=== PATIENT | male | born 1975 | race Caucasian/White ===

== ENCOUNTER 2016-06-11 22:31 | Emergency (ER) | payer OTHER ==
[2016-06-11 22:43] VITALS: BP 127/90; PULSE 82; BMI 32.0
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
== END 2016-06-11 23:29 | disposition home or self-care (01) ==
LOC: FER 22:31
DX: S06.0X1A Concussion with loss of consciousness of 30 minutes or less, initial encounter (principal); F17.210 Nicotine dependence, cigarettes, uncomplicated; Z95.5 Presence of coronary angioplasty implant and graft; I10 Essential (primary) hypertension; E78.00 Pure hypercholesterolemia, unspecified; E11.9 Type 2 diabetes mellitus without complications; W00.0XXA Fall on same level due to ice and snow, initial encounter; Y93.89 Activity, other specified; Y92.9 Unspecified place or not applicable
CPT/HCPCS: 70450-TC; 99281-25

== ENCOUNTER 2017-03-29 20:35 | Emergency (ER) | payer OTHER ==
[2017-03-29 20:40] VITALS: BP 146/82; PULSE 96; TEMP 98.2; BMI 31.4
--- NOTE | 2017-03-29 21:21 | PDOC ---
History of Present Illness - General History Source: Patient, Spouse Exam Limitations: No Limitations - History of Present Illness Initial Comments: 03/29/17 21:26 42 year old male with past medical history of IDDM and lumbar laminectomy, who presents to the emergency room complaining of right sided rib pain, right lower back pain, and 2 episodes of hemoptysis s/p mechanical fall down a flight of stairs on Sunday, 4 days ago.The patient explains that he was walking down a flight of stairs in his sons apartment building with a shivam tree in his hands. At the bottom of the steps, there was about an inch of water that he slipped on. Both feet went into the air and he landed directly onto the right side of his ribs and right lower back. Since the incident, the pain has progressively worsened and become constant. He describes the pain as stabbing from the right buttock to the right ribs. The pain is exacerbated when sneezing , coughing, and taking a deep breath. The patient reports two episodes of hemoptysis that both occurred when picking up his 14 month old baby. The patient notes that his right ankle is bruised because it was caught under him when he fell, but he is ambulatory and does not believe that he broke the ankle.He denies neck pain or head trauma. Denies chest pain, SOB. Denies fever , chills, nausea, vomiting, hematemesis. Denies any other injuries. <Omaira Villalobos - Last Filed: 03/29/17 21:31> <Yolande Lazo - Last Filed: 03/30/17 05:24> - General Chief Complaint: Injury Stated Complaint: RIB PAIN Time Seen by Provider: 03/29/17 20:36 Past History <Omaira Villalobos - Last Filed: 03/29/17 21:31> - Past Medical History Anemia: No Asthma: No Cancer: No Cardiac Disorders: Yes (STENT) CVA: No COPD: No CHF: No Dementia: No Diabetes: Yes GI Disorders: No Disorders: No HTN: Yes Hypercholesterolemia: Yes Kidney Stones: No Liver Disease: No Seizures: No Thyroid Disease: No - Surgical History Abdominal Surgery: No Appendectomy: No Cardiac Surgery: Yes (STENT 2008) Cholecystectomy: No Lung Surgery: No Neurologic Surgery: No Orthopedic Surgery: Yes (laminectomy 2009) - Reproductive History Testicular Surgery: No - Immunization History Td Vaccination: (UNKNOWN) Immunization Up to Date: Yes - Suicide/Smoking/Psychosocial Hx Smoking Status: Yes Smoking History: Never smoked Have you smoked in the past 12 months: Yes Number of Cigarettes Smoked Daily: 20 'Breaking Loose' booklet given: 07/12/15 Hx Alcohol Use: No Drug/Substance Use Hx: Yes Substance Use Type: Opiates, Prescribed, Tranquilizers Hx Substance Use Treatment: No <Yolande Lazo - Last Filed: 03/30/17 05:24> - Past Medical History Allergies/Adverse Reactions: Allergies Allergy/AdvReac Type Severity Reaction Status Date / Time No Known Allergies Allergy Verified 07/12/15 19:41 Home Medications: Ambulatory Orders Aspirin 81 mg PO DAILY 06/10/13 Atorvastatin Ca [Lipitor] 20 mg PO HS 06/10/13 Clopidogrel Bisulfate [Plavix -] 75 mg PO DAILY 06/10/13 Metoprolol Succinate [Toprol XL -] 25 mg PO DAILY 02/10/14 Insulin Glargine,Hum.rec.anlog [Lantus Solostar PEN (NF)] 15 units SQ AM #1 pen 06/11/15 Insulin Sliding Scale [Novolog Vial Sliding Scale -] 1 units SQ ACHS #1 pen 07/23 Alprazolam [Xanax] 0.25 mg PO HS PRN #16 tablet MDD 2mg 06/12/16 Trauma Specific PMHX - Complaint Specific PMHX Arthritis: No <Yolande Lazo - Last Filed: 03/30/17 05:24> Review of Systems - Review of Systems Able to Perform ROS?: Yes Comments:: 03/29/17 21:28 GENERAL/CONSTITUTIONAL: No fever or chills. No weakness. HEAD, EYES, EARS, NOSE AND THROAT: No change in vision. No ear pain or discharge. No sore throat. CARDIOVASCULAR: No chest pain or shortness of breath. RESPIRATORY: No cough, wheezing, or hemoptysis. GASTROINTESTINAL: No nausea, vomiting, diarrhea or constipation. GENITOURINARY: No dysuria, frequency, or change in urination. MUSCULOSKELETAL: +right sided rib pain, right lower back pain, right ankle bruising. SKIN: No rash NEUROLOGIC: No headache, vertigo, loss of consciousness, or change in strength/ sensation. ENDOCRINE: No increased thirst. No abnormal weight change. HEMATOLOGIC/LYMPHATIC: No anemia, easy bleeding, or history of blood clots. ALLERGIC/IMMUNOLOGIC: No hives or skin allergy. <TrungfletcherOmaira - Last Filed: 03/29/17 21:31> *Physical Exam - Vital Signs Last Vital Signs Temp Pulse Resp BP Pulse Ox 98.2 F 96 H 16 146/82 97 03/29/17 20:38 03/29/17 20:38 03/29/17 20:38 03/29/17 20:38 03/29/17 20:38 - Physical Exam Comments: 03/29/17 21:31 GENERAL: Awake, alert, and fully oriented, in no acute distress HEAD: No signs of trauma EYES: PERRLA, EOMI, sclera anicteric, conjunctiva clear ENT: Auricles normal inspection, hearing grossly normal, nares patent, oropharynx clear without exudates. Moist mucosa NECK: Normal ROM, supple, no lymphadenopathy, JVD, or masses LUNGS: Breath sounds equal, clear to auscultation bilaterally. No wheezes, and no crackles HEART: Regular rate and rhythm, normal S1 and S2, no murmurs, rubs or gallops ABDOMEN: Soft, nontender, normoactive bowel sounds. No guarding, no rebound. No masses BACK: +tenderness to palpation of ribs 5 - 8 from the posterior axillary line extending forward to the anterior axillary line. No ecchymosis, step offs, or crepitus palpated. There is mild tenderness to palpation of the right flank without palpable masses. No midline vertebral column tenderness, edema, or ecchymosis. There is a well-healed midline lumbar incision. EXTREMITIES: Normal range of motion, no edema. No clubbing or cyanosis. No cords, erythema, or tenderness NEUROLOGICAL: Cranial nerves II through XII grossly intact. Normal speech, normal gait SKIN: Warm, Dry, normal turgor, no rashes or lesions noted. <TrungfletcherOmaira - Last Filed: 03/29/17 21:31> - Vital Signs Last Vital Signs Temp Pulse Resp BP Pulse Ox 98.2 F 96 H 16 146/82 97 03/29/17 20:38 03/29/17 20:38 03/29/17 20:38 03/29/17 20:38 03/29/17 20:38 <Yolande Lazo - Last Filed: 03/30/17 05:24> Progress Note - Progress Note Progress Note: Documentation has been prepared under my direction and personally reviewed by me in its entirety. I attest that this documented accurately reflects all work, treatment, procedures and medical decision making performed by me. As noted above, this 42-year-old man presents with right lateral lower chest pain and right flank pain after injury 3 days prior to presentation. Of note, patient describes rare (a few times total) episodes of hemoptysis. Patient is a smoker without underlying asthma or other chronic lung issues. No fever/ chills, purulent sputum, wheezing or difficulty breathing not related to pain. Exam as noted Right rib series/lumbosacral spine series show no evidence of fracture or pulmonary pathology on chest x-ray. Spine x-rays show significant DJD and other chronic changes but no acute fracture/dislocation or other evidence of acute injury. Patient had received Toradol 60 mg IM prior to x-ray. Patient states that this did not give him any relief. Patient received morphine sulfate 2 mg IM. He had significant relief after this medication was given. Results discussed with the patient and his . Although it will be some time before the rib contusions are healed, the time course is shortened as compared to rib fractures. He should avoid strenuous activity/exercises involving upper body for the next few weeks. He should attempt to deep breathe and avoid smoking as much as possible. Patient has had a long history of using opiates because of chronic lower back pain. He states that he does not want to resume use of opiates, especially any containing acetaminophen which was very irritating to his gastrointestinal tract. He has been using naproxen (OTC) with some relief. He should follow-up with his general doctor within the next few weeks. He should return to the ER if he has severe, unrelenting pain or experiences shortness of breath/fever/severe cough <Yolande Lazo - Last Filed: 03/30/17 05:24> *DC/Admit/Observation/Transfer - Attestations Scribe Attestion: 03/29/17 21:32 Documentation prepared by GORDO Tate, acting as senior medical billing specialist for Yolande Lazo MD. <Omaira Villalobos - Last Filed: 03/29/17 21:31> <Yolande Lazo - Last Filed: 03/30/17 05:24> Diagnosis at time of Disposition: Contusion of ribs Qualifiers: Encounter type: initial encounter Laterality: right Qualified Code(s): S20.211A - Contusion of right front wall of thorax, initial encounter - Discharge Dispostion Disposition: HOME Condition at time of disposition: Stable - Patient Instructions Printed Discharge Instructions: DI for Rib Contusion Additional Instructions: Continue naproxen as needed for pain Avoid strenuous activity involving upper body as much as possible for the next few weeks Avoid smoking Return or see your doctor if you have shortness of breath/fever/persistent cough
[2017-03-29] MEDS ORDERED: KETOROLAC TROMETHAMINE 60 MG/2 ML VIAL IM ONE (21:26)
[2017-03-29] MEDS ORDERED: KETOROLAC TROMETHAMINE 60 MG/2 ML VIAL ONE (21:29)
[2017-03-29 21:33] LABS: PH,URINE 5.5 (4.5-8); URINE APPEARANCE Clear; URINE BILIRUBIN Negative (NEGATIVE); URINE BLOOD Negative (NEGATIVE); URINE GLUCOSE (UA) 2+ (NEGATIVE); URINE KETONE Negative (NEGATIVE); URINE LEUK ESTERASE Negative (NEGATIVE); URINE NITRITE Negative (NEGATIVE); URINE PROTEIN Negative (NEGATIVE); URINE UROBILINOGEN 0.2 (0.2-1.0)
[2017-03-29 21:36] LABS: URINE COLOR YELLOW
[2017-03-29] MEDS ORDERED: morphine CARPU-JECT 2 MG/1 ML DISP.SYRIN IM ONE (22:16)
[2017-03-29] MEDS ORDERED: morphine CARPU-JECT 2 MG/1 ML DISP.SYRIN ONE (22:18)
== END 2017-03-29 22:27 | disposition home or self-care (01) ==
LOC: FER 20:35
PROC: 3E0233Z Introduction of Anti-inflammatory into Muscle, Percutaneous Approach (ICD-10-PCS; principal; 2017-03-29)
PROC: 3E023NZ Introduction of Analgesics, Hypnotics, Sedatives into Muscle, Percutaneous Approach (ICD-10-PCS; 2017-03-29)
DX: S20.211A Contusion of right front wall of thorax, initial encounter (principal); Z95.5 Presence of coronary angioplasty implant and graft; I10 Essential (primary) hypertension; Z87.891 Personal history of nicotine dependence
CPT/HCPCS: 71101-TC-RT; 72100-TC; 81003; 99281-25

== ENCOUNTER 2019-02-01 11:19 | Inpatient (IN) | payer OTHER ==
[2019-02-01] MEDS ORDERED: FAMOTIDINE 20 MG/50 ML IVPB 20 MG/50 ML MG IVPB ONE ×2 (11:35→12:01)
[2019-02-01] MEDS ORDERED: SODIUM CHLORIDE 0.9% 500 ML INFUS.BAG IV ONE ×2 (11:36→15:19)
[2019-02-01] MEDS ORDERED: KETOROLAC TROMETHAMINE 15 MG/ML VIAL IVPUSH ONE (11:46)
[2019-02-01] MEDS ORDERED: ACETAMINOPHEN 1000 MG/100 ML VIAL (NON FORMULARY) IVPB ONE (11:46)
[2019-02-01] MEDS ORDERED: ONDANSETRON 4 MG/2 ML VIAL IVPUSH ONE (11:47)
[2019-02-01] MEDS ORDERED: KETOROLAC TROMETHAMINE 15 MG/ML VIAL ONE (12:00)
[2019-02-01] MEDS ORDERED: ACETAMINOPHEN INJECTION 100 ML IVPB ONE (12:00)
[2019-02-01] MEDS ORDERED: ONDANSETRON 4 MG/2 ML VIAL ONE (12:01)
[2019-02-01] MEDS ORDERED: KETAMINE HCL 200 MG/20 ML VIAL IVPUSH ONE ×2 (12:10→13:59)
--- NOTE | 2019-02-01 12:18 | PDOC ---
Documentation entered by Rolando Bentley SCRIBE, acting as scribe for Armida Best MD. Armida Best MD: This documentation has been prepared by the Sheree gonzalez Xhesika, SCRIBE, under my direction and personally reviewed by me in its entirety. I confirm that the documentation accurately reflects all work, treatment, procedures, and medical decision making performed by me. History of Present Illness - General Chief Complaint: Pain, Acute Stated Complaint: VOMITTING/STOMACH PAIN Time Seen by Provider: 02/01/19 11:33 History Source: Patient Exam Limitations: No Limitations - History of Present Illness Initial Comments: 02/01/19 11:51 43 year old male with h/o MT s/p stent on DAPT and lumbar disc disease s/p 2 operations, DM, HLD, prior opioid abuse on suboxone who presents to the emergency department with RUQ/flank and abdominal pain since 8:30AM. Patient describes the pain as a "stabbing sensation," shooting to his back, associated with 3 episodes of clear white phlegm with streaks of blood, nausea, headache, and dizziness. Patient notes he was fine last night, however, his pain woke him up from his sleep this morning. Patient notes he has been going to the gym for the past 2 weeks, has been drinking whey protein and staying hydrated appropriately. Patient notes he took aspirin this morning, suboxone last night. Patient denies any hx of gallstones, kidney stones, or urinary symptoms in personl or family history. Denies fever, chills, chest pain, SOB, palpitation, weakness, N, D, bladder and bowel problems, leg swelling, No sick contacts or travel. No new changes in medications. Allergies: None Past Medical History: MT s/p stent on DAPT and lumbar disc disease s/p 2 operations, DM, HLD Social history: Everyday smoker. No ETOH or drug use. Surgical history: STENT, back surgery Meds: as documented in EMR PMD: Dr Mayorga [facility] 02/01/19 12:15 02/01/19 14:53 Past History - Past Medical History Allergies/Adverse Reactions: Allergies Allergy/AdvReac Type Severity Reaction Status Date / Time No Known Allergies Allergy Verified 02/01/19 16:35 Home Medications: Ambulatory Orders Atorvastatin Ca [Lipitor] 20 mg PO HS 06/10/13 Clopidogrel Bisulfate [Plavix -] 75 mg PO DAILY 06/10/13 Metoprolol Succinate [Toprol XL -] 25 mg PO DAILY 02/10/14 Insulin Sliding Scale [Novolog Vial Sliding Scale -] 1 units SQ ACHS #1 pen 07/23 Buprenorphine HCl/Naloxone HCl [Suboxone 8 mg-2 mg Sl Tablets] 1 each SL TID PRN 09/03/18 Insulin Detemir [Levemir Flextouch] 20 unit SQ DAILY 09/03/18 Bupropion HCl [Wellbutrin Xl] 300 mg PO DAILY 02/01/19 Anemia: No Asthma: No Cancer: No Cardiac Disorders: Yes (STENT) CVA: No COPD: No CHF: No Dementia: No Diabetes: Yes GI Disorders: No Disorders: No HTN: Yes Hypercholesterolemia: Yes Kidney Stones: No Liver Disease: No Seizures: No Thyroid Disease: No - Surgical History Abdominal Surgery: No Appendectomy: No Cardiac Surgery: Yes (STENT 2008) Cholecystectomy: No Lung Surgery: No Neurologic Surgery: No Orthopedic Surgery: Yes (laminectomy 2008) - Reproductive History Testicular Surgery: No - Immunization History Td Vaccination: (UNKNOWN) Immunization Up to Date: Yes - Psycho Social/Smoking Cessation Hx Smoking Status: Yes Smoking History: Unknown if ever smoked Have you smoked in the past 12 months: Yes Number of Cigarettes Smoked Daily: 20 'Breaking Loose' booklet given: 07/12/15 Hx Alcohol Use: No Drug/Substance Use Hx: Yes Substance Use Type: Opiates, Prescribed, Tranquilizers Hx Substance Use Treatment: No Abd/GI Specific PMHX - Complaint Specific PMHX Hepatitis: No Pancreatitis: No Review of Systems - Review of Systems Comments:: 02/01/19 11:52 Constitutional: no fevers or chills. No weakness HEENT: +headache. + dizziness. No congestion. No visual/hearing disturbances. CVS: no cp or syncope. Resp: no sob. No cough. Gastrointestinal: + abdominal pain. +flank pain. +vomiting. +nausea, no constipation, or diarrhea. Genitourinary: no urinary sx, hematuria. MUSCULOSKELETAL: No joint pain and swelling. No neck pain. SKIN: no redness or skin changes, no discharge, no rash. No wounds. Hematologic: no easy bruising/bleeding. NEUROLOGIC: +headache, dizziness, No LOC or altered mental status. No weakness, numbness or tingling. Psych: +anxiety or depression Allergic/Immunologic: no allergies All other systems reviewed and negative, or as documented in HPI. 02/01/19 12:17 *Physical Exam - Vital Signs Last Vital Signs Temp Pulse Resp BP Pulse Ox 98.1 F 91 H 22 H 120/90 99 02/01/19 11:29 02/01/19 11:29 02/01/19 11:29 02/01/19 11:29 02/01/19 11:29 - Physical Exam Comments: 02/01/19 11:54 General: Well appearing, awake and alert, mild distress 2/2 pain, colicky HEENT: NCAT, PERRL, EOMI, clear conjunctiva, anicteric, moist mucus membranes, clear oropharynx, no oral lesions.. Neck: neck supple, FROM Resp: CTAB, normal and even respirations, no respiratory distress CVS: RRR, no murmurs, 2+ peripheral pulses throughout, no peripheral edema Abdomen: +R flank tenderness. + RUQ tenderness. soft, ND, no rebound or guarding. +anderson's sign. Back: + R CVA tenderness. MSK: no edema, GIVENS x4, ROM intact. No clubbing or cyanosis. normal bulk and tone. Extremities: no calf tenderness Neuro: alert, oriented appropriately; no focal neurologic deficits Psych: Calm and cooperative Skin: warm and well perfused, cap refill <2 sec, normal color 02/01/19 12:17 02/01/19 15:31 Procedures - Bedside Ultrasound Bedside Ultrasound: Gallbladder Remarks: 02/01/19 13:13 \\ POCUS renal exam performed, indication includes abdominal/flank pain. views obtained: bilateral kidneys in short and long axis, bladder. findings: no evidence of hydronephrosis. no free fluid posterior to bladder, distended. Impression: no hydronephrosis POCUS biliary exam: Indication: abdominal pain Views: gallbladder long and s hort axis, CBD Findings: +stone seen in lower part of GB. No GB wall thickening (measured <3mm) , no pericholecystic fluid, cbd not visualized. +sono murphydennis Impression: cholelithiasis, suspicious for cholecystitis official sono to follow Heart Score/ECG Review #1 ECG reviewed & interpreted by me at: 12:15 General ECG Interpretation: Sinus Rhythm, Normal Rate, Normal Intervals, No acute ischemic changes ED Treatment Course - LABORATORY CBC & Chemistry Diagram: 02/01/19 11:50 02/01/19 11:50 - Medications Given in the ED: ED Medications Discontinued Medications Generic Name Dose Route Start Last Admin Trade Name Moi PRN Reason Stop Dose Admin Acetaminophen 1,000 mg 02/01/19 11:46 02/01/19 12:10 Ofirmev Injection - IVPB 02/01/19 11:47 1,000 mg ONCE ONE Administration Famotidine/Sodium Chloride 20 mg in 50 mls @ 100 mls/hr 02/01/19 11:35 12:10 Pepcid 20 Mg Premixed Ivpb - IVPB 02/01/19 12:04 100 mls/hr ONCE ONE Administration Ketorolac Tromethamine 15 mg 02/01/19 11:46 02/01/19 12:14 Toradol Injection - IVPUSH 02/01/19 11:47 15 mg ONCE ONE Administration Ondansetron HCl 4 mg 02/01/19 11:47 02/01/19 12:15 Zofran Injection IVPUSH 02/01/19 11:48 4 mg ONCE ONE Administration Sodium Chloride 1,000 ml 02/01/19 11:36 02/01/19 11:58 Normal Saline - IV 02/01/19 11:37 1,000 ml ONCE ONE Administration Medical Decision Making - Medical Decision Making 02/01/19 13:15 Vital Signs Temp Pulse Resp BP Pulse Ox 98.1 F 91 H 22 H 120/90 99 02/01/19 11:29 02/01/19 11:29 02/01/19 11:29 02/01/19 11:29 02/01/19 11:29 DDx abdominal pain: Renal colic, biliary colic, metabolic/electrolyte derangements. GERD, PUD, esophageal spasm, pancreatitis, hepatitis, constipation , colitis, gastroenteritis, cholecystitis, UTI, pyelonephritis, ileus, SBO, medication side effect, hernia, appendicitis, diverticulitis, mesenteric ischemia. msk strain Laboratory results were reviewed within normal limits, no WBC count. Urinalysis with some glucose, no blood or signs of infection. Bedside point-of- care ultrasound with stone seen in the gallbladder, sonographic Anderson's elicited, otherwise normal gallbladder wall CBD is not visualized, no pericholecystic fluid is noted. Pocus renal exam was within normal limits, no hydronephrosis or less likely to be ureteral colic/obstructed stone. Official gallbladder ultrasound to follow. Patient has been given analgesia including IV ketamine, Tylenol and Toradol with IV fluids for pain management. He is also on Suboxone we will not give any opioids at this time. he is on chronic suboxone and has diminished effect on the mu receptor, so opioids likely will no have effect and should require confirmation and monitoring 02/01/19 14:58 - on reassessement, initial pain improved. now back up to 01/16 given additional analgesia, ketamine and reglan for nausea. official RUQ sono neg for cholecystitis, but my exam +sono murphys, +stone. labs and lytes with mild lipase elevation ~590s LFTs normal. wbc ct normal. surg cs Dr Sparks for recs/management, [facility] admission for medical management sx cholelithiasis. mild gallstone pancreatitis with concurrent clinical sx. will need med optimization, cards eval with MT and cards clearance, call out to Dr Guidry agronomy instructor d/w Dr Ren, CT w/o contrast, r/o renal pathology/stone as alternative etiology (unlikely with no hydro on bedside sono), so order placed. pt and family made aware of impression and plan, amenable to admission with consultants and further management. admitting to [facility], s/o Dr Mikal Irvin. 02/01/19 15:07 02/01/19 15:18 02/01/19 15:31 02/01/19 17:58 02/01/19 17:59 Discharge - Discharge Information Problems reviewed: Yes Clinical Impression/Diagnosis: Cholelithiasis Qualifiers: Cholelithiasis location: other site Biliary obstruction: without biliary obstruction Qualified Code(s): K80.80 - Other cholelithiasis without obstruction Pancreatitis Qualifiers: Chronicity: acute Pancreatitis type: unspecified pancreatitis type Acute pancreatitis complication: unspecified Qualified Code(s): K85.90 - Acute pancreatitis without necrosis or infection, unspecified Condition: Fair - Admission Yes - Follow up/Referral - Patient Discharge Instructions - Post Discharge Activity
[2019-02-01] MEDS ORDERED: KETAMINE HCL 200 MG/20 ML VIAL ONE (12:19)
[2019-02-01 12:27] LABS: PH,URINE 5.5 (5.0-8.0); URINE APPEARANCE CLEAR; URINE BILIRUBIN NEGATIVE (NEGATIVE); URINE COLOR YELLOW; URINE GLUCOSE (UA) 3+ (NEGATIVE); URINE KETONE NEGATIVE (NEGATIVE); URINE LEUK ESTERASE NEGATIVE (NEGATIVE); URINE NITRITE NEGATIVE (NEGATIVE); URINE PROTEIN NEGATIVE (NEGATIVE); URINE UROBILINOGEN 0.2 mg/dL (0.2-1.0)
[2019-02-01 12:29] LABS: BASO % 0.3 % (0-2.0); EOS % 0.6 % (0-4.5); HEMATOCRIT 47.7 % (35.4-49); HEMOGLOBIN 16.3 GM/dL (11.7-16.9); LYMPH % 22.6 % (8-40); MCH 31.4 pg (25.7-33.7); MCHC 34.2 g/dl (32.0-35.9); MEAN CELL VOLUME 91.8 fl (80-96); MEAN PLT VOLUME 8.8 fl (7.5-11.1); NEUT % 68.5 % (42.8-82.8); PLATELET COUNT 132 K/MM3 (134-434); RBC 5.19 M/mm3 (4.00-5.60); RDW 13.8 % (11.9-15.9)
[2019-02-01 12:54] LABS: ALBUMIN 3.7 g/dl (3.4-5.0); ALK PHOS 91 U/L (45-117); ANION GAP 7 MMOL/L (8-16); BILIRUBIN,TOTAL 0.3 mg/dL (0.2-1); BLOOD UREA NITROGEN 23.5 mg/dL (7-18); CALCIUM 9.2 mg/dL (8.5-10.1); CHLORIDE 98 mmol/L (98-107); CO2 31 mmol/L (21-32); CREATININE 0.9 mg/dL (0.55-1.3); GLUCOSE,RANDOM 395 mg/dL (74-106); LIPASE 598 U/L (73-393); POTASSIUM 4.5 mmol/L (3.5-5.1); SGOT/AST 21 U/L (15-37); SGPT/ALT 49 U/L (13-61); SODIUM 136 mmol/L (136-145); TOT PROT 6.8 g/dl (6.4-8.2)
[2019-02-01] MEDS ORDERED: METOCLOPRAMIDE HCL INJECTION 10 MG/2 ML VIAL IVPUSH ONE (14:22)
[2019-02-01] MEDS ORDERED: METOCLOPRAMIDE HCL INJECTION 10 MG/2 ML VIAL ONE (14:38)
[2019-02-01] MEDS ORDERED: KETAMINE HCL 200 MG/20 ML VIAL IVPB ONE (15:13)
[2019-02-01] MEDS ORDERED: ACETAMINOPHEN 325 MG TABLET (FP) PO PRN (15:15)
--- NOTE | 2019-02-01 15:24 | HP ---
CHIEF COMPLAINT: RIGHT SIDES ABDOMINAL PAINS PCP: HISTORY OF PRESENT ILLNESS: 43 year old male with h/o SD s/p stent on DAPT and lumbar disc disease s/p 2 operations, DM, HLD, prior opioid abuse on suboxone who presents to the emergency department with RUQ/flank and abdominal pain since 8:30AM. Patient describes the pain as a "stabbing sensation," shooting to his back, associated with 3 episodes of clear white phlegm with streaks of blood, nausea, headache, and dizziness. Patient notes he was fine last night, however, his pain woke him up from his sleep this morning. Patient notes he has been going to the gym for the past 2 weeks, has been drinking whey protein and staying hydrated appropriately. Patient notes he took aspirin this morning, suboxone last night. Patient denies any hx of gallstones, kidney stones, or urinary symptoms in personal or family history. In ER he has multiple doses of toradol for pains and have some relief. ER course was notable for: (1)GALL STONES ON SONOGRAM (2)NO SIGN OF CHOLEYCYSTITIS (3)DM H/O Recent Travel:NONE PAST MEDICAL HISTORY:SPINE SURGERY S/P CH PAINS MEDS USE AND CURRENTLY ON SUBOXONE ,DM,CAD ON PLAVIX , HIGH LIPIDS PAST SURGICAL HISTORY:SPINE SURGERY Social History: Smoking:NONE Alcohol:NONE Drugs: NONE Allergies No Known Allergies Allergy (Verified 09/03/18 18:31) HOME MEDICATIONS: Home Medications Medication Instructions Recorded Atorvastatin Ca [Lipitor] 20 mg PO HS 06/10/13 Clopidogrel Bisulfate [Plavix -] 75 mg PO DAILY 06/10/13 Metoprolol Succinate [Toprol XL -] 25 mg PO DAILY 02/10/14 Insulin Sliding Scale [Novolog 1 units SQ ACHS #1 pen 06/11/15 Vial Sliding Scale -] Buprenorphine HCl/Naloxone HCl 1 each SL TID PRN 09/03/18 [Suboxone 8 mg-2 mg Sl Tablets] Insulin Detemir [Levemir Flextouch] 20 unit SQ DAILY 09/03/18 Bupropion HCl [Wellbutrin Xl] 300 mg PO DAILY 02/01/19 REVIEW OF SYSTEMS CONSTITUTIONAL: Absent: fever, chills, diaphoresis, generalized weakness, malaise, loss of appetite, weight change HEENT: Absent: rhinorrhea, nasal congestion, throat pain, throat swelling, difficulty swallowing, mouth swelling, ear pain, eye pain, visual changes CARDIOVASCULAR: Absent: chest pain, syncope, palpitations, irregular heart rate, lightheadedness , peripheral edema RESPIRATORY: Absent: cough, shortness of breath, dyspnea with exertion, orthopnea, wheezing, stridor, hemoptysis GASTROINTESTINAL: pRESENT abdominal pain, abdominal distension, nausea,vomiting, NEGATIVE diarrhea, constipation, melena, hematochezia GENITOURINARY: Absent: dysuria, frequency, urgency, hesitancy, hematuria, flank pain, genital pain MUSCULOSKELETAL: Absent: myalgia, arthralgia, joint swelling, back pain, neck pain SKIN: Absent: rash, itching, pallor HEMATOLOGIC/IMMUNOLOGIC: Absent: easy bleeding, easy bruising, lymphadenopathy, frequent infections ENDOCRINE: Absent: unexplained weight gain, unexplained weight loss, heat intolerance, cold intolerance NEUROLOGIC: Absent: headache, focal weakness or paresthesias, dizziness, unsteady gait, seizure, mental status changes, bladder or bowel incontinence PSYCHIATRIC: Absent: anxiety, depression, suicidal or homicidal ideation, hallucinations. PHYSICAL EXAMINATION Vital Signs - 24 hr 02/01/19 11:29 Temperature 98.1 F Pulse Rate 91 H Respiratory 22 H Rate Blood Pressure 120/90 O2 Sat by Pulse 99 Oximetry (%) GENERAL: Awake, alert, and fully oriented, in no acute distress. HEAD: Normal with no signs of trauma. EYES: Pupils equal, round and reactive to light, extraocular movements intact, sclera anicteric, conjunctiva clear. No lid lag. EARS, NOSE, THROAT: Ears normal, nares patent, oropharynx clear without exudates. Moist mucous membranes. NECK: Normal range of motion, supple without lymphadenopathy, JVD, or masses. LUNGS: Breath sounds equal, clear to auscultation bilaterally. No wheezes, and no crackles. No accessory muscle use. HEART: Regular rate and rhythm, normal S1 and S2 without murmur, rub or gallop. ABDOMEN: Soft, nontender, not distended, normoactive bowel sounds, no guarding, no rebound, no masses. No hepatomegaly or splenomegaly. according to er physician he has tenderness on rt upper quadrant before the pain medications. MUSCULOSKELETAL: Normal range of motion at all joints. No bony deformities or tenderness. No CVA tenderness. UPPER EXTREMITIES: 2+ pulses, warm, well-perfused. No cyanosis. No clubbing. No peripheral edema. LOWER EXTREMITIES: 2+ pulses, warm, well-perfused. No calf tenderness. No peripheral edema. NEUROLOGICAL: Cranial nerves II-XII intact. Normal speech. Normal gait. PSYCHIATRIC: Cooperative. Good eye contact. Appropriate mood and affect. SKIN: Warm, dry, normal turgor, no rashes or lesions noted, normal capillary refill. Laboratory Results - last 24 hr 02/01/19 02/01/19 02/01/19 11:50 11:50 11:50 WBC 8.0 RBC 5.19 Hgb 16.3 Hct 47.7 MCV 91.8 MCH 31.4 MCHC 34.2 RDW 13.8 Plt Count 132 L MPV 8.8 Absolute Neuts (auto) 5.5 Neutrophils % 68.5 Lymphocytes % 22.6 Monocytes % 8.0 Eosinophils % 0.6 D Basophils % 0.3 Nucleated RBC % 0 Sodium 136 Potassium 4.5 Chloride 98 Carbon Dioxide 31 Anion Gap 7 L BUN 23.5 H Creatinine 0.9 Est GFR (CKD-EPI)AfAm 122.52 Est GFR (CKD-EPI)NonAf 105.71 Random Glucose 395 H Calcium 9.2 Total Bilirubin 0.3 AST 21 ALT 49 Alkaline Phosphatase 91 Troponin I < 0.02 Total Protein 6.8 Albumin 3.7 Lipase 598 H Beta-Hydroxybutyrate 1.9 Urine Color Yellow Urine Appearance Clear Urine pH 5.5 Ur Specific [place] 1.044 H Urine Protein Negative Urine Glucose (UA) 3+ H Urine Ketones Negative Urine Blood Negative Urine Nitrite Negative Urine Bilirubin Negative Urine Urobilinogen 0.2 Ur Leukocyte Esterase Negative ASSESSMENT/PLAN: 43 year old male with h/o SD s/p stent on DAPT and lumbar disc disease s/p 2 operations, DM, HLD, prior opioid abuse on suboxone who presents to the emergency department with RUQ/flank and abdominal pain since 8:30AM. Patient describes the pain as a "stabbing sensation," shooting to his back, associated with 3 episodes of clear white phlegm with streaks of blood, nausea. - will do ct abd and pelvis r/o renal stones and pancreatitits -will give him diet - repeat lipse in am -tylenol and toradol for pains - add protonox for possible gastric symptoms plus protections for gi against nsaids - surgical consult has be requested dm - will start him on insulin coverage and his regular insulin Cad, will start him on plavix and metoprolol HIgh lipids restart atorvastatin pateint is seen by surgery and he having surgery for lap waqar am will request cardiac consult due to h/o cad and mi in past Visit type - Emergency Visit Emergency Visit: Yes ED Registration Date: 02/01/19 Care time: The patient presented to the Emergency Department on the above date and was hospitalized for further evaluation of their emergent condition. - New Patient This patient is new to me today: Yes Date on this admission: 02/01/19 - Critical Care Critical Care patient: No
--- NOTE | 2019-02-01 15:57 | CONSULT ---
Consult Consult Specialty:: General Surgery Reason for Consultation:: mild gallstone pancreatitis - History of Present Illness Chief Complaint: abdominal pain History of Present Illness: 43 yo male PMH [place] s/p stent on DAPT and lumbar disc disease s/p 2 operations, DM , HLD, prior opioid abuse on suboxone who presents to the emergency department with RUQ/flank and abdominal pain since 8:30AM. Patient describes the pain as a "stabbing sensation," shooting to his back, associated with 3 episodes of clear white phlegm with streaks of blood, nausea, headache, and dizziness. Patient notes he was fine last night, however, his pain woke him up from his sleep this morning. Patient notes he took aspirin this morning, suboxone last night. Patient denies any history of gallstones, kidney stones, or urinary symptoms in personal or family history. We were called to assess. - History Source History Provided By: Patient, Medical Record Limitations to Obtaining History: No Limitations - Past Medical History Cardio/Vascular: Yes: HTN, Hyperlipdemia, [place] Musculoskeletal: Yes: Other Endocrine: Yes: Diabetes Mellitus (New Onset) Additional Medical History: obesity - Past Surgical History Past Surgical History: Yes: Laminectomy (2008), Stent (cardiac, 2008) - Alcohol/Substance Use Hx Alcohol Use: No History of Substance Use: reports: None - Smoking History Smoking history: Unknown if ever smoked Have you smoked in the past 12 months: Yes Aproximately how many cigarettes per day: 20 - Social History Place of : [facility] History of Recent Travel: No Home Medications - Allergies Allergies/Adverse Reactions: Allergies Allergy/AdvReac Type Severity Reaction Status Date / Time No Known Allergies Allergy Verified 02/01/19 16:35 - Home Medications Home Medications: Ambulatory Orders Atorvastatin Ca [Lipitor] 20 mg PO HS 06/10/13 Clopidogrel Bisulfate [Plavix -] 75 mg PO DAILY 06/10/13 Metoprolol Succinate [Toprol XL -] 25 mg PO DAILY 02/10/14 Insulin Sliding Scale [Novolog Vial Sliding Scale -] 1 units SQ ACHS #1 pen 07/23 Buprenorphine HCl/Naloxone HCl [Suboxone 8 mg-2 mg Sl Tablets] 1 each SL TID PRN 09/03/18 Insulin Detemir [Levemir Flextouch] 20 unit SQ DAILY 09/03/18 Bupropion HCl [Wellbutrin Xl] 300 mg PO DAILY 02/01/19 Family Medical History Family History: Denies Review of Systems - Review of Systems Constitutional: denies: Chills, Fever Eyes: denies: Blind Spots, Recent Change in Vision HENT: denies: Difficult Swallowing, Throat Pain Neck: denies: Pain on Movement, Tenderness Cardiovascular: denies: Chest Pain, Palpitations Respiratory: denies: Cough, SOB Gastrointestinal: denies: Abdominal Pain, Constipation, Diarrhea Genitourinary: denies: Discharge, Dysuria Breasts: reports: No Symptoms Reported. denies: Pain Musculoskeletal: denies: Muscle Cramps, Muscle Weakness Integumentary: denies: Incision, Lump Neurological: denies: Seizure, Syncope Endocrine: denies: Unexplained Weight Gain, Unexplained Weight Loss Hematology/Lymphatic: denies: Easily Bruised, Excessive Bleeding Psychiatric: denies: Anxiety, Depression Physical Exam Vital Signs: Vital Signs Temperature 98.1 F 02/01/19 11:29 Pulse Rate 91 H 02/01/19 11:29 Respiratory Rate 22 H 02/01/19 11:29 Blood Pressure 120/90 02/01/19 11:29 O2 Sat by Pulse Oximetry (%) 99 02/01/19 11:29 Constitutional: Yes: Well Nourished, No Distress, Calm, Obese Eyes: Yes: Conjunctiva Clear, EOM Intact HENT: Yes: Atraumatic, Normocephalic Neck: Yes: Supple, Trachea Midline Cardiovascular: Yes: Regular Rate and Rhythm, S1, S2 Gastrointestinal: Yes: Normal Bowel Sounds, Soft, Abdomen, Obese, Tenderness ( RUQ, no muro, voluntary guarding), Tenderness, Epigastrium ...Rectal Exam: Yes: Deferred Renal/: No: CVA Tenderness - Left, CVA Tenderness - Right Breast(s): No: Mass, Skin Changes Musculoskeletal: No: Muscle Pain, Muscle Weakness Extremities: No: Cool, Cyanosis Edema: No Peripheral Pulses WNL: Yes Integumentary: No: Jaundice, Rash Neurological: Yes: Alert, Oriented Psychiatric: Yes: Alert, Oriented Labs: CBC, BMP 02/01/19 11:50 02/01/19 11:50 Imaging - Results Ultrasound: Report Reviewed, Image Reviewed Problem List - Problems (1) Acute gallstone pancreatitis Assessment/Plan: 43yo male MMP including obesity and HLD presents with bilary colic and mild gallstone pancreatitis NPO and IVF hydration IV analgesia - patient report being very uncomfortable trend labs +/- IV antibiotics GI evaluation Cardiology clearance and risk stratification Possible Laparoscopic cholecystectomy during this admission Thank you for the opportunity to participate in the care of this patient. Problems reviewed: Yes Code(s): K85.10 - BILIARY ACUTE PANCREATITIS WITHOUT NECROSIS OR INFECTION (2) Cholelithiasis Problems reviewed: Yes Code(s): K80.20 - CALCULUS OF GALLBLADDER W/O CHOLECYSTITIS W/O OBSTRUCTION Qualifiers: Cholelithiasis location: other site Biliary obstruction: without biliary obstruction Qualified Code(s): K80.80 - Other cholelithiasis without obstruction (3) CAD (coronary artery disease) Problems reviewed: Yes Code(s): I25.10 - ATHSCL HEART DISEASE OF [place] CORONARY ARTERY W/O ANG PCTRS Qualifiers: Coronary Disease-Associated Artery/Lesion type: [place] artery Associated angina: angina presence unspecified (4) DKA, type 2 Problems reviewed: Yes Code(s): E13.10 - OTH DIABETES MELLITUS WITH KETOACIDOSIS WITHOUT COMA Qualifiers: Diabetes mellitus complication detail: without coma (5) Hyperlipemia Problems reviewed: Yes Code(s): E78.5 - HYPERLIPIDEMIA, UNSPECIFIED Qualifiers: Hyperlipidemia type: unspecified Qualified Code(s): E78.5 - Hyperlipidemia , unspecified (6) Hypertension Problems reviewed: Yes Code(s): I10 - ESSENTIAL (PRIMARY) HYPERTENSION Qualifiers: Hypertension type: essential hypertension Qualified Code(s): I10 - Essential (primary) hypertension (7) Obesity Problems reviewed: Yes Code(s): E66.9 - OBESITY, UNSPECIFIED
[2019-02-01] MEDS: INSULIN SLIDING SCALE (NOVOLOG) 1 VIAL SQ SCH (17:27)
[2019-02-01] MEDS: SODIUM CHLORIDE 1,000 ML IV SCH (17:27)
[2019-02-01] MEDS ORDERED: KETOROLAC TROMETHAMINE 30 MG/1 ML VIAL IM ONE (18:18)
--- NOTE | 2019-02-01 19:21 | CON.CARD ---
Consult Consult Specialty:: Cardiology - History of Present Illness History of Present Illness: 43 year old male with h/o DC s/p stent 2008 [facility] on Plavix (ASA d/c few years ago due to gerd) and lumbar disc disease s/p 2 operations, DM, HLD, prior opioid abuse on suboxone who presents to the emergency department with RUQ/ flank and abdominal pain since 8:30AM. Patient describes the pain as a " stabbing sensation," shooting to his back, associated with 3 episodes of clear white phlegm with streaks of blood, nausea, headache, and dizziness. Patient notes he was fine last night, however, his pain woke him up from his sleep this morning. Patient notes he has been going to the gym for the past 2 weeks, has been drinking whey protein and staying hydrated appropriately. Patient notes he took aspirin this morning, suboxone last night. Patient denies any hx of gallstones, kidney stones, or urinary symptoms in personal or family history. In ER he has multiple doses of toradol for pains and have some relief. - History Source History Provided By: Patient, Medical Record - Past Medical History Cardio/Vascular: Yes: CAD, HTN, Hyperlipdemia, [place] Musculoskeletal: Yes: Other Endocrine: Yes: Diabetes Mellitus (New Onset) Additional Medical History: obesity - Past Surgical History Past Surgical History: Yes: Laminectomy (2008), Stent (cardiac, 2008) - Alcohol/Substance Use Hx Alcohol Use: No History of Substance Use: reports: None - Smoking History Smoking history: Unknown if ever smoked Have you smoked in the past 12 months: Yes Aproximately how many cigarettes per day: 20 - Social History History of Recent Travel: No Home Medications - Allergies Allergies/Adverse Reactions: Allergies Allergy/AdvReac Type Severity Reaction Status Date / Time No Known Allergies Allergy Verified 02/01/19 16:35 - Home Medications Home Medications: Ambulatory Orders Atorvastatin Ca [Lipitor] 20 mg PO HS 06/10/13 Clopidogrel Bisulfate [Plavix -] 75 mg PO DAILY 06/10/13 Metoprolol Succinate [Toprol XL -] 25 mg PO DAILY 02/10/14 Insulin Sliding Scale [Novolog Vial Sliding Scale -] 1 units SQ ACHS #1 pen 07/23 Buprenorphine HCl/Naloxone HCl [Suboxone 8 mg-2 mg Sl Tablets] 1 each SL TID PRN 09/03/18 Insulin Detemir [Levemir Flextouch] 20 unit SQ DAILY 09/03/18 Bupropion HCl [Wellbutrin Xl] 300 mg PO DAILY 02/01/19 Review of Systems - Review of Systems Constitutional: reports: No Symptoms Eyes: reports: No Symptoms HENT: reports: No Symptoms Neck: reports: No Symptoms Cardiovascular: reports: No Symptoms Gastrointestinal: reports: Abdominal Pain Genitourinary: reports: No Symptoms Breasts: reports: No Symptoms Reported Musculoskeletal: reports: No Symptoms Integumentary: reports: No Symptoms Neurological: reports: No Symptoms Endocrine: reports: No Symptoms Hematology/Lymphatic: reports: No Symptoms Psychiatric: reports: No Symptoms Vital Signs: Vital Signs Temperature 98.4 F 02/01/19 17:44 Pulse Rate 76 02/01/19 17:44 Respiratory Rate 18 02/01/19 17:44 Blood Pressure 128/86 02/01/19 17:44 O2 Sat by Pulse Oximetry (%) 100 02/01/19 16:57 Constitutional: Yes: Well Nourished, No Distress, Calm Eyes: Yes: WNL, Conjunctiva Clear, EOM Intact HENT: Yes: WNL, Atraumatic, Normocephalic Neck: Yes: WNL, Supple, Trachea Midline Respiratory: Yes: WNL, Regular, CTA Bilaterally Gastrointestinal: Yes: WNL, Normal Bowel Sounds, Tenderness Renal/: Yes: WNL Cardiovascular: Yes: WNL, Regular Rate and Rhythm Heart Sounds: Yes: S1, S2 Musculoskeletal: Yes: WNL Extremities: Yes: WNL Integumentary: Yes: WNL Neurological: Yes: WNL, Alert, Oriented ...Motor Strength: WNL Psychiatric: Yes: WNL, Alert, Oriented - Other Data Labs, Other Data: CBC, BMP 02/01/19 11:50 02/01/19 11:50 Troponin, BNP 02/01/19 11:50 Troponin I < 0.02 Troponin, BNP 02/01/19 11:50 Troponin I < 0.02 Imaging - Results Chest X-ray: Pending EKG: Image Reviewed (sr wnl) Problem List - Problems (1) Acute gallstone pancreatitis Code(s): K85.10 - BILIARY ACUTE PANCREATITIS WITHOUT NECROSIS OR INFECTION (2) Cholelithiasis Code(s): K80.20 - CALCULUS OF GALLBLADDER W/O CHOLECYSTITIS W/O OBSTRUCTION Qualifiers: Cholelithiasis location: other site Biliary obstruction: without biliary obstruction Qualified Code(s): K80.80 - Other cholelithiasis without obstruction (3) Pancreatitis Code(s): K85.90 - ACUTE PANCREATITIS WITHOUT NECROSIS OR INFECTION, UNSP Qualifiers: Chronicity: acute Pancreatitis type: unspecified pancreatitis type Acute pancreatitis complication: unspecified Qualified Code(s): K85.90 - Acute pancreatitis without necrosis or infection, unspecified (4) Abrasion of right upper arm Code(s): S40.811A - ABRASION OF RIGHT UPPER ARM, INITIAL ENCOUNTER Qualifiers: Encounter type: initial encounter Qualified Code(s): S40.811A - Abrasion of right upper arm, initial encounter (5) Acute coronary syndrome Code(s): I24.9 - ACUTE ISCHEMIC HEART DISEASE, UNSPECIFIED (6) Back pain Code(s): M54.9 - DORSALGIA, UNSPECIFIED Qualifiers: Back pain location: low back pain Back pain laterality: midline Sciatica presence: without sciatica (7) Chest pain Code(s): R07.9 - CHEST PAIN, UNSPECIFIED Qualifiers: Chest pain type: unspecified Qualified Code(s): R07.9 - Chest pain, unspecified (8) Concussion Code(s): S06.0X9A - CONCUSSION W LOSS OF CONSCIOUSNESS OF UNSP DURATION, INIT Qualifiers: Encounter type: initial encounter Loss of consciousness presence/duration: with LOC of 30 min or less Qualified Code(s): S06.0X1A - Concussion with loss of consciousness of 30 minutes or less, initial encounter (9) Contusion of ribs Code(s): S20.219A - CONTUSION OF UNSPECIFIED FRONT WALL OF THORAX, INIT ENCNTR Qualifiers: Encounter type: initial encounter Laterality: right Qualified Code(s): S20.211A - Contusion of right front wall of thorax, initial encounter (10) DKA (diabetic ketoacidoses) Code(s): E13.10 - OTH DIABETES MELLITUS WITH KETOACIDOSIS WITHOUT COMA (11) Pain Code(s): R52 - PAIN, UNSPECIFIED (12) Right otitis externa Code(s): H60.91 - UNSPECIFIED OTITIS EXTERNA, RIGHT EAR (13) Right otitis media with spontaneous rupture of eardrum Code(s): H66.91 - OTITIS MEDIA, UNSPECIFIED, RIGHT EAR; H72.91 - UNSPECIFIED PERFORATION OF TYMPANIC MEMBRANE, RIGHT EAR (14) Sprain of left foot Code(s): S93.602A - UNSPECIFIED SPRAIN OF LEFT FOOT, INITIAL ENCOUNTER Qualifiers: Encounter type: initial encounter Qualified Code(s): S93.602A - Unspecified sprain of left foot, initial encounter (15) Benzodiazepine dependence Code(s): F13.20 - SEDATIVE, HYPNOTIC OR ANXIOLYTIC DEPENDENCE, UNCOMPLICATED (16) CAD (coronary artery disease) Code(s): I25.10 - ATHSCL HEART DISEASE OF [place] CORONARY ARTERY W/O ANG PCTRS Qualifiers: Coronary Disease-Associated Artery/Lesion type: [place] artery Associated angina: angina presence unspecified (17) DKA, type 2 Code(s): E13.10 - OTH DIABETES MELLITUS WITH KETOACIDOSIS WITHOUT COMA Qualifiers: Diabetes mellitus complication detail: without coma (18) Hyperlipemia Code(s): E78.5 - HYPERLIPIDEMIA, UNSPECIFIED Qualifiers: Hyperlipidemia type: unspecified Qualified Code(s): E78.5 - Hyperlipidemia , unspecified (19) Hypertension Code(s): I10 - ESSENTIAL (PRIMARY) HYPERTENSION Qualifiers: Hypertension type: essential hypertension Qualified Code(s): I10 - Essential (primary) hypertension (20) Lumbar back pain Code(s): M54.5 - LOW BACK PAIN Qualifiers: Chronicity: unspecified Sciatica presence: with sciatica presence unspecified (21) Obesity Code(s): E66.9 - OBESITY, UNSPECIFIED (22) Opioid abuse Code(s): F11.10 - OPIOID ABUSE, UNCOMPLICATED Assessment/Plan 43 y.o [place] s/p stent on Plavix and lumbar disc disease s/p 2 operations, DM, HLD , prior opioid abuse on suboxone who presents to the emergency department withwith bilary colic and mild gallstone pancreatitis. Patient reports excellent exercise tolerance does 45 min strenuous cardio ( eliptical) few times a week lifts weights and is unlimited in his exercise. His exercise tolerance is way in excess of 4.6 METS. He does not have chest pain, ekg is normal, there is no signs of CHF or h/o DC. Patient is low risks for cardiovascular complications during Laparoscopic cholecystectomy. However patient is high risks for bleeding complications due to being on Plavix. Prior to surgery discussion of risks and benefits of surgery in the setting of high bleeding complications needs to be addressed with patient and his family. d/w patient and his at the bedside.
[2019-02-01] MEDS ORDERED: INSULIN (NOVOLOG) ASPART 100 UNITS/ML 10ML VIAL ONE (21:01)
[2019-02-02] MEDS: SODIUM CHLORIDE 1,000 ML IV SCH ×2 (03:08→17:47)
[2019-02-02] MEDS: KETOROLAC TROMETHAMINE 10 MG TABLET PO PRN ×3 (03:10→20:27)
[2019-02-02] MEDS ORDERED: ACETAMINOPHEN 325 MG TABLET (FP) PO PRN (05:44)
[2019-02-02 08:05] LABS: BASO % 0.3 % (0-2.0); EOS % 0.1 % (0-4.5); HEMOGLOBIN 14.6 GM/dL (11.7-16.9); LYMPH % 7.5 % (8-40); MCH 31.2 pg (25.7-33.7); MCHC 33.9 g/dl (32.0-35.9); MEAN CELL VOLUME 91.9 fl (80-96); MONO % 5.1 % (3.8-10.2); PLATELET COUNT 104 K/MM3 (134-434); RBC 4.68 M/mm3 (4.00-5.60); RDW 13.8 % (11.9-15.9); WHITE BLOOD COUNT 10.2 K/mm3 (4.0-10.0)
[2019-02-02 08:11] LABS: ALBUMIN 3.3 g/dl (3.4-5.0); BILIRUBIN,TOTAL 0.7 mg/dL (0.2-1); BLOOD UREA NITROGEN 18.1 mg/dL (7-18); CALCIUM 8.4 mg/dL (8.5-10.1); CREATININE 0.8 mg/dL (0.55-1.3); POTASSIUM 3.9 mmol/L (3.5-5.1); TOT PROT 5.9 g/dl (6.4-8.2)
--- NOTE | 2019-02-02 09:11 | EKG ---
Test Reason : Blood Pressure : / mmHG Vent. Rate : 085 BPM Atrial Rate : 085 BPM P-R Int : 170 ms QRS Dur : 094 ms QT Int : 358 ms P-R-T Axes : 058 054 043 degrees QTc Int : 426 ms NORMAL SINUS RHYTHM NORMAL ECG NO PREVIOUS ECGS AVAILABLE Confirmed by GARETT MANN, LARRY ([id number]) on 02/02/2019 9:10:41 AM Referred By: Confirmed By:LARRY BAJWA MD
[2019-02-02] MEDS ORDERED: PANTOPRAZOLE 40 MG TABLET (FP) PO SCH (10:00)
[2019-02-02] MEDS ORDERED: CLOPIDOGREL BISULFATE 75 MG TABLET (FP) PO SCH (10:00)
--- NOTE | 2019-02-02 10:40 | EKG ---
Test Reason : Blood Pressure : / mmHG Vent. Rate : 095 BPM Atrial Rate : 095 BPM P-R Int : 168 ms QRS Dur : 096 ms QT Int : 344 ms P-R-T Axes : 049 011 018 degrees QTc Int : 432 ms NORMAL SINUS RHYTHM NORMAL ECG WHEN COMPARED WITH ECG OF 01-FEB-2019 12:15, NO SIGNIFICANT CHANGE WAS FOUND Confirmed by LARRY BAJWA MD ([id number]) on 02/02/2019 10:40:24 AM Referred By: Valentín MARINELLI Confirmed By:LARRY BAJWA MD
[2019-02-02] MEDS: INSULIN SLIDING SCALE (NOVOLOG) 1 VIAL SQ SCH ×5 (12:08→22:09)
--- NOTE | 2019-02-02 12:10 | PN ---
Progress Note, Physician History of Present Illness: 43 year old male with h/o CO s/p stent 2009 [facility] on Plavix (ASA d/c few years ago due to gerd) and lumbar disc disease s/p 2 operations, DM, HLD, prior opioid abuse on suboxone who presents to the emergency department with RUQ/ flank and abdominal pain since 8:30AM. Patient describes the pain as a " stabbing sensation," shooting to his back, associated with 3 episodes of clear white phlegm with streaks of blood, nausea, headache, and dizziness. Patient notes he was fine last night, however, his pain woke him up from his sleep this morning. Patient notes he has been going to the gym for the past 2 weeks, has been drinking whey protein and staying hydrated appropriately. Patient notes he took aspirin this morning, suboxone last night. Patient denies any hx of gallstones, kidney stones, or urinary symptoms in personal or family history. In ER he has multiple doses of toradol for pains and have some relief. - Current Medication List Current Medications: Active Medications Acetaminophen (Tylenol -) 650 mg PO Q6H PRN PRN Reason: PAIN LEVEL 6-10 Last Admin: 02/02/19 05:55 Dose: 650 mg Atorvastatin Calcium (Lipitor -) 20 mg PO HS [facility] Last Admin: 02/02/19 00:00 Dose: 20 mg Bupropion HCl (Wellbutrin Xl -) 300 mg PO DAILY [facility] Diazepam (Valium -) 5 mg PO HS PRN PRN Reason: WITHDRAWAL(CONT SUBST) Stop: 02/04/19 18:21 Last Admin: 02/02/19 00:00 Dose: 5 mg Sodium Chloride (Normal Saline -) 1,000 mls @ 75 mls/hr IV ASDIR [facility] Last Admin: 02/02/19 03:08 Dose: 75 mls/hr Insulin Aspart (Novolog Vial Sliding Scale -) 1 vial SQ ACHS [facility]; Protocol Last Admin: 02/02/19 00:00 Dose: Not Given Ketorolac Tromethamine (Toradol) 10 mg PO Q6H PRN PRN Reason: PAIN LEVEL 6-10 Stop: 02/06/19 16:08 Last Admin: 02/02/19 03:10 Dose: 10 mg Metoprolol Succinate (Toprol Xl -) 25 mg PO DAILY [facility] Pantoprazole Sodium (Protonix -) 40 mg PO DAILY [facility] - Objective Vital Signs: Vital Signs Temperature 99.6 F 02/02/19 08:13 Pulse Rate 108 H 02/02/19 08:13 Respiratory Rate 18 02/02/19 09:00 Blood Pressure 126/78 02/02/19 08:13 O2 Sat by Pulse Oximetry (%) 100 02/02/19 09:00 Eyes: Yes: WNL, Conjunctiva Clear, EOM Intact HENT: Yes: WNL, Atraumatic, Normocephalic Neck: Yes: WNL, Supple, Trachea Midline Cardiovascular: Yes: WNL, Regular Rate and Rhythm Respiratory: Yes: WNL, Regular, CTA Bilaterally Gastrointestinal: Yes: Tenderness, Tenderness, Epigastrium Genitourinary: Yes: WNL Musculoskeletal: Yes: WNL Extremities: Yes: WNL Edema: No Integumentary: Yes: WNL Neurological: Yes: WNL, Alert, Oriented ...Motor Strength: WNL Psychiatric: Yes: WNL Labs: CBC, BMP 02/02/19 06:50 02/02/19 06:50 Problem List - Problems (1) Acute gallstone pancreatitis Code(s): K85.10 - BILIARY ACUTE PANCREATITIS WITHOUT NECROSIS OR INFECTION (2) Cholelithiasis Code(s): K80.20 - CALCULUS OF GALLBLADDER W/O CHOLECYSTITIS W/O OBSTRUCTION Qualifiers: Cholelithiasis location: other site Biliary obstruction: without biliary obstruction Qualified Code(s): K80.80 - Other cholelithiasis without obstruction (3) Pancreatitis Code(s): K85.90 - ACUTE PANCREATITIS WITHOUT NECROSIS OR INFECTION, UNSP Qualifiers: Chronicity: acute Pancreatitis type: unspecified pancreatitis type Acute pancreatitis complication: unspecified Qualified Code(s): K85.90 - Acute pancreatitis without necrosis or infection, unspecified (4) Abrasion of right upper arm Code(s): S40.811A - ABRASION OF RIGHT UPPER ARM, INITIAL ENCOUNTER Qualifiers: Encounter type: initial encounter Qualified Code(s): S40.811A - Abrasion of right upper arm, initial encounter (5) Acute coronary syndrome Code(s): I24.9 - ACUTE ISCHEMIC HEART DISEASE, UNSPECIFIED (6) Back pain Code(s): M54.9 - DORSALGIA, UNSPECIFIED Qualifiers: Back pain location: low back pain Back pain laterality: midline Sciatica presence: without sciatica (7) Chest pain Code(s): R07.9 - CHEST PAIN, UNSPECIFIED Qualifiers: Chest pain type: unspecified Qualified Code(s): R07.9 - Chest pain, unspecified (8) Concussion Code(s): S06.0X9A - CONCUSSION W LOSS OF CONSCIOUSNESS OF UNSP DURATION, INIT Qualifiers: Encounter type: initial encounter Loss of consciousness presence/duration: with LOC of 30 min or less Qualified Code(s): S06.0X1A - Concussion with loss of consciousness of 30 minutes or less, initial encounter (9) Contusion of ribs Code(s): S20.219A - CONTUSION OF UNSPECIFIED FRONT WALL OF THORAX, INIT ENCNTR Qualifiers: Encounter type: initial encounter Laterality: right Qualified Code(s): S20.211A - Contusion of right front wall of thorax, initial encounter (10) DKA (diabetic ketoacidoses) Code(s): E13.10 - OTH DIABETES MELLITUS WITH KETOACIDOSIS WITHOUT COMA (11) Pain Code(s): R52 - PAIN, UNSPECIFIED (12) Right otitis externa Code(s): H60.91 - UNSPECIFIED OTITIS EXTERNA, RIGHT EAR (13) Right otitis media with spontaneous rupture of eardrum Code(s): H66.91 - OTITIS MEDIA, UNSPECIFIED, RIGHT EAR; H72.91 - UNSPECIFIED PERFORATION OF TYMPANIC MEMBRANE, RIGHT EAR (14) Sprain of left foot Code(s): S93.602A - UNSPECIFIED SPRAIN OF LEFT FOOT, INITIAL ENCOUNTER Qualifiers: Encounter type: initial encounter Qualified Code(s): S93.602A - Unspecified sprain of left foot, initial encounter (15) Benzodiazepine dependence Code(s): F13.20 - SEDATIVE, HYPNOTIC OR ANXIOLYTIC DEPENDENCE, UNCOMPLICATED (16) CAD (coronary artery disease) Code(s): I25.10 - ATHSCL HEART DISEASE OF [place] CORONARY ARTERY W/O ANG PCTRS Qualifiers: Coronary Disease-Associated Artery/Lesion type: [place] artery Associated angina: angina presence unspecified (17) DKA, type 2 Code(s): E13.10 - OTH DIABETES MELLITUS WITH KETOACIDOSIS WITHOUT COMA Qualifiers: Diabetes mellitus complication detail: without coma (18) Hyperlipemia Code(s): E78.5 - HYPERLIPIDEMIA, UNSPECIFIED Qualifiers: Hyperlipidemia type: unspecified Qualified Code(s): E78.5 - Hyperlipidemia , unspecified (19) Hypertension Code(s): I10 - ESSENTIAL (PRIMARY) HYPERTENSION Qualifiers: Hypertension type: essential hypertension Qualified Code(s): I10 - Essential (primary) hypertension (20) Lumbar back pain Code(s): M54.5 - LOW BACK PAIN Qualifiers: Chronicity: unspecified Sciatica presence: with sciatica presence unspecified (21) Obesity Code(s): E66.9 - OBESITY, UNSPECIFIED (22) Opioid abuse Code(s): F11.10 - OPIOID ABUSE, UNCOMPLICATED Assessment/Plan 43 y.o CO s/p stent on Plavix and lumbar disc disease s/p 2 operations, DM, HLD , prior opioid abuse on suboxone who presents to the emergency department withwith bilary colic and mild gallstone pancreatitis. Patient reports excellent exercise tolerance does 45 min strenuous cardio ( eliptical) few times a week lifts weights and is unlimited in his exercise. His exercise tolerance is way in excess of 4.6 METS. He does not have chest pain, ekg is normal, there is no signs of CHF or h/o CO. Patient is low risks for cardiovascular complications during Laparoscopic cholecystectomy. However patient is high risks for bleeding complications due to being on Plavix. Prior to surgery discussion of risks and benefits of surgery in the setting of high bleeding complications needs to be addressed with patient and his family. d/w patient and his at the bedside.
[2019-02-02] MEDS: metoPROLOL SUCCINATE 25 MG TAB.SR.24H (FP) PO SCH (12:50)
[2019-02-02] MEDS: BUPRENORPHINE/NALOXONE 8 MG/2 MG FILM PACKET SL SCH (14:18)
--- NOTE | 2019-02-02 16:04 | PN ---
Progress Note, Physician Chief Complaint: abdominal pain History of Present Illness: 43 yo male PMH [place] s/p stent on DAPT and lumbar disc disease s/p 2 operations, DM , HLD, prior opioid abuse on suboxone who presents to the emergency department with RUQ/flank and abdominal pain since 8:30AM. Patient describes the pain as a "stabbing sensation," shooting to his back, associated with 3 episodes of clear white phlegm with streaks of blood, nausea, headache, and dizziness. Patient notes he was fine last night, however, his pain woke him up from his sleep this morning. Patient notes he took aspirin this morning, suboxone last night. Patient denies any history of gallstones, kidney stones, or urinary symptoms in personal or family history. We were called to assess. - Current Medication List Current Medications: Active Medications Acetaminophen (Tylenol -) 650 mg PO Q6H PRN PRN Reason: PAIN LEVEL 6-10 Last Admin: 02/02/19 05:55 Dose: 650 mg Atorvastatin Calcium (Lipitor -) 20 mg PO HS [facility] Last Admin: 02/02/19 00:00 Dose: 20 mg Buprenorphine/Naloxone (Suboxone 8 Mg/2mg Sl Film -) 1 each SL DAILY [facility] Last Admin: 02/02/19 14:18 Dose: 1 each Bupropion HCl (Wellbutrin Xl -) 300 mg PO DAILY [facility] Last Admin: 02/02/19 12:50 Dose: 300 mg Diazepam (Valium -) 5 mg PO HS PRN PRN Reason: WITHDRAWAL(CONT SUBST) Stop: 02/04/19 18:21 Last Admin: 02/02/19 00:00 Dose: 5 mg Sodium Chloride (Normal Saline -) 1,000 mls @ 75 mls/hr IV ASDIR [facility] Last Admin: 02/02/19 03:08 Dose: 75 mls/hr Insulin Aspart (Novolog Vial Sliding Scale -) 1 vial SQ ACHS [facility]; Protocol Last Admin: 02/02/19 12:52 Dose: Not Given Ketorolac Tromethamine (Toradol) 10 mg PO Q6H PRN PRN Reason: PAIN LEVEL 6-10 Stop: 02/06/19 16:08 Last Admin: 02/02/19 12:50 Dose: 10 mg Metoprolol Succinate (Toprol Xl -) 25 mg PO DAILY [facility] Last Admin: 02/02/19 12:50 Dose: 25 mg Pantoprazole Sodium (Protonix -) 40 mg PO DAILY [facility] Last Admin: 02/02/19 12:50 Dose: 40 mg - Objective Vital Signs: Vital Signs Temperature 98.5 F 02/02/19 12:59 Pulse Rate 99 H 02/02/19 12:59 Respiratory Rate 18 02/02/19 12:59 Blood Pressure 129/69 02/02/19 12:59 O2 Sat by Pulse Oximetry (%) 100 02/02/19 09:00 Constitutional: Yes: Well Nourished, No Distress, Calm, Obese Eyes: Yes: Conjunctiva Clear, EOM Intact HENT: Yes: Atraumatic, Normocephalic Neck: Yes: Supple, Trachea Midline Cardiovascular: Yes: Regular Rate and Rhythm, S1, S2 Respiratory: Yes: Regular, CTA Bilaterally Gastrointestinal: Yes: Normal Bowel Sounds, Soft, Abdomen, Obese, Tenderness ( RUQ - muro), Tenderness, Epigastrium ...Rectal Exam: Yes: Deferred Genitourinary: No: CVA Tenderness - Left, CVA Tenderness - Right Musculoskeletal: No: Muscle Pain, Muscle Weakness Extremities: No: Cool, Cyanosis Edema: No Peripheral Pulses WNL: Yes Peripheral Pulses: Left Radial: 2+, Right Radial: 2+, Left Doralis Pedis: 2+, Right Dorsalis Pedis: 2+, Left Femoral: 2+, Right Femoral: 2+ Integumentary: No: Jaundice, Rash Neurological: Yes: Alert, Oriented Psychiatric: Yes: Alert, Oriented Labs: CBC, BMP 02/02/19 06:50 02/02/19 06:50 Problem List - Problems (1) Acute gallstone pancreatitis Assessment/Plan: 43yo male MMP including obesity and HLD presents with bilary colic and mild gallstone pancreatitis NPO and IVF hydration IV analgesia - patient report being very uncomfortable trend labs +/- IV antibiotics GI evaluation Last Plavix 01/30 at night per patient Cardiology clearance and risk stratification Laparoscopic cholecystectomy 02/04 at 8AM Problems reviewed: Yes Code(s): K85.10 - BILIARY ACUTE PANCREATITIS WITHOUT NECROSIS OR INFECTION (2) Cholelithiasis Problems reviewed: Yes Code(s): K80.20 - CALCULUS OF GALLBLADDER W/O CHOLECYSTITIS W/O OBSTRUCTION Qualifiers: Cholelithiasis location: other site Biliary obstruction: without biliary obstruction Qualified Code(s): K80.80 - Other cholelithiasis without obstruction (3) CAD (coronary artery disease) Problems reviewed: Yes Code(s): I25.10 - ATHSCL HEART DISEASE OF [place] CORONARY ARTERY W/O ANG PCTRS Qualifiers: Coronary Disease-Associated Artery/Lesion type: [place] artery Associated angina: angina presence unspecified (4) DKA, type 2 Problems reviewed: Yes Code(s): E13.10 - OTH DIABETES MELLITUS WITH KETOACIDOSIS WITHOUT COMA Qualifiers: Diabetes mellitus complication detail: without coma (5) Hyperlipemia Problems reviewed: Yes Code(s): E78.5 - HYPERLIPIDEMIA, UNSPECIFIED Qualifiers: Hyperlipidemia type: unspecified Qualified Code(s): E78.5 - Hyperlipidemia , unspecified (6) Hypertension Problems reviewed: Yes Code(s): I10 - ESSENTIAL (PRIMARY) HYPERTENSION Qualifiers: Hypertension type: essential hypertension Qualified Code(s): I10 - Essential (primary) hypertension (7) Obesity Code(s): E66.9 - OBESITY, UNSPECIFIED
--- NOTE | 2019-02-02 16:57 | PN ---
Physical Exam: SUBJECTIVE: Patient seen and examined pt still have pains no distress OBJECTIVE: Vital Signs Period Temp Pulse Resp BP Sys/Busby Pulse Ox Last 24 Hr 97.6 F-99.6 F 76-108 18-18 126-145/69-91 100-100 GENERAL: The patient is awake, alert, and fully oriented, in no acute distress. HEAD: Normal with no signs of trauma. EYES: PERRL, extraocular movements intact, sclera anicteric, conjunctiva clear. No ptosis. ENT: Ears normal, nares patent, oropharynx clear without exudates, moist mucous membranes. NECK: Trachea midline, full range of motion, supple. LUNGS: Breath sounds equal, clear to auscultation bilaterally, no wheezes, no crackles, no accessory muscle use. HEART: Regular rate and rhythm, S1, S2 without murmur, rub or gallop. ABDOMEN: Soft, tende right upper quadrant nondistended, normoactive bowel sounds, no guarding, no rebound, no hepatosplenomegaly, no masses. EXTREMITIES: 2+ pulses, warm, well-perfused, no edema. NEUROLOGICAL: Cranial nerves II through XII grossly intact. Normal speech, gait not observed. [facility] Laboratory Results - last 24 hr 02/01/19 02/02/19 02/02/19 22:06 06:50 06:50 WBC 10.2 H RBC 4.68 Hgb 14.6 Hct 43.0 MCV 91.9 MCH 31.2 MCHC 33.9 RDW 13.8 Plt Count 104 L D MPV 9.0 Absolute Neuts (auto) 8.9 H Neutrophils % 87.0 H D Lymphocytes % 7.5 L D Monocytes % 5.1 Eosinophils % 0.1 D Basophils % 0.3 Nucleated RBC % 0 Sodium 137 Potassium 3.9 Chloride 103 Carbon Dioxide 27 Anion Gap 7 L BUN 18.1 H Creatinine 0.8 Est GFR (CKD-EPI)AfAm 128.60 Est GFR (CKD-EPI)NonAf 110.96 POC Glucometer 250 Random Glucose 296 H Calcium 8.4 L Total Bilirubin 0.7 AST 25 ALT 75 H Alkaline Phosphatase 74 Total Protein 5.9 L Albumin 3.3 L Total Amylase 31 Lipase 149 02/02/19 02/02/19 06:58 12:44 WBC RBC Hgb Hct MCV MCH MCHC RDW Plt Count MPV Absolute Neuts (auto) Neutrophils % Lymphocytes % Monocytes % Eosinophils % Basophils % Nucleated RBC % Sodium Potassium Chloride Carbon Dioxide Anion Gap BUN Creatinine Est GFR (CKD-EPI)AfAm Est GFR (CKD-EPI)NonAf POC Glucometer 322 293 Random Glucose Calcium Total Bilirubin AST ALT Alkaline Phosphatase Total Protein Albumin Total Amylase Lipase Active Medications Generic Name Dose Route Start Last Admin Trade Name Freq PRN Reason Stop Dose Admin Acetaminophen 650 mg 02/02/19 05:44 02/02/19 05:55 Tylenol - PO 650 mg Q6H PRN Administration PAIN LEVEL 6-10 Atorvastatin Calcium 20 mg 02/01/19 22:00 02/02/19 00:00 Lipitor - PO 20 mg HS [facility] Administration Buprenorphine/Naloxone 1 each 02/02/19 13:00 02/02/19 14:18 Suboxone 8 Mg/2mg Sl Film - SL 1 each DAILY [facility] Administration Bupropion HCl 300 mg 02/02/19 10:00 02/02/19 12:50 Wellbutrin Xl - PO 300 mg DAILY [facility] Administration Diazepam 5 mg 02/01/19 18:20 02/02/19 00:00 Valium - PO 02/04/19 18:21 5 mg HS PRN Administration WITHDRAWAL(CONT SUBST) Sodium Chloride 1,000 mls @ 75 mls/hr 02/01/19 15:30 02/02/19 03:08 Normal Saline - IV 75 mls/hr ASDIR [facility] Administration Insulin Aspart 1 vial 02/01/19 16:30 02/02/19 12:52 Novolog Vial Sliding Scale - SQ Not Given ACHS [facility] Protocol Ketorolac Tromethamine 10 mg 02/01/19 16:09 02/02/19 12:50 Toradol PO 02/06/19 16:08 10 mg Q6H PRN Administration PAIN LEVEL 6-10 Metoprolol Succinate 25 mg 02/02/19 10:00 02/02/19 12:50 Toprol Xl - PO 25 mg DAILY [facility] Administration Pantoprazole Sodium 40 mg 02/02/19 10:00 02/02/19 12:50 Protonix - PO 40 mg DAILY [facility] Administration ASSESSMENT/PLAN: Abd pains due to gall stone and due pancreatitis His amylase and lipase is coming down and today it is normal, He is npo at this time and on iv fluids. His surgery was held due to plavix which he took yesterday and it is high risk of bleeding. Risks were explained to him and his . d/w surgery for another date for surgery and will be given by surgeon after today evaluation. DM stable since he is npo cad and htn stable and he is off plavix He is medically low risk for surgery under [place]. Visit type - Emergency Visit Emergency Visit: Yes ED Registration Date: 02/01/19 Care time: The patient presented to the Emergency Department on the above date and was hospitalized for further evaluation of their emergent condition. - New Patient This patient is new to me today: No - Critical Care Critical Care patient: No - Discharge Referral Referred to [facility] Med [facility].: No
[2019-02-02] MEDS ORDERED: LORazepam 0.5 MG TABLET PO PRN (17:15)
[2019-02-02] MEDS: diazePAM 5 MG TABLET PO PRN ×2 (22:09)
[2019-02-02] MEDS: ATORVASTATIN CA 20 MG TABLET (FP) PO SCH ×2 (22:09)
[2019-02-03] MEDS: SODIUM CHLORIDE 1,000 ML IV SCH (05:39)
[2019-02-03] MEDS: KETOROLAC TROMETHAMINE 10 MG TABLET PO PRN (05:39)
[2019-02-03 07:41] LABS: BASO % 0.2 % (0-2.0); EOS % 0.1 % (0-4.5); HEMATOCRIT 46.6 % (35.4-49); HEMOGLOBIN 15.4 GM/dL (11.7-16.9); LYMPH % 1.3 % (8-40); MCH 31.1 pg (25.7-33.7); MEAN CELL VOLUME 94.3 fl (80-96); MEAN PLT VOLUME 9.3 fl (7.5-11.1); MONO % 4.3 % (3.8-10.2); NEUT % 94.1 % (42.8-82.8); PLATELET COUNT 95 K/MM3 (134-434); RBC 4.95 M/mm3 (4.00-5.60); RDW 14.4 % (11.9-15.9); WHITE BLOOD COUNT 6.1 K/mm3 (4.0-10.0)
[2019-02-03] MEDS: INSULIN SLIDING SCALE (NOVOLOG) 1 VIAL SQ SCH ×2 (08:00→14:28)
[2019-02-03 08:08] LABS: INR 1.96 (0.83-1.09); PROTHROMBIN TIME (PATIENT) 23.3 SEC (9.7-13.0)
[2019-02-03 08:09] LABS: ACTIVATED PTT 39.2 SECONDS (25.2-36.5)
[2019-02-03 08:18] LABS: ALBUMIN 2.7 g/dl (3.4-5.0); BILIRUBIN,TOTAL 3.6 mg/dL (0.2-1); BLOOD UREA NITROGEN 21.5 mg/dL (7-18); CALCIUM 7.7 mg/dL (8.5-10.1); CREATININE 1.1 mg/dL (0.55-1.3); POTASSIUM 3.9 mmol/L (3.5-5.1); TOT PROT 5.5 g/dl (6.4-8.2)
[2019-02-03] MEDS ORDERED: LORazepam 2 MG/ML SDV VIAL IVPUSH ONE ×2 (09:08→23:08)
[2019-02-03] MEDS ORDERED: LACTATED RINGERS SOLUTION 1,000 ML/1,000 ML INFUS.BAG IV SCH ×2 (09:15→14:15)
--- NOTE | 2019-02-03 09:19 | PN ---
Progress Note (short form) - Note Progress Note: I have seen and examined the indicated patient independently/along with the resident team. I have personally verified all doan exam findings and historical components. I have personally interpreted all diagnostics indicated per todays orders and reviewed interpretation of indicated subspecialty services. This patient meets a high level of medical complexity and warrants indicated LOC to avoid decompensation and worsening of the indicated illness. S: Agree with historical findings as outlined in resident documentation regarding history of present illness. No further events communicated to myself from overnight. He appears acutely ill with worsening tachycardia. Upon seeing his vitals and clinical presentation with worsening transaminitis, STAT GI consult and fluids given with abx and further imaging. 10 system ROS completed and is negative aside from indicated issues in the subjective/HPI Medication list reviewed; as documented per orders and above. O: All vital signs reviewed per ER records and are as per EMR NAD, AAO, Resting in bed NC AT EOMI PERRLA Neck supple, trachea midline, no mckenzie LN RRR s1/2 Lungs CTAB, w/ sym expansion NT ND +BS No skin breakdown or rashes noted CN2-12 wnl, no new focal deficits noted Muscle tone normal, no deficits in motor function or strength noted Normal mood, appropriate behavior, average insight Pending repeatr RUQ US Discussed with GI Discussed with resident team at length. A/P: -Abdominal pain -Transaminitis -Suspected Cirrhosis -Opioid Abuse on Suboxone -Obesity -Uncontrolled DM with hyperglycemia -CAD s/p remote stenting (2008) -Hx HTN -Hx HLD IVF, NPO, abx. FU further imaging and repeat labs. May require advanced endoscopy pending diagnostic workup. Will follow closely. Discussed with subspecialty services.
[2019-02-03] MEDS ORDERED: PANTOPRAZOLE SODIUM 40 MG VIAL IVPUSH SCH (10:00)
[2019-02-03] MEDS ORDERED: LORazepam 2 MG TABLET PO SCH ×2 (11:00→23:00)
[2019-02-03] MEDS: BUPRENORPHINE/NALOXONE 8 MG/2 MG FILM PACKET SL SCH (11:10)
[2019-02-03] MEDS: metoPROLOL SUCCINATE 25 MG TAB.SR.24H (FP) PO SCH (11:10)
[2019-02-03 11:17] LABS: BILIRUBIN,DIRECT 3.6 mg/dL (0.0-0.2)
[2019-02-03 12:04] LABS: ANISOCYTOSIS 1+; MACROCYTOSIS 1+; PLATELET ESTIMATE DECREASED
[2019-02-03] MEDS ORDERED: PIPERACILLIN/TAZOB 3.375 GM 3.375 GM in DEXTROSE 5%-WATER - 50 ML IVPB SCH (14:00)
--- NOTE | 2019-02-03 14:03 | ECHO ---
Name: BRANDON DAHL Exam:Adult Echocardiogram Study Date: 02/03/2019 12:21 PM Age: 43 yrs Reason For Study: ef Height: 77 in Weight: 275 lb BSA: 2.6 m2 MMode/2D Measurements & Calculations IVSd: 1.0 cm Ao root diam: 3.4 cm LVIDd: 4.4 cm LA dimension: 3.0 cm LVIDs: 3.1 cm LVPWd: 1.2 cm LVPWs: 0.95 cm EDV(Teich): 89.1 ml ESV(Teich): 37.4 ml LVOT diam: 2.4 cm RV S Theodore: 23.8 cm/sec Doppler Measurements & Calculations MV E max theodore: 54.3 cm/sec Ao V2 max: 139.1 cm/sec MV A max theodore: 82.9 cm/sec Ao max P.7 mmHg MV E/A: 0.65 MV dec time: 0.07 sec GINI(V,D): 4.2 cm2 LV V1 max P.6 mmHg PA V2 max: 133.0 cm/sec LV V1 max: 128.8 cm/sec PA max P.1 mmHg Med Peak E' Theodore: 8.9 cm/sec Med E/e': 6.1 Lat Peak E' Theodore: 15.2 cm/sec Lat E/e': 3.6 Procedure A complete two-dimensional transthoracic echocardiogram was performed (2D, M-mode, Doppler and color flow Doppler). Technically limited study. Left Ventricle The left ventricle is normal in size. Left ventricular systolic function is normal. Ejection Fraction = 60- 65%. No regional wall motion abnormalities noted. Right Ventricle The right ventricle is not well visualized. Atria The left atrial size is normal. Right atrial size is normal. Mitral Valve The mitral valve is normal in structure and function. There is no mitral regurgitation noted. Tricuspid Valve The tricuspid valve is normal in structure and function. No tricuspid regurgitation. Aortic Valve The aortic valve is normal in structure and function. No aortic regurgitation is present. Pulmonic Valve The pulmonic valve is not well visualized. Great Vessels The aortic root is normal size. Pericardium/Pleura There is no pericardial effusion. Interpretation Summary Technically limited study The left ventricle is normal in size. Left ventricular systolic function is normal. No regional wall motion abnormalities noted. Ejection Fraction = 60-65%. The left atrial size is normal. Right atrial size is normal. No significant valvular regurgitations There is no pericardial effusion. Previous study is not available for comparison Jesus Butler MD 02/03/2019 02:03 PM
[2019-02-03] MEDS ORDERED: DEXTROSE 5%-WATER - 50 ML IVPB ONE (14:05)
[2019-02-03] MEDS ORDERED: PIPERACILLIN/TAZOBACTAM 3.375 GM VIAL IVPB ONE (14:05)
[2019-02-03] MEDS ORDERED: PHYTONADIONE 10 MG/1 ML AMP SQ ONE (14:08)
--- NOTE | 2019-02-03 14:14 | CON.GI ---
Consult Consult Specialty:: GI Referred by:: Hospitalist Service Reason for Consultation:: Abnormal liver chemistries - History of Present Illness Chief Complaint: Abnormal LFT's History of Present Illness: 43 year old man admitted through [facility] ER sunday for evaluation of abdominal pain. Pain started sunday morning. It was the first episode of this kind, was sharp, located in the upper abdomen, RUQ, severe in intensity and persistent. There was associated nausea. Initial labs revealed normal liver chemistries with platelet count 132. A non contrast CT scan was performed that revealed gallstones and fecal retention without acute pathology within the abdomen or pelvis. Abdominal US was performed that revealed gallstones and a non-dilated biliary tract. Pain persisted. WBC did rise to 10.2 02/02. Today noted to have rise in transaminases / bilirubin. Worsening pain. Temp 102.7 orally, this afternoon temp 104-105 rectally. No BM since admission. No rectal bleeding. - History Source Limitations to Obtaining History: No Limitations - Past Medical History Cardio/Vascular: Yes: CAD, HTN, Hyperlipdemia, [place] Musculoskeletal: Yes: Other Endocrine: Yes: Diabetes Mellitus ([place]set) Additional Medical History: obesity - Past Surgical History Past Surgical History: Yes: Laminectomy (2008: Lumbar), Stent (cardiac, 2008) - Alcohol/Substance Use Hx Alcohol Use: No History of Substance Use: reports: Prescription (No IVDA/DA) - Smoking History Smoking history: Unknown if ever smoked Have you smoked in the past 12 months: Yes Aproximately how many cigarettes per day: 20 - Social History Usual Living Arrangement: With Spouse ADL: Independent Place of : [facility] History of Recent Travel: No Home Medications - Allergies Allergies/Adverse Reactions: Allergies Allergy/AdvReac Type Severity Reaction Status Date / Time No Known Allergies Allergy Verified 02/01/19 16:35 - Home Medications Home Medications: Ambulatory Orders Atorvastatin Ca [Lipitor] 20 mg PO HS 06/10/13 Clopidogrel Bisulfate [Plavix -] 75 mg PO DAILY 06/10/13 Metoprolol Succinate [Toprol XL -] 25 mg PO DAILY 02/10/14 Insulin Sliding Scale [Novolog Vial Sliding Scale -] 1 units SQ ACHS #1 pen 07/23 Buprenorphine HCl/Naloxone HCl [Suboxone 8 mg-2 mg Sl Tablets] 1 each SL TID PRN 09/03/18 Insulin Detemir [Levemir Flextouch] 20 unit SQ DAILY 09/03/18 Bupropion HCl [Wellbutrin Xl] 300 mg PO DAILY 02/01/19 Family Medical History Other Family History: Mother: Alive: DM II, Obesity. Father: : 72: CAD. 1 son: Healthy. 2 daughters: healthy Physical Exam-GI Vital Signs: Vital Signs Temperature 104 F rectal 02/03/19 1430 Pulse Rate 115 H 02/03/19 1430 Respiratory Rate 20 02/03/19 1430 Blood Pressure 114/81 02/03/19 1430 O2 Sat by Pulse Oximetry (%) 100 02/02/19 1430 Constitutional: Yes: Calm Eyes: No: Sclera Icterus Cardiovascular: Yes: Tachycardia. No: Murmur Respiratory: Yes: Diminished (at bases bilaterally with poor insp effort) Gastrointestinal Inspection: No: Distention ...Auscultate: Yes: Normoactive Bowel Sounds ...Palpate: Yes: Guarding, Tenderness (TTP in upper abdomen: RUQ>epigastrium>LUQ ) ...Percussion: No: Tympanitic Edema: No (No LE edema) Neurological: Yes: Alert, Oriented Labs: CBC, BMP 02/03/19 06:33 02/03/19 06:33 INR, PTT INR 1.96 (0.83-1.09) H 02/03/19 06:33 Hepatic Panel Total Bilirubin 3.6 mg/dL (0.2-1) H D 02/03/19 06:33 Direct Bilirubin 3.6 mg/dL (0.0-0.2) H 02/03/19 10:30 AST 105 U/L (15-37) H 02/03/19 06:33 ALT 154 U/L (13-61) H 02/03/19 06:33 Alkaline Phosphatase 92 U/L (45-117) 02/03/19 06:33 Albumin 2.7 g/dl (3.4-5.0) L 02/03/19 06:33 Imaging - Results Cat Scan: Report Reviewed, Image Reviewed Ultrasound: Report Reviewed Problem List - Problems (1) Acute calculous cholecystitis Assessment/Plan: Worsening clinical condition with high fevers: Differential would need to include worsening acute cholecystitis in the setting of diabetes or development of ascending cholangitis. I discussed my concerns with Mr. Carmichael and his . Discussed further imaging with MRCP to reevaluate both gallbladder and the biliary tract. If necessary , I also discussed the need for intervention for biliary drainage such as ERCP. Discussed potential risks of the procedure like but not limited to bleeding, perforation requiring surgery to repair, infection, sedation medication effects, pancreatitis, all of which could be potentially life threatening. They have agreed to the procedure if it was felt to be medically necessary. During my assessment, I ordered Zosyn 3.375g Q 8 hours, ordered blood cultures and repeat CBC/CMP/PT/INR, dosed vitamin K 10mg SC x 1. I let the primary team ( Resident Marilu and attending Dr. Cuevas) be aware of the change in Mr. Carmichael' s clinical status and potential need for interventions/transfer. Mr. Carmichael was also transferred to the ICU and I increased IV fluids to LR @ 200cc/hr. ID consult and was evaluating Mr. Carmichael. I discussed the case with biliary endoscopist Dr. Dmitriy Amaral. He would not be available for biliary coverage if ERCP was needed for today / tonight. Due to concern for Mr. Ojeda's worsening clinical status, I called biliary endoscopist Dr. Jasmeet Mc and discussed the case. He accepted him for transfer if necessary for more urgent biliary intervention today. Concern would be for alternate means of biliary drainage of continued worsening clinical status prior to a transfer and signs of biliary obstruiction. I therefore discussed the case with Dr. Victor Hugo Diamond: he reviewed initial imaging and believes that acute cholecystitis was evident on CT scan. Will await MRCP. It it is felt biliary drainage was necessary percuteneously as a temporiozing measure with PTC or cholecystostomy, it could be performed with pre -procedural FFP and platelets. Also discussed the case with , who would be available to perform more urgent cholecystectomy. Patient was being transferred to the ICU as well and Will await MRCP findings. Needs fluid resuscitation. Code(s): K80.00 - CALCULUS OF GALLBLADDER W ACUTE CHOLECYST W/O OBSTRUCTION
--- NOTE | 2019-02-03 14:54 | PN ---
Progress Note (short form) - Note Progress Note: ID consult dictated imp/reccd 43 yo man with known CAD- s/p OR
--- NOTE | 2019-02-03 15:20 | PN ---
Progress Note (short form) - Note Progress Note: ID consult dictated imp/reccd 43 yo man with known CAD- s/p [place] admitted on 02/01 with abdominal pain imaging has been unremarkable he complains of worsening abdominal pain since admission found to have high grade fever today when evaluated by GI 102.7 and 104.5 rectal noted to have elevated lfts as well today history of DM no history of recent admission or antibiotics in the last year sepsis- suspected biliary origin- ?choledocholithaisis, ?cholycystitis, ? pancreatitis stat blood cultures drawn zosyn started, will gave stat dose vancomycin and switch zosyn to meropenem plan for emergent MRCP to r/o choledocholithiasis with concern for cholangitis IVF increased patient for transfer to ICU care d/w GI and Hospitalist d/w at bedside overall 40 minutes spent in the care of this criticallly ill ICU patient Problem List - Problems (1) Sepsis Code(s): A41.9 - SEPSIS, UNSPECIFIED ORGANISM (2) Biliary sepsis Code(s): K83.09 - OTHER CHOLANGITIS (3) CAD (coronary artery disease) Code(s): I25.10 - ATHSCL HEART DISEASE OF [place] CORONARY ARTERY W/O ANG PCTRS Qualifiers: Coronary Disease-Associated Artery/Lesion type: [place] artery Associated angina: angina presence unspecified (4) Diabetes Code(s): E11.9 - TYPE 2 DIABETES MELLITUS WITHOUT COMPLICATIONS
--- NOTE | 2019-02-03 15:27 | PN ---
Progress Note, Physician Chief Complaint: abdominal pain History of Present Illness: 43 yo male PMH CO s/p stent on DAPT and lumbar disc disease s/p 2 operations, DM , HLD, prior opioid abuse on suboxone who presents to the emergency department with RUQ/flank and abdominal pain since 8:30AM. Patient describes the pain as a "stabbing sensation," shooting to his back, associated with 3 episodes of clear white phlegm with streaks of blood, nausea, headache, and dizziness. Patient notes he was fine last night, however, his pain woke him up from his sleep this morning. Patient notes he took aspirin this morning, suboxone last night. Patient denies any history of gallstones, kidney stones, or urinary symptoms in personal or family history. We were called to assess. - Current Medication List Current Medications: Active Medications Buprenorphine/Naloxone (Suboxone 8 Mg/2mg Sl Film -) 1 each SL DAILY [facility] Last Admin: 02/03/19 11:10 Dose: 1 each Bupropion HCl (Wellbutrin Xl -) 300 mg PO DAILY [facility] Last Admin: 02/03/19 11:10 Dose: 300 mg Lactated Ringer's (Lactated Ringers Solution) 1,000 ml in 1,000 mls @ 200 mls/ hr IV ASDIR SHRUTHI Last Admin: 02/03/19 14:29 Dose: 200 mls/hr Piperacillin Sod/Tazobactam (Sod 4.5 gm/ Dextrose) 100 mls @ 200 mls/hr IVPB Q8H-IV SHRUTHI; Protocol Vancomycin HCl 1,500 mg/ (Dextrose) 500 mls @ 250 mls/hr IVPB ONCE ONE; Protocol Stop: 02/03/19 17:59 Insulin Aspart (Novolog Vial Sliding Scale -) 1 vial SQ ACHS SHRUTHI; Protocol Last Admin: 02/03/19 14:28 Dose: 12 units Lorazepam (Ativan) 2 mg PO 0500,1100,1700,2300 [facility] Stop: 02/04/19 23:01 Last Admin: 02/03/19 11:10 Dose: Not Given Lorazepam (Ativan -) 0.5 mg PO Q6H [facility] Stop: 02/06/19 23:01 Lorazepam (Ativan -) 0.5 mg PO ONCE ONE Stop: 02/07/19 05:01 Lorazepam (Ativan -) 1 mg PO 0500,1100,1700,2300 [facility] Stop: 02/05/19 23:01 Pantoprazole Sodium (Protonix Iv) 40 mg IVPUSH DAILY [facility] Last Admin: 02/03/19 11:10 Dose: 40 mg - Objective Vital Signs: Vital Signs Temperature 105.4 F H 02/03/19 15:13 Pulse Rate 115 H 02/03/19 15:13 Respiratory Rate 18 02/03/19 15:13 Blood Pressure 110/44 L 02/03/19 15:13 O2 Sat by Pulse Oximetry (%) 100 02/02/19 21:00 Vital Signs Period Temp Pulse Resp BP Sys/Busby Pulse Ox Last 24 Hr 98 F-105.4 F 102-115 18-20 110-126/44-81 100 Constitutional: Yes: Well Nourished, Calm, Diaphoresis, Obese Eyes: Yes: Conjunctiva Clear, EOM Intact HENT: Yes: Atraumatic, Normocephalic Neck: Yes: Supple, Trachea Midline Cardiovascular: Yes: Regular Rate and Rhythm, S1, S2 Respiratory: Yes: Regular, CTA Bilaterally Gastrointestinal: Yes: Normal Bowel Sounds, Soft, Abdomen, Obese, Tenderness, Tenderness, Epigastrium ...Rectal Exam: Yes: Deferred Genitourinary: No: CVA Tenderness - Left, CVA Tenderness - Right Breast(s): No: Mass, Skin Changes Musculoskeletal: No: Muscle Pain, Muscle Weakness Extremities: No: Cool, Cyanosis Edema: No Peripheral Pulses WNL: Yes Peripheral Pulses: Left Radial: 2+, Right Radial: 2+, Left Doralis Pedis: 2+, Right Dorsalis Pedis: 2+, Left Femoral: 2+, Right Femoral: 2+ Neurological: Yes: Alert, Oriented Psychiatric: Yes: Alert, Oriented Labs: CBC, BMP 02/03/19 06:33 02/03/19 06:33 INR, PTT INR 1.96 (0.83-1.09) H 02/03/19 06:33 Problem List - Problems (1) Acute gallstone pancreatitis Assessment/Plan: 43yo male MMP including obesity and HLD presents with bilary colic and mild gallstone pancreatitis, now ascending cholangitis NPO and IVF hydration IV analgesia - patient report being very uncomfortable trend labs +/- IV antibiotics GI evaluation Agree with transfer for emergency ERCP Last Plavix 01/30 at night per patient Cardiology clearance and risk stratification Planned Laparoscopic Cholecystectomy 02/04 at 8AM Problems reviewed: Yes Code(s): K85.10 - BILIARY ACUTE PANCREATITIS WITHOUT NECROSIS OR INFECTION (2) Cholelithiasis Problems reviewed: Yes Code(s): K80.20 - CALCULUS OF GALLBLADDER W/O CHOLECYSTITIS W/O OBSTRUCTION Qualifiers: Qualified Code(s): K80.80 - Other cholelithiasis without obstruction (3) CAD (coronary artery disease) Problems reviewed: Yes Code(s): I25.10 - ATHSCL HEART DISEASE OF [place] CORONARY ARTERY W/O ANG PCTRS (4) DKA, type 2 Problems reviewed: Yes Code(s): E13.10 - OTH DIABETES MELLITUS WITH KETOACIDOSIS WITHOUT COMA (5) Hyperlipemia Problems reviewed: Yes Code(s): E78.5 - HYPERLIPIDEMIA, UNSPECIFIED Qualifiers: Qualified Code(s): E78.5 - Hyperlipidemia, unspecified (6) Hypertension Problems reviewed: Yes Code(s): I10 - ESSENTIAL (PRIMARY) HYPERTENSION Qualifiers: Qualified Code(s): I10 - Essential (primary) hypertension (7) Obesity Problems reviewed: Yes Code(s): E66.9 - OBESITY, UNSPECIFIED
[2019-02-03] MEDS ORDERED: VANCOMYCIN HCL 1,500 MG in DEXTROSE 5%-WATER - 500 ML IVPB ONE ×2 (16:00→17:47)
--- NOTE | 2019-02-03 16:05 | PN ---
Progress Note, Physician - Current Medication List Current Medications: Active Medications Buprenorphine/Naloxone (Suboxone 8 Mg/2mg Sl Film -) 1 each SL DAILY [facility] Last Admin: 02/03/19 11:10 Dose: 1 each Bupropion HCl (Wellbutrin Xl -) 300 mg PO DAILY [facility] Last Admin: 02/03/19 11:10 Dose: 300 mg Chlorhexidine Gluconate (Hibiclens For Decolonization -) 1 applic TP HS SHRUTHI Lactated Ringer's (Lactated Ringers Solution) 1,000 ml in 1,000 mls @ 200 mls/ hr IV ASDIR SHRUTHI Last Admin: 02/03/19 14:29 Dose: 200 mls/hr Piperacillin Sod/Tazobactam (Sod 4.5 gm/ Dextrose) 100 mls @ 200 mls/hr IVPB Q8H-IV [facility]; Protocol Vancomycin HCl 1,500 mg/ (Dextrose) 500 mls @ 250 mls/hr IVPB ONCE ONE; Protocol Stop: 02/03/19 17:59 Insulin Aspart (Novolog Vial Sliding Scale -) 1 vial SQ ACHS [facility]; Protocol Last Admin: 02/03/19 14:28 Dose: 12 units Lorazepam (Ativan) 2 mg PO 0500,1100,1700,2300 [facility] Stop: 02/04/19 23:01 Last Admin: 02/03/19 11:10 Dose: Not Given Lorazepam (Ativan -) 0.5 mg PO Q6H [facility] Stop: 02/06/19 23:01 Lorazepam (Ativan -) 0.5 mg PO ONCE ONE Stop: 02/07/19 05:01 Lorazepam (Ativan -) 1 mg PO 0500,1100,1700,2300 [facility] Stop: 02/05/19 23:01 Mupirocin (Bactroban Ointment (For Decolonization) -) 1 applic NS BID [facility] Stop: 02/08/19 21:59 Pantoprazole Sodium (Protonix Iv) 40 mg IVPUSH DAILY [facility] Last Admin: 02/03/19 11:10 Dose: 40 mg - Objective Vital Signs: Vital Signs Temperature 105.4 F H 02/03/19 15:13 Pulse Rate 115 H 02/03/19 15:13 Respiratory Rate 18 02/03/19 15:13 Blood Pressure 110/44 L 02/03/19 15:13 O2 Sat by Pulse Oximetry (%) 100 02/02/19 21:00 Eyes: Yes: WNL, Conjunctiva Clear, EOM Intact HENT: Yes: WNL, Atraumatic, Normocephalic Neck: Yes: WNL, Supple, Trachea Midline Cardiovascular: Yes: WNL, Regular Rate and Rhythm Respiratory: Yes: WNL, Regular, CTA Bilaterally Gastrointestinal: Yes: Tenderness, Epigastrium Genitourinary: Yes: WNL Musculoskeletal: Yes: WNL Extremities: Yes: WNL Edema: No Integumentary: Yes: WNL Neurological: Yes: WNL, Alert, Oriented ...Motor Strength: WNL Psychiatric: Yes: WNL Labs: CBC, BMP 02/03/19 06:33 02/03/19 06:33 INR, PTT INR 1.96 (0.83-1.09) H 02/03/19 06:33 Problem List - Problems (1) Acute gallstone pancreatitis Code(s): K85.10 - BILIARY ACUTE PANCREATITIS WITHOUT NECROSIS OR INFECTION (2) Cholelithiasis Code(s): K80.20 - CALCULUS OF GALLBLADDER W/O CHOLECYSTITIS W/O OBSTRUCTION Qualifiers: Cholelithiasis location: other site Biliary obstruction: without biliary obstruction Qualified Code(s): K80.80 - Other cholelithiasis without obstruction (3) Pancreatitis Code(s): K85.90 - ACUTE PANCREATITIS WITHOUT NECROSIS OR INFECTION, UNSP Qualifiers: Chronicity: acute Pancreatitis type: unspecified pancreatitis type Acute pancreatitis complication: unspecified Qualified Code(s): K85.90 - Acute pancreatitis without necrosis or infection, unspecified (4) Abrasion of right upper arm Code(s): S40.811A - ABRASION OF RIGHT UPPER ARM, INITIAL ENCOUNTER Qualifiers: Encounter type: initial encounter Qualified Code(s): S40.811A - Abrasion of right upper arm, initial encounter (5) Acute coronary syndrome Code(s): I24.9 - ACUTE ISCHEMIC HEART DISEASE, UNSPECIFIED (6) Back pain Code(s): M54.9 - DORSALGIA, UNSPECIFIED Qualifiers: Back pain location: low back pain Back pain laterality: midline Sciatica presence: without sciatica (7) Chest pain Code(s): R07.9 - CHEST PAIN, UNSPECIFIED Qualifiers: Chest pain type: unspecified Qualified Code(s): R07.9 - Chest pain, unspecified (8) Concussion Code(s): S06.0X9A - CONCUSSION W LOSS OF CONSCIOUSNESS OF UNSP DURATION, INIT Qualifiers: Encounter type: initial encounter Loss of consciousness presence/duration: with LOC of 30 min or less Qualified Code(s): S06.0X1A - Concussion with loss of consciousness of 30 minutes or less, initial encounter (9) Contusion of ribs Code(s): S20.219A - CONTUSION OF UNSPECIFIED FRONT WALL OF THORAX, INIT ENCNTR Qualifiers: Encounter type: initial encounter Laterality: right Qualified Code(s): S20.211A - Contusion of right front wall of thorax, initial encounter (10) DKA (diabetic ketoacidoses) Code(s): E13.10 - OTH DIABETES MELLITUS WITH KETOACIDOSIS WITHOUT COMA (11) Pain Code(s): R52 - PAIN, UNSPECIFIED (12) Right otitis externa Code(s): H60.91 - UNSPECIFIED OTITIS EXTERNA, RIGHT EAR (13) Right otitis media with spontaneous rupture of eardrum Code(s): H66.91 - OTITIS MEDIA, UNSPECIFIED, RIGHT EAR; H72.91 - UNSPECIFIED PERFORATION OF TYMPANIC MEMBRANE, RIGHT EAR (14) Sprain of left foot Code(s): S93.602A - UNSPECIFIED SPRAIN OF LEFT FOOT, INITIAL ENCOUNTER Qualifiers: Encounter type: initial encounter Qualified Code(s): S93.602A - Unspecified sprain of left foot, initial encounter (15) Benzodiazepine dependence Code(s): F13.20 - SEDATIVE, HYPNOTIC OR ANXIOLYTIC DEPENDENCE, UNCOMPLICATED (16) CAD (coronary artery disease) Code(s): I25.10 - ATHSCL HEART DISEASE OF [place] CORONARY ARTERY W/O ANG PCTRS Qualifiers: Coronary Disease-Associated Artery/Lesion type: [place] artery Associated angina: angina presence unspecified (17) DKA, type 2 Code(s): E13.10 - OTH DIABETES MELLITUS WITH KETOACIDOSIS WITHOUT COMA Qualifiers: Diabetes mellitus complication detail: without coma (18) Hyperlipemia Code(s): E78.5 - HYPERLIPIDEMIA, UNSPECIFIED Qualifiers: Hyperlipidemia type: unspecified Qualified Code(s): E78.5 - Hyperlipidemia , unspecified (19) Hypertension Code(s): I10 - ESSENTIAL (PRIMARY) HYPERTENSION Qualifiers: Hypertension type: essential hypertension Qualified Code(s): I10 - Essential (primary) hypertension (20) Lumbar back pain Code(s): M54.5 - LOW BACK PAIN Qualifiers: Chronicity: unspecified Sciatica presence: with sciatica presence unspecified (21) Obesity Code(s): E66.9 - OBESITY, UNSPECIFIED (22) Opioid abuse Code(s): F11.10 - OPIOID ABUSE, UNCOMPLICATED Assessment/Plan 43 y.o [place] s/p stent on Plavix and lumbar disc disease s/p 2 operations, DM, HLD , prior opioid abuse on suboxone who presents to the emergency department withwith bilary colic and mild gallstone pancreatitis worsening clinical status requiring ICU transfer and monitoring. Patient reports excellent exercise tolerance does 45 min strenuous cardio ( eliptical) few times a week lifts weights and is unlimited in his exercise. His exercise tolerance is way in excess of 4.6 METS. He does not have chest pain, ekg is normal, there is no signs of CHF or h/o VT. Patient is low risks for cardiovascular complications during Laparoscopic cholecystectomy. Patient is higher risks for bleeding complications due to being on Plavix last dose Jan. 24 PM. Prior to surgery discussion of risks and benefits of surgery in the setting of high bleeding complications needs to be addressed with patient and his family. Since surgery represents emergency it should not be delayed veena benefits of surgery outweight eisks of bleeding.
[2019-02-03] MEDS ORDERED: DEXTROSE 5%-WATER 100 ML IVPB ONE (17:01)
[2019-02-03] MEDS ORDERED: PIPERACILLIN/TAZOBACTAM 4.5 GM VIAL IVPB ONE (17:01)
--- NOTE | 2019-02-03 17:21 | FALL ---
Fall Exam - Event Witnessed fall: No Location of Fall: Bathroom Fall from: Toilet - Pre-Fall Mental Status: Alert Current Medications: Current Medications Generic Name Dose Route Start Last Admin Trade Name Moi PRN Reason Stop Dose Admin Buprenorphine/Naloxone 1 each 02/02/19 13:00 02/03/19 11:10 Suboxone 8 Mg/2mg Sl Film - SL 1 each DAILY SHRUTHI Administration Bupropion HCl 300 mg 02/02/19 10:00 02/03/19 11:10 Wellbutrin Xl - PO 300 mg DAILY SHRUTHI Administration Chlorhexidine Gluconate 1 applic 02/03/19 22:00 Hibiclens For Decolonization - TP HS SHRUTHI Lactated Ringer's 1,000 ml in 1,000 mls @ 200 mls/hr 02/03/19 14:15 02/03/19 14:29 Lactated Ringers Solution IV 200 mls/hr ASDIR SHRUTHI Administration Piperacillin Sod/Tazobactam 100 mls @ 200 mls/hr 02/03/19 18:00 Sod 4.5 gm/ Dextrose IVPB Q8H-IV SHRUTHI Protocol Vancomycin HCl 1,500 mg/ 500 mls @ 250 mls/hr 02/03/19 16:00 Dextrose IVPB 02/03/19 17:59 ONCE ONE Protocol Insulin Aspart 1 vial 02/01/19 16:30 02/03/19 14:28 Novolog Vial Sliding Scale - SQ 12 units ACHS SHRUTHI Administration Protocol Lorazepam 2 mg 02/03/19 11:00 02/03/19 11:10 Ativan PO 02/04/19 23:01 Not Given 0500,1100,1700,2300 SHRUTHI Lorazepam 0.5 mg 02/06/19 05:00 Ativan - PO 02/06/19 23:01 Q6H SHRUTHI Lorazepam 0.5 mg 02/07/19 05:00 Ativan - PO 02/07/19 05:01 ONCE ONE Lorazepam 1 mg 02/05/19 05:00 Ativan - PO 02/05/19 23:01 0500,1100,1700,2300 SHRUTHI Mupirocin 1 applic 02/03/19 22:00 Bactroban Ointment (For Decolonization) - NS 02/08/19 21:59 BID SHRUTHI Pantoprazole Sodium 40 mg 02/03/19 10:00 02/03/19 11:10 Protonix Iv IVPUSH 40 mg DAILY SHRUTHI Administration - Post-Fall Patient Outcome: No Injury Exam Findings: NAD, A&O x3. Heart: RRR, S1 and S2, no murmurs. Lungs: CTAB, no wheezes. Ext: 2+ pulses, no edema. Neurologically intact Treatment: None Vital Signs: Vital Signs Temperature 105.4 F H 02/03/19 15:13 Pulse Rate 115 H 02/03/19 15:13 Respiratory Rate 18 02/03/19 15:13 Blood Pressure 110/44 L 02/03/19 15:13 O2 Sat by Pulse Oximetry (%) 100 02/02/19 21:00 LOC Post-Fall: Unchanged, Awake, Alert, Oriented Identify factors for HIGH RISK for Head Injury: None of the above
[2019-02-03] MEDS ORDERED: INSULIN (NOVOLOG) ASPART 100 UNITS/ML 10ML VIAL SQ ONE ×2 (17:22→18:58)
[2019-02-03 17:23] LABS: BASO % 0.2 % (0-2.0); EOS % 0.1 % (0-4.5); HEMATOCRIT 43.8 % (35.4-49); HEMOGLOBIN 14.4 GM/dL (11.7-16.9); LYMPH % 1.4 % (8-40); MCHC 32.9 g/dl (32.0-35.9); MEAN CELL VOLUME 94.1 fl (80-96); MEAN PLT VOLUME 9.2 fl (7.5-11.1); NEUT % 94.3 % (42.8-82.8); PLATELET COUNT 86 K/MM3 (134-434); RBC 4.66 M/mm3 (4.00-5.60); RDW 14.9 % (11.9-15.9); WHITE BLOOD COUNT 5.4 K/mm3 (4.0-10.0)
--- NOTE | 2019-02-03 17:23 | CONSULT ---
Consultation: REQUESTING PROVIDER: Dr. Cuevas CONSULT REQUEST: We have been asked to medically evaluate this patient for ICU admission HISTORY OF PRESENT ILLNESS: Patient is a 43 year old male with history of coronary artery disease with prior AZ s/p stent on DAPT therapy, hypertension, hyperlipidemia, diabetes mellitus, opiod use disorder on Suboxone, presented initially with complaint of abdominal pain. CT abdomen pelvis revealed hepatosplenomegaly with cholelithiasis, however right upper quadrant ultrasound revealed 5mm common bile duct. MRCP revealed cholelithiasis, normal CBD caliber, however sudden distal cut off concerning for choledocholithiasis. Further, pancreatic edema and stranding noted, suggestive of acute pancreatitis. Though initially patient was for transfer to [facility] (as unable to perform ERCP at this time), patient was unstable upon arrival to ICU, decision was made to undergo emergent ERCP tonight with Dr. De Leon. Prior to arrival to ICU, rapid response was called as patient had near syncopal episode while attempting to use restroom. States he was attempting to sit down to use bathroom, and lost his balance. Denies prodromal chest pain, shortness of breath. Unknown if patient hit his head, however CT head immediately performed revealing negative hemorrhage or acute intracranial pathology. Upon my encounter, patient is sleepy, however arrousable to verbal stimulation, and oriented. Per at bedside, he has more lethargic than baseline all day. Endorses diffuse abdominal pain, worst at right upper quadrant, and nausea. Past medical history: coronary artery disease, AZ s/p stent, hypertension, hyperlipidemia, diabetes mellitus, opiod use disorder Past surgical histroy: Laminectomy x2 (2008), cardiac stent (2008) Family history: Mother: diabetes mellitus, hypertension, hyperlipidemia Father: COPD, ?heart disease, at 72 years old. Social history: Lives at home with and two children. Smokes approx 10 cigarettes/ day, intermittently for past 20 years. 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 Denies alcohol consumption. 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 REVIEW OF SYSTEMS: CONSTITUTIONAL: Absent: fever, chills, diaphoresis, generalized weakness, malaise, loss of appetite, weight change HEENT: Absent: rhinorrhea, nasal congestion, throat pain, throat swelling, difficulty swallowing, mouth swelling, ear pain, eye pain, visual changes CARDIOVASCULAR: Absent: chest pain, syncope, palpitations, irregular heart rate, lightheadedness , peripheral edema RESPIRATORY: Absent: cough, shortness of breath, dyspnea with exertion, orthopnea, wheezing, stridor, hemoptysis GASTROINTESTINAL: Admits: abdominal pain. Absent: abdominal distension, nausea, vomiting, diarrhea , constipation, melena, hematochezia GENITOURINARY: Absent: dysuria, frequency, urgency, hesitancy, hematuria, flank pain, genital pain MUSCULOSKELETAL: Absent: myalgia, arthralgia, joint swelling, back pain, neck pain SKIN: Absent: rash, itching, pallor HEMATOLOGIC/IMMUNOLOGIC: Absent: easy bleeding, easy bruising, lymphadenopathy, frequent infections ENDOCRINE: Absent: unexplained weight gain, unexplained weight loss, heat intolerance, cold intolerance NEUROLOGIC: Absent: headache, focal weakness or paresthesias, dizziness, unsteady gait, seizure, mental status changes, bladder or bowel incontinence PSYCHIATRIC: Absent: anxiety, depression, suicidal or homicidal ideation, hallucinations. PHYSICAL EXAMINATION Vital Signs - 24 hr 02/02/19 02/02/19 02/02/19 18:17 21:00 22:47 Temperature 99.2 F 99.1 F Pulse Rate 102 H 115 H Respiratory 20 20 20 Rate Blood Pressure 121/77 126/67 O2 Sat by Pulse 100 Oximetry (%) 02/03/19 02/03/19 02/03/19 07:34 14:00 15:13 Temperature 98 F 104 F H 105.4 F H Pulse Rate 115 H 115 H Respiratory 20 18 Rate Blood Pressure 114/81 110/44 L O2 Sat by Pulse Oximetry (%) GENERAL: The patient is sleepy, easily arrousable to name, oriented, in no acute distress. HEAD: Normocephalic, atraumatic. EYES: PERRL, extraocular movements intact, mild scleral icterus. ENT: Oropharynx clear. Dry mucous membranes. NECK: Trachea midline, full range of motion. Supple without lymphadenopathy. LUNGS: Breath sounds equal, clear to auscultation bilaterally, no wheezes, no crackles. No accessory muscle use. HEART: Regular rate and rhythm, S1, S2 without murmur, rub or gallop. ABDOMEN: Soft, nondistended. Tender to light palpation x4 quadrants, worst at right upper quadrant. Negative guarding. Negative rebound tenderness. Hypoactive bowel sounds x4 quadrants. Hepatomegaly palpated and percussed approx 2cm below right costal margin. EXTREMITIES: 2+ radial, dorsalis pedis pulses bilaterally. Warm, well-perfused. No lower extremity edema bilaterally. NEUROLOGICAL: Cranial nerves II through XII grossly intact. No gross focal deficits. Strength 5/5 bilateral upper and lower extremities. SKIN: Warm, dry. Right sided central venous catheter in place; dressing clean, dry, intact. Laboratory Results - last 24 hr 02/02/19 02/02/19 02/03/19 17:50 20:25 05:38 WBC RBC Hgb Hct MCV MCH MCHC RDW Plt Count MPV Absolute Neuts (auto) Neutrophils % Neutrophils % (Manual) Band Neutrophils % Lymphocytes % Lymphocytes % (Manual) Monocytes % Monocytes % (Manual) Eosinophils % Eosinophils % (Manual) Basophils % Basophils % (Manual) Myelocytes % (Man) Promyelocytes % (Man) Blast Cells % (Manual) Nucleated RBC % Metamyelocytes Hypochromia Platelet Estimate Polychromasia Poikilocytosis Anisocytosis Microcytosis Macrocytosis PT with INR INR PTT (Actin FS) Sodium Potassium Chloride Carbon Dioxide Anion Gap BUN Creatinine Est GFR (CKD-EPI)AfAm Est GFR (CKD-EPI)NonAf POC Glucometer 287 299 335 Random Glucose Calcium Total Bilirubin Direct Bilirubin GGT AST ALT Alkaline Phosphatase Total Protein Albumin Triglycerides Cholesterol Total LDL Cholesterol HDL Cholesterol Lipase RPR Titer Blood Type Antibody Screen 02/03/19 02/03/19 02/03/19 06:33 06:33 06:33 WBC 6.1 RBC 4.95 Hgb 15.4 Hct 46.6 MCV 94.3 MCH 31.1 MCHC 33.0 RDW 14.4 Plt Count 95 L MPV 9.3 Absolute Neuts (auto) 5.7 Neutrophils % 94.1 H Neutrophils % (Manual) 83.9 H Band Neutrophils % 12.1 Lymphocytes % 1.3 L D Lymphocytes % (Manual) 2.0 L Monocytes % 4.3 Monocytes % (Manual) 1 L Eosinophils % 0.1 Eosinophils % (Manual) 0.0 Basophils % 0.2 Basophils % (Manual) 0.0 Myelocytes % (Man) 1 Promyelocytes % (Man) 0 Blast Cells % (Manual) 0 Nucleated RBC % 0 Metamyelocytes 0 Hypochromia 0 Platelet Estimate Decreased Polychromasia 0 Poikilocytosis 0 Anisocytosis 1+ Microcytosis 0 Macrocytosis 1+ PT with INR 23.30 H INR 1.96 H PTT (Actin FS) 39.2 H Sodium 137 Potassium 3.9 Chloride 102 Carbon Dioxide 25 Anion Gap 10 BUN 21.5 H Creatinine 1.1 Est GFR (CKD-EPI)AfAm 96.13 Est GFR (CKD-EPI)NonAf 82.94 POC Glucometer Random Glucose 347 H Calcium 7.7 L Total Bilirubin 3.6 H D Direct Bilirubin GGT AST 105 H ALT 154 H Alkaline Phosphatase 92 Total Protein 5.5 L Albumin 2.7 L Triglycerides 92 Cholesterol 75 Total LDL Cholesterol 20 HDL Cholesterol 23 L Lipase RPR Titer Blood Type Antibody Screen 02/03/19 02/03/19 02/03/19 06:33 10:30 10:30 WBC RBC Hgb Hct MCV MCH MCHC RDW Plt Count MPV Absolute Neuts (auto) Neutrophils % Neutrophils % (Manual) Band Neutrophils % Lymphocytes % Lymphocytes % (Manual) Monocytes % Monocytes % (Manual) Eosinophils % Eosinophils % (Manual) Basophils % Basophils % (Manual) Myelocytes % (Man) Promyelocytes % (Man) Blast Cells % (Manual) Nucleated RBC % Metamyelocytes Hypochromia Platelet Estimate Polychromasia Poikilocytosis Anisocytosis Microcytosis Macrocytosis PT with INR INR PTT (Actin FS) Sodium Potassium Chloride Carbon Dioxide Anion Gap BUN Creatinine Est GFR (CKD-EPI)AfAm Est GFR (CKD-EPI)NonAf POC Glucometer Random Glucose Calcium Total Bilirubin Direct Bilirubin 3.6 H GGT AST ALT Alkaline Phosphatase Total Protein Albumin Triglycerides Cholesterol Total LDL Cholesterol HDL Cholesterol Lipase 63 L RPR Titer Blood Type AB POSITIVE AB POSITIVE Antibody Screen Negative 02/03/19 02/03/19 02/03/19 10:30 10:30 13:59 WBC RBC Hgb Hct MCV MCH MCHC RDW Plt Count MPV Absolute Neuts (auto) Neutrophils % Neutrophils % (Manual) Band Neutrophils % Lymphocytes % Lymphocytes % (Manual) Monocytes % Monocytes % (Manual) Eosinophils % Eosinophils % (Manual) Basophils % Basophils % (Manual) Myelocytes % (Man) Promyelocytes % (Man) Blast Cells % (Manual) Nucleated RBC % Metamyelocytes Hypochromia Platelet Estimate Polychromasia Poikilocytosis Anisocytosis Microcytosis Macrocytosis PT with INR INR PTT (Actin FS) Sodium Potassium Chloride Carbon Dioxide Anion Gap BUN Creatinine Est GFR (CKD-EPI)AfAm Est GFR (CKD-EPI)NonAf POC Glucometer 468 Random Glucose Calcium Total Bilirubin Direct Bilirubin GGT 113 H AST ALT Alkaline Phosphatase Total Protein Albumin Triglycerides Cholesterol Total LDL Cholesterol HDL Cholesterol Lipase RPR Titer Nonreactive Blood Type Antibody Screen 02/03/19 17:16 WBC RBC Hgb Hct MCV MCH MCHC RDW Plt Count MPV Absolute Neuts (auto) Neutrophils % Neutrophils % (Manual) Band Neutrophils % Lymphocytes % Lymphocytes % (Manual) Monocytes % Monocytes % (Manual) Eosinophils % Eosinophils % (Manual) Basophils % Basophils % (Manual) Myelocytes % (Man) Promyelocytes % (Man) Blast Cells % (Manual) Nucleated RBC % Metamyelocytes Hypochromia Platelet Estimate Polychromasia Poikilocytosis Anisocytosis Microcytosis Macrocytosis PT with INR INR PTT (Actin FS) Sodium Potassium Chloride Carbon Dioxide Anion Gap BUN Creatinine Est GFR (CKD-EPI)AfAm Est GFR (CKD-EPI)NonAf POC Glucometer 431 Random Glucose Calcium Total Bilirubin Direct Bilirubin GGT AST ALT Alkaline Phosphatase Total Protein Albumin Triglycerides Cholesterol Total LDL Cholesterol HDL Cholesterol Lipase RPR Titer Blood Type Antibody Screen Active Medications Generic Name Dose Route Start Last Admin Trade Name Freq PRN Reason Stop Dose Admin Buprenorphine/Naloxone 1 each 02/02/19 13:00 02/03/19 11:10 Suboxone 8 Mg/2mg Sl Film - SL 1 each DAILY SHRUTHI Administration Bupropion HCl 300 mg 02/02/19 10:00 02/03/19 11:10 Wellbutrin Xl - PO 300 mg DAILY SHRUTHI Administration Chlorhexidine Gluconate 1 applic 02/03/19 22:00 Hibiclens For Decolonization - TP HS SHRUTHI Lactated Ringer's 1,000 ml in 1,000 mls @ 200 mls/hr 02/03/19 14:15 02/03/19 14:29 Lactated Ringers Solution IV 200 mls/hr ASDIR SHRUTHI Administration Piperacillin Sod/Tazobactam 100 mls @ 200 mls/hr 02/03/19 18:00 Sod 4.5 gm/ Dextrose IVPB Q8H-IV SHRUTHI Protocol Vancomycin HCl 1,500 mg/ 500 mls @ 250 mls/hr 02/03/19 16:00 Dextrose IVPB 02/03/19 17:59 ONCE ONE Protocol Insulin Aspart 1 vial 02/01/19 16:30 02/03/19 14:28 Novolog Vial Sliding Scale - SQ 12 units ACHS SHRUTHI Administration Protocol Insulin Aspart 8 units 02/03/19 17:22 Novolog Vial SQ 02/03/19 17:23 ONCE ONE Protocol Lorazepam 2 mg 02/03/19 11:00 02/03/19 11:10 Ativan PO 02/04/19 23:01 Not Given 0500,1100,1700,2300 SHRUTHI Lorazepam 0.5 mg 02/06/19 05:00 Ativan - PO 02/06/19 23:01 Q6H SHRUTHI Lorazepam 0.5 mg 02/07/19 05:00 Ativan - PO 02/07/19 05:01 ONCE ONE Lorazepam 1 mg 02/05/19 05:00 Ativan - PO 02/05/19 23:01 0500,1100,1700,2300 SHRUTHI Mupirocin 1 applic 02/03/19 22:00 Bactroban Ointment (For Decolonization) - NS 02/08/19 21:59 BID SHRUTHI Pantoprazole Sodium 40 mg 02/03/19 10:00 02/03/19 11:10 Protonix Iv IVPUSH 40 mg DAILY SHRUTHI Administration ASSESSMENT/PLAN: Septic shock, likely secondary to ascending cholangitis Acute toxic metabolic encephalopathy Acute pancreatitis Acute kidney injury Coagulopathy; elevated INR Thrombocytopenia Diabetes mellitus Opiod use disorder Pre-syncopal episode Coronary artery disease; history of AZ s/p stent History of hypertension History of hyperlipidemia Neurologic Acute toxic metabolic encephalopathy Syncopal episode Opiod use disorder -Currently patient is awake, alert, oriented. Per at bedside patient -CT head reveals negative acute intracranial hemorrhoage or pathology. -Metabolic encephalopathy likely secondary to septic shock. -Follow Ammonia level -Continue Suboxone 8mg/ 2mg sublingual daily -Fall precautions Pulmonary Acute hypoxic respiratory failure -Patient with increased oxygen demand, likely secondary to septic shock. -Currently saturating well on 4L nasal canula, however not on home oxygen. -ABG reveals no CO2 retention, negative acidemia. -Chest radiograph Cardiovascular Shock (septic) Coronary artery disease; AZ s/p stent History of hypertension History of hyperlipidemia -Holding antiplatelet therapy in anticipation of surgical intervention; last Plavix January 30. Reinstate once clinically appropriate. -CVP monitoring- goal 8-12; IV Lactated Ringer's bolus as needed to maintain CVP -Cardiac ECHO reveals left ventricular systolic function normal, ejection fraction 60-65%. -Troponin 0.02. Will trend -Cardiology recommendations (Dr. Guidry) appreciated. Gastrointestinal Choledocholithiasis Acute pancreatitis -Aggressive IV fluid hydration; Lactated Ringers bolus; followed [id number]/ [id number]. Will hydrate following CVP. -NPO except medications -GI recommendations (Dr. Lion) appreciated. Patient will undergo ERCP with Dr. De Leon today. -General surgery recommendations (Dr. Sparks) appreciated. Nephrologic Acute kidney injuiry -BUN 42.3 /Cr 2.2 (baseline approx 1) -Likely secondary to hypovolemia in setting of sepsis. -Follow BUN, Cr with IV fluid hydration. -Place quinn cather, follow urine output Hematologic Thrombocytopenia Coagulopathy; elevated INR -Concern for DIC. Fibrinogen greater than 500, no indication for Cryoprecipitate at this time. Currently Hb/ Hct stable, without evidence of acute bleeding. Follow Fibrinogen with morning labs. -INR 2.40; Patient will receive 2 units FFP to reverse, prior to surgical procedure. Follow PT/INR, PTT Infectious disease Ascending cholangitis- likely source of sepsis Lactic acidosis- likely secondary to sepsis Hx. MRSA ?per family -Tmax 104.5F (rectal temperature) this afternoon, downtrending. -Follow Blood cultures -Place quinn catheter; follow UA, urine cultures -ID recommendations (Dr. Lozoya) appreciated; Continue Vancomycin, Meropenem. -Lactic acid 3.2. Follow Lactic acid; receiving aggressive IV fluid hydration. Endocrine Diabetes mellitus -Will control sugars with Novolog. Initiate home long acting insulin regimen postoperatively. -Fingerstick BGM Q4 hours FEN -IV Lactated Rigner's bolus, subsequently at 200mL/ hour -Follow BMP, replete as necessary -NPO except for medications Prophylaxis -SCDs bilateral lower extremities. Holding chemical AC in setting of thrombocytopenia, and in anticipation of surgical intervention. Disposition: We will continue to follow the patient. Thank you for this consultative opportunity. Visit type - Emergency Visit Emergency Visit: Yes ED Registration Date: 02/01/19 Care time: The patient presented to the Emergency Department on the above date and was hospitalized for further evaluation of their emergent condition. - New Patient This patient is new to me today: Yes Date on this admission: 02/03/19 - Critical Care Critical Care patient: Yes Total Critical Care Time (in minutes): 37 Critical Care Statement: The care of this patient involved high complexity decision making to prevent further life threatening deterioration of the patient 's condition and/or to evaluate & treat vital organ system(s) failure or risk of failure. ATTENDING PHYSICIAN STATEMENT I saw and evaluated the patient. I reviewed the resident's note and discussed the case with the resident. I agree with the resident's findings and plan as documented. SUBJECTIVE: OBJECTIVE: ASSESSMENT AND PLAN:
[2019-02-03 17:38] LABS: INR 2.4 (0.83-1.09); PROTHROMBIN TIME (PATIENT) 28.6 SEC (9.7-13.0)
[2019-02-03 17:41] LABS: ACTIVATED PTT 38.5 SECONDS (25.2-36.5)
[2019-02-03] MEDS: LACTATED RINGERS SOLUTION 1,000 ML/1,000 ML INFUS.BAG IV SCH (17:52)
[2019-02-03] MEDS ORDERED: LACTATED RINGERS SOLUTION 1,000 ML/1,000 ML INFUS.BAG IV STA ×2 (17:53→19:38)
[2019-02-03] MEDS ORDERED: PIPERACILLIN/TAZOB 4.5 GM 4.5 GM in DEXTROSE 5%-WATER 100 ML IVPB SCH (18:00)
[2019-02-03] MEDS ORDERED: MIDAZOLAM HCL 2 MG/2 ML SINGLE DOSE VIAL IVPUSH ONE (18:03)
[2019-02-03] MEDS ORDERED: MORPHINE SULFATE 2 MG/ML VIAL ONE (18:03)
[2019-02-03] MEDS ORDERED: MIDAZOLAM HCL 2 MG/2 ML SINGLE DOSE VIAL ONE ×2 (18:03→21:46)
[2019-02-03] MEDS ORDERED: MORPHINE SULFATE 2 MG/ML VIAL IVPUSH ONE (18:03)
--- NOTE | 2019-02-03 18:30 | PN ---
Progress Note (short form) - Note Progress Note: Spoke with Dr. Diamond this evening. Concern was for cut off in the distal CBD possibly reflecting retained stone as well as significant peripancreatic edema raising question of pancreatitis. Mr. Ojeda was transferred to the ICU upon my reevaluation. BP was 70's systolic at one point. Was receiving LR fluid bolus with improvement. Sluggish mentation, improving somewhat. Despite non dilated CBD, given significant fevers and MRCP findings, there still needs to be concern for ascending cholangitis with superimposed acute pancreatitis. Dr. Amaral called me back this evening, explained that Dr. De Leon would be available for ERCP. I called and discussed the case with Dr. De Leon. Spoke with Dr. Alexandre who came in to evaluate Mr. Carmichael and for line placement. I spoke with Dr. Barron and discussed case if further biliary intervention is necessary if ERCP unsuccessful. Plan for ERCP at 9pm given availability of anesthesia. Spoke with the ICU team. 2 U FFP will be given around 8pm given worsening coagulopathy. If ERCP unrevealing as a source for significant fevers, Would obtain contrast CT scan of the abdomen with pancreatic protocol to exclude necrotizing pancreatitis / alternate pathology. Continue aggressive IV hydration IV Abx per ID Discussed the plan with his who was present at bedside and did explain that he is critically ill. She signed consent at his request for ERCP. Problem List - Problems (1) Acute calculous cholecystitis Code(s): K80.00 - CALCULUS OF GALLBLADDER W ACUTE CHOLECYST W/O OBSTRUCTION
[2019-02-03 18:34] LABS: ALBUMIN 2.5 g/dl (3.4-5.0); ALK PHOS 81 U/L (45-117); ANION GAP 9 MMOL/L (8-16); BILIRUBIN,TOTAL 4.2 mg/dL (0.2-1); BLOOD UREA NITROGEN 42.3 mg/dL (7-18); CALCIUM 7.6 mg/dL (8.5-10.1); CHLORIDE 102 mmol/L (98-107); CO2 25 mmol/L (21-32); CREATININE 2.2 mg/dL (0.55-1.3); POTASSIUM 3.7 mmol/L (3.5-5.1); SGOT/AST 115 U/L (15-37); SGPT/ALT 183 U/L (13-61); SODIUM 136 mmol/L (136-145)
--- NOTE | 2019-02-03 18:37 | PROC ---
Central Line Insertion Indication: CVP Monitoring, Vasopressor Risks and Benefits Explained: Yes Consent on Chart: Yes Central Line: Triple Lumen Catheter Anesthesia: 1% Lidocaine Sterile Technique: Yes Ultrasound Guided Assistance: Yes Position: Right Internal Jugular Post Insertion: Yes: Chest X-Ray Ordered Sterile Dressing Applied: Yes
--- NOTE | 2019-02-03 18:41 | CONS ---
INFECTIOUS DISEASE CONSULTATION DATE OF CONSULTATION: DATE OF DICTATION: 02/03/2019 REQUESTING PHYSICIAN: The hospitalist service. This is a 43-year-old man. Currently, he is very fatigued and in abdominal pain , is unable to give too much history. He does report that he was admitted on the with abdominal pain that was mainly right sided, that it started that morning, and he reports that over the course of the weekend, the pain has increased. He is unclear if he had fever. I was called to see the patient because the GI doctor came to see the patient. He was noted to have an oral temperature of 102.7, and a rectal temperature was taken and was 105. He is currently receiving IV fluids. He had blood cultures drawn and has received a dose of piperacillin/tazobactam. He denies any history of gallstones, kidney stones. He does report since admission that he thinks his urination has diminished in quantity. He had a non-contrast CAT scan done after admission, that showed gallstones and fecal retention. Ultrasound showed gallstones and a non-dilated biliary tract. Today, he was noted to have abnormal LFTs with a rise in transaminases and bilirubin, increasing abdominal pain with fever. He has not had a bowel movement since admission and reports diminished urine output. PAST MEDICAL HISTORY: Notable for coronary artery disease, hypertension, hyperlipidemia. He had an NH at age 31 at [facility] where he had a stent placed. He has a history of diabetes and obesity. SURGICAL HISTORY: Notable for lumbar laminectomy x2 which was done prior to the cardiac stents. SOCIAL HISTORY: He denies any alcohol use. He has a history of prior opioid use and is on Suboxone. He has a history of hyperlipidemia as well. He lives with his . He works in the [employer] industry with the [employer] for the [employer] and [employer]. ALLERGIES: He has no known drug allergies. MEDICATIONS AT HOME: Include Lipitor, Plavix, Toprol-XL, insulin, Wellbutrin, and Suboxone. REVIEW OF SYSTEMS: Currently notable for diffuse abdominal pain. He reports it is everywhere, but most significant in the mid-epigastric area. He denies cough. He denies shortness of breath. PHYSICAL EXAMINATION: Vital Signs: His T-max was 105.4 rectally. His current temperature is 102.7 orally. Pulse of 115. Blood pressure is 110/44, with respiratory rate of 18. He is saturating 100%. HEENT: He is normocephalic. His eyes are mildly icteric. He has very dry oral mucous membranes. Neck: Supple. Lungs: Diminished breath sounds at the bases. Heart: Regular rate and rhythm. Abdomen: Diminished bowel sounds. He has diffuse tenderness on palpation throughout his abdomen. Extremities: Without edema. LABORATORY DATA: Labs are notable for a white count of 6.1, hemoglobin 15.4. Platelets are 95,000. On admission, they were 132. INR is 1.96. Chemistries are pending. Earlier today, his BUN was 21, creatinine of 1.1, total bilirubin of 3.6, AST of 105, ALT of 154, with a lipase of 63. His urinalysis on admission was negative. Hepatitis serology and HIV are pending. Blood cultures were sent this afternoon and are pending as well. In summary, this is a 43-year-old man with CAD with abdominal pain which is worsening, with fever and abnormal LFTs. Stat blood cultures have been drawn. Zosyn was started. Concern is for sepsis- cholangitis and possible choledocholithiasis. Plan is for emergent MRCP. IV fluids have been increased. He received Zosyn. We will give a stat dose of vancomycin and switch the Zosyn to meropenem. The patient is for transfer to the ICU. Care was discussed with GI and the hospitalist. I spoke as well with his . The patient has not been sick over the course of the last year. He has not been in the hospital. He has no history of any recent antibiotics or antibiotics in the last year. BETHANY LUIS M.D. [id number] MTDD
--- NOTE | 2019-02-03 18:45 | PN ---
Teaching Attending Note Name of Resident: David Prado ATTENDING PHYSICIAN STATEMENT I saw and evaluated the patient. I reviewed the resident's note and discussed the case with the resident. I agree with the resident's findings and plan as documented. SUBJECTIVE: Pt seen and examined in the ICU. Febrile to 105.4, borderline hypotension, tachycardic, lethargic but easily arousable. IVF boluses infusing. Central line urgently placed for CVP monitoring and possible pressors. OBJECTIVE: Vital Signs Period Temp Pulse Resp BP Sys/Busby Pulse Ox Last 24 Hr 98 F-105.4 F 115-116 18-20 87-126/44-81 100 Intake & Output 01/31/19 02/01/19 02/02/19 02/03/19 23:59 23:59 23:59 23:59 Intake Total 0 825 825 Output Total 700 Balance 0 825 125 Weight 123.559 kg Gen: lethargic but easily arousable Heart: tachycardic, regular Lung: decreased breath sounds at the bases Abd: soft, TTP RUQ, lower quadrants, no rebound Ext: no edema CBC, BMP 02/03/19 17:00 02/03/19 17:00 Hepatic Panel Total Bilirubin 4.2 mg/dL (0.2-1) H 02/03/19 17:00 Direct Bilirubin 3.6 mg/dL (0.0-0.2) H 02/03/19 10:30 AST 115 U/L (15-37) H 02/03/19 17:00 ALT 183 U/L (13-61) H 02/03/19 17:00 Alkaline Phosphatase 81 U/L (45-117) 02/03/19 17:00 Albumin 2.5 g/dl (3.4-5.0) L 02/03/19 17:00 Active Medications Buprenorphine/Naloxone (Suboxone 8 Mg/2mg Sl Film -) 1 each SL DAILY SHRUTHI Bupropion HCl (Wellbutrin Xl -) 300 mg PO DAILY [facility] Chlorhexidine Gluconate (Hibiclens For Decolonization -) 1 applic TP HS [facility] Lactated Ringer's (Lactated Ringers Solution) 1,000 ml in 1,000 mls @ 200 mls/ hr IV ASDIR SHRUTHI Last Admin: 02/03/19 17:52 Dose: 200 mls/hr Meropenem 1 gm/ Dextrose 100 mls @ 200 mls/hr IVPB Q8H-IV SHRUTHI Lactated Ringer's (Lactated Ringers Solution) 1,000 ml in 1,000 mls @ 1,000 mls /hr IV ONCE STA Stop: 02/03/19 18:52 Last Admin: 02/03/19 17:00 Dose: 1,000 mls/hr Insulin Aspart (Novolog Vial Sliding Scale -) 1 vial SQ ACHS SHRUTHI; Protocol Lorazepam (Ativan -) 0.5 mg PO ONCE ONE Stop: 02/07/19 05:01 Lorazepam (Ativan) 2 mg PO 0500,1100,1700,2300 SHRUT[facility] Stop: 02/04/19 23:01 Lorazepam (Ativan -) 0.5 mg PO Q6H SH[facility] Stop: 02/06/19 23:01 Lorazepam (Ativan -) 1 mg PO 0500,1100,1700,2300 SHRUT[facility] Stop: 02/05/19 23:01 Mupirocin (Bactroban Ointment (For Decolonization) -) 1 applic NS BID [facility] Stop: 02/08/19 21:59 Pantoprazole Sodium (Protonix Iv) 40 mg IVPUSH DAILY [facility] ASSESSMENT AND PLAN: r/o Acute Cholangitis Choledocholithiasis Severe Sepsis with impending Shock Acute Kidney Injury Lactic Acidosis Coagulopathy/Thrombocytopenia r/o DIC CAD DM Hyperlipidemia Opiate Dependence Suspect Obstructive Sleep Apnea - check CVP - IVF resuscitation to keep CVP 8-12 - start levophed if MAP <65 despite IVF resuscitation - IV antibiotics per ID - f/u cultures - trend lactate - trend cardiac enzymes - monitor urine output, creatinine - O2 to keep SpO2 >90% - transfuse FFP - monitor platelets, coags, fibrinogen level - NPO - GI to perform ERCP - pain control - ICU monitoring critical care time spent in reviewing chart, evaluating patient and formulating plan 45 min
[2019-02-03 19:05] LABS: GLUCOSE,RANDOM 454 mg/dL (74-106)
[2019-02-03 19:27] LABS: ANISOCYTOSIS 2+; MACROCYTOSIS 0; PLATELET ESTIMATE DECREASED
[2019-02-03 21:07] LABS: ARTERIAL BLOOD GAS PCO2 40.4 mmHg (35-45); ARTERIAL BLOOD GAS pH 7.41 (7.35-7.45)
[2019-02-03 21:08] LABS: ALLENS TEST POSITIVE; ARTERIAL BLD GAS O2 SATURATION 93.3 % (95-98); ARTERIAL BLOOD GAS PO2 62.9 mmHg (80-100)
[2019-02-03] MEDS ORDERED: LACTATED RINGERS SOLUTION 1000 ML INFUS.BAG IV ONE (21:27)
[2019-02-03] MEDS ORDERED: CHLORHEXIDINE GLUCONATE 4% CLEANSER FOR DECOLONIZATION TP SCH (22:00)
--- NOTE | 2019-02-03 22:52 | PN ---
Progress Note (short form) - Note Progress Note: ERCP performed under general anesthesia. Bile was present in the stomach and duodenum. The common bile duct was cannulated and opacified with dye. The duct was not dilated. No stones were present. The cystic duct did not fill. A 7 Fr 7 cm double pigtail stent was placed, given the patient's jaundice. Only clear bile was present, no pus. Overall impression is that the patient's jaundice reflects sepsis and not obstruction, just as the rise in creatinine is not a consequence of urinary obstruction. The stent can be removed after the cholecystectomy any time in the next 3 months.
[2019-02-03] MEDS: PROPOFOL 1,000,000 MCG/100 ML VIAL IVPB SCH (23:00)
--- NOTE | 2019-02-03 23:41 | PN ---
Progress Note (short form) - Note Progress Note: Resident note was somehow incomplete. Please count my documentation (this being the same signed addendum) for billing for 02/03. S: Agree with historical findings as outlined in resident documentation regarding history of present illness. No further events communicated to myself from overnight. This 10 system ROS completed and is negative aside from indicated issues in the subjective/HPI Medication list reviewed; as documented per orders and above. O: All vital signs reviewed per ER records and are as per EMR NAD, AAO, Resting in bed NC AT EOMI PERRLA Neck supple, trachea midline, no mckenzie LN RRR s1/2 Lungs CTAB, w/ sym expansion NT ND +BS No skin breakdown or rashes noted CN2-12 wnl, no new focal deficits noted Muscle tone normal, no deficits in motor function or strength noted Normal mood, appropriate behavior, average insight EKG: CXR: Other Imaging: Prior Diagnostics: A/P:
[2019-02-03 23:48] LABS: HEMATOCRIT 41.2 % (35.4-49); HEMOGLOBIN 13.5 GM/dL (11.7-16.9); MCH 30.9 pg (25.7-33.7); MCHC 32.8 g/dl (32.0-35.9); MEAN CELL VOLUME 94.1 fl (80-96); MEAN PLT VOLUME 9.2 fl (7.5-11.1); PLATELET COUNT 80 K/MM3 (134-434); RBC 4.39 M/mm3 (4.00-5.60); RDW 14.6 % (11.9-15.9); WHITE BLOOD COUNT 4.7 K/mm3 (4.0-10.0)
[2019-02-03 23:58] LABS: ARTERIAL BLD GAS O2 SATURATION 93.6 % (95-98); ARTERIAL BLOOD GAS BASE EXCESS -0.3 meq/l (-2-2); ARTERIAL BLOOD GAS PCO2 47.9 mmHg (35-45); ARTERIAL BLOOD GAS PO2 77.4 mmHg (80-100); ARTERIAL BLOOD GAS pH 7.34 (7.35-7.45)
[2019-02-03 23:59] LABS: ALLENS TEST POSITIVE
[2019-02-04 00:04] LABS: INR 1.86 (0.83-1.09); PROTHROMBIN TIME (PATIENT) 22.1 SEC (9.7-13.0)
[2019-02-04] MEDS ORDERED: LACTATED RINGERS SOLUTION 1000 ML INFUS.BAG IV ONE (00:04)
[2019-02-04] MEDS: MUPIROCIN 2% TOPICAL OINTMENT FOR DECOLONIZATION NS SCH ×3 (00:11→22:08)
--- NOTE | 2019-02-04 00:11 | PN ---
Progress Note (short form) - Note Progress Note: UPDATE: Received call while in outpatient continuity clinic (~1400h) regarding rectal temp 105*F. Stat blood cultures, UA, urine cultures. ID consulted. Zosyn added for coverage of GI tract infection. Appreciate GI recommendations. Potential transfer to [facility] due to emergent ERCP with benefits outweighing risks of bleeding even with high bleed risk. Potential transfer to ICU in interim HPI: Briefly, 43yo M with h/o IA s/p stenting 8-10 years prior, LDD, type 2 DM, HLD, and suboxone use who presented with abdominal pain and admitted for likely gallstone pancreatitis. Pt has had fluctuating lipase and LFTs over weekend with pain remaining. Pt today has increased RUQ pain with some radiation to RLQ. No fevers or rigors, no nausea or vomiting, no diarrhea/constipation. Pt's last dose of Plavix 01/30 per patient and per EMR notes. PE: Gen: NAD, awake, alert, oriented x3 HEENT: Nc/AT, EOMI, KACY, no scleral icterus, slight mucosal jaundice Neck: No JVD LUNG: CTA b/l no wheezes on RA Card: RRR no murmurs appreciated ABD: Soft, nondistendend, tenderness to palpation (RUQ greatest), normoactive BS , voluntary guarding, no rebound, no Jaspal's/Jackson's sign EXT: No edema, 2+ DP pulses b/l Skin: No jaundice Laboratory Tests 02/03/19 02/03/19 02/03/19 06:33 06:33 06:33 WBC 6.1 RBC 4.95 Hgb 15.4 Hct 46.6 MCV 94.3 MCH 31.1 MCHC 33.0 RDW 14.4 Plt Count 95 L PT with INR 23.30 H INR 1.96 H PTT (Actin FS) 39.2 H Sodium 137 Potassium 3.9 Chloride 102 Carbon Dioxide 25 Anion Gap 10 BUN 21.5 H Creatinine 1.1 Random Glucose 347 H Calcium 7.7 L Total Bilirubin 3.6 H D Direct Bilirubin GGT AST 105 H ALT 154 H Alkaline Phosphatase 92 Total Protein 5.5 L Albumin 2.7 L Triglycerides 92 Cholesterol 75 Total LDL Cholesterol 20 HDL Cholesterol 23 L Lipase 02/03/19 02/03/19 10:30 10:30 WBC RBC Hgb Hct MCV MCH MCHC RDW Plt Count PT with INR INR PTT (Actin FS) Sodium Potassium Chloride Carbon Dioxide Anion Gap BUN Creatinine Random Glucose Calcium Total Bilirubin Direct Bilirubin 3.6 H GGT 113 H AST ALT Alkaline Phosphatase Total Protein Albumin Triglycerides Cholesterol Total LDL Cholesterol HDL Cholesterol Lipase 63 L Assessment and Plan: Abdominal pain 2/2 to cholecystitis ? Cirrhosis Uncontrolled Type 2 DM Hyperbilirubinemia CAD s/p stenting Substance abuse on suboxone H/o HTN H/o HLD --Pt decrease in lipase likely not indicated of pancreatitis especially in setting of prior CT study not due --Repeat RUQ U/S stat due to increased RUQ pain for interval change in CBD or GB anatomy --Pt MELD 20 given laboratory studies --GI consult --Treat for potential withdrawals: Ativan protocol initiated --NS@75 cc/hr changed to LR@100cc/hr due to likely inflammation of GI tract --Continue Toprol XL 24mg qdaily --Continue Wellbutrin home dose --Pain control --Appreciate all consultation recommendations --Fractionate bilirubin, GGT, repeat Lipase, Lipid panel all ordered FEN: Fluids: Switch to LR Electrolyte abnormalities: None currently Nutrition: NPO PPX: DVT - SCDs Dispo: Monitor on M/S Case discussed with Dr. Mason Michel, DO - IM PGY-3
[2019-02-04] MEDS: INSULIN SLIDING SCALE (NOVOLOG) 1 VIAL SQ SCH ×6 (00:12→22:21)
[2019-02-04 00:13] LABS: ALBUMIN 2.4 g/dl (3.4-5.0); ALK PHOS 80 U/L (45-117); ANION GAP 8 MMOL/L (8-16); BILIRUBIN,TOTAL 3.3 mg/dL (0.2-1); BLOOD UREA NITROGEN 39.8 mg/dL (7-18); CALCIUM 7.5 mg/dL (8.5-10.1); CHLORIDE 103 mmol/L (98-107); CO2 27 mmol/L (21-32); GLUCOSE,RANDOM 328 mg/dL (74-106); POTASSIUM 3.6 mmol/L (3.5-5.1); SGOT/AST 97 U/L (15-37); SGPT/ALT 166 U/L (13-61); SODIUM 137 mmol/L (136-145)
[2019-02-04] MEDS: LACTATED RINGERS SOLUTION 1,000 ML/1,000 ML INFUS.BAG IV SCH ×3 (01:00→11:22)
--- NOTE | 2019-02-04 01:00 | PN ---
Progress Note, Physician Chief Complaint: abdominal pain History of Present Illness: 43 yo male PMH [place] s/p stent on DAPT and lumbar disc disease s/p 2 operations, DM , HLD, prior opioid abuse on suboxone who presents to the emergency department with RUQ/flank and abdominal pain since 8:30AM.s/p ERCP with no clear source or ascending cholangitis - Current Medication List Current Medications: Active Medications Buprenorphine/Naloxone (Suboxone 8 Mg/2mg Sl Film -) 1 each SL DAILY [facility] Bupropion HCl (Wellbutrin Xl -) 300 mg PO DAILY [facility] Chlorhexidine Gluconate (Hibiclens For Decolonization -) 1 applic TP HS [facility] Last Admin: 02/04/19 00:12 Dose: 1 applic Lactated Ringer's (Lactated Ringers Solution) 1,000 ml in 1,000 mls @ 200 mls/ hr IV ASDIR SHRUTHI Last Admin: 02/03/19 17:52 Dose: 200 mls/hr Meropenem 1 gm/ Dextrose 100 mls @ 200 mls/hr IVPB Q8H-IV SHRUTHI Propofol (Diprivan -) 1,000,000 mcg in 100 mls @ 3.707 mls/hr IVPB TITR SHRUTHI; Protocol Last Admin: 02/03/19 23:00 Dose: 5 mcg/kg/min, 3.707 mls/hr Metronidazole (Flagyl 500mg Premixed Ivpb -) 500 mg in 100 mls @ 100 mls/hr IVPB Q8H-IV SHRUTHI Insulin Aspart (Novolog Vial Sliding Scale -) 1 vial SQ ACHS [facility]; Protocol Last Admin: 02/04/19 00:12 Dose: 8 units Mupirocin (Bactroban Ointment (For Decolonization) -) 1 applic NS BID [facility] Stop: 02/08/19 21:59 Last Admin: 02/04/19 00:11 Dose: 1 applic Pantoprazole Sodium (Protonix Iv) 40 mg IVPUSH DAILY [facility] - Objective Vital Signs: Vital Signs Temperature 103.3 F H 02/03/19 22:39 Pulse Rate 132 H 02/03/19 23:01 Respiratory Rate 16 02/03/19 23:01 Blood Pressure 161/100 02/03/19 22:39 O2 Sat by Pulse Oximetry (%) 94 L 02/03/19 23:01 Constitutional: Yes: Well Nourished, No Distress, Calm, Obese Eyes: Yes: Conjunctiva Clear, EOM Intact HENT: Yes: Atraumatic, Normocephalic Neck: Yes: Supple, Trachea Midline Cardiovascular: Yes: Regular Rate and Rhythm, S1, S2 Respiratory: Yes: Regular, CTA Bilaterally Gastrointestinal: Yes: Normal Bowel Sounds, Soft, Abdomen, Obese, Tenderness, Tenderness, Epigastrium ...Rectal Exam: Yes: Deferred Genitourinary: No: CVA Tenderness - Left, CVA Tenderness - Right Breast(s): No: Mass, Skin Changes Musculoskeletal: No: Muscle Pain, Muscle Weakness Extremities: No: Cool, Cyanosis Edema: No Peripheral Pulses WNL: Yes Peripheral Pulses: Left Radial: 2+, Right Radial: 2+, Left Doralis Pedis: 2+, Right Dorsalis Pedis: 2+, Left Femoral: 2+, Right Femoral: 2+ Neurological: Yes: Alert, Oriented Psychiatric: Yes: Alert, Oriented Labs: CBC, BMP 02/03/19 23:30 02/03/19 23:30 INR, PTT INR 1.86 (0.83-1.09) H 02/03/19 23:30 Fibrinogen > 500.0 mg/dL (238-498) H 02/03/19 17:00 Problem List - Problems (1) Acute gallstone pancreatitis Assessment/Plan: 43yo male MMP including obesity and HLD presents with bilary colic and mild gallstone pancreatitis, now ascending cholangitis? ERCP dis not have any clear obstruction, leaing gangreonous gallbladder as possibility NPO and IVF hydration IV analgesia - patient report being very uncomfortable trend labs IV antibiotics per ID Last Plavix 01/30 at night per patient Cardiology clearance and risk stratification Discussed with patient risks, benefits and alternatives of laparoscopic possible open cholecystectomy, including but not limited to bleeding, infection , injury to adjacent structures, leak or injury, intraabdominal abscess, incisional hernia, need for further procedures, ; alternatives include antibiotics, delayed or no surgery - risks of this include failure of nonoperative therapy, perforation, sepsis, recurrence, . Patient desires to proceed with operation - will take to OR for above. Informed consent signed for same. Postoperative instructions: You had a laparoscopic ectomy on DATE by Dr. Blake Mckeon of [facility]. Activity: Resume your usual activities gradually, but no heavy exertion or lifting more than 10-15 pounds for 1 month. Remove dressings 48 hours after surgery; sticky tapes underneath will fall off by themselves. You may shower daily starting then, just pat the incision areas dry. No bath or swimming until skin incisions have healed. Eat lightly at first, but advance to your usual diet as tolerated. Pain: For pain, you may use and alternate Tylenol (acetaminophen) 1-2 pills and/ or ibuprofen 200 mg (1-3 pills) every 6 hours each as needed; this means that you can take one OR the other at 3-hour intervals. If you are prescribed a Tylenol/narcotic combination for severe pain, use it instead of plain Tylenol as needed and switch back when your pain starts decreasing. Do not take more than 4000mg of acetaminophen in a day. Take medications as prescribed or indicated on the labeling. Follow-up: Call Dr. Mckeon's office at [phone] to make your postop appointment (Sunday in approximately 2 weeks after surgery). Clinic is held in the [facility] on the first floor of [facility]. Call the office if you have: * increasing pain not responsive to pain medication * fever of 101F or higher * vomiting * unusual or increasing bleeding or drainage from wounds * increasing redness or swelling at wound sites * inability to urinate Also, see your primary medical doctor within 1-2 weeks. Problems reviewed: Yes Code(s): K85.10 - BILIARY ACUTE PANCREATITIS WITHOUT NECROSIS OR INFECTION (2) Cholelithiasis Problems reviewed: Yes Code(s): K80.20 - CALCULUS OF GALLBLADDER W/O CHOLECYSTITIS W/O OBSTRUCTION Qualifiers: Cholelithiasis location: other site Biliary obstruction: without biliary obstruction Qualified Code(s): K80.80 - Other cholelithiasis without obstruction (3) CAD (coronary artery disease) Problems reviewed: Yes Code(s): I25.10 - ATHSCL HEART DISEASE OF CIRCLE CORONARY ARTERY W/O ANG PCTRS Qualifiers: Coronary Disease-Associated Artery/Lesion type: [place]q artery Associated angina: angina presence unspecified (4) DKA, type 2 Problems reviewed: Yes Code(s): E13.10 - OTH DIABETES MELLITUS WITH KETOACIDOSIS WITHOUT COMA Qualifiers: Diabetes mellitus complication detail: without coma (5) Hyperlipemia Problems reviewed: Yes Code(s): E78.5 - HYPERLIPIDEMIA, UNSPECIFIED Qualifiers: Hyperlipidemia type: unspecified Qualified Code(s): E78.5 - Hyperlipidemia , unspecified (6) Hypertension Code(s): I10 - ESSENTIAL (PRIMARY) HYPERTENSION Qualifiers: Hypertension type: essential hypertension Qualified Code(s): I10 - Essential (primary) hypertension (7) Obesity Code(s): E66.9 - OBESITY, UNSPECIFIED
[2019-02-04] MEDS ORDERED: PT OWN MED DRAWER 7, Y5N ONE ×2 (01:08→22:05)
[2019-02-04] MEDS ORDERED: MEROPENEM 1 GM VIAL (RESTRICTED TO ID) IVPB ONE ×4 (01:08→18:16)
[2019-02-04] MEDS ORDERED: DEXTROSE 5%-WATER 100 ML IVPB ONE ×3 (01:09→18:16)
[2019-02-04] MEDS: MEROPENEM 1 GM in DEXTROSE 5%-WATER 100 ML IVPB SCH ×3 (01:11→18:31)
[2019-02-04] MEDS ORDERED: INSULIN REGULAR HUMAN 100 UNITS/ML *VIAL IVPUSH ONE (02:00)
[2019-02-04] MEDS ORDERED: LORazepam 2 MG/ML SDV VIAL IVPUSH ONE (03:00)
[2019-02-04] MEDS ORDERED: LORazepam 2 MG/ML SDV VIAL ONE (03:04)
--- NOTE | 2019-02-04 03:12 | PN ---
Progress Note (short form) - Note Progress Note: Patient returned from ERCP with Dr. De Leon; A stent was placed, however no stone was noted. Cystic duct obstructed; recommendation for cholecystectomy. Case discussed with Dr. Lozoya; concern for gangrenous gallbladder. Will add Metronidazole for anaerobic coverage. Case was discussed with Dr. Sparks, and will continue to correct coagulopathy in anticipation of cholecystecomy tomorrow AM. 2 more untis FFP to be administered tonight. Pre-operative labs, coags in AM. Updates were discussed with Dr. Lion, recommendations appreciated.
[2019-02-04] MEDS ORDERED: LORazepam 2 MG/ML SDV VIAL IVPUSH PRN (03:26)
[2019-02-04] MEDS: PROPOFOL 1,000,000 MCG/100 ML VIAL IVPB SCH ×7 (03:29→22:10)
[2019-02-04 03:31] LABS: ARTERIAL BLD GAS O2 SATURATION 99.3 % (95-98); ARTERIAL BLOOD GAS BASE EXCESS -0.6 meq/l (-2-2); ARTERIAL BLOOD GAS PCO2 43.2 mmHg (35-45); ARTERIAL BLOOD GAS PO2 166 mmHg (80-100); ARTERIAL BLOOD GAS pH 7.37 (7.35-7.45)
[2019-02-04 03:32] LABS: ALLENS TEST POSITIVE
[2019-02-04 06:37] LABS: BASO % 0.7 % (0-2.0); EOS % 0.2 % (0-4.5); HEMATOCRIT 37.1 % (35.4-49); HEMOGLOBIN 12.4 GM/dL (11.7-16.9); LYMPH % 3.6 % (8-40); MCH 31.2 pg (25.7-33.7); MCHC 33.3 g/dl (32.0-35.9); MEAN CELL VOLUME 93.7 fl (80-96); MEAN PLT VOLUME 9.3 fl (7.5-11.1); MONO % 4.1 % (3.8-10.2); NEUT % 91.4 % (42.8-82.8); PLATELET COUNT 70 K/MM3 (134-434); RBC 3.96 M/mm3 (4.00-5.60); RDW 14.6 % (11.9-15.9)
[2019-02-04 06:51] LABS: INR 1.63 (0.83-1.09); PROTHROMBIN TIME (PATIENT) 19.3 SEC (9.7-13.0)
--- NOTE | 2019-02-04 06:59 | PN ---
Progress Note (short form) - Note Progress Note: I have seen and examined the indicated patient independently/along with the resident team. I have personally verified all doan exam findings and historical components. I have personally interpreted all diagnostics indicated per todays orders and reviewed interpretation of indicated subspecialty services. This patient meets a high level of medical complexity and warrants indicated LOC to avoid decompensation and worsening of the indicated illness. *As resident note not completed by midnight please take this as the day's note including PE for billing. S: Agree with historical findings as outlined in resident documentation regarding history of present illness. No further events communicated to myself from overnight. He is leaving the ICU this morning for cholecystectomy with Dr. Sparks. Is s/p ERCP with Dr. De Leon. Abx, IVF, and monitoring. Still intubated. 10 system ROS completed and is negative aside from indicated issues in the subjective/HPI Medication list reviewed; as documented per orders and above. O: All vital signs reviewed per ER records and are as per EMR Intubated and sedated in the ICU with RASS 2-3; no issues on tele NC AT EOMI PERRLA; ET tube in place Neck supple, trachea midline, no mckenzie LN Tachy and reg s1/2 Vent assoc breath sounds, w/ sym expansion NT ND +BS but sedation limits assessment of tenderness. Postoperative findings noted with no bleeding of infection or dehissence noted. Bandaging elsewise c/d /i No skin breakdown or rashes noted CN2-12 wnl, no new focal deficits noted but sedation limits appreciation Muscle tone normal, no deficits in motor function or strength noted Pending repeatr RUQ US Discussed with GI and ICU team Discussed with resident team at length. A/P: -Septic Shock (fluid responsive and not yet requiring pressors) secondary to gangrenous cholecystitis with marked transaminitis status post urgent cholecystectomy and emergency ERCP with stenting by Dr. Sparks and Dr. De Leon. -Suspected Cirrhosis; revisit chronic therapies when this is done. -Thrombocytopenia (elevated fibrinogen; PT, PTT, INR noted. I ordered a d- dimer which is pending. Resident team informed me that [facility] lab is a sendout but if continued postiive labs may be worth obtainign this with heme onc consult.) -CINDA (got contrast, also hypotensive so would suspect a mix of pre and intrarenal but defer to Dr. Haji) -Opioid Abuse on Suboxone (resume when extubated) -Obesity -Uncontrolled DM with hyperglycemia (confirmed with nursing that for unknown reason insulin held prior to sunday but documented as due to NPO. Per guidelines we would like for glucose to be in guideline directed range for critically ill pateint). -CAD s/p remote stenting (2008) -Hx HTN -Hx HLD -Leukopenia IVF, NPO, abx. FU further imaging and repeat labs. May require advanced endoscopy pending diagnostic workup. Will follow closely. Discussed with subspecialty services.
[2019-02-04 07:06] LABS: ALBUMIN 2.3 g/dl (3.4-5.0); BILIRUBIN,TOTAL 2.9 mg/dL (0.2-1); CALCIUM 7.6 mg/dL (8.5-10.1); CREATININE 1.9 mg/dL (0.55-1.3); MAGNESIUM 1.7 mg/dL (1.8-2.4); PHOSPHOROUS 2.3 mg/dL (2.5-4.9); POTASSIUM 3.6 mmol/L (3.5-5.1); TOT PROT 4.8 g/dl (6.4-8.2)
[2019-02-04] MEDS ORDERED: PROPOFOL 20 ML ONE ×4 (07:23)
[2019-02-04] MEDS ORDERED: MIDAZOLAM HCL 2 MG/2 ML SINGLE DOSE VIAL ONE ×2 (07:24)
[2019-02-04] MEDS ORDERED: KETOROLAC TROMETHAMINE 30 MG/1 ML VIAL ONE (07:24)
[2019-02-04] MEDS ORDERED: BUPIVACAINE HCL/PF 0.5% (5 MG/ML) 30 ML VIAL IJ ONE ×3 (07:24→08:38)
[2019-02-04] MEDS ORDERED: DEXAMETHASONE SOD PHOSPHATE 4 MG/1 ML VIAL ONE (07:24)
[2019-02-04] MEDS ORDERED: fentaNYL CITRATE 250 MCG/5 ML VIAL ONE ×3 (07:24→22:05)
[2019-02-04] MEDS ORDERED: ROCURONIUM BROMIDE 50 MG/5 ML SYRINGE ONE (07:28)
[2019-02-04] MEDS ORDERED: EPHEDRINE SULFATE/0.9% NACL/PF 50 MG/10 ML SYRINGE NR ONE (07:29)
[2019-02-04] MEDS ORDERED: SUCCINYLCHOLINE CHLORIDE 200 MG/10 ML SYRINGE ONE (07:29)
[2019-02-04] MEDS ORDERED: ACETAMINOPHEN INJECTION 100 ML IVPB ONE (07:35)
--- NOTE | 2019-02-04 07:47 | PN ---
Progress Note (short form) - Note Progress Note: Anesthesia Post op Note Pt s/p GA for ERCP Pt remains intubated and sedated -- concerns for gangerous gall bladder Pt to return to OR today for cholecystectomy VSS no apparent anesthesia complications Mirza Higgins.
[2019-02-04] MEDS ORDERED: MAGNESIUM SULF 50% (8.12 MEQ/2 ML-1 GM VIAL) IVPB ONE (07:48)
[2019-02-04] MEDS ORDERED: NAPH,MB-DB/K PH,MBDB POWDER PACKET PO ONE (07:52)
[2019-02-04] MEDS ORDERED: HYDROmorphone HCl 2 MG/ML VIAL ONE ×2 (08:48→09:15)
[2019-02-04] MEDS ORDERED: BUPRENORPHINE/NALOXONE 8 MG/2 MG FILM PACKET SL SCH (10:00)
[2019-02-04] MEDS ORDERED: DOXYCYCLINE INJECTION 100 MG in DEXTROSE 5%-WATER - 100 ML IVPB SCH (10:00)
[2019-02-04] MEDS ORDERED: PANTOPRAZOLE SODIUM 40 MG VIAL IVPUSH SCH (10:00)
--- NOTE | 2019-02-04 10:23 | OP ---
Operative Note - Note: Operative Date: 02/04/19 Pre-Operative Diagnosis: gangrenous gallbladder Operation: laparoscopic cholecystectomy/ necrosectomy gallbladder Findings: gangrenous gall bladder. removed piecemeal fashion Post-Operative Diagnosis: Same as Pre-op Surgeon: Igor Sparks Patternmaker [employer] Pl[employer]: Tasha Crespo Anesthesiologist/[employer] SAL[employer]OCIATE: Carrie Ogden Anesthesia: General, Local (0.5% marcaine 10ml) Specimens Removed: gallbladder reminants Estimated Blood Loss (mls): 250 Instrument used (Debridements only): laparoscopic stone forecep Drains & Tubes with Location: [address] sum 19Fr RUQ Blood Volume Replaced (mls): 350 Fluid Volume Replaced (mls): 1,000 Operative Report Dictated: Yes
--- NOTE | 2019-02-04 10:57 | PN ---
Physical Exam: SUBJECTIVE: Patient seen and examined. Pt is intubated and sedated s/p cholecystectomy, no complications. No acute distress. OBJECTIVE: Vital Signs Period Temp Pulse Resp BP Sys/Busby Pulse Ox Last 24 Hr 99.2 F-105.4 F 93-132 14-24 86-161/44-103 92-100 GENERAL: The patient is sedated, breathing tube in place LUNGS: Breath sounds equal, clear to auscultation bilaterally, no wheezes, no crackles, no accessory muscle use. HEART: Regular rate and rhythm, S1, S2 without murmur, rub or gallop. ABDOMEN: Soft, nontender, nondistended, no guarding, no rebound, no hepatosplenomegaly, no masses. AB dressing in place w bilious/serosanguinous drainage EXTREMITIES: warm, no pedal edema, jaundiced Laboratory Results - last 24 hr 02/03/19 02/03/19 02/03/19 06:33 06:33 10:30 WBC RBC Hgb Hct MCV MCH MCHC RDW Plt Count MPV Absolute Neuts (auto) Neutrophils % Neutrophils % (Manual) 83.9 H Band Neutrophils % 12.1 Lymphocytes % Lymphocytes % (Manual) 2.0 L Monocytes % Monocytes % (Manual) 1 L Eosinophils % Eosinophils % (Manual) 0.0 Basophils % Basophils % (Manual) 0.0 Myelocytes % (Man) 1 Promyelocytes % (Man) 0 Blast Cells % (Manual) 0 Nucleated RBC % Metamyelocytes 0 Hypochromia 0 Platelet Estimate Decreased Polychromasia 0 Poikilocytosis 0 Anisocytosis 1+ Microcytosis 0 Macrocytosis 1+ PT with INR INR PTT (Actin FS) Fibrinogen Anticoagulation Therapy Puncture Site Patient Temperature ABG pH ABG pCO2 at Pt Temp ABG pO2 at Pt Temp ABG HCO3 ABG O2 Sat (Measured) ABG O2 Content ABG Base Excess Darius Test O2 Delivery Device Oxygen Flow Rate Vent Mode Vent Rate Mechanical Rate PEEP Pressure Support Vent Sodium Potassium Chloride Carbon Dioxide Anion Gap BUN Creatinine Est GFR (CKD-EPI)AfAm Est GFR (CKD-EPI)NonAf POC Glucometer Random Glucose Lactic Acid Calcium Phosphorus Magnesium Total Bilirubin Direct Bilirubin GGT AST ALT Alkaline Phosphatase Ammonia Creatine Kinase Troponin I C-Reactive Protein Total Protein Albumin Lipase Random Vancomycin RPR Titer Hep C Ab Diagnostic HIV 1&2 Ag/Ab, 4th Gen Blood Type AB POSITIVE AB POSITIVE Antibody Screen Negative Crossmatch See Detail 02/03/19 02/03/19 02/03/19 10:30 10:30 10:30 WBC RBC Hgb Hct MCV MCH MCHC RDW Plt Count MPV Absolute Neuts (auto) Neutrophils % Neutrophils % (Manual) Band Neutrophils % Lymphocytes % Lymphocytes % (Manual) Monocytes % Monocytes % (Manual) Eosinophils % Eosinophils % (Manual) Basophils % Basophils % (Manual) Myelocytes % (Man) Promyelocytes % (Man) Blast Cells % (Manual) Nucleated RBC % Metamyelocytes Hypochromia Platelet Estimate Polychromasia Poikilocytosis Anisocytosis Microcytosis Macrocytosis PT with INR INR PTT (Actin FS) Fibrinogen Anticoagulation Therapy Puncture Site Patient Temperature ABG pH ABG pCO2 at Pt Temp ABG pO2 at Pt Temp ABG HCO3 ABG O2 Sat (Measured) ABG O2 Content ABG Base Excess Darius Test O2 Delivery Device Oxygen Flow Rate Vent Mode Vent Rate Mechanical Rate PEEP Pressure Support Vent Sodium Potassium Chloride Carbon Dioxide Anion Gap BUN Creatinine Est GFR (CKD-EPI)AfAm Est GFR (CKD-EPI)NonAf POC Glucometer Random Glucose Lactic Acid Calcium Phosphorus Magnesium Total Bilirubin Direct Bilirubin 3.6 H GGT AST ALT Alkaline Phosphatase Ammonia Creatine Kinase Troponin I C-Reactive Protein Total Protein Albumin Lipase 63 L Random Vancomycin RPR Titer Hep C Ab Diagnostic <0.1 HIV 1&2 Ag/Ab, 4th Gen Non reactive Blood Type Antibody Screen Crossmatch 02/03/19 02/03/19 02/03/19 10:30 10:30 13:59 WBC RBC Hgb Hct MCV MCH MCHC RDW Plt Count MPV Absolute Neuts (auto) Neutrophils % Neutrophils % (Manual) Band Neutrophils % Lymphocytes % Lymphocytes % (Manual) Monocytes % Monocytes % (Manual) Eosinophils % Eosinophils % (Manual) Basophils % Basophils % (Manual) Myelocytes % (Man) Promyelocytes % (Man) Blast Cells % (Manual) Nucleated RBC % Metamyelocytes Hypochromia Platelet Estimate Polychromasia Poikilocytosis Anisocytosis Microcytosis Macrocytosis PT with INR INR PTT (Actin FS) Fibrinogen Anticoagulation Therapy Puncture Site Patient Temperature ABG pH ABG pCO2 at Pt Temp ABG pO2 at Pt Temp ABG HCO3 ABG O2 Sat (Measured) ABG O2 Content ABG Base Excess Darius Test O2 Delivery Device Oxygen Flow Rate Vent Mode Vent Rate Mechanical Rate PEEP Pressure Support Vent Sodium Potassium Chloride Carbon Dioxide Anion Gap BUN Creatinine Est GFR (CKD-EPI)AfAm Est GFR (CKD-EPI)NonAf POC Glucometer 468 Random Glucose Lactic Acid Calcium Phosphorus Magnesium Total Bilirubin Direct Bilirubin GGT 113 H AST ALT Alkaline Phosphatase Ammonia Creatine Kinase Troponin I C-Reactive Protein Total Protein Albumin Lipase Random Vancomycin RPR Titer Nonreactive Hep C Ab Diagnostic HIV 1&2 Ag/Ab, 4th Gen Blood Type Antibody Screen Crossmatch 02/03/19 02/03/19 02/03/19 17:00 17:00 17:00 WBC 5.4 RBC 4.66 Hgb 14.4 Hct 43.8 MCV 94.1 MCH 31.0 MCHC 32.9 RDW 14.9 Plt Count 86 L MPV 9.2 Absolute Neuts (auto) 5.1 Neutrophils % 94.3 H Neutrophils % (Manual) 85.3 H Band Neutrophils % 6.9 Lymphocytes % 1.4 L Lymphocytes % (Manual) 0.0 L Monocytes % 4.0 Monocytes % (Manual) 3 L D Eosinophils % 0.1 Eosinophils % (Manual) 0.0 Basophils % 0.2 Basophils % (Manual) 0.0 Myelocytes % (Man) 0 D Promyelocytes % (Man) 2 D Blast Cells % (Manual) 0 Nucleated RBC % 1 H Metamyelocytes 3 H D Hypochromia 0 Platelet Estimate Decreased Polychromasia 0 Poikilocytosis 0 Anisocytosis 2+ Microcytosis 2+ Macrocytosis 0 PT with INR INR PTT (Actin FS) Fibrinogen Anticoagulation Therapy Puncture Site Patient Temperature ABG pH ABG pCO2 at Pt Temp ABG pO2 at Pt Temp ABG HCO3 ABG O2 Sat (Measured) ABG O2 Content ABG Base Excess Darius Test O2 Delivery Device Oxygen Flow Rate Vent Mode Vent Rate Mechanical Rate PEEP Pressure Support Vent Sodium 136 Potassium 3.7 Chloride 102 Carbon Dioxide 25 Anion Gap 9 BUN 42.3 H Creatinine 2.2 H Est GFR (CKD-EPI)AfAm 41.58 Est GFR (CKD-EPI)NonAf 35.88 POC Glucometer Random Glucose 454 H* Lactic Acid 3.2 H* Calcium 7.6 L Phosphorus Magnesium Total Bilirubin 4.2 H Direct Bilirubin GGT AST 115 H ALT 183 H Alkaline Phosphatase 81 Ammonia Creatine Kinase Troponin I < 0.02 C-Reactive Protein Total Protein 5.0 L Albumin 2.5 L Lipase Random Vancomycin RPR Titer Hep C Ab Diagnostic HIV 1&2 Ag/Ab, 4th Gen Blood Type Antibody Screen Crossmatch 02/03/19 02/03/19 02/03/19 17:00 17:00 17:16 WBC RBC Hgb Hct MCV MCH MCHC RDW Plt Count MPV Absolute Neuts (auto) Neutrophils % Neutrophils % (Manual) Band Neutrophils % Lymphocytes % Lymphocytes % (Manual) Monocytes % Monocytes % (Manual) Eosinophils % Eosinophils % (Manual) Basophils % Basophils % (Manual) Myelocytes % (Man) Promyelocytes % (Man) Blast Cells % (Manual) Nucleated RBC % Metamyelocytes Hypochromia Platelet Estimate Polychromasia Poikilocytosis Anisocytosis Microcytosis Macrocytosis PT with INR 28.60 H INR 2.40 H PTT (Actin FS) 38.5 H Fibrinogen > 500.0 H Anticoagulation Therapy Puncture Site Patient Temperature ABG pH ABG pCO2 at Pt Temp ABG pO2 at Pt Temp ABG HCO3 ABG O2 Sat (Measured) ABG O2 Content ABG Base Excess Darius Test O2 Delivery Device Oxygen Flow Rate Vent Mode Vent Rate Mechanical Rate PEEP Pressure Support Vent Sodium Potassium Chloride Carbon Dioxide Anion Gap BUN Creatinine Est GFR (CKD-EPI)AfAm Est GFR (CKD-EPI)NonAf POC Glucometer 431 Random Glucose Lactic Acid Calcium Phosphorus Magnesium Total Bilirubin Direct Bilirubin GGT AST ALT Alkaline Phosphatase Ammonia Creatine Kinase Troponin I C-Reactive Protein Total Protein Albumin Lipase Random Vancomycin RPR Titer Hep C Ab Diagnostic HIV 1&2 Ag/Ab, 4th Gen Blood Type Antibody Screen Crossmatch 02/03/19 02/03/19 02/03/19 18:55 20:55 21:10 WBC RBC Hgb Hct MCV MCH MCHC RDW Plt Count MPV Absolute Neuts (auto) Neutrophils % Neutrophils % (Manual) Band Neutrophils % Lymphocytes % Lymphocytes % (Manual) Monocytes % Monocytes % (Manual) Eosinophils % Eosinophils % (Manual) Basophils % Basophils % (Manual) Myelocytes % (Man) Promyelocytes % (Man) Blast Cells % (Manual) Nucleated RBC % Metamyelocytes Hypochromia Platelet Estimate Polychromasia Poikilocytosis Anisocytosis Microcytosis Macrocytosis PT with INR INR PTT (Actin FS) Fibrinogen Anticoagulation Therapy No Result Required. Puncture Site Left radial Patient Temperature ABG pH 7.41 ABG pCO2 at Pt Temp 40.4 ABG pO2 at Pt Temp 62.9 L ABG HCO3 25.1 ABG O2 Sat (Measured) 93.3 L ABG O2 Content 16.1 ABG Base Excess 1.0 Darius Test Positive O2 Delivery Device Nasal Oxygen Flow Rate 4l Vent Mode No Result Required. Vent Rate No Result Required. Mechanical Rate No Result Required. PEEP Pressure Support Vent No Result Required. Sodium Potassium Chloride Carbon Dioxide Anion Gap BUN Creatinine Est GFR (CKD-EPI)AfAm Est GFR (CKD-EPI)NonAf POC Glucometer 400 Random Glucose Lactic Acid 3.3 H* Calcium Phosphorus Magnesium Total Bilirubin Direct Bilirubin GGT AST ALT Alkaline Phosphatase Ammonia Creatine Kinase Troponin I C-Reactive Protein Total Protein Albumin Lipase Random Vancomycin RPR Titer Hep C Ab Diagnostic HIV 1&2 Ag/Ab, 4th Gen Blood Type Antibody Screen Crossmatch 02/03/19 02/03/19 02/03/19 21:41 23:30 23:30 WBC 4.7 RBC 4.39 Hgb 13.5 Hct 41.2 MCV 94.1 MCH 30.9 MCHC 32.8 RDW 14.6 Plt Count 80 L MPV 9.2 Absolute Neuts (auto) Neutrophils % Neutrophils % (Manual) Band Neutrophils % Lymphocytes % Lymphocytes % (Manual) Monocytes % Monocytes % (Manual) Eosinophils % Eosinophils % (Manual) Basophils % Basophils % (Manual) Myelocytes % (Man) Promyelocytes % (Man) Blast Cells % (Manual) Nucleated RBC % Metamyelocytes Hypochromia Platelet Estimate Polychromasia Poikilocytosis Anisocytosis Microcytosis Macrocytosis PT with INR INR PTT (Actin FS) Fibrinogen Anticoagulation Therapy Puncture Site Patient Temperature ABG pH ABG pCO2 at Pt Temp ABG pO2 at Pt Temp ABG HCO3 ABG O2 Sat (Measured) ABG O2 Content ABG Base Excess Darius Test O2 Delivery Device Oxygen Flow Rate Vent Mode Vent Rate Mechanical Rate PEEP Pressure Support Vent Sodium Potassium Chloride Carbon Dioxide Anion Gap BUN Creatinine Est GFR (CKD-EPI)AfAm Est GFR (CKD-EPI)NonAf POC Glucometer 339 Random Glucose Lactic Acid Calcium Phosphorus Magnesium Total Bilirubin Direct Bilirubin GGT AST ALT Alkaline Phosphatase Ammonia < 10.00 L Creatine Kinase Troponin I C-Reactive Protein Total Protein Albumin Lipase Random Vancomycin RPR Titer Hep C Ab Diagnostic HIV 1&2 Ag/Ab, 4th Gen Blood Type Antibody Screen Crossmatch 02/03/19 02/03/19 02/03/19 23:30 23:30 23:30 WBC RBC Hgb Hct MCV MCH MCHC RDW Plt Count MPV Absolute Neuts (auto) Neutrophils % Neutrophils % (Manual) Band Neutrophils % Lymphocytes % Lymphocytes % (Manual) Monocytes % Monocytes % (Manual) Eosinophils % Eosinophils % (Manual) Basophils % Basophils % (Manual) Myelocytes % (Man) Promyelocytes % (Man) Blast Cells % (Manual) Nucleated RBC % Metamyelocytes Hypochromia Platelet Estimate Polychromasia Poikilocytosis Anisocytosis Microcytosis Macrocytosis PT with INR 22.10 H INR 1.86 H PTT (Actin FS) Fibrinogen Anticoagulation Therapy Puncture Site Patient Temperature ABG pH ABG pCO2 at Pt Temp ABG pO2 at Pt Temp ABG HCO3 ABG O2 Sat (Measured) ABG O2 Content ABG Base Excess Darius Test O2 Delivery Device Oxygen Flow Rate Vent Mode Vent Rate Mechanical Rate PEEP Pressure Support Vent Sodium 137 Potassium 3.6 Chloride 103 Carbon Dioxide 27 Anion Gap 8 BUN 39.8 H Creatinine 2.0 H Est GFR (CKD-EPI)AfAm 46.66 Est GFR (CKD-EPI)NonAf 40.26 POC Glucometer Random Glucose 328 H Lactic Acid 1.8 Calcium 7.5 L Phosphorus Magnesium Total Bilirubin 3.3 H Direct Bilirubin GGT AST 97 H ALT 166 H Alkaline Phosphatase 80 Ammonia Creatine Kinase 137 Troponin I < 0.02 C-Reactive Protein Total Protein 5.0 L Albumin 2.4 L Lipase Random Vancomycin RPR Titer Hep C Ab Diagnostic HIV 1&2 Ag/Ab, 4th Gen Blood Type Antibody Screen Crossmatch 02/03/19 02/04/19 02/04/19 23:45 01:16 02:32 WBC RBC Hgb Hct MCV MCH MCHC RDW Plt Count MPV Absolute Neuts (auto) Neutrophils % Neutrophils % (Manual) Band Neutrophils % Lymphocytes % Lymphocytes % (Manual) Monocytes % Monocytes % (Manual) Eosinophils % Eosinophils % (Manual) Basophils % Basophils % (Manual) Myelocytes % (Man) Promyelocytes % (Man) Blast Cells % (Manual) Nucleated RBC % Metamyelocytes Hypochromia Platelet Estimate Polychromasia Poikilocytosis Anisocytosis Microcytosis Macrocytosis PT with INR INR PTT (Actin FS) Fibrinogen Anticoagulation Therapy Puncture Site Right radial Patient Temperature 103.2 ABG pH 7.34 L ABG pCO2 at Pt Temp 47.9 H ABG pO2 at Pt Temp 77.4 L ABG HCO3 24.4 ABG O2 Sat (Measured) 93.6 L ABG O2 Content 16.8 ABG Base Excess -0.3 Darius Test Positive O2 Delivery Device Vent Oxygen Flow Rate 100% Vent Mode A/c Vent Rate 16 Mechanical Rate PEEP 5.0 Pressure Support Vent 750 Sodium Potassium Chloride Carbon Dioxide Anion Gap BUN Creatinine Est GFR (CKD-EPI)AfAm Est GFR (CKD-EPI)NonAf POC Glucometer 332 304 Random Glucose Lactic Acid Calcium Phosphorus Magnesium Total Bilirubin Direct Bilirubin GGT AST ALT Alkaline Phosphatase Ammonia Creatine Kinase Troponin I C-Reactive Protein Total Protein Albumin Lipase Random Vancomycin RPR Titer Hep C Ab Diagnostic HIV 1&2 Ag/Ab, 4th Gen Blood Type Antibody Screen Crossmatch 02/04/19 02/04/19 02/04/19 03:05 05:00 05:00 WBC 3.0 L RBC 3.96 L Hgb 12.4 Hct 37.1 MCV 93.7 MCH 31.2 MCHC 33.3 RDW 14.6 Plt Count 70 L MPV 9.3 Absolute Neuts (auto) 2.8 Neutrophils % 91.4 H Neutrophils % (Manual) Band Neutrophils % Lymphocytes % 3.6 L D Lymphocytes % (Manual) Monocytes % 4.1 Monocytes % (Manual) Eosinophils % 0.2 D Eosinophils % (Manual) Basophils % 0.7 D Basophils % (Manual) Myelocytes % (Man) Promyelocytes % (Man) Blast Cells % (Manual) Nucleated RBC % 0 Metamyelocytes Hypochromia Platelet Estimate Polychromasia Poikilocytosis Anisocytosis Microcytosis Macrocytosis PT with INR INR PTT (Actin FS) Fibrinogen Anticoagulation Therapy No Result Required. Puncture Site Right radial Patient Temperature 100.7 ABG pH 7.37 ABG pCO2 at Pt Temp 43.2 ABG pO2 at Pt Temp 166 H ABG HCO3 23.8 ABG O2 Sat (Measured) 99.3 H ABG O2 Content 17.4 ABG Base Excess -0.6 Darius Test Positive O2 Delivery Device Vent Oxygen Flow Rate 100% Vent Mode A/c Vent Rate 18 Mechanical Rate Yes PEEP 5.0 Pressure Support Vent 750 Sodium Potassium Chloride Carbon Dioxide Anion Gap BUN Creatinine Est GFR (CKD-EPI)AfAm Est GFR (CKD-EPI)NonAf POC Glucometer Random Glucose Lactic Acid Calcium Phosphorus Magnesium Total Bilirubin Direct Bilirubin GGT AST ALT Alkaline Phosphatase Ammonia Creatine Kinase Troponin I C-Reactive Protein Total Protein Albumin Lipase Random Vancomycin 6.5 L RPR Titer Hep C Ab Diagnostic HIV 1&2 Ag/Ab, 4th Gen Blood Type Antibody Screen Crossmatch 02/04/19 02/04/19 02/04/19 05:00 05:00 05:00 WBC RBC Hgb Hct MCV MCH MCHC RDW Plt Count MPV Absolute Neuts (auto) Neutrophils % Neutrophils % (Manual) Band Neutrophils % Lymphocytes % Lymphocytes % (Manual) Monocytes % Monocytes % (Manual) Eosinophils % Eosinophils % (Manual) Basophils % Basophils % (Manual) Myelocytes % (Man) Promyelocytes % (Man) Blast Cells % (Manual) Nucleated RBC % Metamyelocytes Hypochromia Platelet Estimate Polychromasia Poikilocytosis Anisocytosis Microcytosis Macrocytosis PT with INR 19.30 H INR 1.63 H PTT (Actin FS) Fibrinogen > 500.0 H Anticoagulation Therapy Puncture Site Patient Temperature ABG pH ABG pCO2 at Pt Temp ABG pO2 at Pt Temp ABG HCO3 ABG O2 Sat (Measured) ABG O2 Content ABG Base Excess Darius Test O2 Delivery Device Oxygen Flow Rate Vent Mode Vent Rate Mechanical Rate PEEP Pressure Support Vent Sodium 136 Potassium 3.6 Chloride 103 Carbon Dioxide 25 Anion Gap 7 L BUN 39.0 H Creatinine 1.9 H Est GFR (CKD-EPI)AfAm 49.65 Est GFR (CKD-EPI)NonAf 42.84 POC Glucometer Random Glucose 277 H Lactic Acid Calcium 7.6 L Phosphorus 2.3 L Magnesium 1.7 L Total Bilirubin 2.9 H Direct Bilirubin GGT AST 68 H ALT 144 H Alkaline Phosphatase 74 Ammonia Creatine Kinase Troponin I C-Reactive Protein Total Protein 4.8 L Albumin 2.3 L Lipase 79 Random Vancomycin RPR Titer Hep C Ab Diagnostic HIV 1&2 Ag/Ab, 4th Gen Blood Type Antibody Screen Crossmatch 02/04/19 02/04/19 02/04/19 05:00 05:00 05:41 WBC RBC Hgb Hct MCV MCH MCHC RDW Plt Count MPV Absolute Neuts (auto) Neutrophils % Neutrophils % (Manual) Band Neutrophils % Lymphocytes % Lymphocytes % (Manual) Monocytes % Monocytes % (Manual) Eosinophils % Eosinophils % (Manual) Basophils % Basophils % (Manual) Myelocytes % (Man) Promyelocytes % (Man) Blast Cells % (Manual) Nucleated RBC % Metamyelocytes Hypochromia Platelet Estimate Polychromasia Poikilocytosis Anisocytosis Microcytosis Macrocytosis PT with INR INR PTT (Actin FS) 36.7 H Fibrinogen Anticoagulation Therapy Puncture Site Patient Temperature ABG pH ABG pCO2 at Pt Temp ABG pO2 at Pt Temp ABG HCO3 ABG O2 Sat (Measured) ABG O2 Content ABG Base Excess Darius Test O2 Delivery Device Oxygen Flow Rate Vent Mode Vent Rate Mechanical Rate PEEP Pressure Support Vent Sodium Potassium Chloride Carbon Dioxide Anion Gap BUN Creatinine Est GFR (CKD-EPI)AfAm Est GFR (CKD-EPI)NonAf POC Glucometer 265 Random Glucose Lactic Acid Calcium Phosphorus Magnesium Total Bilirubin Direct Bilirubin GGT AST ALT Alkaline Phosphatase Ammonia Creatine Kinase Troponin I C-Reactive Protein 25.1 H Total Protein Albumin Lipase Random Vancomycin RPR Titer Hep C Ab Diagnostic HIV 1&2 Ag/Ab, 4th Gen Blood Type Antibody Screen Crossmatch Active Medications Generic Name Dose Route Start Last Admin Trade Name Freq PRN Reason Stop Dose Admin Buprenorphine/Naloxone 1 each 02/04/19 10:00 Suboxone 8 Mg/2mg Sl Film - SL DAILY SHRUTHI Bupropion HCl 300 mg 02/04/19 10:00 Wellbutrin Xl - PO DAILY SHRUTHI Chlorhexidine Gluconate 1 applic 02/03/19 22:00 02/04/19 00:12 Hibiclens For Decolonization - TP 1 applic HS SHRUTHI Administration Lactated Ringer's 1,000 ml in 1,000 mls @ 200 mls/hr 02/03/19 17:47 02/04/19 05:00 Lactated Ringers Solution IV 200 mls/hr ASDIR SHRUTHI Administration Meropenem 1 gm/ Dextrose 100 mls @ 200 mls/hr 02/04/19 02:00 02/04/19 01:11 IVPB 200 mls/hr Q8H-IV SHRUTHI Administration Propofol 1,000,000 mcg in 100 mls @ 3.707 mls/hr 02/03/19 23:00 02/04/19 07: 35 Diprivan - IVPB 70 mcg/kg/min TITR SHRUTHI 51.895 mls/hr Administration Protocol 5 MCG/KG/MIN Metronidazole 500 mg in 100 mls @ 100 mls/hr 02/04/19 02:00 02/04/19 01:07 Flagyl 500mg Premixed Ivpb - IVPB 100 mls/hr Q8H-IV SHRUTHI Administration Lorazepam 40 mg/ Dextrose 120 mls @ 3 mls/hr 02/04/19 06:30 02/04/19 07:35 IVPB 1 mg/hr TITR SHRUTHI 3 mls/hr Administration Protocol 1 MG/HR Doxycycline Hyclate 100 mg/ 100 mls @ 100 mls/hr 02/04/19 10:00 Dextrose IVPB BID SHRUTHI Insulin Aspart 1 vial 02/03/19 22:00 02/04/19 07:27 Novolog Vial Sliding Scale - SQ 6 units ACHS SHRUTHI Administration Protocol Mupirocin 1 applic 02/03/19 22:00 02/04/19 00:11 Bactroban Ointment (For Decolonization) - NS 02/08/19 21:59 1 applic BID SHRUTHI Administration Pantoprazole Sodium 40 mg 02/04/19 10:00 Protonix Iv IVPUSH DAILY SHRUTHI ASSESSMENT/PLAN: Nick Carmichael is a 43yM with PMHx of CAD with prior PR s/p stent on AC, HTN, HLD, DM, opioid use disorder on Suboxone, presenting initially with AB pain d/ t acute pancreatitis and gangrenous gallbladder. ERCP 02/03 revealed normal CBD without obstruction, stent placed d/t jaundice. Laprascopic cholecystectomy revealed gangrenous gallbladder. Rapid response was called 02/03 d/t pt having near syncopal episode in restroom. Neurologic - Acute toxic metabolic encephalopathy d/t septic shock, Syncopal episode, hx Opioid use disorder - pt sedated on vent w propofol drip - turn off propofol 7am tomorrow - pain control w fentanyl - CT head 02/04 did not show acute intracranial hemorrhage or pathology s/p fall - Fall precautions Pulmonary Acute hypoxic respiratory failure - on vent, wean as tolerated Cardiovascular - septic shock, hx CAD, PR s/p stent, HTN, HLD - CVP monitoring- goal 8-12; LR boluses PRN to maintain CVP - echo 02/03 showed left ventricular systolic function normal, ejection fraction 60-65%. - trop <0.02 x2 - holding ASA, plavix d/t surgery - Cardiology recommendations (Dr. Guidry) appreciated. Gastrointestinal - gangrenous gallbladder s/p cholecystectomy, acute pancreatitis - ERCP 02/03 showed normal CBD w/o obstruction, stent placed - laparoscopic cholecystectomy 02/04 showed gangrenous gallbladder, AB drain placed - acute pancreatitis resolving w hydration, downtrending lipase to 44 - AB drainage becoming more bilious today, 450mL drained since 3pm. Dr Sparks contacted, reassured that it's normal - NPO - protonix ppx - GI recommendations (Dr. Lion) appreciated. - General surgery recommendations (Dr. Sparks) appreciated. Nephrologic - CINDA - downtrending BUN/Cr 32/1.7 likely d/t hypovolemia in setting of sepsis - UA did not show evidence of UTI - LR @100mL/hr - quinn in place - I/O Heme - thrombocytopenia, coagulopathy - low platelets trending up 70 to 80 - Concern for DIC, trending PT/INR, PTT, fibrinogen ID - leukopenia WBC 3 to 2.7 w neutrophil shift - pending blood/urine/blood parasite cx/Lyme screen - continue meropenem, flagyl, doxycycline - ID recommendations (Dr. Lozoya) appreciated Endo - hx DM - Insulin sliding scale - BGM q4h - consider home levemir 20u for better BG control per neph FEN - LR @100mL/hr - hypoPhos, hypoMg - repleted - NPO Prophylaxis - SCDs - protonix Disposition: Visit type - Emergency Visit Emergency Visit: Yes ED Registration Date: 02/01/19 Care time: The patient presented to the Emergency Department on the above date and was hospitalized for further evaluation of their emergent condition. - New Patient This patient is new to me today: Yes Date on this admission: 02/04/19 - Critical Care Critical Care patient: Yes Total Critical Care Time (in minutes): 37 Critical Care Statement: The care of this patient involved high complexity decision making to prevent further life threatening deterioration of the patient 's condition and/or to evaluate & treat vital organ system(s) failure or risk of failure. ATTENDING PHYSICIAN STATEMENT I saw and evaluated the patient. I reviewed the resident's note and discussed the case with the resident. I agree with the resident's findings and plan as documented. SUBJECTIVE: OBJECTIVE: ASSESSMENT AND PLAN:
--- NOTE | 2019-02-04 11:07 | PN ---
Teaching Attending Note Name of Resident: Jhon Armstrong ATTENDING PHYSICIAN STATEMENT I saw and evaluated the patient. I reviewed the resident's note and discussed the case with the resident. I agree with the resident's findings and plan as documented. SUBJECTIVE: Pt seen and examined in the ICU. s/p laparoscopy showing gangrenous gall bladder s/p cholecystectomy. No reported complications. Remains intubated, sedated. No pressors. CVP adequate. OBJECTIVE: Vital Signs Period Temp Pulse Resp BP Sys/Busby Pulse Ox Last 24 Hr 99.2 F-105.4 F 93-132 14-24 86-161/44-103 92-100 Intake & Output 02/01/19 02/02/19 02/03/19 02/04/19 23:59 23:59 23:59 23:59 Intake Total 0 825 3774 4182 Output Total 700 1700 Balance 0 825 3074 2482 Weight 123.559 kg 127.8 kg Gen: intubated, sedated Heart: tachycardic, regular Lung: decreased breath sounds at the bases Abd: soft, incisions clean, drain with serosanguinous fluid Ext: no edema CBC, BMP 02/04/19 05:00 02/04/19 05:00 Active Medications Buprenorphine/Naloxone (Suboxone 8 Mg/2mg Sl Film -) 1 each SL DAILY SHRUTHI Bupropion HCl (Wellbutrin Xl -) 300 mg PO DAILY SHRUTHI Chlorhexidine Gluconate (Hibiclens For Decolonization -) 1 applic TP HS SHRUTHI Last Admin: 02/04/19 00:12 Dose: 1 applic Lactated Ringer's (Lactated Ringers Solution) 1,000 ml in 1,000 mls @ 200 mls/ hr IV ASDIR SHRUTHI Last Admin: 02/04/19 05:00 Dose: 200 mls/hr Meropenem 1 gm/ Dextrose 100 mls @ 200 mls/hr IVPB Q8H-IV SHRUTHI Last Admin: 02/04/19 11:04 Dose: Not Given Propofol (Diprivan -) 1,000,000 mcg in 100 mls @ 3.707 mls/hr IVPB TITR SHRUTHI; Protocol Last Admin: 02/04/19 07:35 Dose: 70 mcg/kg/min, 51.895 mls/hr Metronidazole (Flagyl 500mg Premixed Ivpb -) 500 mg in 100 mls @ 100 mls/hr IVPB Q8H-IV SHRUTHI Last Admin: 02/04/19 11:04 Dose: Not Given Lorazepam 40 mg/ Dextrose 120 mls @ 3 mls/hr IVPB TITR SHRUTHI; Protocol Last Admin: 02/04/19 07:35 Dose: 1 mg/hr, 3 mls/hr Doxycycline Hyclate 100 mg/ (Dextrose) 100 mls @ 100 mls/hr IVPB BID SHRUTHI Insulin Aspart (Novolog Vial Sliding Scale -) 1 vial SQ ACHS SHRUTHI; Protocol Last Admin: 02/04/19 07:27 Dose: 6 units Mupirocin (Bactroban Ointment (For Decolonization) -) 1 applic NS BID SHRUTHI Stop: 02/08/19 21:59 Last Admin: 02/04/19 00:11 Dose: 1 applic Pantoprazole Sodium (Protonix Iv) 40 mg IVPUSH DAILY SHRUTHI ASSESSMENT AND PLAN: Acute Gangrenous Cholecystitis Choledocholithiasis Severe Sepsis with impending Shock Acute Kidney Injury Lactic Acidosis Coagulopathy/Thrombocytopenia r/o DIC CAD DM Hyperlipidemia Opiate Dependence Suspect Obstructive Sleep Apnea - continue antibiotics per ID - f/u cultures - IVF resuscitation to keep CVP 8-12 - start levophed if MAP <65 despite IVF resuscitation - lactate down trending - monitor urine output, creatinine - O2 to keep SpO2 >90% - monitor platelets, coags, fibrinogen level - pain control - lighten sedation in AM to assess mental status - spontaneous breathing trials as tolerated when mental status improved - DVT/GI prophylaxis - continue ICU monitoring critical care time spent in reviewing chart, evaluating patient and formulating plan 45 min
--- NOTE | 2019-02-04 11:26 | SURG ---
Surgery Oil Paint Shader Note Oil Paint Shader: Tasha Crespo PA-C Date of Service: 02/04/19 Diagnosis: gangrenous gallbladder Procedure: laparoscopic cholecystectomy/ necrosectomy gallbladder I was present for the entirety of the operative procedure. For further detail, please refer to operative report. Visit type - Case Type Case Type: ED Admission - Emergency Emergency Visit: Yes ED Registration Date: 02/01/19 Care time: The patient presented to the Emergency Department on the above date and was hospitalized for further evaluation of their emergent condition. - New patient This patient is new to me today: Yes Date on this admission: 02/04/19
[2019-02-04] MEDS: FENTANYL INJECTION 500 MCG in DEXTROSE 5%-WATER - 90 ML IVPB SCH ×3 (11:35→22:10)
[2019-02-04 11:48] LABS: ANISOCYTOSIS 0; MACROCYTOSIS 0; PLATELET ESTIMATE DECREASED
[2019-02-04] MEDS ORDERED: SODIUM PHOSPHATE - 0 MM in SODIUM CHLORIDE 250 ML IVPB ONE (12:02)
--- NOTE | 2019-02-04 12:04 | PN ---
Progress Note, Physician Chief Complaint: POST OP LAPAROSCOPIC CHOLECYSTECTOMY OPERATIVE FINDINGS NOTED- GANGRENOUS GB INTUBATED TEMPS DOWN LEUKOPENIC, THROMBOCYTOPENIC - Current Medication List Current Medications: Active Medications Bupropion HCl (Wellbutrin Xl -) 300 mg PO DAILY SHRUTHI Chlorhexidine Gluconate (Hibiclens For Decolonization -) 1 applic TP HS SHRUTHI Last Admin: 02/04/19 00:12 Dose: 1 applic Meropenem 1 gm/ Dextrose 100 mls @ 200 mls/hr IVPB Q8H-IV SHRUTHI Last Admin: 02/04/19 11:04 Dose: Not Given Propofol (Diprivan -) 1,000,000 mcg in 100 mls @ 3.707 mls/hr IVPB TITR [facility]; Protocol Last Titration: 02/04/19 11:23 Dose: 50 mcg/kg/min, 37.068 mls/hr Metronidazole (Flagyl 500mg Premixed Ivpb -) 500 mg in 100 mls @ 100 mls/hr IVPB Q8H-IV SHRUTHI Last Admin: 02/04/19 11:04 Dose: Not Given Doxycycline Hyclate 100 mg/ (Dextrose) 100 mls @ 100 mls/hr IVPB BID SHRUTHI Lactated Ringer's (Lactated Ringers Solution) 1,000 ml in 1,000 mls @ 100 mls/ hr IV ASDIR SHRUTHI Last Admin: 02/04/19 11:22 Dose: 100 mls/hr Fentanyl 500 mcg/ Dextrose 100 mls @ 5 mls/hr IVPB TITR [facility]; Protocol Last Titration: 02/04/19 11:44 Dose: 50 mcg/hr, 10 mls/hr Insulin Aspart (Novolog Vial Sliding Scale -) 1 vial SQ ACHS SHRUTHI; Protocol Last Admin: 02/04/19 07:27 Dose: 6 units Mupirocin (Bactroban Ointment (For Decolonization) -) 1 applic NS BID SHRUTHI Stop: 02/08/19 21:59 Last Admin: 02/04/19 00:11 Dose: 1 applic Pantoprazole Sodium (Protonix Iv) 40 mg IVPUSH DAILY [facility] - Objective Vital Signs: Vital Signs Temperature 97.5 F L 02/04/19 10:15 Pulse Rate 101 H 02/04/19 10:15 Respiratory Rate 31 H 02/04/19 11:16 Blood Pressure 118/73 02/04/19 10:15 O2 Sat by Pulse Oximetry (%) 92 L 02/04/19 11:16 Constitutional: Yes: No Distress Eyes: Yes: Conjunctiva Clear Cardiovascular: Yes: Regular Rate and Rhythm, S1, S2 Respiratory: Yes: Mechanically Ventilated Gastrointestinal: Yes: Normal Bowel Sounds, Soft, Other (+ LAPAROSCOPIC SURGICAL WOUNDS) Edema: No Labs: CBC, BMP 02/04/19 05:00 02/04/19 05:00 INR, PTT INR 1.63 (0.83-1.09) H 02/04/19 05:00 Fibrinogen > 500.0 mg/dL (238-498) H 02/04/19 05:00 Assessment/Plan POST OP LAPAROSCOPIC CHOLECYSTECTOMY GANGRENOUS GB R/O BILIARY SEPSIS LEUKOPENIA/ THROMBOCYTOPENIA SECONDARY TO SEPSIS ? CONCURRENT TICK-RELATED ILLNESS AWAIT C/S CONTINUE MEROPENEM/ FLAGYL/ DOXYCYCLINE
[2019-02-04] MEDS ORDERED: SODIUM PHOSPHATE - 15 MM in SODIUM CHLORIDE 250 ML IVPB ONE (12:30)
[2019-02-04] MEDS: MIDAZOLAM IN 0.9 % SOD.CHLORID 100 MG/100 ML PLAST..BAG IVPB SCH (12:51)
--- NOTE | 2019-02-04 13:59 | CONSULT ---
Consultation: REQUESTING PROVIDER: Dr. Cuevas CONSULT REQUEST: We have been asked to medically evaluate this patient for CINDA. HISTORY OF PRESENT ILLNESS: Pt. is a 43 y.o. M w/ PMHx. of CAD(s/p GA and stenting in 2008), DM2, HLD, and opioid abuse presents with R. sided abdominal pain. History obtained from chart as Pt. is currently intubated and sedated. Pt. underwent MRCP, ERCP(with stent placement) and CCY. During hospital course Pt. developed CINDA as Cr. increased from 0.8 to 2.2 associated with associated spike in bilirubin. Pt. was then sent to the ICU for further management given concern for ascending cholangitis hoever this was ruled out after a negative ERCP. Pt. maintained on Merrem throughout hospital stay and likely has elevated Cr. due to sepsis. Pt.' Creatinine has since improved to 1.9 however s/p CCY Pt. developed worsening abdominal pain and is currently being evaluated for bleeding. Pt. unable to answer ROS questions at this time. REVIEW OF SYSTEMS: Unable to obtain PHYSICAL EXAMINATION Vital Signs - 24 hr 02/03/19 02/03/19 02/03/19 14:00 15:13 17:00 Temperature 104 F H 105.4 F H 102.4 F H Pulse Rate 115 H 113 H Respiratory 18 19 Rate Blood Pressure 110/44 L 92/61 O2 Sat by Pulse 92 L Oximetry (%) 02/03/19 02/03/19 02/03/19 18:00 18:24 18:42 Temperature 104.5 F H 102.8 F H Pulse Rate 112 H 116 H Respiratory 22 H 19 19 Rate Blood Pressure 93/56 L 90/51 L O2 Sat by Pulse 99 Oximetry (%) 02/03/19 02/03/19 02/03/19 18:45 19:00 19:30 Temperature 102.8 F H Pulse Rate 115 H 115 H Respiratory 22 H 24 H Rate Blood Pressure 95/58 L 106/58 L O2 Sat by Pulse 100 Oximetry (%) 02/03/19 02/03/19 02/03/19 20:00 20:39 21:00 Temperature 103.9 F H 102.9 F H 102 F H Pulse Rate 117 H 116 H 115 H Respiratory 24 H 22 H 22 H Rate Blood Pressure 98/58 L 94/63 94/63 O2 Sat by Pulse Oximetry (%) 02/03/19 02/03/19 02/03/19 21:57 22:03 22:39 Temperature 101.9 F H 103.3 F H Pulse Rate 116 H 112 H Respiratory 24 H 16 Rate Blood Pressure 101/59 L 161/100 O2 Sat by Pulse 100 Oximetry (%) 02/03/19 02/03/19 02/03/19 23:00 23:01 23:15 Temperature 103.3 F H 103.3 F H Pulse Rate 124 H 132 H 117 H Respiratory 18 16 18 Rate Blood Pressure 132/76 124/103 H O2 Sat by Pulse 100 94 L 100 Oximetry (%) 02/03/19 02/04/19 02/04/19 23:30 00:00 00:15 Temperature 103.1 F H 103 F H 102.4 F H Pulse Rate 108 H 108 H 108 H Respiratory 18 19 19 Rate Blood Pressure 86/53 L 94/54 L 105/59 L O2 Sat by Pulse 100 100 100 Oximetry (%) 02/04/19 02/04/19 02/04/19 00:30 00:39 01:00 Temperature 102 F H 101.8 F H Pulse Rate 104 H 104 H Respiratory 22 H 14 18 Rate Blood Pressure 105/59 L 104/62 O2 Sat by Pulse 100 Oximetry (%) 02/04/19 02/04/19 02/04/19 01:36 02:00 02:39 Temperature 101.5 F H 101.4 F H Pulse Rate 104 H 103 H Respiratory 18 18 18 Rate Blood Pressure 110/66 110/66 O2 Sat by Pulse 99 100 Oximetry (%) 02/04/19 02/04/19 02/04/19 03:00 04:00 04:45 Temperature 100.7 F H 100.2 F H Pulse Rate 101 H 97 H Respiratory 18 18 18 Rate Blood Pressure 106/62 107/73 O2 Sat by Pulse 100 100 Oximetry (%) 02/04/19 02/04/19 02/04/19 05:00 06:00 06:39 Temperature 99.5 F 99.3 F 99.2 F Pulse Rate 101 H 102 H 93 H Respiratory 18 18 18 Rate Blood Pressure 113/73 114/67 106/68 O2 Sat by Pulse 100 100 100 Oximetry (%) 02/04/19 02/04/19 02/04/19 07:00 08:16 09:00 Temperature 99.2 F Pulse Rate 93 H 95 H Respiratory 18 18 18 Rate Blood Pressure 106/68 O2 Sat by Pulse 100 100 Oximetry (%) 02/04/19 02/04/19 02/04/19 10:15 10:30 10:45 Temperature 97.5 F L 97.4 F L 97.5 F L Pulse Rate 101 H 102 H 107 H Respiratory 18 18 19 Rate Blood Pressure 118/73 122/81 135/86 O2 Sat by Pulse 95 98 94 L Oximetry (%) 02/04/19 02/04/19 02/04/19 11:00 11:15 11:16 Temperature Pulse Rate 114 H 117 H Respiratory 22 H 25 H 31 H Rate Blood Pressure 141/103 H 156/88 O2 Sat by Pulse 92 L 92 L Oximetry (%) 02/04/19 02/04/19 02/04/19 11:30 12:00 13:36 Temperature Pulse Rate 115 H 115 H Respiratory 23 H 20 24 H Rate Blood Pressure 150/87 150/92 O2 Sat by Pulse 93 L Oximetry (%) Brief as Pt. was en route to IR for CTA and possible embolization GENERAL: Intubated and sedated, responds to painful stimuli HEAD: Normal with no signs of trauma. LUNGS: Breath sounds equal, clear to auscultation bilaterally. No wheezes, and no crackles. No accessory muscle use. HEART: Tachycardic, normal S1 and S2 without murmur ABDOMEN: Soft, tenderness to palpation in LLQ, not distended, normoactive bowel sounds, guarding (pt. made movements to protect me from touching that area), no rebound, no masses. UPPER EXTREMITIES: 2+ pulses, warm, well-perfused. No cyanosis. No clubbing. No peripheral edema. LOWER EXTREMITIES: 2+ dorsal pedal pulses, cool, well-perfused. No calf tenderness. No peripheral edema. SKIN: Warm, dry, normal turgor, no rashes or lesions noted. Laboratory Results - last 24 hr 02/03/19 02/03/19 02/03/19 06:33 10:30 10:30 WBC RBC Hgb Hct MCV MCH MCHC RDW Plt Count MPV Absolute Neuts (auto) Neutrophils % Neutrophils % (Manual) Band Neutrophils % Lymphocytes % Lymphocytes % (Manual) Monocytes % Monocytes % (Manual) Eosinophils % Eosinophils % (Manual) Basophils % Basophils % (Manual) Myelocytes % (Man) Promyelocytes % (Man) Blast Cells % (Manual) Nucleated RBC % Metamyelocytes Hypochromia Platelet Estimate Polychromasia Poikilocytosis Anisocytosis Microcytosis Macrocytosis ESR PT with INR INR PTT (Actin FS) Fibrinogen D-Dimer Anticoagulation Therapy Puncture Site Patient Temperature ABG pH ABG pCO2 at Pt Temp ABG pO2 at Pt Temp ABG HCO3 ABG O2 Sat (Measured) ABG O2 Content ABG Base Excess Darius Test O2 Delivery Device Oxygen Flow Rate Vent Mode Vent Rate Mechanical Rate PEEP Pressure Support Vent Sodium Potassium Chloride Carbon Dioxide Anion Gap BUN Creatinine Est GFR (CKD-EPI)AfAm Est GFR (CKD-EPI)NonAf POC Glucometer Random Glucose Lactic Acid Calcium Phosphorus Magnesium Total Bilirubin AST ALT Alkaline Phosphatase Ammonia Creatine Kinase Troponin I C-Reactive Protein Total Protein Albumin Lipase Random Vancomycin Hep C Ab Diagnostic <0.1 HIV 1&2 Ag/Ab, 4th Gen Non reactive Blood Type AB POSITIVE Antibody Screen Negative Crossmatch See Detail 02/03/19 02/03/19 02/03/19 13:59 17:00 17:00 WBC 5.4 RBC 4.66 Hgb 14.4 Hct 43.8 MCV 94.1 MCH 31.0 MCHC 32.9 RDW 14.9 Plt Count 86 L MPV 9.2 Absolute Neuts (auto) 5.1 Neutrophils % 94.3 H Neutrophils % (Manual) 85.3 H Band Neutrophils % 6.9 Lymphocytes % 1.4 L Lymphocytes % (Manual) 0.0 L Monocytes % 4.0 Monocytes % (Manual) 3 L D Eosinophils % 0.1 Eosinophils % (Manual) 0.0 Basophils % 0.2 Basophils % (Manual) 0.0 Myelocytes % (Man) 0 D Promyelocytes % (Man) 2 D Blast Cells % (Manual) 0 Nucleated RBC % 1 H Metamyelocytes 3 H D Hypochromia 0 Platelet Estimate Decreased Polychromasia 0 Poikilocytosis 0 Anisocytosis 2+ Microcytosis 2+ Macrocytosis 0 ESR PT with INR INR PTT (Actin FS) Fibrinogen D-Dimer Anticoagulation Therapy Puncture Site Patient Temperature ABG pH ABG pCO2 at Pt Temp ABG pO2 at Pt Temp ABG HCO3 ABG O2 Sat (Measured) ABG O2 Content ABG Base Excess Darius Test O2 Delivery Device Oxygen Flow Rate Vent Mode Vent Rate Mechanical Rate PEEP Pressure Support Vent Sodium 136 Potassium 3.7 Chloride 102 Carbon Dioxide 25 Anion Gap 9 BUN 42.3 H Creatinine 2.2 H Est GFR (CKD-EPI)AfAm 41.58 Est GFR (CKD-EPI)NonAf 35.88 POC Glucometer 468 Random Glucose 454 H* Lactic Acid Calcium 7.6 L Phosphorus Magnesium Total Bilirubin 4.2 H AST 115 H ALT 183 H Alkaline Phosphatase 81 Ammonia Creatine Kinase Troponin I < 0.02 C-Reactive Protein Total Protein 5.0 L Albumin 2.5 L Lipase Random Vancomycin Hep C Ab Diagnostic HIV 1&2 Ag/Ab, 4th Gen Blood Type Antibody Screen Crossmatch 02/03/19 02/03/19 02/03/19 17:00 17:00 17:00 WBC RBC Hgb Hct MCV MCH MCHC RDW Plt Count MPV Absolute Neuts (auto) Neutrophils % Neutrophils % (Manual) Band Neutrophils % Lymphocytes % Lymphocytes % (Manual) Monocytes % Monocytes % (Manual) Eosinophils % Eosinophils % (Manual) Basophils % Basophils % (Manual) Myelocytes % (Man) Promyelocytes % (Man) Blast Cells % (Manual) Nucleated RBC % Metamyelocytes Hypochromia Platelet Estimate Polychromasia Poikilocytosis Anisocytosis Microcytosis Macrocytosis ESR PT with INR 28.60 H INR 2.40 H PTT (Actin FS) 38.5 H Fibrinogen > 500.0 H D-Dimer Anticoagulation Therapy Puncture Site Patient Temperature ABG pH ABG pCO2 at Pt Temp ABG pO2 at Pt Temp ABG HCO3 ABG O2 Sat (Measured) ABG O2 Content ABG Base Excess Darius Test O2 Delivery Device Oxygen Flow Rate Vent Mode Vent Rate Mechanical Rate PEEP Pressure Support Vent Sodium Potassium Chloride Carbon Dioxide Anion Gap BUN Creatinine Est GFR (CKD-EPI)AfAm Est GFR (CKD-EPI)NonAf POC Glucometer Random Glucose Lactic Acid 3.2 H* Calcium Phosphorus Magnesium Total Bilirubin AST ALT Alkaline Phosphatase Ammonia Creatine Kinase Troponin I C-Reactive Protein Total Protein Albumin Lipase Random Vancomycin Hep C Ab Diagnostic HIV 1&2 Ag/Ab, 4th Gen Blood Type Antibody Screen Crossmatch 02/03/19 02/03/19 02/03/19 17:16 18:55 20:55 WBC RBC Hgb Hct MCV MCH MCHC RDW Plt Count MPV Absolute Neuts (auto) Neutrophils % Neutrophils % (Manual) Band Neutrophils % Lymphocytes % Lymphocytes % (Manual) Monocytes % Monocytes % (Manual) Eosinophils % Eosinophils % (Manual) Basophils % Basophils % (Manual) Myelocytes % (Man) Promyelocytes % (Man) Blast Cells % (Manual) Nucleated RBC % Metamyelocytes Hypochromia Platelet Estimate Polychromasia Poikilocytosis Anisocytosis Microcytosis Macrocytosis ESR PT with INR INR PTT (Actin FS) Fibrinogen D-Dimer Anticoagulation Therapy No Result Required. Puncture Site Left radial Patient Temperature ABG pH 7.41 ABG pCO2 at Pt Temp 40.4 ABG pO2 at Pt Temp 62.9 L ABG HCO3 25.1 ABG O2 Sat (Measured) 93.3 L ABG O2 Content 16.1 ABG Base Excess 1.0 Darius Test Positive O2 Delivery Device Nasal Oxygen Flow Rate 4l Vent Mode No Result Required. Vent Rate No Result Required. Mechanical Rate No Result Required. PEEP Pressure Support Vent No Result Required. Sodium Potassium Chloride Carbon Dioxide Anion Gap BUN Creatinine Est GFR (CKD-EPI)AfAm Est GFR (CKD-EPI)NonAf POC Glucometer 431 400 Random Glucose Lactic Acid Calcium Phosphorus Magnesium Total Bilirubin AST ALT Alkaline Phosphatase Ammonia Creatine Kinase Troponin I C-Reactive Protein Total Protein Albumin Lipase Random Vancomycin Hep C Ab Diagnostic HIV 1&2 Ag/Ab, 4th Gen Blood Type Antibody Screen Crossmatch 02/03/19 02/03/19 02/03/19 21:10 21:41 23:30 WBC RBC Hgb Hct MCV MCH MCHC RDW Plt Count MPV Absolute Neuts (auto) Neutrophils % Neutrophils % (Manual) Band Neutrophils % Lymphocytes % Lymphocytes % (Manual) Monocytes % Monocytes % (Manual) Eosinophils % Eosinophils % (Manual) Basophils % Basophils % (Manual) Myelocytes % (Man) Promyelocytes % (Man) Blast Cells % (Manual) Nucleated RBC % Metamyelocytes Hypochromia Platelet Estimate Polychromasia Poikilocytosis Anisocytosis Microcytosis Macrocytosis ESR PT with INR INR PTT (Actin FS) Fibrinogen D-Dimer Anticoagulation Therapy Puncture Site Patient Temperature ABG pH ABG pCO2 at Pt Temp ABG pO2 at Pt Temp ABG HCO3 ABG O2 Sat (Measured) ABG O2 Content ABG Base Excess Darius Test O2 Delivery Device Oxygen Flow Rate Vent Mode Vent Rate Mechanical Rate PEEP Pressure Support Vent Sodium Potassium Chloride Carbon Dioxide Anion Gap BUN Creatinine Est GFR (CKD-EPI)AfAm Est GFR (CKD-EPI)NonAf POC Glucometer 339 Random Glucose Lactic Acid 3.3 H* Calcium Phosphorus Magnesium Total Bilirubin AST ALT Alkaline Phosphatase Ammonia < 10.00 L Creatine Kinase Troponin I C-Reactive Protein Total Protein Albumin Lipase Random Vancomycin Hep C Ab Diagnostic HIV 1&2 Ag/Ab, 4th Gen Blood Type Antibody Screen Crossmatch 02/03/19 02/03/19 02/03/19 23:30 23:30 23:30 WBC 4.7 RBC 4.39 Hgb 13.5 Hct 41.2 MCV 94.1 MCH 30.9 MCHC 32.8 RDW 14.6 Plt Count 80 L MPV 9.2 Absolute Neuts (auto) Neutrophils % Neutrophils % (Manual) Band Neutrophils % Lymphocytes % Lymphocytes % (Manual) Monocytes % Monocytes % (Manual) Eosinophils % Eosinophils % (Manual) Basophils % Basophils % (Manual) Myelocytes % (Man) Promyelocytes % (Man) Blast Cells % (Manual) Nucleated RBC % Metamyelocytes Hypochromia Platelet Estimate Polychromasia Poikilocytosis Anisocytosis Microcytosis Macrocytosis ESR PT with INR 22.10 H INR 1.86 H PTT (Actin FS) Fibrinogen D-Dimer Anticoagulation Therapy Puncture Site Patient Temperature ABG pH ABG pCO2 at Pt Temp ABG pO2 at Pt Temp ABG HCO3 ABG O2 Sat (Measured) ABG O2 Content ABG Base Excess Darius Test O2 Delivery Device Oxygen Flow Rate Vent Mode Vent Rate Mechanical Rate PEEP Pressure Support Vent Sodium 137 Potassium 3.6 Chloride 103 Carbon Dioxide 27 Anion Gap 8 BUN 39.8 H Creatinine 2.0 H Est GFR (CKD-EPI)AfAm 46.66 Est GFR (CKD-EPI)NonAf 40.26 POC Glucometer Random Glucose 328 H Lactic Acid Calcium 7.5 L Phosphorus Magnesium Total Bilirubin 3.3 H AST 97 H ALT 166 H Alkaline Phosphatase 80 Ammonia Creatine Kinase 137 Troponin I < 0.02 C-Reactive Protein Total Protein 5.0 L Albumin 2.4 L Lipase Random Vancomycin Hep C Ab Diagnostic HIV 1&2 Ag/Ab, 4th Gen Blood Type Antibody Screen Crossmatch 02/03/19 02/03/19 02/04/19 23:30 23:45 01:16 WBC RBC Hgb Hct MCV MCH MCHC RDW Plt Count MPV Absolute Neuts (auto) Neutrophils % Neutrophils % (Manual) Band Neutrophils % Lymphocytes % Lymphocytes % (Manual) Monocytes % Monocytes % (Manual) Eosinophils % Eosinophils % (Manual) Basophils % Basophils % (Manual) Myelocytes % (Man) Promyelocytes % (Man) Blast Cells % (Manual) Nucleated RBC % Metamyelocytes Hypochromia Platelet Estimate Polychromasia Poikilocytosis Anisocytosis Microcytosis Macrocytosis ESR PT with INR INR PTT (Actin FS) Fibrinogen D-Dimer Anticoagulation Therapy Puncture Site Right radial Patient Temperature 103.2 ABG pH 7.34 L ABG pCO2 at Pt Temp 47.9 H ABG pO2 at Pt Temp 77.4 L ABG HCO3 24.4 ABG O2 Sat (Measured) 93.6 L ABG O2 Content 16.8 ABG Base Excess -0.3 Darius Test Positive O2 Delivery Device Vent Oxygen Flow Rate 100% Vent Mode A/c Vent Rate 16 Mechanical Rate PEEP 5.0 Pressure Support Vent 750 Sodium Potassium Chloride Carbon Dioxide Anion Gap BUN Creatinine Est GFR (CKD-EPI)AfAm Est GFR (CKD-EPI)NonAf POC Glucometer 332 Random Glucose Lactic Acid 1.8 Calcium Phosphorus Magnesium Total Bilirubin AST ALT Alkaline Phosphatase Ammonia Creatine Kinase Troponin I C-Reactive Protein Total Protein Albumin Lipase Random Vancomycin Hep C Ab Diagnostic HIV 1&2 Ag/Ab, 4th Gen Blood Type Antibody Screen Crossmatch 02/04/19 02/04/19 02/04/19 02:32 03:05 05:00 WBC RBC Hgb Hct MCV MCH MCHC RDW Plt Count MPV Absolute Neuts (auto) Neutrophils % Neutrophils % (Manual) Band Neutrophils % Lymphocytes % Lymphocytes % (Manual) Monocytes % Monocytes % (Manual) Eosinophils % Eosinophils % (Manual) Basophils % Basophils % (Manual) Myelocytes % (Man) Promyelocytes % (Man) Blast Cells % (Manual) Nucleated RBC % Metamyelocytes Hypochromia Platelet Estimate Polychromasia Poikilocytosis Anisocytosis Microcytosis Macrocytosis ESR PT with INR INR PTT (Actin FS) Fibrinogen D-Dimer Anticoagulation Therapy No Result Required. Puncture Site Right radial Patient Temperature 100.7 ABG pH 7.37 ABG pCO2 at Pt Temp 43.2 ABG pO2 at Pt Temp 166 H ABG HCO3 23.8 ABG O2 Sat (Measured) 99.3 H ABG O2 Content 17.4 ABG Base Excess -0.6 Darius Test Positive O2 Delivery Device Vent Oxygen Flow Rate 100% Vent Mode A/c Vent Rate 18 Mechanical Rate Yes PEEP 5.0 Pressure Support Vent 750 Sodium Potassium Chloride Carbon Dioxide Anion Gap BUN Creatinine Est GFR (CKD-EPI)AfAm Est GFR (CKD-EPI)NonAf POC Glucometer 304 Random Glucose Lactic Acid Calcium Phosphorus Magnesium Total Bilirubin AST ALT Alkaline Phosphatase Ammonia Creatine Kinase Troponin I C-Reactive Protein Total Protein Albumin Lipase Random Vancomycin 6.5 L Hep C Ab Diagnostic HIV 1&2 Ag/Ab, 4th Gen Blood Type Antibody Screen Crossmatch 02/04/19 02/04/19 02/04/19 05:00 05:00 05:00 WBC 3.0 L RBC 3.96 L Hgb 12.4 Hct 37.1 MCV 93.7 MCH 31.2 MCHC 33.3 RDW 14.6 Plt Count 70 L MPV 9.3 Absolute Neuts (auto) 2.8 Neutrophils % 91.4 H Neutrophils % (Manual) 85.9 H Band Neutrophils % 7.1 Lymphocytes % 3.6 L D Lymphocytes % (Manual) 2.0 L D Monocytes % 4.1 Monocytes % (Manual) 3 L Eosinophils % 0.2 D Eosinophils % (Manual) 0.0 Basophils % 0.7 D Basophils % (Manual) 0.0 Myelocytes % (Man) 1 D Promyelocytes % (Man) 0 D Blast Cells % (Manual) 0 Nucleated RBC % 0 Metamyelocytes 1 D Hypochromia 0 Platelet Estimate Decreased Polychromasia 0 Poikilocytosis 0 Anisocytosis 0 Microcytosis 0 Macrocytosis 0 ESR PT with INR 19.30 H INR 1.63 H PTT (Actin FS) Fibrinogen D-Dimer Anticoagulation Therapy Puncture Site Patient Temperature ABG pH ABG pCO2 at Pt Temp ABG pO2 at Pt Temp ABG HCO3 ABG O2 Sat (Measured) ABG O2 Content ABG Base Excess Darius Test O2 Delivery Device Oxygen Flow Rate Vent Mode Vent Rate Mechanical Rate PEEP Pressure Support Vent Sodium 136 Potassium 3.6 Chloride 103 Carbon Dioxide 25 Anion Gap 7 L BUN 39.0 H Creatinine 1.9 H Est GFR (CKD-EPI)AfAm 49.65 Est GFR (CKD-EPI)NonAf 42.84 POC Glucometer Random Glucose 277 H Lactic Acid Calcium 7.6 L Phosphorus 2.3 L Magnesium 1.7 L Total Bilirubin 2.9 H AST 68 H ALT 144 H Alkaline Phosphatase 74 Ammonia Creatine Kinase Troponin I C-Reactive Protein Total Protein 4.8 L Albumin 2.3 L Lipase 79 Random Vancomycin Hep C Ab Diagnostic HIV 1&2 Ag/Ab, 4th Gen Blood Type Antibody Screen Crossmatch 02/04/19 02/04/19 02/04/19 05:00 05:00 05:00 WBC RBC Hgb Hct MCV MCH MCHC RDW Plt Count MPV Absolute Neuts (auto) Neutrophils % Neutrophils % (Manual) Band Neutrophils % Lymphocytes % Lymphocytes % (Manual) Monocytes % Monocytes % (Manual) Eosinophils % Eosinophils % (Manual) Basophils % Basophils % (Manual) Myelocytes % (Man) Promyelocytes % (Man) Blast Cells % (Manual) Nucleated RBC % Metamyelocytes Hypochromia Platelet Estimate Polychromasia Poikilocytosis Anisocytosis Microcytosis Macrocytosis ESR 81 H PT with INR INR PTT (Actin FS) Fibrinogen > 500.0 H D-Dimer Anticoagulation Therapy Puncture Site Patient Temperature ABG pH ABG pCO2 at Pt Temp ABG pO2 at Pt Temp ABG HCO3 ABG O2 Sat (Measured) ABG O2 Content ABG Base Excess Darius Test O2 Delivery Device Oxygen Flow Rate Vent Mode Vent Rate Mechanical Rate PEEP Pressure Support Vent Sodium Potassium Chloride Carbon Dioxide Anion Gap BUN Creatinine Est GFR (CKD-EPI)AfAm Est GFR (CKD-EPI)NonAf POC Glucometer Random Glucose Lactic Acid Calcium Phosphorus Magnesium Total Bilirubin AST ALT Alkaline Phosphatase Ammonia Creatine Kinase Troponin I C-Reactive Protein 25.1 H Total Protein Albumin Lipase Random Vancomycin Hep C Ab Diagnostic HIV 1&2 Ag/Ab, 4th Gen Blood Type Antibody Screen Crossmatch 02/04/19 02/04/19 02/04/19 05:00 05:41 08:32 WBC RBC Hgb Hct MCV MCH MCHC RDW Plt Count MPV Absolute Neuts (auto) Neutrophils % Neutrophils % (Manual) Band Neutrophils % Lymphocytes % Lymphocytes % (Manual) Monocytes % Monocytes % (Manual) Eosinophils % Eosinophils % (Manual) Basophils % Basophils % (Manual) Myelocytes % (Man) Promyelocytes % (Man) Blast Cells % (Manual) Nucleated RBC % Metamyelocytes Hypochromia Platelet Estimate Polychromasia Poikilocytosis Anisocytosis Microcytosis Macrocytosis ESR PT with INR INR PTT (Actin FS) 36.7 H Fibrinogen D-Dimer 6380 H Anticoagulation Therapy Puncture Site Patient Temperature ABG pH ABG pCO2 at Pt Temp ABG pO2 at Pt Temp ABG HCO3 ABG O2 Sat (Measured) ABG O2 Content ABG Base Excess Darius Test O2 Delivery Device Oxygen Flow Rate Vent Mode Vent Rate Mechanical Rate PEEP Pressure Support Vent Sodium Potassium Chloride Carbon Dioxide Anion Gap BUN Creatinine Est GFR (CKD-EPI)AfAm Est GFR (CKD-EPI)NonAf POC Glucometer 265 Random Glucose Lactic Acid Calcium Phosphorus Magnesium Total Bilirubin AST ALT Alkaline Phosphatase Ammonia Creatine Kinase Troponin I C-Reactive Protein Total Protein Albumin Lipase Random Vancomycin Hep C Ab Diagnostic HIV 1&2 Ag/Ab, 4th Gen Blood Type Antibody Screen Crossmatch 02/04/19 12:13 WBC RBC Hgb Hct MCV MCH MCHC RDW Plt Count MPV Absolute Neuts (auto) Neutrophils % Neutrophils % (Manual) Band Neutrophils % Lymphocytes % Lymphocytes % (Manual) Monocytes % Monocytes % (Manual) Eosinophils % Eosinophils % (Manual) Basophils % Basophils % (Manual) Myelocytes % (Man) Promyelocytes % (Man) Blast Cells % (Manual) Nucleated RBC % Metamyelocytes Hypochromia Platelet Estimate Polychromasia Poikilocytosis Anisocytosis Microcytosis Macrocytosis ESR PT with INR INR PTT (Actin FS) Fibrinogen D-Dimer Anticoagulation Therapy Puncture Site Patient Temperature ABG pH ABG pCO2 at Pt Temp ABG pO2 at Pt Temp ABG HCO3 ABG O2 Sat (Measured) ABG O2 Content ABG Base Excess Darius Test O2 Delivery Device Oxygen Flow Rate Vent Mode Vent Rate Mechanical Rate PEEP Pressure Support Vent Sodium Potassium Chloride Carbon Dioxide Anion Gap BUN Creatinine Est GFR (CKD-EPI)AfAm Est GFR (CKD-EPI)NonAf POC Glucometer 273 Random Glucose Lactic Acid Calcium Phosphorus Magnesium Total Bilirubin AST ALT Alkaline Phosphatase Ammonia Creatine Kinase Troponin I C-Reactive Protein Total Protein Albumin Lipase Random Vancomycin Hep C Ab Diagnostic HIV 1&2 Ag/Ab, 4th Gen Blood Type Antibody Screen Crossmatch Active Medications Home Medications Medication Instructions Recorded Atorvastatin Ca [Lipitor] 20 mg PO HS 06/10/13 Clopidogrel Bisulfate [Plavix -] 75 mg PO DAILY 06/10/13 Metoprolol Succinate [Toprol XL -] 25 mg PO DAILY 02/10/14 Insulin Sliding Scale [Novolog 1 units SQ ACHS #1 pen 06/11/15 Vial Sliding Scale -] Buprenorphine HCl/Naloxone HCl 1 each SL TID PRN 09/03/18 [Suboxone 8 mg-2 mg Sl Tablets] Insulin Detemir [Levemir Flextouch] 20 unit SQ DAILY 09/03/18 Bupropion HCl [Wellbutrin Xl] 300 mg PO DAILY 02/01/19 Current Medications Chlorhexidine Gluconate (Hibiclens For Decolonization -) 1 applic TP HS SHRUTHI Last Admin: 02/04/19 00:12 Dose: 1 applic Meropenem 1 gm/ Dextrose 100 mls @ 200 mls/hr IVPB Q8H-IV SHRUTHI Last Admin: 02/04/19 11:04 Dose: Not Given Propofol (Diprivan -) 1,000,000 mcg in 100 mls @ 3.707 mls/hr IVPB TITR [facility]; Protocol Last Titration: 02/04/19 12:25 Dose: 70 mcg/kg/min, 51.895 mls/hr Metronidazole (Flagyl 500mg Premixed Ivpb -) 500 mg in 100 mls @ 100 mls/hr IVPB Q8H-IV SHRUTHI Last Admin: 02/04/19 11:04 Dose: Not Given Doxycycline Hyclate 100 mg/ (Dextrose) 100 mls @ 100 mls/hr IVPB BID SHRUTHI Last Admin: 02/04/19 12:27 Dose: 100 mls/hr Lactated Ringer's (Lactated Ringers Solution) 1,000 ml in 1,000 mls @ 100 mls/ hr IV ASDIR HSRUTHI Last Admin: 02/04/19 11:22 Dose: 100 mls/hr Fentanyl 500 mcg/ Dextrose 100 mls @ 5 mls/hr IVPB TITR [facility]; Protocol Last Titration: 02/04/19 12:24 Dose: 100 mcg/hr, 20 mls/hr Sodium Phosphate 15 mm/ Sodium (Chloride) 255 mls @ 63.75 mls/hr IVPB ONCE ONE Stop: 02/04/19 16:29 Midazolam HCl (Midazolam 100mg/100ml-0.9%Nacl) 100 mg in 100 mls @ 1 mls/hr IVPB TITR [facility]; Protocol Stop: 02/05/19 12:29 Last Admin: 02/04/19 12:51 Dose: 1 mg/hr, 1 mls/hr Insulin Aspart (Novolog Vial Sliding Scale -) 1 vial SQ ACHS [facility]; Protocol Last Admin: 02/04/19 12:16 Dose: 6 units Mupirocin (Bactroban Ointment (For Decolonization) -) 1 applic NS BID [facility] Stop: 02/08/19 21:59 Last Admin: 02/04/19 00:11 Dose: 1 applic Pantoprazole Sodium (Protonix Iv) 40 mg IVPUSH DAILY [facility] Last Admin: 02/04/19 12:05 Dose: 40 mg ASSESSMENT/PLAN: Pt. is a 43 y.o. M w/ PMHx. of CAD(s/p GA and stenting in 2008), DM2, HLD, and opioid abuse presents with R. sided abdominal pain and found to have gangrenous gallbladder. #CINDA 2/2 Sepsis c/w IVF resuscitation monitor Cr. levels daily avoid Nephrotoxins including NSAIDs- Pt. had CTA will monitor Cr. for the next 48 hrs f/u CTA c/w Abx. per ID ( On Merrem, Flagyl and Doxycycline) Renal CT appreciated, Pt. has 4 cm cyst in mid-right pole f/u UA, urine Cr., urine sodium, and urine creatinine and urine urea to evaluate etiology of CINDA #Hyperbilirubinemia likely initially secondary to gangrenous GB f/u CTA, if bleeding is confirmed will also contribute to elevated Bilirubin #DM2 suggest resuming Levemir 20 units to better control BG BGM ACHS ISS ACHS #FEN LR@ 100 monitor electrolytes and replete as needed NPO #DVT Ppx. SCDs, given bleeding risk Dispo: We will continue to follow the patient. Thank you for this consultative opportunity. Visit type - Emergency Visit Emergency Visit: Yes ED Registration Date: 02/01/19 Care time: The patient presented to the Emergency Department on the above date and was hospitalized for further evaluation of their emergent condition. - New Patient This patient is new to me today: Yes Date on this admission: 02/04/19 - Critical Care Critical Care patient: Yes Total Critical Care Time (in minutes): 45 Critical Care Statement: The care of this patient involved high complexity decision making to prevent further life threatening deterioration of the patient 's condition and/or to evaluate & treat vital organ system(s) failure or risk of failure. ATTENDING PHYSICIAN STATEMENT I saw and evaluated the patient. I reviewed the resident's note and discussed the case with the resident. I agree with the resident's findings and plan as documented. SUBJECTIVE: OBJECTIVE: ASSESSMENT AND PLAN:
[2019-02-04 15:58] LABS: BASO % 0.1 % (0-2.0); EOS % 0.2 % (0-4.5); HEMATOCRIT 36.9 % (35.4-49); HEMOGLOBIN 12.1 GM/dL (11.7-16.9); LYMPH % 4.2 % (8-40); MCH 30.8 pg (25.7-33.7); MCHC 32.8 g/dl (32.0-35.9); MEAN CELL VOLUME 93.7 fl (80-96); MONO % 3.2 % (3.8-10.2); NEUT % 92.3 % (42.8-82.8); PLATELET COUNT 80 K/MM3 (134-434); RBC 3.93 M/mm3 (4.00-5.60); WHITE BLOOD COUNT 2.7 K/mm3 (4.0-10.0)
[2019-02-04 16:22] LABS: BLOOD UREA NITROGEN 32.1 mg/dL (7-18); CALCIUM 7.7 mg/dL (8.5-10.1); CREATININE 1.7 mg/dL (0.55-1.3); POTASSIUM 3.5 mmol/L (3.5-5.1)
--- NOTE | 2019-02-04 17:15 | PN ---
Teaching Attending Note Name of Resident: Tarun Serrano (Nephrology) ATTENDING PHYSICIAN STATEMENT I saw and evaluated the patient. I reviewed the resident's note and discussed the case with the resident. I agree with the resident's findings and plan as documented. Renal Pt is a 43 year old male with pmhx of cad, opioid abuse, hld and dm who presented with abd pain. He was taken for a lap waqar. He had a gangrenous gallbladder. He developed cinda and I was called to evaluate him. He also did get a cta to r/o bleed. pmhx dm cad, opioid abuse pshx lap waqar nkda family hx non contrib social hx opioid abuse Current Medications Generic Name Dose Route Start Last Admin Trade Name Freq PRN Reason Stop Dose Admin Chlorhexidine Gluconate 1 applic 02/03/19 22:00 02/04/19 00:12 Hibiclens For Decolonization - TP 1 applic HS SHRUTHI Administration Meropenem 1 gm/ Dextrose 100 mls @ 200 mls/hr 02/04/19 02:00 02/04/19 11:04 IVPB Not Given Q8H-IV SHRUTHI Propofol 1,000,000 mcg in 100 mls @ 3.707 mls/hr 02/03/19 23:00 02/04/19 15: 23 Diprivan - IVPB 40 mcg/kg/min TITR SHRUTHI 29.654 mls/hr Titration Protocol 5 MCG/KG/MIN Metronidazole 500 mg in 100 mls @ 100 mls/hr 02/04/19 02:00 02/04/19 11:04 Flagyl 500mg Premixed Ivpb - IVPB Not Given Q8H-IV SHRUTHI Doxycycline Hyclate 100 mg/ 100 mls @ 100 mls/hr 02/04/19 10:00 02/04/19 12: 27 Dextrose IVPB 100 mls/hr BID SHRUTHI Administration Lactated Ringer's 1,000 ml in 1,000 mls @ 100 mls/hr 02/04/19 11:09 02/04/19 11:22 Lactated Ringers Solution IV 100 mls/hr ASDIR SHRUTHI Administration Fentanyl 500 mcg/ Dextrose 100 mls @ 5 mls/hr 02/04/19 11:30 02/04/19 17:05 IVPB 100 mcg/hr TITR SHRUTHI 20 mls/hr Administration Protocol 25 MCG/HR Midazolam HCl 100 mg in 100 mls @ 1 mls/hr 02/04/19 12:30 02/04/19 12:51 Midazolam 100mg/100ml-0.9%Nacl IVPB 02/05/19 12:29 1 mg/hr TITR SHRUTHI 1 mls/hr Administration Protocol 1 MG/HR Insulin Aspart 1 vial 02/03/19 22:00 02/04/19 12:16 Novolog Vial Sliding Scale - SQ 6 units ACHS SHRUTHI Administration Protocol Mupirocin 1 applic 02/03/19 22:00 02/04/19 00:11 Bactroban Ointment (For Decolonization) - NS 02/08/19 21:59 1 applic BID SHRUTHI Administration Pantoprazole Sodium 40 mg 02/04/19 10:00 02/04/19 12:05 Protonix Iv IVPUSH 40 mg DAILY SHRUTHI Administration Laboratory Tests 02/01/19 02/01/19 02/02/19 11:50 11:50 06:50 Creatinine 0.9 0.8 Urine Protein Negative Urine Blood Negative 02/03/19 02/03/19 02/03/19 06:33 17:00 23:30 Creatinine 1.1 2.2 H 2.0 H Urine Protein Urine Blood 02/04/19 02/04/19 05:00 15:30 Creatinine 1.9 H 1.7 H Urine Protein Urine Blood Last Vital Signs Temp Pulse Resp BP Pulse Ox 97.5 F L 115 H 25 H 150/92 93 L 02/04/19 10:45 02/04/19 12:00 02/04/19 16:49 02/04/19 12:00 02/04/19 11:30 cardio s1s2 pulm vent sounds GI melissa drain ext neg edema skin tatoos Impression 1. CINDA 2. s/p lap waqar 3. s/p controast 4. cad 5. dm 6. hx opioid abuse 7. hld 8. gangrenous gallbladder 9. sepsis 10. acute resp failure 11. renal cyst Plan - cont with fluids - maintains bp - monitor parole officer as he did get contrast - avoid nsaids - renal dose meds - vent support - ICU monitoring - repeat ua - check urine lytes and parole officer
[2019-02-04 18:10] LABS: HEP B CORE AB, TOT Negative (Negative)
[2019-02-04 18:25] LABS: PLATELET ESTIMATE DECREASED
[2019-02-04 18:31] LABS: EPI CELLS 1.4 /HPF (0-5/HPF); HYALINE CASTS 6 /lpf (0-8); PH,URINE 5.5 (5.0-8.0); URINE APPEARANCE CLEAR; URINE BACTERIA 0.2 /hpf (NEGATIVE); URINE BILIRUBIN NEGATIVE (NEGATIVE); URINE COLOR DK YELLOW; URINE GLUCOSE (UA) 3+ (NEGATIVE); URINE KETONE TRACE (NEGATIVE); URINE LEUK ESTERASE NEGATIVE (NEGATIVE); URINE NITRITE NEGATIVE (NEGATIVE); URINE PROTEIN 1+ (NEGATIVE); URINE RBC 11 /hpf (0-4); URINE WBC 9 /hpf (0-5)
--- NOTE | 2019-02-04 19:59 | PN ---
Progress Note, Physician Chief Complaint: Pt intubated post cholecystectomy; sedateed.Pt's and aunt are at bedside.Low-grade temp. History of Present Illness: 43 y.o white man with PMHx VT s/p stent on Plavix and lumbar disc disease s/p 2 operations, DM, HLD, prior opioid abuse on suboxone who presents to the emergency department with biliary colic and mild gallstone pancreatitis worsening clinical status requiring ICU transfer and monitoring. Patient reports excellent exercise tolerance does 45 min strenuous cardio ( eliptical) few times a week lifts weights and is unlimited in his exercise. His exercise tolerance is way in excess of 4.6 METS. He does not have chest pain, ekg is normal, there is no signs of CHF or h/o VT. Pt was found to have gangrenous cholecystitis-->laparoscopic cholecystectomy. - Current Medication List Current Medications: Active Medications Chlorhexidine Gluconate (Peridex -) 15 ml MM BID SHRUTHI Chlorhexidine Gluconate (Hibiclens For Decolonization -) 1 applic TP HS SHRUTHI Lactated Ringer's (Lactated Ringers Solution) 1,000 ml in 1,000 mls @ 100 mls/ hr IV ASDIR SHRUTHI Last Admin: 02/04/19 11:22 Dose: 100 mls/hr Fentanyl 500 mcg/ Dextrose 100 mls @ 5 mls/hr IVPB TITR SHRUTHI; Protocol Last Admin: 02/04/19 17:05 Dose: 100 mcg/hr, 20 mls/hr Midazolam HCl (Midazolam 100mg/100ml-0.9%Nacl) 100 mg in 100 mls @ 1 mls/hr IVPB TITR SHRUTHI; Protocol Stop: 02/05/19 12:29 Last Titration: 02/04/19 13:45 Dose: 4 mg/hr, 4 mls/hr Doxycycline Hyclate 100 mg/ (Dextrose) 100 mls @ 50 mls/hr IVPB BID SHRUTHI Metronidazole (Flagyl 500mg Premixed Ivpb -) 500 mg in 100 mls @ 100 mls/hr IVPB Q8H-IV SHRUTHI Meropenem 1 gm/ Dextrose 100 mls @ 200 mls/hr IVPB Q8H-IV SHRUTHI Propofol (Diprivan -) 1,000,000 mcg in 100 mls @ 3.707 mls/hr IVPB TITR SHRUTHI; Protocol Last Admin: 02/04/19 19:53 Dose: 40 mcg/kg/min, 29.654 mls/hr Insulin Aspart (Novolog Vial Sliding Scale -) 1 vial SQ Q4HPO [facility]; Protocol Last Admin: 02/04/19 19:53 Dose: 6 units Mupirocin (Bactroban Ointment (For Decolonization) -) 1 applic NS BID [facility] Stop: 02/08/19 21:59 Pantoprazole Sodium (Protonix Iv) 40 mg IVPUSH DAILY [facility] - Objective Vital Signs: Vital Signs Temperature 99.9 F H 02/04/19 18:53 Pulse Rate 74 02/04/19 18:53 Respiratory Rate 20 02/04/19 18:53 Blood Pressure 108/59 L 02/04/19 18:53 O2 Sat by Pulse Oximetry (%) 93 L 02/04/19 11:30 Constitutional: Yes: Obese Cardiovascular: Yes: S1, S2 Respiratory: Yes: Mechanically Ventilated Gastrointestinal: Yes: Abdomen, Obese Genitourinary: No: Anuria Musculoskeletal: Yes: Muscle Weakness Edema: No Integumentary: Yes: WNL Psychiatric: Yes: Other (addictions) Labs: CBC, BMP 02/04/19 15:30 02/04/19 15:30 INR, PTT INR 1.63 (0.83-1.09) H 02/04/19 05:00 Fibrinogen > 500.0 mg/dL (238-498) H 02/04/19 05:00 Problem List - Problems (1) Acute gangrenous cholecystitis Assessment/Plan: s/p cholecystecomy Intubated Low-grade temp today (was 105F yesterday). On antibiotics, fluids. ECHO: normal LVEF; normal chambere sizes. TNI < 0.02 x 2 F?u BUN/Cr, electrolytes, daily weight, Is and Os. Code(s): K81.0 - ACUTE CHOLECYSTITIS (2) CAD (coronary artery disease) Assessment/Plan: hx VT Code(s): I25.10 - ATHSCL HEART DISEASE OF [place] CORONARY ARTERY W/O ANG PCTRS Qualifiers: Coronary Disease-Associated Artery/Lesion type: [place] artery Associated angina: angina presence unspecified (3) DKA, type 2 Code(s): E13.10 - OTH DIABETES MELLITUS WITH KETOACIDOSIS WITHOUT COMA Qualifiers: Diabetes mellitus complication detail: without coma (4) Hyperlipemia Code(s): E78.5 - HYPERLIPIDEMIA, UNSPECIFIED Qualifiers: Hyperlipidemia type: unspecified Qualified Code(s): E78.5 - Hyperlipidemia , unspecified (5) Hypertension Code(s): I10 - ESSENTIAL (PRIMARY) HYPERTENSION Qualifiers: Hypertension type: essential hypertension Qualified Code(s): I10 - Essential (primary) hypertension (6) Obesity Code(s): E66.9 - OBESITY, UNSPECIFIED (7) Opioid abuse Code(s): F11.10 - OPIOID ABUSE, UNCOMPLICATED (8) Leukopenia Assessment/Plan: febrile; s/p gangrenous cholecystecomy.+ low plateletes. F/u with ID. Code(s): D72.819 - DECREASED WHITE BLOOD CELL COUNT, UNSPECIFIED (9) Elevated LFTs Code(s): R94.5 - ABNORMAL RESULTS OF LIVER FUNCTION STUDIES Assessment/Plan CCU time spent: 35 minutes.
[2019-02-04] MEDS: DOXYCYCLINE INJECTION 100 MG in DEXTROSE 5%-WATER 100 ML IVPB SCH (22:09)
[2019-02-04] MEDS: CHLORHEXIDINE GLUCONATE 4% CLEANSER FOR DECOLONIZATION TP SCH (22:09)
[2019-02-04] MEDS: CHLORHEXIDINE GLUCONATE 0.12% 15ML CUP MM SCH (22:09)
[2019-02-05] MEDS ORDERED: MEROPENEM 1 GM VIAL (RESTRICTED TO ID) IVPB ONE ×3 (02:21→17:17)
[2019-02-05] MEDS ORDERED: DEXTROSE 5%-WATER 100 ML IVPB ONE ×3 (02:21→17:17)
[2019-02-05] MEDS: MEROPENEM 1 GM in DEXTROSE 5%-WATER 100 ML IVPB SCH ×3 (02:25→17:18)
[2019-02-05] MEDS: INSULIN SLIDING SCALE (NOVOLOG) 1 VIAL SQ SCH ×6 (02:35→21:51)
[2019-02-05] MEDS ORDERED: fentaNYL CITRATE 250 MCG/5 ML VIAL ONE (03:28)
[2019-02-05] MEDS: FENTANYL INJECTION 500 MCG in DEXTROSE 5%-WATER - 90 ML IVPB SCH ×2 (03:38→19:05)
[2019-02-05] MEDS: MIDAZOLAM IN 0.9 % SOD.CHLORID 100 MG/100 ML PLAST..BAG IVPB SCH (03:38)
[2019-02-05] MEDS ORDERED: LORazepam 1 MG TABLET PO SCH ×2 (05:00)
[2019-02-05 06:23] LABS: ARTERIAL BLD GAS O2 SATURATION 95.7 % (95-98); ARTERIAL BLOOD GAS BASE EXCESS 4.9 meq/l (-2-2); ARTERIAL BLOOD GAS PO2 76.7 mmHg (80-100)
[2019-02-05 06:28] LABS: BASO % 0.2 % (0-2.0); HEMATOCRIT 32.3 % (35.4-49); HEMOGLOBIN 11.1 GM/dL (11.7-16.9); LYMPH % 9.6 % (8-40); MCH 31.6 pg (25.7-33.7); MCHC 34.3 g/dl (32.0-35.9); MEAN CELL VOLUME 92.2 fl (80-96); MONO % 4.6 % (3.8-10.2); NEUT % 84.6 % (42.8-82.8); PLATELET COUNT 74 K/MM3 (134-434); RBC 3.51 M/mm3 (4.00-5.60); WHITE BLOOD COUNT 2.7 K/mm3 (4.0-10.0)
[2019-02-05 06:30] LABS: ALLENS TEST POSITIVE
[2019-02-05 07:22] LABS: INR 1.25 (0.83-1.09); PROTHROMBIN TIME (PATIENT) 14.8 SEC (9.7-13.0)
[2019-02-05 07:23] LABS: BLOOD UREA NITROGEN 24.3 mg/dL (7-18); CALCIUM 7.2 mg/dL (8.5-10.1); CREATININE 1.2 mg/dL (0.55-1.3); MAGNESIUM 2.4 mg/dL (1.8-2.4); PHOSPHOROUS 1.2 mg/dL (2.5-4.9); POTASSIUM 3.4 mmol/L (3.5-5.1); TOT PROT 4.5 g/dl (6.4-8.2)
--- NOTE | 2019-02-05 07:36 | PN ---
Progress Note (short form) - Note Progress Note: HPI: Pt extubated still under effects of sedation, but nods to commands GENERAL: patient recently extubated, somonolent but responding to questions HEAD: Normal with no signs of trauma. ENT: dry mucous membranes NECK: Trachea midline, supple. LUNGS: Breath sounds equal, clear to auscultation bilaterally, no wheezes, no crackles, no accessory muscle use. Breathing well after extubation HEART: tachycardic. normal S1, S2 without murmur, rub or gallop. ABDOMEN: gallbladder drain in place, draining bilious fluid. surgical incisions clean, dry, without draining or surrounding erythema EXTREMITIES: 2+ pulses, warm, well-perfused, no edema. SKIN: Warm, dry, normal turgor, no rashes or lesions noted Active Medications Acetaminophen (Ofirmev Injection -) 1,000 mg IVPB Q6H PRN PRN Reason: PAIN LEVEL 7 - 10 Last Admin: 02/06/19 02:41 Dose: 1,000 mg Buprenorphine/Naloxone (Suboxone 8 Mg/2mg Sl Film -) 1 each SL DAILY SHRUTHI Last Admin: 02/05/19 17:12 Dose: 1 each Chlorhexidine Gluconate (Hibiclens For Decolonization -) 1 applic TP HS SHRUTHI Last Admin: 02/05/19 21:43 Dose: 1 applic Heparin Sodium (Porcine) (Heparin -) 5,000 unit SQ TID SHRUTHI Last Admin: 02/06/19 06:35 Dose: 5,000 unit Lactated Ringer's (Lactated Ringers Solution) 1,000 ml in 1,000 mls @ 100 mls/ hr IV ASDIR SHRUTHI Last Admin: 02/05/19 17:52 Dose: 100 mls/hr Doxycycline Hyclate 100 mg/ (Dextrose) 100 mls @ 50 mls/hr IVPB BID SHRUTHI Last Admin: 02/05/19 21:42 Dose: 50 mls/hr Metronidazole (Flagyl 500mg Premixed Ivpb -) 500 mg in 100 mls @ 100 mls/hr IVPB Q8H-IV SHRUTHI Last Admin: 02/06/19 02:09 Dose: 100 mls/hr Meropenem 1 gm/ Dextrose 100 mls @ 200 mls/hr IVPB Q8H-IV SHRUTHI Last Admin: 02/06/19 01:11 Dose: 200 mls/hr Potassium Phosphate 30 mm/ (Sodium Chloride) 260 mls @ 62.5 mls/hr IVPB ONCE ONE Stop: 02/06/19 11:27 Insulin Aspart (Novolog Vial Sliding Scale -) 1 vial SQ Q4HPO [facility]; Protocol Last Admin: 02/06/19 06:36 Dose: 3 units Insulin Detemir (Levemir Vial) 10 units SQ DAILY@0700 [facility] Last Admin: 02/06/19 06:36 Dose: 10 units Mupirocin (Bactroban Ointment (For Decolonization) -) 1 applic NS BID [facility] Stop: 02/08/19 21:59 Last Admin: 02/05/19 21:43 Dose: 1 applic Pantoprazole Sodium (Protonix Iv) 40 mg IVPUSH DAILY [facility] Last Admin: 02/05/19 11:05 Dose: 40 mg Assessment and plan: Acute metabolic encephalopathy Septic shock 2/2 to Gangrenous gallbladder Acute kidney injury Hx CAD s/p stenting Thrombocytopenia Leukopenia Type 2 DM HTN HLD History of Opioid abuse --POD 1 from Ex. Lap with removal of gangrenous GB --BEBO drainage noted 450cc withi ncreasing bilious drainage --Continue NPO --Surgery on board --GI on board --Imaging reviewed --Thrombocytopenia and leukopenia consumptive from above process --Continue Meropenem and flagyl --Lyme titres pending; continue doxycycline until received --ID following case --Monitor CBC daily --Low risk for DIC considering coags --Keep monitoring INR, ptt, Fibrinogen --Monitor mental status while pt clearing effects of sedation during intubation - BGM q4h - started levemir 10u for better BG control FEN: LR @100cc/hr Hypokalemia repleted today NPO for now PPX: DVT - SCDs; adv to chemical ppx per surgery Dispo: ICU monitoring Case discussed with ICU team and Dr. Mason Michel, DO - IM PGy-3 <Naveed Michel - Last Filed: 02/06/19 07:32> - Note Progress Note: I have seen and examined the indicated patient independently/along with the resident team. I have personally verified all doan exam findings and historical components. I have personally interpreted all diagnostics indicated per todays orders and reviewed interpretation of indicated subspecialty services. This patient meets a high level of medical complexity and warrants indicated LOC to avoid decompensation and worsening of the indicated illness. He remains critically ill *As resident note not completed by midnight please take this as the day's note including PE for billing. S: Agree with historical findings as outlined in resident documentation regarding history of present illness. No further events communicated to myself from overnight. He is leaving the ICU this morning for cholecystectomy with Dr. Sparks. Is s/p ERCP with Dr. De Leon. Abx, IVF, and monitoring. Still intubated. 10 system ROS completed and is negative aside from indicated issues in the subjective/HPI Medication list reviewed; as documented per orders and above. O: All vital signs reviewed per ER records and are as per EMR Intubated and sedated in the ICU with RASS 2-3; no issues on tele NC AT EOMI PERRLA; ET tube in place Neck supple, trachea midline, no mckenzie LN Tachy and reg s1/2 Vent assoc breath sounds, w/ sym expansion NT ND +BS but sedation limits assessment of tenderness. Postoperative findings noted with no bleeding of infection or dehissence noted. Bandaging elsewise c/d /i No skin breakdown or rashes noted CN2-12 wnl, no new focal deficits noted but sedation limits appreciation Muscle tone normal, no deficits in motor function or strength noted Pending repeatr RUQ US Discussed with GI and ICU team Discussed with resident team at length. A/P: -Septic Shock (fluid responsive and not yet requiring pressors) secondary to gangrenous cholecystitis with marked transaminitis status post urgent cholecystectomy and emergency ERCP with stenting by Dr. Sparks and Dr. De Leon. *Part of the GB in; monitor for s/s leak. Continues to mentate well in ICU and monitoring pressures closely. -Transaminitis (Trend CMP, 2/ #1) -Suspected Cirrhosis; revisit chronic therapies when this is done. -Thrombocytopenia (elevated fibrinogen; PT, PTT, INR noted. I ordered a d- dimer which is pending. Resident team informed me that [facility] lab is a sendout but if continued postiive labs may be worth obtainign this with heme onc consult.) -CINDA (got contrast, also hypotensive so would suspect a mix of pre and intrarenal but defer to Dr. Haji) -Opioid Abuse on Suboxone (resume when extubated) -Obesity -Uncontrolled DM with hyperglycemia (confirmed with nursing that for unknown reason insulin held prior to sunday but documented as due to NPO. Per guidelines we would like for glucose to be in guideline directed range for critically ill pateint). -CAD s/p remote stenting (2008) -Hx HTN -Hx HLD -Leukopenia IVF, NPO, abx. FU further imaging and repeat labs. May require advanced endoscopy pending diagnostic workup. Will follow closely. Discussed with subspecialty services. <Maikel Cuevas - Last Filed: 02/07/19 10:41>
[2019-02-05] MEDS ORDERED: POTASSIUM PHOSPHATE 15 MM in SODIUM CHLORIDE 250 ML IVPB ONE (09:00)
[2019-02-05] MEDS: LACTATED RINGERS SOLUTION 1,000 ML/1,000 ML INFUS.BAG IV SCH ×2 (09:14→17:52)
--- NOTE | 2019-02-05 09:18 | PN ---
Progress Note (short form) - Note Progress Note: s/p lap choly yesterday gangrenous gallbladder removed piecemeal remains intubated sedation ivf no pressors Vital Signs Period Temp Pulse Resp BP Sys/Busby Pulse Ox Last 24 Hr 97.4 F-100.6 F 74-117 18-31 93-156/56-103 92-100 cor-rrr lungs decreased bs at bases abd soft, +biliary drain RUQ ext trace edema CBC, BMP 02/05/19 05:30 02/05/19 05:30 Microbiology 02/04/19 15:30 Blood - Peripheral Venous Blood Parasites Smear - Final 02/03/19 14:35 Blood - Peripheral Venous Blood Culture - Preliminary NO GROWTH OBTAINED AFTER 24 HOURS, INCUBATION TO CONTINUE FOR 4 DAYS. 02/03/19 14:20 Blood - Peripheral Venous Blood Culture - Preliminary NO GROWTH OBTAINED AFTER 24 HOURS, INCUBATION TO CONTINUE FOR 4 DAYS. Current Medications Chlorhexidine Gluconate (Peridex -) 15 ml MM BID SHRUTHI Last Admin: 02/04/19 22:09 Dose: 15 ml Chlorhexidine Gluconate (Hibiclens For Decolonization -) 1 applic TP HS SHRUTHI Last Admin: 02/04/19 22:09 Dose: 1 applic Lactated Ringer's (Lactated Ringers Solution) 1,000 ml in 1,000 mls @ 100 mls/ hr IV ASDIR SHRUTHI Last Admin: 02/05/19 09:14 Dose: 100 mls/hr Fentanyl 500 mcg/ Dextrose 100 mls @ 5 mls/hr IVPB TITR SHRUTHI; Protocol Last Titration: 02/05/19 09:13 Dose: 0 mcg/hr, 0 mls/hr Midazolam HCl (Midazolam 100mg/100ml-0.9%Nacl) 100 mg in 100 mls @ 1 mls/hr IVPB TITR SHRUTHI; Protocol Stop: 02/05/19 12:29 Last Titration: 02/05/19 09:10 Dose: 0 mg/hr, 0 mls/hr Doxycycline Hyclate 100 mg/ (Dextrose) 100 mls @ 50 mls/hr IVPB BID SHRUTHI Last Admin: 02/04/19 22:09 Dose: 50 mls/hr Metronidazole (Flagyl 500mg Premixed Ivpb -) 500 mg in 100 mls @ 100 mls/hr IVPB Q8H-IV SHRUTHI Last Admin: 02/05/19 02:26 Dose: 100 mls/hr Meropenem 1 gm/ Dextrose 100 mls @ 200 mls/hr IVPB Q8H-IV SHRUTHI Last Admin: 02/05/19 02:25 Dose: 200 mls/hr Potassium Phosphate 15 mm/ (Sodium Chloride) 255 mls @ 62.5 mls/hr IVPB ONCE ONE Stop: 02/05/19 13:04 Insulin Aspart (Novolog Vial Sliding Scale -) 1 vial SQ Q4HPO [facility]; Protocol Mupirocin (Bactroban Ointment (For Decolonization) -) 1 applic NS BID SHRUTHI Stop: 02/08/19 21:59 Last Admin: 02/04/19 22:08 Dose: 1 applic Pantoprazole Sodium (Protonix Iv) 40 mg IVPUSH DAILY [facility] ct scan abd/pelvis noted a/p Biliary sepsis- gangrenous gallbladder- s/p lap choly pod #1 persistent leukopenia and thrombocytopenia- gives history that patient was in [place] in early january for work ?secondary to sepsis, ?tick illness shauna has resolved remains intubated d/w at bedside to continue meropenem/flagyl/doxycycline tick serologies pending overall prognosis is guarded d/w medical education coordinator
[2019-02-05] MEDS: PANTOPRAZOLE SODIUM 40 MG VIAL IVPUSH SCH (11:05)
--- NOTE | 2019-02-05 11:08 | PN ---
Teaching Attending Note Name of Resident: Bryan Underwood ATTENDING PHYSICIAN STATEMENT I saw and evaluated the patient. I reviewed the resident's note and discussed the case with the resident. I agree with the resident's findings and plan as documented. SUBJECTIVE: Pt seen and examined in the ICU. Intubated, arousable off sedation. Hemodynamically stable, placed on CPAP/PS with good RSBI and subsequently extubated during rounds. OBJECTIVE: Vital Signs Period Temp Pulse Resp BP Sys/Busby Pulse Ox Last 24 Hr 97.9 F-100.6 F 74-117 18-31 93-156/56-92 92-100 Intake & Output 02/02/19 02/03/19 02/04/19 02/05/19 23:59 23:59 23:59 23:59 Intake Total 825 3774 6789 1785 Output Total 700 4150 780 Balance 825 3074 2639 1005 Weight 127.8 kg Gen: extubated Heart: RRR Lung: decreased breath sounds at the bases Abd: softly distended, drain with bilious output Ext: trace edema CBC, BMP 02/05/19 05:30 02/05/19 05:30 Active Medications Chlorhexidine Gluconate (Peridex -) 15 ml MM BID SHRUTHI Last Admin: 02/04/19 22:09 Dose: 15 ml Chlorhexidine Gluconate (Hibiclens For Decolonization -) 1 applic TP HS SHRUTHI Last Admin: 02/04/19 22:09 Dose: 1 applic Lactated Ringer's (Lactated Ringers Solution) 1,000 ml in 1,000 mls @ 100 mls/ hr IV ASDIR SHRUTHI Last Admin: 02/05/19 09:14 Dose: 100 mls/hr Fentanyl 500 mcg/ Dextrose 100 mls @ 5 mls/hr IVPB TITR [facility]; Protocol Last Titration: 02/05/19 09:13 Dose: 0 mcg/hr, 0 mls/hr Midazolam HCl (Midazolam 100mg/100ml-0.9%Nacl) 100 mg in 100 mls @ 1 mls/hr IVPB TITR SHRUTHI; Protocol Stop: 02/05/19 12:29 Last Titration: 02/05/19 09:10 Dose: 0 mg/hr, 0 mls/hr Doxycycline Hyclate 100 mg/ (Dextrose) 100 mls @ 50 mls/hr IVPB BID SHRUTHI Last Admin: 02/04/19 22:09 Dose: 50 mls/hr Metronidazole (Flagyl 500mg Premixed Ivpb -) 500 mg in 100 mls @ 100 mls/hr IVPB Q8H-IV SHRUTHI Last Admin: 02/05/19 02:26 Dose: 100 mls/hr Meropenem 1 gm/ Dextrose 100 mls @ 200 mls/hr IVPB Q8H-IV [facility] Last Admin: 02/05/19 02:25 Dose: 200 mls/hr Potassium Phosphate 15 mm/ (Sodium Chloride) 255 mls @ 62.5 mls/hr IVPB ONCE ONE Stop: 02/05/19 13:04 Last Admin: 02/05/19 09:18 Dose: 62.5 mls/hr Insulin Aspart (Novolog Vial Sliding Scale -) 1 vial SQ Q4HPO [facility]; Protocol Mupirocin (Bactroban Ointment (For Decolonization) -) 1 applic NS BID SHRUTHI Stop: 02/08/19 21:59 Last Admin: 02/04/19 22:08 Dose: 1 applic Pantoprazole Sodium (Protonix Iv) 40 mg IVPUSH DAILY [facility] ASSESSMENT AND PLAN: Acute Gangrenous Cholecystitis Choledocholithiasis Severe Sepsis with impending Shock Acute Kidney Injury Lactic Acidosis Coagulopathy/Thrombocytopenia Pancytopenia r/o DIC CAD DM Hyperlipidemia Opiate Dependence Suspect Obstructive Sleep Apnea - pt extubated - continue antibiotics per ID - f/u cultures - decrease IVF rate - monitor urine output, creatinine - O2 to keep SpO2 >90% - monitor platelets, coags, fibrinogen level - pain control - incentive spirometry - DVT/GI prophylaxis - continue ICU monitoring critical care time spent in reviewing chart, evaluating patient and formulating plan 45 min
[2019-02-05] MEDS: MUPIROCIN 2% TOPICAL OINTMENT FOR DECOLONIZATION NS SCH ×2 (11:19→21:43)
[2019-02-05] MEDS: CHLORHEXIDINE GLUCONATE 0.12% 15ML CUP MM SCH (11:20)
--- NOTE | 2019-02-05 11:47 | PN ---
Physical Exam: SUBJECTIVE: Patient seen and examined at bedside. Patient was extubated today and still somnolent but able to answer questions by nodding his head. OBJECTIVE: Vital Signs Period Temp Pulse Resp BP Sys/Busby Pulse Ox Last 24 Hr 97.9 F-100.6 F 74-115 18-25 93-150/56-92 97-100 GENERAL: patient recently extubated, somonolent but responding to questions HEAD: Normal with no signs of trauma. ENT: dry mucous membranes NECK: Trachea midline, supple. LUNGS: Breath sounds equal, clear to auscultation bilaterally, no wheezes, no crackles, no accessory muscle use. Breathing well after extubation HEART: tachycardic. normal S1, S2 without murmur, rub or gallop. ABDOMEN: gallbladder drain in place, draining bilious fluid. surgical incisions clean, dry, without draining or surrounding erythema EXTREMITIES: 2+ pulses, warm, well-perfused, no edema. SKIN: Warm, dry, normal turgor, no rashes or lesions noted Laboratory Results - last 24 hr 02/03/19 02/04/19 02/04/19 10:30 05:00 08:32 WBC RBC Hgb Hct MCV MCH MCHC RDW Plt Count MPV Absolute Neuts (auto) Neutrophils % Neutrophils % (Manual) 85.9 H Band Neutrophils % 7.1 Lymphocytes % Lymphocytes % (Manual) 2.0 L D Monocytes % Monocytes % (Manual) 3 L Eosinophils % Eosinophils % (Manual) 0.0 Basophils % Basophils % (Manual) 0.0 Myelocytes % (Man) 1 D Promyelocytes % (Man) 0 D Blast Cells % (Manual) 0 Nucleated RBC % 0 Metamyelocytes 1 D Hypochromia 0 Platelet Estimate Decreased Platelet Comment Polychromasia 0 Poikilocytosis 0 Anisocytosis 0 Microcytosis 0 Macrocytosis 0 PT with INR INR PTT (Actin FS) Fibrinogen D-Dimer 6380 H Puncture Site Patient Temperature ABG pH ABG pCO2 at Pt Temp ABG pO2 at Pt Temp ABG HCO3 ABG O2 Sat (Measured) ABG O2 Content ABG Base Excess Darius Test O2 Delivery Device Oxygen Flow Rate Vent Mode Vent Rate PEEP Pressure Support Vent Sodium Potassium Chloride Carbon Dioxide Anion Gap BUN Creatinine Est GFR (CKD-EPI)AfAm Est GFR (CKD-EPI)NonAf POC Glucometer Random Glucose Calcium Phosphorus Magnesium Total Bilirubin AST ALT Alkaline Phosphatase Total Protein Albumin Lipase Urine Color Urine Appearance Urine pH Ur Specific [place] Urine Protein Urine Glucose (UA) Urine Ketones Urine Blood Urine Nitrite Urine Bilirubin Urine Urobilinogen Ur Leukocyte Esterase Urine WBC (Auto) Urine RBC (Auto) Urine Casts (Auto) U Epithel Cells (Auto) Urine Bacteria (Auto) Ur Random Creatinine Ur Random Sodium Ur Random Urea Nitrogn Hep A IgM Ab Confirm Negative Hepatitis A Ab Total Negative Hep Bs Antigen Negative Hep Bs Antibody Non reactive Hep B Core Total Ab Negative Hep B Core IgM Ab Negative Hepatitis Be Antibody Negative Hepatitis Be Antigen Negative 02/04/19 02/04/19 02/04/19 12:13 15:30 15:30 WBC 2.7 L RBC 3.93 L Hgb 12.1 Hct 36.9 MCV 93.7 MCH 30.8 MCHC 32.8 RDW 15.0 Plt Count 80 L MPV 9.0 Absolute Neuts (auto) 2.5 Neutrophils % 92.3 H Neutrophils % (Manual) 90.5 H Band Neutrophils % 3.2 Lymphocytes % 4.2 L Lymphocytes % (Manual) 4.2 L D Monocytes % 3.2 L Monocytes % (Manual) 2 L Eosinophils % 0.2 Eosinophils % (Manual) 0.0 Basophils % 0.1 Basophils % (Manual) 0.0 Myelocytes % (Man) 0 D Promyelocytes % (Man) 0 Blast Cells % (Manual) 0 Nucleated RBC % 0 Metamyelocytes 0 D Hypochromia Platelet Estimate Decreased Platelet Comment No clumping noted Polychromasia Poikilocytosis Anisocytosis Microcytosis Macrocytosis PT with INR INR PTT (Actin FS) Fibrinogen D-Dimer Puncture Site Patient Temperature ABG pH ABG pCO2 at Pt Temp ABG pO2 at Pt Temp ABG HCO3 ABG O2 Sat (Measured) ABG O2 Content ABG Base Excess Darius Test O2 Delivery Device Oxygen Flow Rate Vent Mode Vent Rate PEEP Pressure Support Vent Sodium 139 Potassium 3.5 Chloride 105 Carbon Dioxide 28 Anion Gap 7 L BUN 32.1 H Creatinine 1.7 H Est GFR (CKD-EPI)AfAm 56.79 Est GFR (CKD-EPI)NonAf 49.00 POC Glucometer 273 Random Glucose 308 H Calcium 7.7 L Phosphorus Magnesium Total Bilirubin AST ALT Alkaline Phosphatase Total Protein Albumin Lipase 44 L Urine Color Urine Appearance Urine pH Ur Specific [place] Urine Protein Urine Glucose (UA) Urine Ketones Urine Blood Urine Nitrite Urine Bilirubin Urine Urobilinogen Ur Leukocyte Esterase Urine WBC (Auto) Urine RBC (Auto) Urine Casts (Auto) U Epithel Cells (Auto) Urine Bacteria (Auto) Ur Random Creatinine Ur Random Sodium Ur Random Urea Nitrogn Hep A IgM Ab Confirm Hepatitis A Ab Total Hep Bs Antigen Hep Bs Antibody Hep B Core Total Ab Hep B Core IgM Ab Hepatitis Be Antibody Hepatitis Be Antigen 02/04/19 02/04/19 02/04/19 17:20 17:20 17:20 WBC RBC Hgb Hct MCV MCH MCHC RDW Plt Count MPV Absolute Neuts (auto) Neutrophils % Neutrophils % (Manual) Band Neutrophils % Lymphocytes % Lymphocytes % (Manual) Monocytes % Monocytes % (Manual) Eosinophils % Eosinophils % (Manual) Basophils % Basophils % (Manual) Myelocytes % (Man) Promyelocytes % (Man) Blast Cells % (Manual) Nucleated RBC % Metamyelocytes Hypochromia Platelet Estimate Platelet Comment Polychromasia Poikilocytosis Anisocytosis Microcytosis Macrocytosis PT with INR INR PTT (Actin FS) Fibrinogen D-Dimer Puncture Site Patient Temperature ABG pH ABG pCO2 at Pt Temp ABG pO2 at Pt Temp ABG HCO3 ABG O2 Sat (Measured) ABG O2 Content ABG Base Excess Darius Test O2 Delivery Device Oxygen Flow Rate Vent Mode Vent Rate PEEP Pressure Support Vent Sodium Potassium Chloride Carbon Dioxide Anion Gap BUN Creatinine Est GFR (CKD-EPI)AfAm Est GFR (CKD-EPI)NonAf POC Glucometer Random Glucose Calcium Phosphorus Magnesium Total Bilirubin AST ALT Alkaline Phosphatase Total Protein Albumin Lipase Urine Color Dk yellow Urine Appearance Clear Urine pH 5.5 Ur Specific [place] 1.030 Urine Protein 1+ H Urine Glucose (UA) 3+ H Urine Ketones Trace H Urine Blood 2+ H Urine Nitrite Negative Urine Bilirubin Negative Urine Urobilinogen 1.0 Ur Leukocyte Esterase Negative Urine WBC (Auto) 9 Urine RBC (Auto) 11 Urine Casts (Auto) 6 U Epithel Cells (Auto) 1.4 Urine Bacteria (Auto) 0.2 Ur Random Creatinine 61.0 Ur Random Sodium 22 L Ur Random Urea Nitrogn Hep A IgM Ab Confirm Hepatitis A Ab Total Hep Bs Antigen Hep Bs Antibody Hep B Core Total Ab Hep B Core IgM Ab Hepatitis Be Antibody Hepatitis Be Antigen 02/04/19 02/04/19 02/04/19 17:20 17:26 18:54 WBC RBC Hgb Hct MCV MCH MCHC RDW Plt Count MPV Absolute Neuts (auto) Neutrophils % Neutrophils % (Manual) Band Neutrophils % Lymphocytes % Lymphocytes % (Manual) Monocytes % Monocytes % (Manual) Eosinophils % Eosinophils % (Manual) Basophils % Basophils % (Manual) Myelocytes % (Man) Promyelocytes % (Man) Blast Cells % (Manual) Nucleated RBC % Metamyelocytes Hypochromia Platelet Estimate Platelet Comment Polychromasia Poikilocytosis Anisocytosis Microcytosis Macrocytosis PT with INR INR PTT (Actin FS) Fibrinogen D-Dimer Puncture Site Patient Temperature ABG pH ABG pCO2 at Pt Temp ABG pO2 at Pt Temp ABG HCO3 ABG O2 Sat (Measured) ABG O2 Content ABG Base Excess Darius Test O2 Delivery Device Oxygen Flow Rate Vent Mode Vent Rate PEEP Pressure Support Vent Sodium Potassium Chloride Carbon Dioxide Anion Gap BUN Creatinine Est GFR (CKD-EPI)AfAm Est GFR (CKD-EPI)NonAf POC Glucometer 276 288 Random Glucose Calcium Phosphorus Magnesium Total Bilirubin AST ALT Alkaline Phosphatase Total Protein Albumin Lipase Urine Color Urine Appearance Urine pH Ur Specific [place] Urine Protein Urine Glucose (UA) Urine Ketones Urine Blood Urine Nitrite Urine Bilirubin Urine Urobilinogen Ur Leukocyte Esterase Urine WBC (Auto) Urine RBC (Auto) Urine Casts (Auto) U Epithel Cells (Auto) Urine Bacteria (Auto) Ur Random Creatinine Ur Random Sodium Ur Random Urea Nitrogn 651 Hep A IgM Ab Confirm Hepatitis A Ab Total Hep Bs Antigen Hep Bs Antibody Hep B Core Total Ab Hep B Core IgM Ab Hepatitis Be Antibody Hepatitis Be Antigen 02/04/19 02/05/19 02/05/19 22:03 02:31 05:30 WBC 2.7 L RBC 3.51 L Hgb 11.1 L Hct 32.3 L MCV 92.2 MCH 31.6 MCHC 34.3 RDW 15.0 Plt Count 74 L MPV 9.0 Absolute Neuts (auto) 2.3 Neutrophils % 84.6 H Neutrophils % (Manual) Band Neutrophils % Lymphocytes % 9.6 D Lymphocytes % (Manual) Monocytes % 4.6 Monocytes % (Manual) Eosinophils % 1.0 D Eosinophils % (Manual) Basophils % 0.2 Basophils % (Manual) Myelocytes % (Man) Promyelocytes % (Man) Blast Cells % (Manual) Nucleated RBC % 0 Metamyelocytes Hypochromia Platelet Estimate Platelet Comment Polychromasia Poikilocytosis Anisocytosis Microcytosis Macrocytosis PT with INR INR PTT (Actin FS) Fibrinogen D-Dimer Puncture Site Patient Temperature ABG pH ABG pCO2 at Pt Temp ABG pO2 at Pt Temp ABG HCO3 ABG O2 Sat (Measured) ABG O2 Content ABG Base Excess Darius Test O2 Delivery Device Oxygen Flow Rate Vent Mode Vent Rate PEEP Pressure Support Vent Sodium Potassium Chloride Carbon Dioxide Anion Gap BUN Creatinine Est GFR (CKD-EPI)AfAm Est GFR (CKD-EPI)NonAf POC Glucometer 249 215 Random Glucose Calcium Phosphorus Magnesium Total Bilirubin AST ALT Alkaline Phosphatase Total Protein Albumin Lipase Urine Color Urine Appearance Urine pH Ur Specific [place] Urine Protein Urine Glucose (UA) Urine Ketones Urine Blood Urine Nitrite Urine Bilirubin Urine Urobilinogen Ur Leukocyte Esterase Urine WBC (Auto) Urine RBC (Auto) Urine Casts (Auto) U Epithel Cells (Auto) Urine Bacteria (Auto) Ur Random Creatinine Ur Random Sodium Ur Random Urea Nitrogn Hep A IgM Ab Confirm Hepatitis A Ab Total Hep Bs Antigen Hep Bs Antibody Hep B Core Total Ab Hep B Core IgM Ab Hepatitis Be Antibody Hepatitis Be Antigen 02/05/19 02/05/19 02/05/19 05:30 05:30 05:30 WBC RBC Hgb Hct MCV MCH MCHC RDW Plt Count MPV Absolute Neuts (auto) Neutrophils % Neutrophils % (Manual) Band Neutrophils % Lymphocytes % Lymphocytes % (Manual) Monocytes % Monocytes % (Manual) Eosinophils % Eosinophils % (Manual) Basophils % Basophils % (Manual) Myelocytes % (Man) Promyelocytes % (Man) Blast Cells % (Manual) Nucleated RBC % Metamyelocytes Hypochromia Platelet Estimate Platelet Comment Polychromasia Poikilocytosis Anisocytosis Microcytosis Macrocytosis PT with INR INR PTT (Actin FS) 34.0 Fibrinogen > 500.0 H D-Dimer Puncture Site Patient Temperature ABG pH ABG pCO2 at Pt Temp ABG pO2 at Pt Temp ABG HCO3 ABG O2 Sat (Measured) ABG O2 Content ABG Base Excess Darius Test O2 Delivery Device Oxygen Flow Rate Vent Mode Vent Rate PEEP Pressure Support Vent Sodium 140 Potassium 3.4 L Chloride 105 Carbon Dioxide 31 Anion Gap 4 L BUN 24.3 H Creatinine 1.2 Est GFR (CKD-EPI)AfAm 86.53 Est GFR (CKD-EPI)NonAf 74.66 POC Glucometer Random Glucose 228 H Calcium 7.2 L Phosphorus 1.2 L Magnesium 2.4 Total Bilirubin 2.0 H AST 53 H ALT 137 H Alkaline Phosphatase 72 Total Protein 4.5 L Albumin 2.0 L Lipase Urine Color Urine Appearance Urine pH Ur Specific [place] Urine Protein Urine Glucose (UA) Urine Ketones Urine Blood Urine Nitrite Urine Bilirubin Urine Urobilinogen Ur Leukocyte Esterase Urine WBC (Auto) Urine RBC (Auto) Urine Casts (Auto) U Epithel Cells (Auto) Urine Bacteria (Auto) Ur Random Creatinine Ur Random Sodium Ur Random Urea Nitrogn Hep A IgM Ab Confirm Hepatitis A Ab Total Hep Bs Antigen Hep Bs Antibody Hep B Core Total Ab Hep B Core IgM Ab Hepatitis Be Antibody Hepatitis Be Antigen 02/05/19 02/05/19 02/05/19 05:30 05:42 06:10 WBC RBC Hgb Hct MCV MCH MCHC RDW Plt Count MPV Absolute Neuts (auto) Neutrophils % Neutrophils % (Manual) Band Neutrophils % Lymphocytes % Lymphocytes % (Manual) Monocytes % Monocytes % (Manual) Eosinophils % Eosinophils % (Manual) Basophils % Basophils % (Manual) Myelocytes % (Man) Promyelocytes % (Man) Blast Cells % (Manual) Nucleated RBC % Metamyelocytes Hypochromia Platelet Estimate Platelet Comment Polychromasia Poikilocytosis Anisocytosis Microcytosis Macrocytosis PT with INR 14.80 H INR 1.25 H PTT (Actin FS) Fibrinogen D-Dimer Puncture Site Right radial Patient Temperature 100.0 ABG pH 7.40 ABG pCO2 at Pt Temp 49.0 H ABG pO2 at Pt Temp 76.7 L ABG HCO3 29.7 H ABG O2 Sat (Measured) 95.7 ABG O2 Content 15.7 ABG Base Excess 4.9 H Darius Test Positive O2 Delivery Device Vent Oxygen Flow Rate 40% Vent Mode Prvc Vent Rate 14 PEEP 5.0 Pressure Support Vent 500 Sodium Potassium Chloride Carbon Dioxide Anion Gap BUN Creatinine Est GFR (CKD-EPI)AfAm Est GFR (CKD-EPI)NonAf POC Glucometer 200 Random Glucose Calcium Phosphorus Magnesium Total Bilirubin AST ALT Alkaline Phosphatase Total Protein Albumin Lipase Urine Color Urine Appearance Urine pH Ur Specific [place] Urine Protein Urine Glucose (UA) Urine Ketones Urine Blood Urine Nitrite Urine Bilirubin Urine Urobilinogen Ur Leukocyte Esterase Urine WBC (Auto) Urine RBC (Auto) Urine Casts (Auto) U Epithel Cells (Auto) Urine Bacteria (Auto) Ur Random Creatinine Ur Random Sodium Ur Random Urea Nitrogn Hep A IgM Ab Confirm Hepatitis A Ab Total Hep Bs Antigen Hep Bs Antibody Hep B Core Total Ab Hep B Core IgM Ab Hepatitis Be Antibody Hepatitis Be Antigen 02/05/19 11:26 WBC RBC Hgb Hct MCV MCH MCHC RDW Plt Count MPV Absolute Neuts (auto) Neutrophils % Neutrophils % (Manual) Band Neutrophils % Lymphocytes % Lymphocytes % (Manual) Monocytes % Monocytes % (Manual) Eosinophils % Eosinophils % (Manual) Basophils % Basophils % (Manual) Myelocytes % (Man) Promyelocytes % (Man) Blast Cells % (Manual) Nucleated RBC % Metamyelocytes Hypochromia Platelet Estimate Platelet Comment Polychromasia Poikilocytosis Anisocytosis Microcytosis Macrocytosis PT with INR INR PTT (Actin FS) Fibrinogen D-Dimer Puncture Site Patient Temperature ABG pH ABG pCO2 at Pt Temp ABG pO2 at Pt Temp ABG HCO3 ABG O2 Sat (Measured) ABG O2 Content ABG Base Excess Darius Test O2 Delivery Device Oxygen Flow Rate Vent Mode Vent Rate PEEP Pressure Support Vent Sodium Potassium Chloride Carbon Dioxide Anion Gap BUN Creatinine Est GFR (CKD-EPI)AfAm Est GFR (CKD-EPI)NonAf POC Glucometer 196 Random Glucose Calcium Phosphorus Magnesium Total Bilirubin AST ALT Alkaline Phosphatase Total Protein Albumin Lipase Urine Color Urine Appearance Urine pH Ur Specific [place] Urine Protein Urine Glucose (UA) Urine Ketones Urine Blood Urine Nitrite Urine Bilirubin Urine Urobilinogen Ur Leukocyte Esterase Urine WBC (Auto) Urine RBC (Auto) Urine Casts (Auto) U Epithel Cells (Auto) Urine Bacteria (Auto) Ur Random Creatinine Ur Random Sodium Ur Random Urea Nitrogn Hep A IgM Ab Confirm Hepatitis A Ab Total Hep Bs Antigen Hep Bs Antibody Hep B Core Total Ab Hep B Core IgM Ab Hepatitis Be Antibody Hepatitis Be Antigen Active Medications Generic Name Dose Route Start Last Admin Trade Name Freq PRN Reason Stop Dose Admin Chlorhexidine Gluconate 15 ml 02/04/19 22:00 02/05/19 11:20 Peridex - MM Not Given BID SHRUTHI Chlorhexidine Gluconate 1 applic 02/04/19 22:00 02/04/19 22:09 Hibiclens For Decolonization - TP 1 applic HS SHRUTHI Administration Lactated Ringer's 1,000 ml in 1,000 mls @ 100 mls/hr 02/04/19 11:09 02/05/19 09:14 Lactated Ringers Solution IV 100 mls/hr ASDIR SHRUTHI Administration Fentanyl 500 mcg/ Dextrose 100 mls @ 5 mls/hr 02/04/19 11:30 02/05/19 09:13 IVPB 0 mcg/hr TITR SHRUTHI 0 mls/hr Titration Protocol 25 MCG/HR Midazolam HCl 100 mg in 100 mls @ 1 mls/hr 02/04/19 12:30 02/05/19 09:10 Midazolam 100mg/100ml-0.9%Nacl IVPB 02/05/19 12:29 0 mg/hr TITR SHRUTHI 0 mls/hr Titration Protocol 1 MG/HR Doxycycline Hyclate 100 mg/ 100 mls @ 50 mls/hr 02/04/19 22:00 02/04/19 22:09 Dextrose IVPB 50 mls/hr BID SHRUTHI Administration Metronidazole 500 mg in 100 mls @ 100 mls/hr 02/05/19 02:00 02/05/19 11:06 Flagyl 500mg Premixed Ivpb - IVPB 100 mls/hr Q8H-IV SHRUTHI Administration Meropenem 1 gm/ Dextrose 100 mls @ 200 mls/hr 02/05/19 02:00 02/05/19 10:58 IVPB 200 mls/hr Q8H-IV SHRUTHI Administration Potassium Phosphate 15 mm/ 255 mls @ 62.5 mls/hr 02/05/19 09:00 02/05/19 09: 18 Sodium Chloride IVPB 02/05/19 13:04 62.5 mls/hr ONCE ONE Administration Insulin Aspart 1 vial 02/05/19 10:00 02/05/19 11:28 Novolog Vial Sliding Scale - SQ 3 units Q4HPO SHRUTHI Administration Protocol Mupirocin 1 applic 02/04/19 22:00 02/05/19 11:19 Bactroban Ointment (For Decolonization) - NS 02/08/19 21:59 1 applic BID SHRUTHI Administration Pantoprazole Sodium 40 mg 02/05/19 10:00 02/05/19 11:05 Protonix Iv IVPUSH 40 mg DAILY SHRUTHI Administration ASSESSMENT/PLAN: Nick Carmichael is a 43yM with PMHx of CAD with prior SD s/p stent on AC, HTN, HLD, DM, opioid use disorder on Suboxone, presenting initially with AB pain d/ t acute pancreatitis and gangrenous gallbladder. ERCP 02/03 revealed normal CBD without obstruction, stent placed d/t jaundice. Laprascopic cholecystectomy revealed gangrenous gallbladder. POD#1 from laproscopic partial cholecystectomy. #Neurologic - Acute toxic metabolic encephalopathy d/t septic shock, Syncopal episode, hx Opioid use disorder - pt extubated today, mental status improving - CT head 02/04 did not show acute intracranial hemorrhage or pathology s/p fall - Fall precautions #Pulmonary - patient extubated on 02/05, breathing well. Continue to monitor #Cardiovascular - septic shock, hx CAD, SD s/p stent, HTN, HLD - CVP monitoring- goal 8-12; LR boluses PRN to maintain CVP - echo 02/03 showed left ventricular systolic function normal, ejection fraction 60-65%. - trop <0.02 x2 - holding ASA, plavix d/t surgery - Cardiology recommendations (Dr. Guidry) appreciated. #Gastrointestinal - gangrenous gallbladder s/p cholecystectomy, acute pancreatitis - ERCP 02/03 showed normal CBD w/o obstruction, stent placed - laparoscopic cholecystectomy 02/04 showed gangrenous gallbladder, AB drain placed - acute pancreatitis resolving w hydration, downtrending lipase to 44 - AB drainage becoming more bilious today, 450mL drained since 3pm. Dr Sparks contacted, reassured that it's normal - NPO - protonix ppx - GI recommendations (Dr. Lion) appreciated. - General surgery recommendations (Dr. Sparks) appreciated. - Follow-up: Call Dr. Mckeon's office at [phone] to make your postop appointment (Sunday in approximately 2 weeks after surgery). Clinic is held in the [facility] on the first floor of [facility]. #Nephrologic - CINDA - downtrending BUN/Cr 24.3/1.2 likely d/t hypovolemia in setting of sepsis - UA did not show evidence of UTI - LR @100mL/hr - quinn in place - I/O #Heme - thrombocytopenia, coagulopathy - low platelets at 74 - Concern for DIC, trending PT/INR, PTT, fibrinogen #ID - leukopenia WBC 3 to 2.7 w neutrophil shift - Blood and urine cultures negative - continue meropenem, flagyl, doxycycline - ID recommendations (Dr. Lozoya) appreciated #Endo - hx DM - Insulin sliding scale - BGM q4h - started levemir 10u for better BG control per neph #FEN - LR @100mL/hr - hypokalemic, hypoPhos - repleted - NPO #Prophylaxis - Heparin SQ - SCDs - protonix Visit type - Emergency Visit Emergency Visit: Yes ED Registration Date: 02/01/19 Care time: The patient presented to the Emergency Department on the above date and was hospitalized for further evaluation of their emergent condition. - New Patient This patient is new to me today: No - Critical Care Critical Care patient: Yes Total Critical Care Time (in minutes): 36 Critical Care Statement: The care of this patient involved high complexity decision making to prevent further life threatening deterioration of the patient 's condition and/or to evaluate & treat vital organ system(s) failure or risk of failure. ATTENDING PHYSICIAN STATEMENT I saw and evaluated the patient. I reviewed the resident's note and discussed the case with the resident. I agree with the resident's findings and plan as documented. SUBJECTIVE: OBJECTIVE: ASSESSMENT AND PLAN:
--- NOTE | 2019-02-05 11:57 | PN ---
Progress Note, Physician History of Present Illness: 43 year old male with h/o [facility] s/p stent 2009 [facility] on Plavix (ASA d/c few years ago due to gerd) and lumbar disc disease s/p 2 operations, DM, HLD, prior opioid abuse on suboxone who presents to the emergency department with RUQ/ flank and abdominal pain since 8:30AM. Patient describes the pain as a " stabbing sensation," shooting to his back, associated with 3 episodes of clear white phlegm with streaks of blood, nausea, headache, and dizziness. Patient notes he was fine last night, however, his pain woke him up from his sleep this morning. Patient notes he has been going to the gym for the past 2 weeks, has been drinking whey protein and staying hydrated appropriately. Patient notes he took aspirin this morning, suboxone last night. Patient denies any hx of gallstones, kidney stones, or urinary symptoms in personal or family history. In ER he has multiple doses of toradol for pains and have some relief. - Current Medication List Current Medications: Active Medications Chlorhexidine Gluconate (Peridex -) 15 ml MM BID [facility] Last Admin: 02/05/19 11:20 Dose: Not Given Chlorhexidine Gluconate (Hibiclens For Decolonization -) 1 applic TP HS [facility] Last Admin: 02/04/19 22:09 Dose: 1 applic Lactated Ringer's (Lactated Ringers Solution) 1,000 ml in 1,000 mls @ 100 mls/ hr IV ASDIR [facility] Last Admin: 02/05/19 09:14 Dose: 100 mls/hr Fentanyl 500 mcg/ Dextrose 100 mls @ 5 mls/hr IVPB TITR [facility]; Protocol Last Titration: 02/05/19 09:13 Dose: 0 mcg/hr, 0 mls/hr Midazolam HCl (Midazolam 100mg/100ml-0.9%Nacl) 100 mg in 100 mls @ 1 mls/hr IVPB TITR [facility]; Protocol Stop: 02/05/19 12:29 Last Titration: 02/05/19 09:10 Dose: 0 mg/hr, 0 mls/hr Doxycycline Hyclate 100 mg/ (Dextrose) 100 mls @ 50 mls/hr IVPB BID [facility] Last Admin: 02/04/19 22:09 Dose: 50 mls/hr Metronidazole (Flagyl 500mg Premixed Ivpb -) 500 mg in 100 mls @ 100 mls/hr IVPB Q8H-IV [facility] Last Admin: 02/05/19 11:06 Dose: 100 mls/hr Meropenem 1 gm/ Dextrose 100 mls @ 200 mls/hr IVPB Q8H-IV [facility] Last Admin: 02/05/19 10:58 Dose: 200 mls/hr Potassium Phosphate 15 mm/ (Sodium Chloride) 255 mls @ 62.5 mls/hr IVPB ONCE ONE Stop: 02/05/19 13:04 Last Admin: 02/05/19 09:18 Dose: 62.5 mls/hr Insulin Aspart (Novolog Vial Sliding Scale -) 1 vial SQ Q4HPO [facility]; Protocol Last Admin: 02/05/19 11:28 Dose: 3 units Mupirocin (Bactroban Ointment (For Decolonization) -) 1 applic NS BID [facility] Stop: 02/08/19 21:59 Last Admin: 02/05/19 11:19 Dose: 1 applic Pantoprazole Sodium (Protonix Iv) 40 mg IVPUSH DAILY [facility] Last Admin: 02/05/19 11:05 Dose: 40 mg - Objective Vital Signs: Vital Signs Temperature 99.9 F H 02/05/19 04:03 Pulse Rate 103 H 02/05/19 04:03 Respiratory Rate 23 H 02/05/19 08:00 Blood Pressure 107/68 02/05/19 04:03 O2 Sat by Pulse Oximetry (%) 97 02/05/19 11:22 Eyes: Yes: WNL, Conjunctiva Clear, EOM Intact HENT: Yes: WNL, Atraumatic, Normocephalic Neck: Yes: WNL, Supple, Trachea Midline Cardiovascular: Yes: WNL, Regular Rate and Rhythm Respiratory: Yes: WNL, Regular, CTA Bilaterally, Diminished Gastrointestinal: Yes: WNL, Normal Bowel Sounds Genitourinary: Yes: WNL Musculoskeletal: Yes: WNL Extremities: Yes: WNL Edema: No Integumentary: Yes: WNL Neurological: Yes: WNL, Alert, Oriented ...Motor Strength: WNL Psychiatric: Yes: WNL Labs: CBC, BMP 02/05/19 05:30 02/05/19 05:30 INR, PTT INR 1.25 (0.83-1.09) H 02/05/19 05:30 Fibrinogen > 500.0 mg/dL (238-498) H 02/05/19 05:30 Problem List - Problems (1) Acute gallstone pancreatitis Code(s): K85.10 - BILIARY ACUTE PANCREATITIS WITHOUT NECROSIS OR INFECTION (2) Cholelithiasis Code(s): K80.20 - CALCULUS OF GALLBLADDER W/O CHOLECYSTITIS W/O OBSTRUCTION Qualifiers: Cholelithiasis location: other site Biliary obstruction: without biliary obstruction Qualified Code(s): K80.80 - Other cholelithiasis without obstruction (3) Pancreatitis Code(s): K85.90 - ACUTE PANCREATITIS WITHOUT NECROSIS OR INFECTION, UNSP Qualifiers: Chronicity: acute Pancreatitis type: unspecified pancreatitis type Acute pancreatitis complication: unspecified Qualified Code(s): K85.90 - Acute pancreatitis without necrosis or infection, unspecified (4) Abrasion of right upper arm Code(s): S40.811A - ABRASION OF RIGHT UPPER ARM, INITIAL ENCOUNTER Qualifiers: Encounter type: initial encounter Qualified Code(s): S40.811A - Abrasion of right upper arm, initial encounter (5) Acute coronary syndrome Code(s): I24.9 - ACUTE ISCHEMIC HEART DISEASE, UNSPECIFIED (6) Back pain Code(s): M54.9 - DORSALGIA, UNSPECIFIED Qualifiers: Back pain location: low back pain Back pain laterality: midline Sciatica presence: without sciatica (7) Chest pain Code(s): R07.9 - CHEST PAIN, UNSPECIFIED Qualifiers: Chest pain type: unspecified Qualified Code(s): R07.9 - Chest pain, unspecified (8) Concussion Code(s): S06.0X9A - CONCUSSION W LOSS OF CONSCIOUSNESS OF UNSP DURATION, INIT Qualifiers: Encounter type: initial encounter Loss of consciousness presence/duration: with LOC of 30 min or less Qualified Code(s): S06.0X1A - Concussion with loss of consciousness of 30 minutes or less, initial encounter (9) Contusion of ribs Code(s): S20.219A - CONTUSION OF UNSPECIFIED FRONT WALL OF THORAX, INIT ENCNTR Qualifiers: Encounter type: initial encounter Laterality: right Qualified Code(s): S20.211A - Contusion of right front wall of thorax, initial encounter (10) DKA (diabetic ketoacidoses) Code(s): E13.10 - OTH DIABETES MELLITUS WITH KETOACIDOSIS WITHOUT COMA (11) Pain Code(s): R52 - PAIN, UNSPECIFIED (12) Right otitis externa Code(s): H60.91 - UNSPECIFIED OTITIS EXTERNA, RIGHT EAR (13) Right otitis media with spontaneous rupture of eardrum Code(s): H66.91 - OTITIS MEDIA, UNSPECIFIED, RIGHT EAR; H72.91 - UNSPECIFIED PERFORATION OF TYMPANIC MEMBRANE, RIGHT EAR (14) Sprain of left foot Code(s): S93.602A - UNSPECIFIED SPRAIN OF LEFT FOOT, INITIAL ENCOUNTER Qualifiers: Encounter type: initial encounter Qualified Code(s): S93.602A - Unspecified sprain of left foot, initial encounter (15) Benzodiazepine dependence Code(s): F13.20 - SEDATIVE, HYPNOTIC OR ANXIOLYTIC DEPENDENCE, UNCOMPLICATED (16) CAD (coronary artery disease) Code(s): I25.10 - ATHSCL HEART DISEASE OF [place] CORONARY ARTERY W/O ANG PCTRS Qualifiers: Coronary Disease-Associated Artery/Lesion type: [place] artery Associated angina: angina presence unspecified (17) DKA, type 2 Code(s): E13.10 - OTH DIABETES MELLITUS WITH KETOACIDOSIS WITHOUT COMA Qualifiers: Diabetes mellitus complication detail: without coma (18) Hyperlipemia Code(s): E78.5 - HYPERLIPIDEMIA, UNSPECIFIED Qualifiers: Hyperlipidemia type: unspecified Qualified Code(s): E78.5 - Hyperlipidemia , unspecified (19) Hypertension Code(s): I10 - ESSENTIAL (PRIMARY) HYPERTENSION Qualifiers: Hypertension type: essential hypertension Qualified Code(s): I10 - Essential (primary) hypertension (20) Lumbar back pain Code(s): M54.5 - LOW BACK PAIN Qualifiers: Chronicity: unspecified Sciatica presence: with sciatica presence unspecified (21) Obesity Code(s): E66.9 - OBESITY, UNSPECIFIED (22) Opioid abuse Code(s): F11.10 - OPIOID ABUSE, UNCOMPLICATED Assessment/Plan - Problems (1) Acute gangrenous cholecystitis Assessment/Plan: s/p cholecystecomy extubated this amIntubated On antibiotics, fluids. ECHO: normal LVEF; normal chambere sizes. TNI < 0.02 x 2 F?u BUN/Cr, electrolytes, daily weight, Is and Os. Code(s): K81.0 - ACUTE CHOLECYSTITIS (2) CAD (coronary artery disease) Assessment/Plan: hx NH start asa 81 qd when cleared by surgery. May nod need Plavix. Code(s): I25.10 - ATHSCL HEART DISEASE OF [place] CORONARY ARTERY W/O ANG PCTRS Qualifiers: Coronary Disease-Associated Artery/Lesion type: [place] artery Associated angina: angina presence unspecified (3) DKA, type 2 Code(s): E13.10 - OTH DIABETES MELLITUS WITH KETOACIDOSIS WITHOUT COMA Qualifiers: Diabetes mellitus complication detail: without coma (4) Hyperlipemia Code(s): E78.5 - HYPERLIPIDEMIA, UNSPECIFIED Qualifiers: Hyperlipidemia type: unspecified Qualified Code(s): E78.5 - Hyperlipidemia , unspecified (5) Hypertension Code(s): I10 - ESSENTIAL (PRIMARY) HYPERTENSION Qualifiers: Hypertension type: essential hypertension Qualified Code(s): I10 - Essential (primary) hypertension (6) Obesity Code(s): E66.9 - OBESITY, UNSPECIFIED (7) Opioid abuse Code(s): F11.10 - OPIOID ABUSE, UNCOMPLICATED (8) Leukopenia Assessment/Plan: febrile; s/p gangrenous cholecystecomy.+ low plateletes. F/u with ID. Code(s): D72.819 - DECREASED WHITE BLOOD CELL COUNT, UNSPECIFIED (9) Elevated LFTs Code(s): R94.5 - ABNORMAL RESULTS OF LIVER FUNCTION STUDIES Assessment/Plan CCU time spent: 35 minutes.
--- NOTE | 2019-02-05 12:17 | PN ---
Progress Note, Physician History of Present Illness: Pt seen and examined at bedside. He is now extubated. He is still drowsy but arrousible. His is at bedside. - Current Medication List Current Medications: Active Medications Chlorhexidine Gluconate (Peridex -) 15 ml MM BID [facility] Last Admin: 02/05/19 11:20 Dose: Not Given Chlorhexidine Gluconate (Hibiclens For Decolonization -) 1 applic TP HS [facility] Last Admin: 02/04/19 22:09 Dose: 1 applic Lactated Ringer's (Lactated Ringers Solution) 1,000 ml in 1,000 mls @ 100 mls/ hr IV ASDIR [facility] Last Admin: 02/05/19 09:14 Dose: 100 mls/hr Fentanyl 500 mcg/ Dextrose 100 mls @ 5 mls/hr IVPB TITR COUNTS INCLUDE 234 BEDS AT THE [facility]; Protocol Last Titration: 02/05/19 09:13 Dose: 0 mcg/hr, 0 mls/hr Midazolam HCl (Midazolam 100mg/100ml-0.9%Nacl) 100 mg in 100 mls @ 1 mls/hr IVPB TITR COUNTS INCLUDE 234 BEDS AT THE [facility]; Protocol Stop: 02/05/19 12:29 Last Titration: 02/05/19 09:10 Dose: 0 mg/hr, 0 mls/hr Doxycycline Hyclate 100 mg/ (Dextrose) 100 mls @ 50 mls/hr IVPB BID [facility] Last Admin: 02/04/19 22:09 Dose: 50 mls/hr Metronidazole (Flagyl 500mg Premixed Ivpb -) 500 mg in 100 mls @ 100 mls/hr IVPB Q8H-IV [facility] Last Admin: 02/05/19 11:06 Dose: 100 mls/hr Meropenem 1 gm/ Dextrose 100 mls @ 200 mls/hr IVPB Q8H-IV [facility] Last Admin: 02/05/19 10:58 Dose: 200 mls/hr Potassium Phosphate 15 mm/ (Sodium Chloride) 255 mls @ 62.5 mls/hr IVPB ONCE ONE Stop: 02/05/19 13:04 Last Admin: 02/05/19 09:18 Dose: 62.5 mls/hr Insulin Aspart (Novolog Vial Sliding Scale -) 1 vial SQ Q4HPO COUNTS INCLUDE 234 BEDS AT THE [facility]; Protocol Last Admin: 02/05/19 11:28 Dose: 3 units Mupirocin (Bactroban Ointment (For Decolonization) -) 1 applic NS BID [facility] Stop: 02/08/19 21:59 Last Admin: 02/05/19 11:19 Dose: 1 applic Pantoprazole Sodium (Protonix Iv) 40 mg IVPUSH DAILY [facility] Last Admin: 02/05/19 11:05 Dose: 40 mg - Objective Vital Signs: Vital Signs Temperature 99.9 F H 02/05/19 04:03 Pulse Rate 107 H 02/05/19 12:00 Respiratory Rate 23 H 02/05/19 08:00 Blood Pressure 130/86 02/05/19 12:00 O2 Sat by Pulse Oximetry (%) 97 02/05/19 11:22 Constitutional: Yes: Calm HENT: Yes: WNL Neck: Yes: Supple Cardiovascular: Yes: S1, S2 Respiratory: Yes: On Venti-Mask Gastrointestinal: Yes: Soft Genitourinary: Yes: Zimmer Present Musculoskeletal: Yes: WNL Edema: No Integumentary: Yes: Tattoos Neurological: Yes: Oriented Psychiatric: Yes: Oriented Labs: CBC, BMP 02/05/19 05:30 02/05/19 05:30 INR, PTT INR 1.25 (0.83-1.09) H 02/05/19 05:30 Fibrinogen > 500.0 mg/dL (238-498) H 02/05/19 05:30 Assessment/Plan Current Medications Generic Name Dose Route Start Last Admin Trade Name Jamieq PRN Reason Stop Dose Admin Chlorhexidine Gluconate 15 ml 02/04/19 22:00 02/05/19 11:20 Peridex - MM Not Given BID [facility] Chlorhexidine Gluconate 1 applic 02/04/19 22:00 02/04/19 22:09 Hibiclens For Decolonization - TP 1 applic HS [facility] Administration Lactated Ringer's 1,000 ml in 1,000 mls @ 100 mls/hr 02/04/19 11:09 02/05/19 09:14 Lactated Ringers Solution IV 100 mls/hr ASDIR [facility] Administration Fentanyl 500 mcg/ Dextrose 100 mls @ 5 mls/hr 02/04/19 11:30 02/05/19 09:13 IVPB 0 mcg/hr TITR [facility] 0 mls/hr Titration Protocol 25 MCG/HR Midazolam HCl 100 mg in 100 mls @ 1 mls/hr 02/04/19 12:30 02/05/19 09:10 Midazolam 100mg/100ml-0.9%Nacl IVPB 02/05/19 12:29 0 mg/hr TITR [facility] 0 mls/hr Titration Protocol 1 MG/HR Doxycycline Hyclate 100 mg/ 100 mls @ 50 mls/hr 02/04/19 22:00 02/04/19 22:09 Dextrose IVPB 50 mls/hr BID [facility] Administration Metronidazole 500 mg in 100 mls @ 100 mls/hr 02/05/19 02:00 02/05/19 11:06 Flagyl 500mg Premixed Ivpb - IVPB 100 mls/hr Q8H-IV [facility] Administration Meropenem 1 gm/ Dextrose 100 mls @ 200 mls/hr 02/05/19 02:00 02/05/19 10:58 IVPB 200 mls/hr Q8H-IV [facility] Administration Potassium Phosphate 15 mm/ 255 mls @ 62.5 mls/hr 02/05/19 09:00 02/05/19 09: 18 Sodium Chloride IVPB 02/05/19 13:04 62.5 mls/hr ONCE ONE Administration Insulin Aspart 1 vial 02/05/19 10:00 02/05/19 11:28 Novolog Vial Sliding Scale - SQ 3 units Q4HPO [facility] Administration Protocol Mupirocin 1 applic 02/04/19 22:00 02/05/19 11:19 Bactroban Ointment (For Decolonization) - NS 02/08/19 21:59 1 applic BID [facility] Administration Pantoprazole Sodium 40 mg 02/05/19 10:00 02/05/19 11:05 Protonix Iv IVPUSH 40 mg DAILY [facility] Administration Laboratory Tests 02/05/19 05:30 Potassium 3.4 L Creatinine 1.2 Phosphorus 1.2 L Laboratory Tests 02/04/19 17:20 Ur Random Sodium 22 L Impression 1. CINDA 2. s/p lap waqar 3. s/p controast 4. cad 5. dm 6. hx opioid abuse 7. hld 8. gangrenous gallbladder 9. sepsis 10. acute resp failure 11. renal cyst Plan - renal function is improving - replace potassium and phos - avoid nsaids and nephrotoxins - discussed with - low sodium consistent with pre-renal disease
[2019-02-05] MEDS: DOXYCYCLINE INJECTION 100 MG in DEXTROSE 5%-WATER 100 ML IVPB SCH ×2 (12:29→21:42)
--- NOTE | 2019-02-05 12:37 | PN ---
Progress Note, Physician Chief Complaint: abdominal pain History of Present Illness: 43 yo male PMH [place] s/p stent on DAPT and lumbar disc disease s/p 2 operations, DM , HLD, prior opioid abuse on suboxone who presents to the emergency department with RUQ/flank and abdominal pain since 8:30AM.s/p ERCP with no clear source or ascending cholangitis. He has been stable in ICU since surgery. - Current Medication List Current Medications: Active Medications Chlorhexidine Gluconate (Peridex -) 15 ml MM BID [facility] Last Admin: 02/05/19 11:20 Dose: Not Given Chlorhexidine Gluconate (Hibiclens For Decolonization -) 1 applic TP HS [facility] Last Admin: 02/04/19 22:09 Dose: 1 applic Lactated Ringer's (Lactated Ringers Solution) 1,000 ml in 1,000 mls @ 100 mls/ hr IV ASDIR [facility] Last Admin: 02/05/19 09:14 Dose: 100 mls/hr Fentanyl 500 mcg/ Dextrose 100 mls @ 5 mls/hr IVPB TITR [facility]; Protocol Last Titration: 02/05/19 09:13 Dose: 0 mcg/hr, 0 mls/hr Doxycycline Hyclate 100 mg/ (Dextrose) 100 mls @ 50 mls/hr IVPB BID [facility] Last Admin: 02/05/19 12:29 Dose: 50 mls/hr Metronidazole (Flagyl 500mg Premixed Ivpb -) 500 mg in 100 mls @ 100 mls/hr IVPB Q8H-IV [facility] Last Admin: 02/05/19 11:06 Dose: 100 mls/hr Meropenem 1 gm/ Dextrose 100 mls @ 200 mls/hr IVPB Q8H-IV [facility] Last Admin: 02/05/19 10:58 Dose: 200 mls/hr Potassium Phosphate 15 mm/ (Sodium Chloride) 255 mls @ 62.5 mls/hr IVPB ONCE ONE Stop: 02/05/19 13:04 Last Admin: 02/05/19 09:18 Dose: 62.5 mls/hr Insulin Aspart (Novolog Vial Sliding Scale -) 1 vial SQ Q4HPO [facility]; Protocol Last Admin: 02/05/19 11:28 Dose: 3 units Mupirocin (Bactroban Ointment (For Decolonization) -) 1 applic NS BID [facility] Stop: 02/08/19 21:59 Last Admin: 02/05/19 11:19 Dose: 1 applic Pantoprazole Sodium (Protonix Iv) 40 mg IVPUSH DAILY [facility] Last Admin: 02/05/19 11:05 Dose: 40 mg - Objective Vital Signs: Vital Signs Temperature 99.9 F H 02/05/19 04:03 Pulse Rate 107 H 02/05/19 12:00 Respiratory Rate 23 H 02/05/19 08:00 Blood Pressure 130/86 02/05/19 12:00 O2 Sat by Pulse Oximetry (%) 97 02/05/19 11:22 Vital Signs Period Temp Pulse Resp BP Sys/Busby Pulse Ox Last 24 Hr 98.4 F-100.9 F 91-109 14-28 96-135/55-91 88-98 Intake & Output 02/05/19 02/06/19 02/06/19 23:59 07:59 15:59 Intake Total 110 1510 Output Total 1360 800 Balance 110 150 -800 Weight 283 lb 6.4 oz Intake: IV 10 1210 LACTATED RINGERS SOLUTION 1200 1,000 ml In 1,000 ml @ 100 mls/hr IV ASDIR [facility] Rx#:[id number] Saline Lock 10 10 IVPB 100 300 Oral 0 0 Output: Drainage 210 Right Lower Abdomen 210 Urine 1150 800 Zimmer 1150 800 Other: Voiding Method Indwelling Catheter Indwelling Catheter Bowel Movement No No No Weight Measurement Method Built in Bedscale Constitutional: Yes: Well Nourished, No Distress, Calm Eyes: Yes: Conjunctiva Clear, EOM Intact HENT: Yes: Atraumatic, Normocephalic Neck: Yes: Supple, Trachea Midline Cardiovascular: Yes: Regular Rate and Rhythm, S1, S2 Respiratory: Yes: Regular, CTA Bilaterally Gastrointestinal: Yes: Normal Bowel Sounds, Soft, Tenderness, Tenderness, Epigastrium, Other (Drain RUQ) ...Rectal Exam: Yes: Deferred Genitourinary: No: CVA Tenderness - Left, CVA Tenderness - Right Breast(s): No: Mass, Skin Changes Musculoskeletal: No: Muscle Pain, Muscle Weakness Extremities: No: Cool, Cyanosis Edema: No Peripheral Pulses WNL: Yes Peripheral Pulses: Left Radial: 2+, Right Radial: 2+, Left Doralis Pedis: 2+, Right Dorsalis Pedis: 2+, Left Femoral: 2+, Right Femoral: 2+ Wound/Incision: Yes: Clean/Dry, Well Approximated, Dressing Dry and Intact, Draining (cholecystotomy drain 400ml/day) Neurological: Yes: Alert, Oriented Psychiatric: Yes: Alert, Oriented Labs: CBC, BMP 02/05/19 05:30 02/05/19 05:30 INR, PTT INR 1.25 (0.83-1.09) H 02/05/19 05:30 Fibrinogen > 500.0 mg/dL (238-498) H 02/05/19 05:30 Problem List - Problems (1) Acute gallstone pancreatitis Assessment/Plan: 43yo male MMP including obesity and HLD presents with bilary colic and mild gallstone pancreatitis, now ascending cholangitis? ERCP dis not have any clear obstruction, POD#1 s/p Laparoscopic partial necrosectomy for a gangreonous gallbladder. There is a large rement of the gall bladder which was remaining on the followup CT scan. he has been partial debrided and adequatly drained. Discussed with patients family possible completion cholecystectomy. He has a large bile leak ICu management NPO and IVF hydration adequate analgesia trend labs IV antibiotics per ID Trend labs This patient is critically ill. Time spent reviewing chart, examining patient, talking with providers and/or family and documentation is 45 minutes. Postoperative instructions: You had a laparoscopic ectomy on DATE by Dr. Blake Mckeon of [facility]. Activity: Resume your usual activities gradually, but no heavy exertion or lifting more than 10-15 pounds for 1 month. Remove dressings 48 hours after surgery; sticky tapes underneath will fall off by themselves. You may shower daily starting then, just pat the incision areas dry. No bath or swimming until skin incisions have healed. Eat lightly at first, but advance to your usual diet as tolerated. Pain: For pain, you may use and alternate Tylenol (acetaminophen) 1-2 pills and/ or ibuprofen 200 mg (1-3 pills) every 6 hours each as needed; this means that you can take one OR the other at 3-hour intervals. If you are prescribed a Tylenol/narcotic combination for severe pain, use it instead of plain Tylenol as needed and switch back when your pain starts decreasing. Do not take more than 4000mg of acetaminophen in a day. Take medications as prescribed or indicated on the labeling. Follow-up: Call Dr. Mckeon's office at [phone] to make your postop appointment (Sunday in approximately 2 weeks after surgery). Clinic is held in the [facility] on the first floor of [facility]. Call the office if you have: * increasing pain not responsive to pain medication * fever of 101F or higher * vomiting * unusual or increasing bleeding or drainage from wounds * increasing redness or swelling at wound sites * inability to urinate Also, see your primary medical doctor within 1-2 weeks. Problems reviewed: Yes Code(s): K85.10 - BILIARY ACUTE PANCREATITIS WITHOUT NECROSIS OR INFECTION (2) Cholelithiasis Problems reviewed: Yes Code(s): K80.20 - CALCULUS OF GALLBLADDER W/O CHOLECYSTITIS W/O OBSTRUCTION Qualifiers: Cholelithiasis location: other site Biliary obstruction: without biliary obstruction Qualified Code(s): K80.80 - Other cholelithiasis without obstruction (3) CAD (coronary artery disease) Assessment/Plan: restart plavix Problems reviewed: Yes Code(s): I25.10 - ATHSCL HEART DISEASE OF [place] CORONARY ARTERY W/O ANG PCTRS Qualifiers: Coronary Disease-Associated Artery/Lesion type: [place] artery Associated angina: angina presence unspecified (4) DKA, type 2 Problems reviewed: Yes Code(s): E13.10 - OTH DIABETES MELLITUS WITH KETOACIDOSIS WITHOUT COMA Qualifiers: Diabetes mellitus complication detail: without coma (5) Hyperlipemia Problems reviewed: Yes Code(s): E78.5 - HYPERLIPIDEMIA, UNSPECIFIED Qualifiers: Hyperlipidemia type: unspecified Qualified Code(s): E78.5 - Hyperlipidemia , unspecified (6) Hypertension Problems reviewed: Yes Code(s): I10 - ESSENTIAL (PRIMARY) HYPERTENSION Qualifiers: Hypertension type: essential hypertension Qualified Code(s): I10 - Essential (primary) hypertension (7) Obesity Code(s): E66.9 - OBESITY, UNSPECIFIED
[2019-02-05] MEDS ORDERED: INSULIN (NOVOLOG) ASPART 100 UNITS/ML 10ML VIAL ONE ×2 (14:27→14:51)
--- NOTE | 2019-02-05 16:58 | CONSULT ---
Consult Consult Specialty:: Hematology and oncology Reason for Consultation:: Leukopenia - History of Present Illness History of Present Illness: The patient is a 43 yo m w/ PMH DM, [place] s/p stent on DAPT and lumbar disc disease s/p 2 operations, DM, HLD, prior opioid abuse on suboxone who presents to the emergency department with RUQ/flank and abdominal pain. He was found to have sepsis 2/2 cholecystitis. Post op, he developed a leukopenia. Hematology was consulted for assistance in the evaluation of this leukopenia. On evaluation, the patient had just been extubated and was drowsy from Midazolam. The majority of the history was obtained from family at bedside. The patient follows regularly with a PCP and was never told of any blood abnormalities in the past. He has never seen a crystal growing technician. There is no family history of blood abnormalities or blood cancers. - History Source History Provided By: Patient, Significant Other Limitations to Obtaining History: No Limitations - Past Medical History Cardio/Vascular: Yes: CAD, HTN, Hyperlipdemia, [place] Musculoskeletal: Yes: Other Endocrine: Yes: Diabetes Mellitus (New Onset) Additional Medical History: obesity - Past Surgical History Past Surgical History: Yes: Laminectomy (2009: Lumbar), Stent (cardiac, 2008) - Alcohol/Substance Use Hx Alcohol Use: No History of Substance Use: reports: Prescription (No IVDA/DA) - Smoking History Smoking history: Unknown if ever smoked Have you smoked in the past 12 months: Yes Aproximately how many cigarettes per day: 20 - Social History Usual Living Arrangement: With Spouse ADL: Independent History of Recent Travel: No Home Medications - Allergies Allergies/Adverse Reactions: Allergies Allergy/AdvReac Type Severity Reaction Status Date / Time No Known Allergies Allergy Verified 02/01/19 16:35 - Home Medications Home Medications: Ambulatory Orders Atorvastatin Ca [Lipitor] 20 mg PO HS 06/10/13 Clopidogrel Bisulfate [Plavix -] 75 mg PO DAILY 06/10/13 Metoprolol Succinate [Toprol XL -] 25 mg PO DAILY 02/10/14 Insulin Sliding Scale [Novolog Vial Sliding Scale -] 1 units SQ ACHS #1 pen 07/23 Buprenorphine HCl/Naloxone HCl [Suboxone 8 mg-2 mg Sl Tablets] 1 each SL TID PRN 09/03/18 Insulin Detemir [Levemir Flextouch] 20 unit SQ DAILY 09/03/18 Bupropion HCl [Wellbutrin Xl] 300 mg PO DAILY 02/01/19 Review of Systems - Review of Systems Constitutional: denies: Chills, Fever Cardiovascular: denies: Chest Pain, Shortness of Breath Respiratory: denies: Cough, SOB, SOB on Exertion Gastrointestinal: denies: Abdominal Pain, Rectal Bleeding, Vomiting Blood Physical Exam Vital Signs: Vital Signs Temperature 100.9 F H 02/05/19 14:00 Pulse Rate 102 H 02/05/19 14:00 Respiratory Rate 02/05/19 14:00 Blood Pressure 125/79 02/05/19 14:00 O2 Sat by Pulse Oximetry (%) 97 02/05/19 11:22 Constitutional: Yes: No Distress, Calm HENT: Yes: Atraumatic, Normocephalic Cardiovascular: Yes: Regular Rate and Rhythm, S1, S2. No: Gallop, Murmur, Rub Respiratory: Yes: Regular, CTA Bilaterally Gastrointestinal: Yes: Normal Bowel Sounds, Soft Edema: No Neurological: Yes: Alert, Oriented Psychiatric: Yes: Alert, Oriented Labs: CBC, BMP 02/05/19 05:30 02/05/19 05:30 Assessment/Plan The patient is a 43 yo m w/ PMH DM, [place] s/p stent on DAPT and lumbar disc disease s/p 2 operations, DM, HLD, prior opioid abuse on suboxone who presents to the emergency department with RUQ/flank and abdominal pain. He was found to have sepsis 2/2 cholecystitis. Post op, he developed a leukopenia. Hematology was consulted for assistance in the evaluation of this leukopenia. #leukopenia likely 2/2 sepsis 2/2 cholecystitis -patient has been having low grade fevers throughout his admission -Patient is POD#1 from cholecystectomy 2/2 infection -He has no other risk factors for leukopenia -ANC 2100, no neutropenic precautions needed -suggest c/w septic workup -daily cbc w/ diff to monitor -will consider additional testing if the WBC remains low or patient becomes neutropenic.
[2019-02-05] MEDS: BUPRENORPHINE/NALOXONE 8 MG/2 MG FILM PACKET SL SCH (17:12)
[2019-02-05] MEDS ORDERED: ARTIFICIAL TEARS (POLYVINYL ALCOHOL) OPTH DROPS OU ONE (17:13)
[2019-02-05] MEDS ORDERED: ACETAMINOPHEN 1000 MG/100 ML VIAL (NON FORMULARY) IVPB PRN (17:21)
--- NOTE | 2019-02-05 17:21 | PN ---
Progress Note (short form) - Note Progress Note: RN called me to bedside to evaluate pt. Pt stated to RN that he had CP. Denies CP on my evaluation but admits to epigastric and RUQ pain. Pt diffusely tender w /o rebound, guarding, or rigidity. Dr. Sparsk made aware. EKG being obtained. Cardiac profile ordered Fever noted, giving IV acetaminophen. Pt also complaining of eye pain. Exam does not reveal any visual changes or conjunctival injection. EKG shows diffuse T-wave flattening with ~1mm depressions in V4-V6 (depressions are unchanged from prior EKG but T-wave flattening is new). Dr. Guidry paged. Dr. Guidry paged x 2. D/w Dr. Braun who agrees on EKG and will continue clinical decision after troponin. Troponin pending. Repeat trop negative.
--- NOTE | 2019-02-05 17:50 | PN.GI ---
GI Progress Note Subjective: Pt seen/examined at bedside in ICU, extubated today, feeling slightly better, abdominal pain improving - Objective Vital Signs: Vital Signs Temperature 100.9 F H 02/05/19 14:00 Pulse Rate 102 H 02/05/19 14:00 Respiratory Rate 19 02/05/19 14:00 Blood Pressure 125/79 02/05/19 14:00 O2 Sat by Pulse Oximetry (%) 97 02/05/19 11:22 Constitutional: No Distress, Calm Cardiovascular: Yes: WNL, Regular Rate and Rhythm Respiratory: Yes: WNL, Regular, CTA Bilaterally ...Palpate: Yes: Other (Abd soft, tender on palpation mostly at right abdomen, + drain in place bilious fluid seen, no rebound, guarding or rigidity) Labs: CBC, BMP 02/05/19 05:30 02/05/19 05:30 INR, PTT INR 1.25 (0.83-1.09) H 02/05/19 05:30 Fibrinogen > 500.0 mg/dL (238-498) H 02/05/19 05:30 Problem List - Problems (1) Acute gangrenous cholecystitis Assessment/Plan: 43yo male h/o DM with fever and abdominal pain s/p ERCP on 02/03 without stones s/p stent placement, now POD#1 s/p laparoscopic partial necrosectomy for a gangrenous gallbladder with remant gallbladder. LFTs improving. -Continue to monitor LFT trend -Post op care per surgery and recommendations for completion cholecystectomy -Pt will require GI follow up for stent removal once clinically improved Code(s): K81.0 - ACUTE CHOLECYSTITIS
--- NOTE | 2019-02-05 18:08 | PATH ---
Surgical Pathology Report Patient Name: BRANDON DAHL [facility]. Rec. 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 Specimen(s) Received GALLBLADDER REMNANTS Clinical History Pancreatitis, cholelithiasis Final Diagnosis GALLBLADDER REMNANT, LAPAROSCOPIC CHOLECYSTECTOMY, NECROSECTOMY: FRAGMENTS OF MARKEDLY INFLAMED AND GANGRENOUS FIBROMUSCULAR WALL AND FIBROADIPOSE TISSUE COMPATIBLE WITH CLINICAL IMPRESSION OF GANGRENOUS CHOLECYSTITIS. Electronically Signed Julissa Parker M.D. Gross Description Received in formalin labeled "gallbladder remnants," is a 7.5 x 5.5 x 0.8 cm aggregate of abundant montemayor green and orange soft tissue fragments possibly consistent with fragments of gallbladder tissue. Resaw Machine Operator sections are submitted in 2 cassettes. /02/04/2019 saudi/02/04/2019
--- NOTE | 2019-02-05 19:26 | PN ---
Teaching Attending Note Name of Resident: Abdiel Rebolledo ATTENDING PHYSICIAN STATEMENT I saw and evaluated the patient. I reviewed the resident's note and discussed the case with the resident. I agree with the resident's findings and plan as documented. ASSESSMENT AND PLAN: 43 yo m w/ PMH DM, [place] s/p stent on DAPT and lumbar disc disease s/p 2 surgeries DM, HLD, prior opioid abuse on suboxone who presents to the emergency department with RUQ/flank and abdominal pain. He was found to have sepsis 2/2 cholecystitis. Post op, he developed a leukopenia. Hematology was consulted for assistance in the evaluation of this leukopenia. #leukopenia likely 2/2 sepsis 2/2 cholecystitis -ANC 2100 Monitor CBC Continue supportive care per ICU
[2019-02-05] MEDS ORDERED: ONDANSETRON 4 MG/2 ML VIAL IVPUSH ONE (19:55)
[2019-02-05] MEDS ORDERED: PT OWN MED DRAWER 7, Y5N ONE (21:20)
[2019-02-05] MEDS: CHLORHEXIDINE GLUCONATE 4% CLEANSER FOR DECOLONIZATION TP SCH (21:43)
[2019-02-05] MEDS: HEPARIN NA (PORCINE) 5,000 UNITS/ML 1ML VIAL SQ SCH (21:43)
[2019-02-06] MEDS ORDERED: MEROPENEM 1 GM VIAL (RESTRICTED TO ID) IVPB ONE (01:03)
[2019-02-06] MEDS ORDERED: DEXTROSE 5%-WATER 100 ML IVPB ONE (01:04)
[2019-02-06] MEDS: MEROPENEM 1 GM in DEXTROSE 5%-WATER 100 ML IVPB SCH (01:11)
[2019-02-06] MEDS: INSULIN SLIDING SCALE (NOVOLOG) 1 VIAL SQ SCH ×6 (02:21→23:01)
[2019-02-06] MEDS: ACETAMINOPHEN 1000 MG/100 ML VIAL (NON FORMULARY) IVPB PRN ×3 (02:41→22:59)
[2019-02-06] MEDS ORDERED: LORazepam 0.5 MG TABLET PO SCH ×2 (05:00)
[2019-02-06] MEDS: HEPARIN NA (PORCINE) 5,000 UNITS/ML 1ML VIAL SQ SCH ×3 (06:35→21:37)
[2019-02-06] MEDS: INSULIN (LEVEMIR) 100 UNITS/ML UNITS SQ SCH (06:36)
[2019-02-06 06:52] LABS: HEMATOCRIT 34.3 % (35.4-49); HEMOGLOBIN 11.5 GM/dL (11.7-16.9); MCH 30.9 pg (25.7-33.7); MCHC 33.4 g/dl (32.0-35.9); MEAN CELL VOLUME 92.5 fl (80-96); MEAN PLT VOLUME 8.8 fl (7.5-11.1); PLATELET COUNT 84 K/MM3 (134-434); RBC 3.71 M/mm3 (4.00-5.60); RDW 15.1 % (11.9-15.9); WHITE BLOOD COUNT 3.4 K/mm3 (4.0-10.0)
[2019-02-06 07:15] LABS: INR 1.16 (0.83-1.09); PROTHROMBIN TIME (PATIENT) 13.7 SEC (9.7-13.0)
[2019-02-06 07:15] LABS: ALBUMIN 1.8 g/dl (3.4-5.0); BLOOD UREA NITROGEN 15.4 mg/dL (7-18); CALCIUM 7.6 mg/dL (8.5-10.1); CREATININE 0.7 mg/dL (0.55-1.3); MAGNESIUM 2.1 mg/dL (1.8-2.4); PHOSPHOROUS 1.4 mg/dL (2.5-4.9); POTASSIUM 3.2 mmol/L (3.5-5.1); TOT PROT 4.5 g/dl (6.4-8.2)
[2019-02-06 07:17] LABS: ACTIVATED PTT 31.9 SECONDS (25.2-36.5)
[2019-02-06] MEDS ORDERED: POTASSIUM PHOSPHATE 30 MM in SODIUM CHLORIDE 250 ML IVPB ONE (07:18)
--- NOTE | 2019-02-06 07:38 | PN ---
Progress Note (short form) - Note Progress Note: HPI: Pt on nasal cannula. Still remains groggy, but more alert compared to yesterday. Will answer briefly and nod to commands. Spoke with at bedside and no events noted by her. No telemetry events. Vital Signs Temperature 99 F 02/06/19 07:00 Pulse Rate 92 H 02/06/19 07:00 Respiratory Rate 16 02/06/19 07:00 Blood Pressure 102/69 02/06/19 07:00 O2 Sat by Pulse Oximetry (%) 91 L 02/06/19 06:31 GENERAL: NAD, somonolent but responding to questions and commands HEENT: NC/AT, KACY, mucosa without jaundice, slightly dry mucosa LUNGS: Couse breath sounds bilaterally at bases with upper airway sounds transmitted, no wheezes, no accessory muscle use. NC HEART: RRR normal S1, S2 without murmur ABDOMEN: Soft, TTP near surgical site with incisions C/D/I, Drain noted with bilious drainage ongoing. EXTREMITIES: 2+ pulses, warm, well-perfused, no edema. SKIN: Warm, dry, no rashes or lesions noted CBC, BMP 02/06/19 05:40 02/06/19 06:00 Hepatic Panel Total Bilirubin 2.0 mg/dL (0.2-1) H 02/06/19 06:00 Direct Bilirubin 3.6 mg/dL (0.0-0.2) H 02/03/19 10:30 AST 47 U/L (15-37) H 02/06/19 06:00 ALT 104 U/L (13-61) H 02/06/19 06:00 Alkaline Phosphatase 70 U/L (45-117) 02/06/19 06:00 Albumin 1.8 g/dl (3.4-5.0) L 02/06/19 06:00 Microbiology 02/03/19 14:35 Blood - Peripheral Venous Blood Culture - Preliminary NO GROWTH OBTAINED AFTER 48 HOURS, INCUBATION TO CONTINUE FOR 3 DAYS. 02/03/19 14:20 Blood - Peripheral Venous Blood Culture - Preliminary NO GROWTH OBTAINED AFTER 48 HOURS, INCUBATION TO CONTINUE FOR 3 DAYS. 02/04/19 15:30 Blood - Peripheral Venous Blood Parasites Smear - Final 02/03/19 23:30 Urine - Urine Zimmer Urine Culture - Final NO GROWTH OBTAINED Active Medications Acetaminophen (Ofirmev Injection -) 1,000 mg IVPB Q6H PRN PRN Reason: PAIN LEVEL 7 - 10 Last Admin: 02/06/19 02:41 Dose: 1,000 mg Buprenorphine/Naloxone (Suboxone 8 Mg/2mg Sl Film -) 1 each SL DAILY [facility] Last Admin: 02/05/19 17:12 Dose: 1 each Chlorhexidine Gluconate (Hibiclens For Decolonization -) 1 applic TP HS [facility] Last Admin: 02/05/19 21:43 Dose: 1 applic Heparin Sodium (Porcine) (Heparin -) 5,000 unit SQ TID [facility] Last Admin: 02/06/19 06:35 Dose: 5,000 unit Lactated Ringer's (Lactated Ringers Solution) 1,000 ml in 1,000 mls @ 100 mls/ hr IV ASDIR [facility] Last Admin: 02/06/19 10:24 Dose: 100 mls/hr Metronidazole (Flagyl 500mg Premixed Ivpb -) 500 mg in 100 mls @ 100 mls/hr IVPB Q8H-IV [facility] Last Admin: 02/06/19 10:24 Dose: 100 mls/hr Potassium Phosphate 30 mm/ (Sodium Chloride) 510 mls @ 62.5 mls/hr IVPB ONCE ONE Stop: 02/06/19 16:39 Last Admin: 02/06/19 10:23 Dose: 62.5 mls/hr Meropenem 1 gm/ Dextrose 100 mls @ 200 mls/hr IVPB Q8H-IV [facility] Doxycycline Hyclate 100 mg/ (Dextrose) 100 mls @ 50 mls/hr IVPB BID [facility] Insulin Aspart (Novolog Vial Sliding Scale -) 1 vial SQ Q4HPO [facility]; Protocol Last Admin: 02/06/19 06:36 Dose: 3 units Insulin Detemir (Levemir Vial) 10 units SQ DAILY@0700 [facility] Last Admin: 02/06/19 06:36 Dose: 10 units Mupirocin (Bactroban Ointment (For Decolonization) -) 1 applic NS BID [facility] Stop: 02/08/19 21:59 Last Admin: 02/06/19 10:23 Dose: 1 applic Pantoprazole Sodium (Protonix Iv) 40 mg IVPUSH DAILY [facility] Last Admin: 02/06/19 10:24 Dose: 40 mg Assessment and plan: Acute metabolic encephalopathy Septic shock 2/2 to Gangrenous gallbladder Acute kidney injury Hx CAD s/p stenting Thrombocytopenia Leukopenia Type 2 DM HTN HLD History of Opioid abuse --POD 2 from Ex. Lap with removal of gangrenous GB --BEBO drainage noted 210cc from midnight; bilious drainage --Continue Meropenem, Flagyl --Possible de-escalation of Doxycycline after Lyme studies return --Thrombocytopenia and leukopenia resolving; likely consumptive physiology from sepsis --Surgery and GI following --Adv diet per both teams --Appreciate ID recommendations --Somnolence likely clearing metabolites from versed use in setting of acute renal insufficiency --Monitor mental status and when more awake encourage incentive spirometry use - BGM q4h - Continue Levemir 10u for better BG control FEN: Fluids: LR @100cc/hr Electrolytes: Hypokalemia repleted today Nutrition: NPO for now; adv per GI and surgery PPX: DVT - Heparin TID approved Dispo: ICU monitoring Case discussed with ICU team and Dr. Mason Michel, DO - IM PGy-3 <Naveed Michel - Last Filed: 02/06/19 11:11> - Note Progress Note: I have seen and examined the indicated patient independently/along with the resident team. I have personally verified all doan exam findings and historical components. I have personally interpreted all diagnostics indicated per todays orders and reviewed interpretation of indicated subspecialty services. This patient meets a high level of medical complexity and warrants indicated LOC to avoid decompensation and worsening of the indicated illness. He remains critically ill. POD#2 GB removal for acute gangrenous waqar. *As resident note not completed by midnight please take this as the day's note including PE for billing. S: Agree with historical findings as outlined in resident documentation regarding history of present illness. No further events communicated to myself from overnight. He is leaving the ICU this morning for cholecystectomy with Dr. Sparks. Is s/p ERCP with Dr. De Leon. Abx, IVF, and monitoring. Still intubated. 10 system ROS completed and is negative aside from indicated issues in the subjective/HPI Medication list reviewed; as documented per orders and above. O: All vital signs reviewed per ER records and are as per EMR Intubated and sedated in the ICU with RASS 2-3; no issues on tele NC AT EOMI PERRLA; ET tube in place Neck supple, trachea midline, no mckenzie LN Tachy and reg s1/2 Vent assoc breath sounds, w/ sym expansion NT ND +BS but sedation limits assessment of tenderness. Postoperative findings noted with no bleeding of infection or dehissence noted. Bandaging elsewise c/d /i No skin breakdown or rashes noted CN2-12 wnl, no new focal deficits noted but sedation limits appreciation Muscle tone normal, no deficits in motor function or strength noted Pending repeatr RUQ US Discussed with GI and ICU team Discussed with resident team at length. A/P: -Septic Shock (fluid responsive and not yet requiring pressors) secondary to gangrenous cholecystitis with marked transaminitis status post urgent cholecystectomy and emergency ERCP with stenting by Dr. Sparks and Dr. De Leon. *Part of the GB in; monitor for s/s leak. Continues to mentate well in ICU and monitoring pressures closely. Monitoring drain output. Continue doxycycline per ID until tick serology returns. -Transaminitis (Trend CMP, 2/ #1) -Suspected Cirrhosis; revisit chronic therapies when this is done. -Thrombocytopenia (elevated fibrinogen; PT, PTT, INR noted. I ordered a d- dimer which is pending. Resident team informed me that [facility] lab is a sendout but if continued postiive labs may be worth obtainign this with heme onc consult. Continue to monitor labs and observe for hematologic complications of critical illness) -CINDA (got contrast, also hypotensive so would suspect a mix of pre and intrarenal but defer to Dr. Haji. Continue to monitor electrolytes, UOP > 30cc) -Opioid Abuse on Suboxone (resume when extubated) -Obesity, suspect NOEMY -Uncontrolled DM with hyperglycemia (confirmed with nursing that for unknown reason insulin held prior to sunday but documented as due to NPO. Per guidelines we would like for glucose to be in guideline directed range for critically ill pateint). -CAD s/p remote stenting (2008) -Hx HTN -Hx HLD -Leukopenia IVF, NPO, abx. FU further imaging and repeat labs. May require advanced endoscopy pending diagnostic workup. Will follow closely. Discussed with subspecialty services. <Maikel Cuevas - Last Filed: 02/07/19 10:45>
[2019-02-06] MEDS ORDERED: MEROPENEM 1 GM in DEXTROSE 5%-WATER 100 ML IVPB SCH (08:09)
[2019-02-06] MEDS ORDERED: DOXYCYCLINE INJECTION 100 MG in DEXTROSE 5%-WATER 100 ML IVPB SCH ×2 (08:15→10:00)
[2019-02-06] MEDS ORDERED: POTASSIUM PHOSPHATE 30 MM in SODIUM CHLORIDE 500 ML IVPB ONE (08:30)
[2019-02-06] MEDS ORDERED: PT OWN MED DRAWER 7, Y5N ONE (09:09)
--- NOTE | 2019-02-06 09:30 | PN ---
Physical Exam: SUBJECTIVE: Patient seen and examined at bedside. Patient is still sleepy but is able to answer questions and follow commands. Overnight he complained of chest pain. A repeat trop was drawn which was negative, EKG was done without significant changes compared to prior. Dr. Braun was consulted and stated to continue current management. No complaints of pain this morning. OBJECTIVE: Vital Signs Period Temp Pulse Resp BP Sys/Busby Pulse Ox Last 24 Hr 98.5 F-100.9 F 91-109 14-24 100-135/69-91 88-97 GENERAL: The patient is sleepy, in no acute distress, able to follow commands. HEAD: Normal with no signs of trauma. EYES: PERRL, EOMI ENT: dry mucous membranes NECK: Trachea midline, full range of motion, supple. LUNGS: Breath sounds equal, clear to auscultation bilaterally, no wheezes, no crackles, no accessory muscle use. HEART: Tachycardic. regular rhythm, S1, S2 without murmur, rub or gallop. ABDOMEN: surgical incisions, clean, dry. drain in place draining bileous fluid. Soft, nontender, nondistended. EXTREMITIES: 2+ pulses, warm, well-perfused, no edema. NEUROLOGICAL: Normal speech. gait not observed. good strength upper extremities. SKIN: Warm, dry Laboratory Results - last 24 hr 02/05/19 02/05/19 02/05/19 11:26 14:06 17:40 WBC RBC Hgb Hct MCV MCH MCHC RDW Plt Count MPV PT with INR INR PTT (Actin FS) Fibrinogen Sodium Potassium Chloride Carbon Dioxide Anion Gap BUN Creatinine Est GFR (CKD-EPI)AfAm Est GFR (CKD-EPI)NonAf POC Glucometer 196 190 Random Glucose Calcium Phosphorus Magnesium Total Bilirubin AST ALT Alkaline Phosphatase Creatine Kinase 1611 H Creatine Kinase Index 0.2 CK-MB (CK-2) 4.8 H Troponin I < 0.02 Total Protein Albumin 02/05/19 02/05/19 02/06/19 17:59 21:46 02:18 WBC RBC Hgb Hct MCV MCH MCHC RDW Plt Count MPV PT with INR INR PTT (Actin FS) Fibrinogen Sodium Potassium Chloride Carbon Dioxide Anion Gap BUN Creatinine Est GFR (CKD-EPI)AfAm Est GFR (CKD-EPI)NonAf POC Glucometer 186 183 201 Random Glucose Calcium Phosphorus Magnesium Total Bilirubin AST ALT Alkaline Phosphatase Creatine Kinase Creatine Kinase Index CK-MB (CK-2) Troponin I Total Protein Albumin 02/06/19 02/06/19 02/06/19 05:39 05:40 05:40 WBC RBC Hgb Hct MCV MCH MCHC RDW Plt Count MPV PT with INR 13.70 H INR 1.16 H PTT (Actin FS) 31.9 Fibrinogen > 500.0 H Sodium Potassium Chloride Carbon Dioxide Anion Gap BUN Creatinine Est GFR (CKD-EPI)AfAm Est GFR (CKD-EPI)NonAf POC Glucometer 199 Random Glucose Calcium Phosphorus Magnesium Total Bilirubin AST ALT Alkaline Phosphatase Creatine Kinase Creatine Kinase Index CK-MB (CK-2) Troponin I Total Protein Albumin 02/06/19 02/06/19 05:40 06:00 WBC 3.4 L RBC 3.71 L Hgb 11.5 L Hct 34.3 L MCV 92.5 MCH 30.9 MCHC 33.4 RDW 15.1 Plt Count 84 L MPV 8.8 PT with INR INR PTT (Actin FS) Fibrinogen Sodium 141 Potassium 3.2 L Chloride 104 Carbon Dioxide 31 Anion Gap 6 L BUN 15.4 Creatinine 0.7 Est GFR (CKD-EPI)AfAm 135.86 Est GFR (CKD-EPI)NonAf 117.22 POC Glucometer Random Glucose 208 H Calcium 7.6 L Phosphorus 1.4 L Magnesium 2.1 Total Bilirubin 2.0 H AST 47 H ALT 104 H Alkaline Phosphatase 70 Creatine Kinase Creatine Kinase Index CK-MB (CK-2) Troponin I Total Protein 4.5 L Albumin 1.8 L Active Medications Generic Name Dose Route Start Last Admin Trade Name Freq PRN Reason Stop Dose Admin Acetaminophen 1,000 mg 02/06/19 01:23 02/06/19 02:41 Ofirmev Injection - IVPB 1,000 mg Q6H PRN Administration PAIN LEVEL 7 - 10 Buprenorphine/Naloxone 1 each 02/05/19 16:15 02/05/19 17:12 Suboxone 8 Mg/2mg Sl Film - SL 1 each DAILY SHRUTHI Administration Chlorhexidine Gluconate 1 applic 02/04/19 22:00 02/05/19 21:43 Hibiclens For Decolonization - TP 1 applic HS SHRUTHI Administration Heparin Sodium (Porcine) 5,000 unit 02/05/19 22:00 02/06/19 06:35 Heparin - SQ 5,000 unit TID SHRUTHI Administration Lactated Ringer's 1,000 ml in 1,000 mls @ 100 mls/hr 02/04/19 11:09 02/05/19 17:52 Lactated Ringers Solution IV 100 mls/hr ASDIR SHRUTHI Administration Metronidazole 500 mg in 100 mls @ 100 mls/hr 02/05/19 02:00 02/06/19 02:09 Flagyl 500mg Premixed Ivpb - IVPB 100 mls/hr Q8H-IV SHRUTHI Administration Potassium Phosphate 30 mm/ 510 mls @ 62.5 mls/hr 02/06/19 08:30 Sodium Chloride IVPB 02/06/19 16:39 ONCE ONE Meropenem 1 gm/ Dextrose 100 mls @ 200 mls/hr 02/06/19 08:09 IVPB Q8H-IV SHRUTHI Doxycycline Hyclate 100 mg/ 100 mls @ 50 mls/hr 02/06/19 10:00 Dextrose IVPB BID SHRUTHI Insulin Aspart 1 vial 02/05/19 10:00 02/06/19 06:36 Novolog Vial Sliding Scale - SQ 3 units Q4HPO SHRUTHI Administration Protocol Insulin Detemir 10 units 02/06/19 07:00 02/06/19 06:36 Levemir Vial SQ 10 units DAILY@0700 SHRUTHI Administration Mupirocin 1 applic 02/04/19 22:00 02/05/19 21:43 Bactroban Ointment (For Decolonization) - NS 02/08/19 21:59 1 applic BID SHRUTHI Administration Pantoprazole Sodium 40 mg 02/05/19 10:00 02/05/19 11:05 Protonix Iv IVPUSH 40 mg DAILY SHRUTHI Administration ASSESSMENT/PLAN: Nick Carmichael is a 43yM with PMHx of CAD with prior ND s/p stent on AC, HTN, HLD, DM, opioid use disorder on Suboxone, presenting initially with AB pain d/ t acute pancreatitis and gangrenous gallbladder. ERCP 02/03 revealed normal CBD without obstruction, stent placed d/t jaundice. Laprascopic cholecystectomy revealed gangrenous gallbladder. POD#2 from laproscopic partial cholecystectomy. #Neurologic - Acute toxic metabolic encephalopathy d/t septic shock, Syncopal episode, hx Opioid use disorder - pt extubated yesterday. - Mental status is improving. Able to follow commands. Still sleepy. - CT head 02/04 did not show acute intracranial hemorrhage or pathology s/p unwitnessed fall - Fall precautions - Pain management consulted. Stated to make Suboxone BID. May also start Toradol 30mg BID, but as patient is already on Plavix and Heparin will hold Toradol for now and consider one time dose as needed. Will reach out to Dr. Gustafson for further recommendations as needed. - PT consulted #Pulmonary - patient extubated on 02/05, breathing well. - O2 saturation in the low 90s on NC 5L #Cardiovascular - septic shock, hx CAD, ND s/p stent, HTN, HLD - CVP monitoring- goal 8-12 - echo 02/03 showed left ventricular systolic function normal, ejection fraction 60-65%. - trop negative <0.02 x4 - Cardiology recommendations (Dr. Guidry) appreciated. #Gastrointestinal - gangrenous gallbladder s/p cholecystectomy, acute pancreatitis - ERCP 02/03 showed normal CBD w/o obstruction, stent placed - laparoscopic cholecystectomy 02/04 showed gangrenous gallbladder, AB drain in place s/p surgery - AB drain draining bilious fluid. Patient to be sent home drain in place as per Dr. Sparks. - protonix ppx - GI recommendations (Dr. Lion) appreciated. - General surgery recommendations (Dr. Sparks) appreciated. - Follow-up: Call Dr. Mckeon's office at [phone] to make your postop appointment (Sunday in approximately 2 weeks after surgery). Clinic is held in the [facility] on the first floor of [facility]. #Nephrologic - CINDA - CINDA resolved. BUN/Cr - 15.4/0.7 - UA did not show evidence of UTI - LR @100mL/hr - quinn in place - I/Os #Heme - thrombocytopenia, coagulopathy - platelets improving now at 84 - per Heme, leukopenia likely due to sepsis. Will consider additional testing if the WBC remains low or patient becomes neutropenic. - WBC improved to 3.4 from 2.7 #ID - Leukopenia improving - Blood and urine cultures negative - Abx de-escalated to zosyn/flagyl. Continue doxy until tick serologies are back - ID recommendations (Dr. Lozoya) appreciated #Endo - hx DM - Insulin sliding scale - BGM q4h - started levemir 10u for better BG control per neph #FEN - LR @100mL/hr - hypokalemic, hypoPhos - repleted - started on clear diet, advance as tolerated #Prophylaxis - Heparin SQ - Plavix - protonix Visit type - Emergency Visit Emergency Visit: Yes ED Registration Date: 02/01/19 Care time: The patient presented to the Emergency Department on the above date and was hospitalized for further evaluation of their emergent condition. - New Patient This patient is new to me today: No - Critical Care Critical Care patient: Yes Total Critical Care Time (in minutes): 36 Critical Care Statement: The care of this patient involved high complexity decision making to prevent further life threatening deterioration of the patient 's condition and/or to evaluate & treat vital organ system(s) failure or risk of failure. ATTENDING PHYSICIAN STATEMENT I saw and evaluated the patient. I reviewed the resident's note and discussed the case with the resident. I agree with the resident's findings and plan as documented. SUBJECTIVE: OBJECTIVE: ASSESSMENT AND PLAN:
[2019-02-06] MEDS: MUPIROCIN 2% TOPICAL OINTMENT FOR DECOLONIZATION NS SCH ×2 (10:23→21:32)
[2019-02-06] MEDS: LACTATED RINGERS SOLUTION 1,000 ML/1,000 ML INFUS.BAG IV SCH (10:24)
[2019-02-06] MEDS: PANTOPRAZOLE SODIUM 40 MG VIAL IVPUSH SCH (10:24)
--- NOTE | 2019-02-06 11:22 | PN ---
Progress Note, Physician History of Present Illness: Pt seen and examined at bedside. He is awake and appears more comfortable today. - Current Medication List Current Medications: Active Medications Acetaminophen (Ofirmev Injection -) 1,000 mg IVPB Q6H PRN PRN Reason: PAIN LEVEL 7 - 10 Last Admin: 02/06/19 02:41 Dose: 1,000 mg Buprenorphine/Naloxone (Suboxone 8 Mg/2mg Sl Film -) 1 each SL DAILY [facility] Last Admin: 02/05/19 17:12 Dose: 1 each Chlorhexidine Gluconate (Hibiclens For Decolonization -) 1 applic TP HS [facility] Last Admin: 02/05/19 21:43 Dose: 1 applic Heparin Sodium (Porcine) (Heparin -) 5,000 unit SQ TID [facility] Last Admin: 02/06/19 06:35 Dose: 5,000 unit Lactated Ringer's (Lactated Ringers Solution) 1,000 ml in 1,000 mls @ 100 mls/ hr IV ASDIR [facility] Last Admin: 02/06/19 10:24 Dose: 100 mls/hr Metronidazole (Flagyl 500mg Premixed Ivpb -) 500 mg in 100 mls @ 100 mls/hr IVPB Q8H-IV [facility] Last Admin: 02/06/19 10:24 Dose: 100 mls/hr Potassium Phosphate 30 mm/ (Sodium Chloride) 510 mls @ 62.5 mls/hr IVPB ONCE ONE Stop: 02/06/19 16:39 Last Admin: 02/06/19 10:23 Dose: 62.5 mls/hr Meropenem 1 gm/ Dextrose 100 mls @ 200 mls/hr IVPB Q8H-IV SHRUTHI Doxycycline Hyclate 100 mg/ (Dextrose) 100 mls @ 50 mls/hr IVPB BID [facility] Insulin Aspart (Novolog Vial Sliding Scale -) 1 vial SQ Q4HPO [facility]; Protocol Last Admin: 02/06/19 06:36 Dose: 3 units Insulin Detemir (Levemir Vial) 10 units SQ DAILY@0700 [facility] Last Admin: 02/06/19 06:36 Dose: 10 units Mupirocin (Bactroban Ointment (For Decolonization) -) 1 applic NS BID [facility] Stop: 02/08/19 21:59 Last Admin: 02/06/19 10:23 Dose: 1 applic Pantoprazole Sodium (Protonix Iv) 40 mg IVPUSH DAILY [facility] Last Admin: 02/06/19 10:24 Dose: 40 mg - Objective Vital Signs: Vital Signs Temperature 99 F 02/06/19 07:00 Pulse Rate 92 H 02/06/19 07:00 Respiratory Rate 16 02/06/19 07:00 Blood Pressure 102/69 02/06/19 07:00 O2 Sat by Pulse Oximetry (%) 91 L 02/06/19 06:31 Constitutional: Yes: No Distress Eyes: Yes: Conjunctiva Clear HENT: Yes: Atraumatic Cardiovascular: Yes: S1, S2 Respiratory: Yes: On Nasal O2 Gastrointestinal: Yes: Tenderness Musculoskeletal: Yes: WNL Edema: No Integumentary: Yes: Tattoos Neurological: Yes: Oriented Labs: CBC, BMP 02/06/19 05:40 02/06/19 06:00 INR, PTT INR 1.16 (0.83-1.09) H 02/06/19 05:40 Fibrinogen > 500.0 mg/dL (238-498) H 02/06/19 05:40 Assessment/Plan Current Medications Generic Name Dose Route Start Last Admin Trade Name Moi PRN Reason Stop Dose Admin Acetaminophen 1,000 mg 02/06/19 01:23 02/06/19 02:41 Ofirmev Injection - IVPB 1,000 mg Q6H PRN Administration PAIN LEVEL 7 - 10 Buprenorphine/Naloxone 1 each 02/05/19 16:15 02/05/19 17:12 Suboxone 8 Mg/2mg Sl Film - SL 1 each DAILY SHRUTHI Administration Chlorhexidine Gluconate 1 applic 02/04/19 22:00 02/05/19 21:43 Hibiclens For Decolonization - TP 1 applic HS SHRUTHI Administration Heparin Sodium (Porcine) 5,000 unit 02/05/19 22:00 02/06/19 06:35 Heparin - SQ 5,000 unit TID SHRUTHI Administration Lactated Ringer's 1,000 ml in 1,000 mls @ 100 mls/hr 02/04/19 11:09 02/06/19 10:24 Lactated Ringers Solution IV 100 mls/hr ASDIR SHRUTHI Administration Metronidazole 500 mg in 100 mls @ 100 mls/hr 02/05/19 02:00 02/06/19 10:24 Flagyl 500mg Premixed Ivpb - IVPB 100 mls/hr Q8H-IV SHRUTHI Administration Potassium Phosphate 30 mm/ 510 mls @ 62.5 mls/hr 02/06/19 08:30 02/06/19 10: 23 Sodium Chloride IVPB 02/06/19 16:39 62.5 mls/hr ONCE ONE Administration Meropenem 1 gm/ Dextrose 100 mls @ 200 mls/hr 02/06/19 08:09 IVPB Q8H-IV SHRUTHI Doxycycline Hyclate 100 mg/ 100 mls @ 50 mls/hr 02/06/19 10:00 Dextrose IVPB BID [facility] Insulin Aspart 1 vial 02/05/19 10:00 02/06/19 06:36 Novolog Vial Sliding Scale - SQ 3 units Q4HPO SHRUTHI Administration Protocol Insulin Detemir 10 units 02/06/19 07:00 02/06/19 06:36 Levemir Vial SQ 10 units DAILY@0700 SHRUTHI Administration Mupirocin 1 applic 02/04/19 22:00 02/06/19 10:23 Bactroban Ointment (For Decolonization) - NS 02/08/19 21:59 1 applic BID SHRUTHI Administration Pantoprazole Sodium 40 mg 02/05/19 10:00 02/06/19 10:24 Protonix Iv IVPUSH 40 mg DAILY SHRUTHI Administration Impression 1. CINDA 2. s/p lap waqar 3. s/p controast 4. cad 5. dm 6. hx opioid abuse 7. hld 8. gangrenous gallbladder 9. sepsis 10. acute resp failure 11. renal cyst Plan - renal function is improved - replace phos - replace potassium - avoid nsaids and nephrotoxins - discussed with
[2019-02-06] MEDS: BUPRENORPHINE/NALOXONE 8 MG/2 MG FILM PACKET SL SCH ×2 (11:30→21:37)
--- NOTE | 2019-02-06 11:42 | PN ---
Teaching Attending Note Name of Resident: Bryan Underwood ATTENDING PHYSICIAN STATEMENT I saw and evaluated the patient. I reviewed the resident's note and discussed the case with the resident. I agree with the resident's findings and plan as documented. SUBJECTIVE: Pt seen and examined in the ICU. Remains extubated, off pressors. Still drowsy, altered. OBJECTIVE: Vital Signs Period Temp Pulse Resp BP Sys/Busby Pulse Ox Last 24 Hr 98.5 F-100.9 F 91-109 14-24 100-135/69-91 88-97 Intake & Output 02/03/19 02/04/19 02/05/19 02/06/19 23:59 23:59 23:59 23:59 Intake Total 3774 6789 3354 1510 Output Total 700 4150 1680 1360 Balance 3074 2639 1674 150 Weight 127.8 kg 128.548 kg Gen: somnolent but arousable Heart: RRR Lung: decreased breath sounds at the bases Abd: soft, mild TTP, no rebound, +drain with bilious fluid Ext: trace edema CBC, BMP 02/06/19 05:40 02/06/19 06:00 Active Medications Acetaminophen (Ofirmev Injection -) 1,000 mg IVPB Q6H PRN PRN Reason: PAIN LEVEL 7 - 10 Last Admin: 02/06/19 02:41 Dose: 1,000 mg Buprenorphine/Naloxone (Suboxone 8 Mg/2mg Sl Film -) 1 each SL DAILY [facility] Last Admin: 02/06/19 11:30 Dose: 1 each Chlorhexidine Gluconate (Hibiclens For Decolonization -) 1 applic TP HS [facility] Last Admin: 02/05/19 21:43 Dose: 1 applic Heparin Sodium (Porcine) (Heparin -) 5,000 unit SQ TID [facility] Last Admin: 02/06/19 06:35 Dose: 5,000 unit Lactated Ringer's (Lactated Ringers Solution) 1,000 ml in 1,000 mls @ 100 mls/ hr IV ASDIR [facility] Last Admin: 02/06/19 10:24 Dose: 100 mls/hr Metronidazole (Flagyl 500mg Premixed Ivpb -) 500 mg in 100 mls @ 100 mls/hr IVPB Q8H-IV [facility] Last Admin: 02/06/19 10:24 Dose: 100 mls/hr Potassium Phosphate 30 mm/ (Sodium Chloride) 510 mls @ 62.5 mls/hr IVPB ONCE ONE Stop: 02/06/19 16:39 Last Admin: 02/06/19 10:23 Dose: 62.5 mls/hr Meropenem 1 gm/ Dextrose 100 mls @ 200 mls/hr IVPB Q8H-IV SHRUTHI Doxycycline Hyclate 100 mg/ (Dextrose) 100 mls @ 50 mls/hr IVPB BID [facility] Insulin Aspart (Novolog Vial Sliding Scale -) 1 vial SQ Q4HPO [facility]; Protocol Last Admin: 02/06/19 06:36 Dose: 3 units Insulin Detemir (Levemir Vial) 10 units SQ DAILY@0700 [facility] Last Admin: 02/06/19 06:36 Dose: 10 units Mupirocin (Bactroban Ointment (For Decolonization) -) 1 applic NS BID [facility] Stop: 02/08/19 21:59 Last Admin: 02/06/19 10:23 Dose: 1 applic Pantoprazole Sodium (Protonix Iv) 40 mg IVPUSH DAILY [facility] Last Admin: 02/06/19 10:24 Dose: 40 mg ASSESSMENT AND PLAN: Acute Gangrenous Cholecystitis Choledocholithiasis Severe Sepsis with impending Shock Acute Kidney Injury Lactic Acidosis Coagulopathy/Thrombocytopenia Pancytopenia r/o DIC CAD DM Hyperlipidemia Opiate Dependence Suspect Obstructive Sleep Apnea - continue antibiotics per ID - f/u cultures - PO per surgery - monitor urine output, creatinine - O2 to keep SpO2 >90% - monitor CBC - pain control - incentive spirometry - DVT/GI prophylaxis - continue ICU monitoring
--- NOTE | 2019-02-06 12:23 | EKG ---
Test Reason : Blood Pressure : / mmHG Vent. Rate : 110 BPM Atrial Rate : 110 BPM P-R Int : 148 ms QRS Dur : 102 ms QT Int : 328 ms P-R-T Axes : 048 -06 027 degrees QTc Int : 443 ms SINUS TACHYCARDIA NONSPECIFIC ST ABNORMALITY ABNORMAL ECG WHEN COMPARED WITH ECG OF 02-FEB-2019 10:05, NONSPECIFIC T WAVE ABNORMALITY NOW EVIDENT IN ANTERIOR LEADS Confirmed by CHRISTIANO ESPARZA MD ([id number]) on 02/06/2019 12:23:09 PM Referred By: Confirmed By:CHRISTIANO ESPARZA MD
--- NOTE | 2019-02-06 14:04 | PN ---
Progress Note (short form) - Note Progress Note: s/p lap choly POD #2 he is extubated and alert gangrenous gallbladder removed piecemeal Vital Signs Period Temp Pulse Resp BP Sys/Busby Pulse Ox Last 24 Hr 98.4 F-100.9 F 91-109 14-28 96-135/55-91 88-98 cor-rrr lungs decreased bs at bases abd soft,+biliary drain ext no edema CBC, BMP 02/06/19 05:40 02/06/19 06:00 Microbiology 02/03/19 14:35 Blood - Peripheral Venous Blood Culture - Preliminary NO GROWTH OBTAINED AFTER 48 HOURS, INCUBATION TO CONTINUE FOR 3 DAYS. 02/03/19 14:20 Blood - Peripheral Venous Blood Culture - Preliminary NO GROWTH OBTAINED AFTER 48 HOURS, INCUBATION TO CONTINUE FOR 3 DAYS. 02/04/19 15:30 Blood - Peripheral Venous Blood Parasites Smear - Final 02/03/19 23:30 Urine - Urine Zimmer Urine Culture - Final NO GROWTH OBTAINED Current Medications Acetaminophen (Ofirmev Injection -) 1,000 mg IVPB Q6H PRN PRN Reason: PAIN LEVEL 7 - 10 Last Admin: 02/06/19 02:41 Dose: 1,000 mg Buprenorphine/Naloxone (Suboxone 8 Mg/2mg Sl Film -) 1 each SL DAILY [facility] Last Admin: 02/06/19 11:30 Dose: 1 each Chlorhexidine Gluconate (Hibiclens For Decolonization -) 1 applic TP HS [facility] Last Admin: 02/05/19 21:43 Dose: 1 applic Clopidogrel Bisulfate (Plavix -) 75 mg PO DAILY [facility] Heparin Sodium (Porcine) (Heparin -) 5,000 unit SQ TID [facility] Last Admin: 02/06/19 06:35 Dose: 5,000 unit Lactated Ringer's (Lactated Ringers Solution) 1,000 ml in 1,000 mls @ 100 mls/ hr IV ASDIR [facility] Last Admin: 02/06/19 10:24 Dose: 100 mls/hr Metronidazole (Flagyl 500mg Premixed Ivpb -) 500 mg in 100 mls @ 100 mls/hr IVPB Q8H-IV [facility] Last Admin: 02/06/19 10:24 Dose: 100 mls/hr Potassium Phosphate 30 mm/ (Sodium Chloride) 510 mls @ 62.5 mls/hr IVPB ONCE ONE Stop: 02/06/19 16:39 Last Admin: 02/06/19 10:23 Dose: 62.5 mls/hr Meropenem 1 gm/ Dextrose 100 mls @ 200 mls/hr IVPB Q8H-IV SHRUTHI Doxycycline Hyclate 100 mg/ (Dextrose) 100 mls @ 50 mls/hr IVPB BID [facility] Insulin Aspart (Novolog Vial Sliding Scale -) 1 vial SQ Q4HPO [facility]; Protocol Last Admin: 02/06/19 12:30 Dose: 3 units Insulin Detemir (Levemir Vial) 10 units SQ DAILY@0700 [facility] Last Admin: 02/06/19 06:36 Dose: 10 units Mupirocin (Bactroban Ointment (For Decolonization) -) 1 applic NS BID [facility] Stop: 02/08/19 21:59 Last Admin: 02/06/19 10:23 Dose: 1 applic Pantoprazole Sodium (Protonix Iv) 40 mg IVPUSH DAILY [facility] Last Admin: 02/06/19 10:24 Dose: [address] scan abd/pelvis noted a/p Biliary sepsis- gangrenous gallbladder- s/p lap choly shauna has resolved de-escalate antibiotics to zosyn/flagyl continue doxycycline until tick serologies are back leukopenia and thrombocytopenia slowly recovering hgb a1c- over 11, triglycerides over 1000 as outpt-labs reviewed d/w at bedside
[2019-02-06] MEDS ORDERED: CLOPIDOGREL BISULFATE 75 MG TABLET (FP) PO SCH (14:15)
[2019-02-06] MEDS ORDERED: PIPERACILLIN/TAZOB 4.5 GM 4.5 GM in DEXTROSE 5%-WATER 100 ML IVPB SCH (14:15)
--- NOTE | 2019-02-06 14:27 | PN.GI ---
GI Progress Note Subjective: No acute events overnight 250cc bilious drainage noted from GB fossa drain Awake, complains of pain in upper abdomen - Objective Vital Signs: Vital Signs Temperature 98.6 F 02/06/19 14:00 Pulse Rate 105 H 02/06/19 14:00 Respiratory Rate 16 02/06/19 14:00 Blood Pressure 108/73 02/06/19 14:00 O2 Sat by Pulse Oximetry (%) 98 02/06/19 09:00 Constitutional: Calm Eyes: No: Sclera Icterus Cardiovascular: Yes: Tachycardia Respiratory: Yes: Diminished (at bases bilaterally) Gastrointestinal Inspection: Yes: Scars (trochar scars in upper abdomen, drain in place in RUQ). No: Distention ...Auscultate: Yes: Normoactive Bowel Sounds ...Palpate: Yes: Soft, Tenderness (TTP upper abdomen and at trochar sites) ...Percussion: No: Tympanitic Neurological: Yes: Alert Labs: CBC, BMP 02/06/19 05:40 02/06/19 06:00 INR, PTT INR 1.16 (0.83-1.09) H 02/06/19 05:40 Fibrinogen > 500.0 mg/dL (238-498) H 02/06/19 05:40 Hepatic Panel Total Bilirubin 2.0 mg/dL (0.2-1) H 02/06/19 06:00 Direct Bilirubin 3.6 mg/dL (0.0-0.2) H 02/03/19 10:30 AST 47 U/L (15-37) H 02/06/19 06:00 ALT 104 U/L (13-61) H 02/06/19 06:00 Alkaline Phosphatase 70 U/L (45-117) 02/06/19 06:00 Albumin 1.8 g/dl (3.4-5.0) L 02/06/19 06:00 Problem List - Problems (1) Acute calculous cholecystitis Assessment/Plan: Necrotic gallbladder s/p partial cholecystectomy bilious drainage from IP drain in place If continued bilious drainage, will need evaluation for further treatment of continued bile leak. CBD has already been stented durinf preoperative ERCP. Spoke with Dr. Sparks. He will be reaching out to hepatobiliary surgeons to discuss case further. Post op care per surgery and critical care team On Abx per ID. Guarded condition Code(s): K80.00 - CALCULUS OF GALLBLADDER W ACUTE CHOLECYST W/O OBSTRUCTION
--- NOTE | 2019-02-06 14:39 | PN ---
Progress Note, Physician Chief Complaint: abdominal pain History of Present Illness: 43 yo male PMH AK s/p stent on DAPT and lumbar disc disease s/p 2 operations, DM , HLD, prior opioid abuse on suboxone who presents to the emergency department with RUQ/flank and abdominal pain since 8:30AM.s/p ERCP with no clear source or ascending cholangitis. He has been stable in ICU since surgery. - Current Medication List Current Medications: Active Medications Acetaminophen (Ofirmev Injection -) 1,000 mg IVPB Q6H PRN PRN Reason: PAIN LEVEL 7 - 10 Last Admin: 02/06/19 02:41 Dose: 1,000 mg Buprenorphine/Naloxone (Suboxone 8 Mg/2mg Sl Film -) 1 each SL DAILY SHRUTHI Last Admin: 02/06/19 11:30 Dose: 1 each Chlorhexidine Gluconate (Hibiclens For Decolonization -) 1 applic TP HS SHRUTHI Last Admin: 02/05/19 21:43 Dose: 1 applic Clopidogrel Bisulfate (Plavix -) 75 mg PO DAILY SHRUTHI Heparin Sodium (Porcine) (Heparin -) 5,000 unit SQ TID SHRUTHI Last Admin: 02/06/19 06:35 Dose: 5,000 unit Lactated Ringer's (Lactated Ringers Solution) 1,000 ml in 1,000 mls @ 100 mls/ hr IV ASDIR SHRUTHI Last Admin: 02/06/19 10:24 Dose: 100 mls/hr Metronidazole (Flagyl 500mg Premixed Ivpb -) 500 mg in 100 mls @ 100 mls/hr IVPB Q8H-IV SHRUTHI Last Admin: 02/06/19 10:24 Dose: 100 mls/hr Potassium Phosphate 30 mm/ (Sodium Chloride) 510 mls @ 62.5 mls/hr IVPB ONCE ONE Stop: 02/06/19 16:39 Last Admin: 02/06/19 10:23 Dose: 62.5 mls/hr Doxycycline Hyclate 100 mg/ (Dextrose) 100 mls @ 50 mls/hr IVPB BID SHRUTHI Piperacillin Sod/Tazobactam (Sod 4.5 gm/ Dextrose) 100 mls @ 200 mls/hr IVPB Q8H-IV SHRUTHI; Protocol Insulin Aspart (Novolog Vial Sliding Scale -) 1 vial SQ Q4HPO SHRUTHI; Protocol Last Admin: 02/06/19 12:30 Dose: 3 units Insulin Detemir (Levemir Vial) 10 units SQ DAILY@0700 [facility] Last Admin: 02/06/19 06:36 Dose: 10 units Mupirocin (Bactroban Ointment (For Decolonization) -) 1 applic NS BID [facility] Stop: 02/08/19 21:59 Last Admin: 02/06/19 10:23 Dose: 1 applic Pantoprazole Sodium (Protonix Iv) 40 mg IVPUSH DAILY [facility] Last Admin: 02/06/19 10:24 Dose: 40 mg - Objective Vital Signs: Vital Signs Temperature 98.6 F 02/06/19 14:00 Pulse Rate 105 H 02/06/19 14:00 Respiratory Rate 16 02/06/19 14:00 Blood Pressure 108/73 02/06/19 14:00 O2 Sat by Pulse Oximetry (%) 98 02/06/19 09:00 Vital Signs Period Temp Pulse Resp BP Sys/Busby Pulse Ox Last 24 Hr 98.4 F-100.9 F 91-109 14-28 96-135/55-91 88-98 Intake & Output 02/05/19 02/06/19 02/06/19 23:59 07:59 15:59 Intake Total 110 1510 Output Total 1360 800 Balance 110 150 -800 Weight 283 lb 6.4 oz Intake: IV 10 1210 LACTATED RINGERS SOLUTION 1200 1,000 ml In 1,000 ml @ 100 mls/hr IV ASDIR [facility] Rx#:[id number] Saline Lock 10 10 IVPB 100 300 Oral 0 0 Output: Drainage 210 Right Lower Abdomen 210 Urine 1150 800 Zimmer 1150 800 Other: Voiding Method Indwelling Catheter Indwelling Catheter Bowel Movement No No No Weight Measurement Method Built in [facility] Constitutional: Yes: Well Nourished, No Distress, Calm Eyes: Yes: Conjunctiva Clear, EOM Intact HENT: Yes: Atraumatic, Normocephalic Neck: Yes: Supple, Trachea Midline Cardiovascular: Yes: Regular Rate and Rhythm, S1, S2 Respiratory: Yes: Regular, CTA Bilaterally Gastrointestinal: Yes: Normal Bowel Sounds, Soft ...Rectal Exam: Yes: Deferred Genitourinary: No: CVA Tenderness - Left, CVA Tenderness - Right Breast(s): No: Mass, Skin Changes Musculoskeletal: No: Joint Stiffness, Muscle Pain Extremities: No: Cool, Cyanosis Edema: Yes Edema: LUE: 1+, RUE: 1+, LLE: 1+, RLE: 1+ Peripheral Pulses WNL: Yes Peripheral Pulses: Left Radial: 2+, Right Radial: 2+, Left Doralis Pedis: 2+, Right Dorsalis Pedis: 2+, Left Femoral: 2+, Right Femoral: 2+ Wound/Incision: Yes: Clean/Dry, Well Approximated, Dressing Dry and Intact, Draining (cholecystostomy) Neurological: Yes: Alert, Oriented Psychiatric: Yes: Alert, Oriented Labs: CBC, BMP 02/06/19 05:40 02/06/19 06:00 INR, PTT INR 1.16 (0.83-1.09) H 02/06/19 05:40 Fibrinogen > 500.0 mg/dL (238-498) H 02/06/19 05:40 Problem List - Problems (1) Acute gallstone pancreatitis Assessment/Plan: 43yo male MMP including obesity and HLD presents with bilary colic and mild gallstone pancreatitis, now ascending cholangitis? ERCP dis not have any clear obstruction, POD#3 s/p Laparoscopic partial necrosectomy for a gangreonous gallbladder. There is a large rement of the gall bladder which was remaining on the followup CT scan. he has been partial debrided and adequatly drained. Discussed with patients family possible completion cholecystectomy. He has a large bile leak but hepatobiliary stent is in place. ICU management Advance diet as tolerated adequate analgesia trend labs IV antibiotics per ID restart plavix pain management keep drain to go home Trend labs This patient is critically ill. Time spent reviewing chart, examining patient, talking with providers and/or family and documentation is 45 minutes. Postoperative instructions: You had a laparoscopic ectomy on DATE by Dr. Blake Mckeon of [facility]. Activity: Resume your usual activities gradually, but no heavy exertion or lifting more than 10-15 pounds for 1 month. Remove dressings 48 hours after surgery; sticky tapes underneath will fall off by themselves. You may shower daily starting then, just pat the incision areas dry. No bath or swimming until skin incisions have healed. Eat lightly at first, but advance to your usual diet as tolerated. Pain: For pain, you may use and alternate Tylenol (acetaminophen) 1-2 pills and/ or ibuprofen 200 mg (1-3 pills) every 6 hours each as needed; this means that you can take one OR the other at 3-hour intervals. If you are prescribed a Tylenol/narcotic combination for severe pain, use it instead of plain Tylenol as needed and switch back when your pain starts decreasing. Do not take more than 4000mg of acetaminophen in a day. Take medications as prescribed or indicated on the labeling. Follow-up: Call Dr. Mckeon's office at [phone] to make your postop appointment (Sunday in approximately 2 weeks after surgery). Clinic is held in the Diagnostic Center on the first floor of [facility]. Call the office if you have: * increasing pain not responsive to pain medication * fever of 101F or higher * vomiting * unusual or increasing bleeding or drainage from wounds * increasing redness or swelling at wound sites * inability to urinate Also, see your primary medical doctor within 1-2 weeks. Problems reviewed: Yes Code(s): K85.10 - BILIARY ACUTE PANCREATITIS WITHOUT NECROSIS OR INFECTION (2) Cholelithiasis Problems reviewed: Yes Code(s): K80.20 - CALCULUS OF GALLBLADDER W/O CHOLECYSTITIS W/O OBSTRUCTION Qualifiers: Cholelithiasis location: other site Biliary obstruction: without biliary obstruction Qualified Code(s): K80.80 - Other cholelithiasis without obstruction (3) CAD (coronary artery disease) Assessment/Plan: restart plavix Problems reviewed: Yes Code(s): I25.10 - ATHSCL HEART DISEASE OF [place] CORONARY ARTERY W/O ANG PCTRS Qualifiers: Coronary Disease-Associated Artery/Lesion type: new [place] artery Associated angina: angina presence unspecified (4) DKA, type 2 Code(s): E13.10 - OTH DIABETES MELLITUS WITH KETOACIDOSIS WITHOUT COMA Qualifiers: Diabetes mellitus complication detail: without coma (5) Hyperlipemia Code(s): E78.5 - HYPERLIPIDEMIA, UNSPECIFIED Qualifiers: Hyperlipidemia type: unspecified Qualified Code(s): E78.5 - Hyperlipidemia , unspecified (6) Hypertension Code(s): I10 - ESSENTIAL (PRIMARY) HYPERTENSION Qualifiers: Hypertension type: essential hypertension Qualified Code(s): I10 - Essential (primary) hypertension (7) Obesity Code(s): E66.9 - OBESITY, UNSPECIFIED
[2019-02-06 14:55] VITALS: BMI 33.5
[2019-02-06] MEDS ORDERED: PIPERACILLIN/TAZOBACTAM 4.5 GM VIAL IVPB ONE (17:00)
[2019-02-06] MEDS ORDERED: SODIUM CHLORIDE 100 ML IVPB ONE (17:00)
[2019-02-06] MEDS: PIPERACILLIN/TAZOB 4.5 GM 4.5 GM in SODIUM CHLORIDE 100 ML IVPB SCH (18:26)
[2019-02-06] MEDS ORDERED: MELATONIN 5 MG TABLETS PO ONE (21:00)
[2019-02-06] MEDS: DOXYCYCLINE INJECTION 100 MG in DEXTROSE 5%-WATER 100 ML IVPB SCH (21:31)
[2019-02-06] MEDS: CHLORHEXIDINE GLUCONATE 4% CLEANSER FOR DECOLONIZATION TP SCH (21:32)
[2019-02-06] MEDS ORDERED: INSULIN SLIDING SCALE (NOVOLOG) 1 VIAL SQ SCH (22:00)
[2019-02-07] MEDS ORDERED: diphenhydrAMINE HCL 25 MG CAPSULE (FP) PO ONE (00:56)
[2019-02-07] MEDS ORDERED: SODIUM CHLORIDE 100 ML IVPB ONE ×2 (01:10→09:06)
[2019-02-07] MEDS ORDERED: PIPERACILLIN/TAZOBACTAM 4.5 GM VIAL IVPB ONE ×2 (01:10→09:05)
[2019-02-07] MEDS: PIPERACILLIN/TAZOB 4.5 GM 4.5 GM in SODIUM CHLORIDE 100 ML IVPB SCH ×2 (02:40→09:10)
[2019-02-07] MEDS ORDERED: KETOROLAC TROMETHAMINE 15 MG/ML VIAL IVPUSH ONE (03:10)
[2019-02-07] MEDS ORDERED: LORazepam 0.5 MG TABLET PO ONE ×2 (05:00)
[2019-02-07] MEDS: HEPARIN NA (PORCINE) 5,000 UNITS/ML 1ML VIAL SQ SCH (05:53)
[2019-02-07] MEDS: INSULIN SLIDING SCALE (NOVOLOG) 1 VIAL SQ SCH (06:03)
[2019-02-07] MEDS: INSULIN (LEVEMIR) 100 UNITS/ML UNITS SQ SCH (06:04)
[2019-02-07 06:30] LABS: BASO % 0.4 % (0-2.0); EOS % 1.4 % (0-4.5); HEMATOCRIT 33.1 % (35.4-49); HEMOGLOBIN 11.3 GM/dL (11.7-16.9); MCH 31.2 pg (25.7-33.7); MEAN CELL VOLUME 91.8 fl (80-96); MEAN PLT VOLUME 8.9 fl (7.5-11.1); MONO % 13.4 % (3.8-10.2); NEUT % 68.8 % (42.8-82.8); PLATELET COUNT 99 K/MM3 (134-434); RBC 3.61 M/mm3 (4.00-5.60); RDW 15.1 % (11.9-15.9); WHITE BLOOD COUNT 3.8 K/mm3 (4.0-10.0)
[2019-02-07] MEDS: ACETAMINOPHEN 1000 MG/100 ML VIAL (NON FORMULARY) IVPB PRN (06:35)
[2019-02-07 06:55] LABS: INR 1.13 (0.83-1.09); PROTHROMBIN TIME (PATIENT) 13.3 SEC (9.7-13.0)
[2019-02-07 06:58] LABS: ACTIVATED PTT 30.9 SECONDS (25.2-36.5)
[2019-02-07 07:01] LABS: ALBUMIN 1.6 g/dl (3.4-5.0); BILIRUBIN,TOTAL 1.8 mg/dL (0.2-1); BLOOD UREA NITROGEN 13.2 mg/dL (7-18); CALCIUM 7.2 mg/dL (8.5-10.1); CREATININE 0.7 mg/dL (0.55-1.3); MAGNESIUM 1.5 mg/dL (1.8-2.4); TOT PROT 4.3 g/dl (6.4-8.2)
[2019-02-07] MEDS ORDERED: MAGNESIUM SULF 50% (8.12 MEQ/2 ML-1 GM VIAL) IVPB ONE (07:14)
[2019-02-07] MEDS ORDERED: POTASSIUM PHOSPHATE 15 MM in SODIUM CHLORIDE 250 ML IVPB ONE (07:18)
[2019-02-07] MEDS ORDERED: POTASSIUM CHLORIDE 20 MEQ PREMIX IVPB 100 ML IVPB SCH (07:30)
--- NOTE | 2019-02-07 08:20 | PN ---
Physical Exam: SUBJECTIVE: Patient seen and examined. Had fever overnight, max 103F rectal. Reordered CXR, UA, blood/urine cx. Given 15 toradol overnight for abdominal pain after tylenol did not help. Complaining of new dry cough. Transferred to [facility] for further management. OBJECTIVE: Vital Signs Period Temp Pulse Resp BP Sys/Busby Pulse Ox Last 24 Hr 97.9 F-103.3 F 88-105 12-28 96-137/55-91 91-98 GENERAL: The patient is alert/oriented, in no acute distress, able to follow commands. LUNGS: Breath sounds equal, clear to auscultation bilaterally, no wheezes, no crackles, no accessory muscle use. Poor inspiratory effort HEART: Regular rate/rhythm, S1, S2 without murmur, rub or gallop. ABDOMEN: surgical incisions, clean, dry. RLQ drain in place draining bilious fluid. Soft, nontender, nondistended. EXTREMITIES: 2+ pulses, warm, well-perfused, no edema. NEUROLOGICAL:AOx3. Normal speech. Laboratory Results - last 24 hr 02/03/19 02/04/19 02/05/19 06:33 15:30 05:30 WBC RBC Hgb Hct MCV MCH MCHC RDW Plt Count MPV Absolute Neuts (auto) Neutrophils % Lymphocytes % Monocytes % Eosinophils % Basophils % Nucleated RBC % PT with INR INR PTT (Actin FS) Fibrinogen Sodium Potassium Chloride Carbon Dioxide Anion Gap BUN Creatinine Est GFR (CKD-EPI)AfAm Est GFR (CKD-EPI)NonAf POC Glucometer Random Glucose Calcium Phosphorus Magnesium Total Bilirubin AST ALT Alkaline Phosphatase Total Protein Albumin ANGELO Screen Negative Lyme Screen IgG & IgM <0.91 Crossmatch See Detail 02/06/19 02/06/19 02/06/19 12:26 17:21 19:12 WBC RBC Hgb Hct MCV MCH MCHC RDW Plt Count MPV Absolute Neuts (auto) Neutrophils % Lymphocytes % Monocytes % Eosinophils % Basophils % Nucleated RBC % PT with INR INR PTT (Actin FS) Fibrinogen Sodium Potassium Chloride Carbon Dioxide Anion Gap BUN Creatinine Est GFR (CKD-EPI)AfAm Est GFR (CKD-EPI)NonAf POC Glucometer 189 190 227 Random Glucose Calcium Phosphorus Magnesium Total Bilirubin AST ALT Alkaline Phosphatase Total Protein Albumin ANGELO Screen Lyme Screen IgG & IgM Crossmatch 02/06/19 02/07/19 02/07/19 23:00 05:20 05:20 WBC 3.8 L RBC 3.61 L Hgb 11.3 L Hct 33.1 L MCV 91.8 MCH 31.2 MCHC 34.0 RDW 15.1 Plt Count 99 L MPV 8.9 Absolute Neuts (auto) 2.6 Neutrophils % 68.8 Lymphocytes % 16.0 D Monocytes % 13.4 H D Eosinophils % 1.4 Basophils % 0.4 Nucleated RBC % 0 PT with INR INR PTT (Actin FS) Fibrinogen Sodium 140 Potassium 3.0 L Chloride 101 Carbon Dioxide 33 H Anion Gap 6 L BUN 13.2 Creatinine 0.7 Est GFR (CKD-EPI)AfAm 135.86 Est GFR (CKD-EPI)NonAf 117.22 POC Glucometer 283 Random Glucose 209 H Calcium 7.2 L Phosphorus 2.0 L Magnesium 1.5 L Total Bilirubin 1.8 H AST 66 H ALT 104 H Alkaline Phosphatase 66 Total Protein 4.3 L Albumin 1.6 L ANGELO Screen Lyme Screen IgG & IgM Crossmatch 02/07/19 02/07/19 02/07/19 05:20 05:20 05:45 WBC RBC Hgb Hct MCV MCH MCHC RDW Plt Count MPV Absolute Neuts (auto) Neutrophils % Lymphocytes % Monocytes % Eosinophils % Basophils % Nucleated RBC % PT with INR 13.30 H INR 1.13 H PTT (Actin FS) 30.9 Fibrinogen > 500.0 H Sodium Potassium Chloride Carbon Dioxide Anion Gap BUN Creatinine Est GFR (CKD-EPI)AfAm Est GFR (CKD-EPI)NonAf POC Glucometer 191 Random Glucose Calcium Phosphorus Magnesium Total Bilirubin AST ALT Alkaline Phosphatase Total Protein Albumin ANGELO Screen Lyme Screen IgG & IgM Crossmatch Active Medications Generic Name Dose Route Start Last Admin Trade Name Freq PRN Reason Stop Dose Admin Buprenorphine/Naloxone 1 each 02/06/19 22:00 02/06/19 21:37 Suboxone 8 Mg/2mg Sl Film - SL 1 each BID SHRUTHI Administration Chlorhexidine Gluconate 1 applic 02/04/19 22:00 02/06/19 21:32 Hibiclens For Decolonization - TP 1 applic HS SHRUTHI Administration Clopidogrel Bisulfate 75 mg 02/06/19 14:15 02/06/19 15:00 Plavix - PO 75 mg DAILY SHRUTHI Administration Heparin Sodium (Porcine) 5,000 unit 02/05/19 22:00 02/07/19 05:53 Heparin - SQ 5,000 unit TID SHRUTHI Administration Lactated Ringer's 1,000 ml in 1,000 mls @ 100 mls/hr 02/04/19 11:09 02/06/19 10:24 Lactated Ringers Solution IV 100 mls/hr ASDIR SHRUTHI Administration Metronidazole 500 mg in 100 mls @ 100 mls/hr 02/05/19 02:00 02/07/19 01:13 Flagyl 500mg Premixed Ivpb - IVPB 100 mls/hr Q8H-IV SHRUTHI Administration Piperacillin Sod/Tazobactam 100 mls @ 200 mls/hr 02/06/19 14:47 02/07/19 02: 40 Sod 4.5 gm/ Sodium Chloride IVPB 200 mls/hr Q8H-IV SHRUTHI Administration Protocol Doxycycline Hyclate 100 mg/ 100 mls @ 50 mls/hr 02/06/19 14:47 02/06/19 21:31 Dextrose IVPB 50 mls/hr BID SHRUTHI Administration Potassium Phosphate 15 mm/ 255 mls @ 62.5 mls/hr 02/07/19 07:18 Sodium Chloride IVPB 02/07/19 11:22 ONCE ONE Insulin Aspart 1 vial 02/06/19 22:00 02/07/19 06:03 Novolog Vial Sliding Scale - SQ 3 units ACHS SHRUTHI Administration Protocol Insulin Detemir 10 units 02/06/19 07:00 02/07/19 06:04 Levemir Vial SQ 10 units DAILY@0700 SHRUTHI Administration Mupirocin 1 applic 02/04/19 22:00 02/06/19 21:32 Bactroban Ointment (For Decolonization) - NS 02/08/19 21:59 1 applic BID SHRUTHI Administration Pantoprazole Sodium 40 mg 02/05/19 10:00 02/06/19 10:24 Protonix Iv IVPUSH 40 mg DAILY SHRUTHI Administration Potassium Chloride 20 meq 02/07/19 07:30 Potassium Chloride 20 Meq Premix Ivpb - IVPB 02/07/19 09:31 Q60M SHRUTHI ASSESSMENT/PLAN: Nick Carmichael is a 43yM with PMHx of CAD with prior MS s/p stent on AC, HTN, HLD, DM, opioid use disorder on Suboxone, presenting initially with AB pain d/ t acute pancreatitis and gangrenous gallbladder. ERCP 02/03 revealed normal CBD without obstruction, stent placed d/t jaundice. Laprascopic cholecystectomy revealed gangrenous gallbladder. POD#3 from laproscopic partial cholecystectomy. #Neurologic - Acute toxic metabolic encephalopathy d/t septic shock, Syncopal episode, hx Opioid use disorder - AOx3 - CT head 02/04 did not show acute intracranial hemorrhage or pathology s/p unwitnessed fall - Fall precautions - increase Suboxone to TID per home dose. Given 1x toradol last night. Tylenol PRN for fever/pain - Can start Toradol 30mg BID if pain still not controlled per pain recs - PT consulted - appreciate pain mgmt (Dr Gustafson) recs #Pulmonary - CXR 02/07 showed increased hilar infiltrates - patient extubated on 02/05, breathing well. - On 5L NC - inspiratory spirometry #Cardiovascular - septic shock, hx CAD, MS s/p stent, HTN, HLD - CVP monitoring- goal 8-12 - echo 02/03 showed left ventricular systolic function normal, ejection fraction 60-65%. - trop negative <0.02 x4 - stopped plavix - heparin ppx - R IJ CVC placed 02/03 for refractory hypotension, currently off pressors - Cardiology recommendations (Dr. Guidry) appreciated. #Gastrointestinal - gangrenous gallbladder s/p cholecystectomy, acute pancreatitis - Pt transferred to [facility] Dr. Duff for further management in setting of uncontrolled AB pain, fevers - ERCP 02/03 showed normal CBD w/o obstruction, stent placed - laparoscopic cholecystectomy 02/04 showed gangrenous gallbladder, AB drain in place s/p surgery - AB drain draining bilious fluid. Patient to be sent home drain in place as per Dr. Sparks. - protonix ppx - clear diet - GI recommendations (Dr. Lion) appreciated. - General surgery recommendations (Dr. Sparks) appreciated. - Follow-up: Call Dr. Mckeon's office at [phone] to make your postop appointment (Sunday in approximately 2 weeks after surgery). Clinic is held in the Diagnostic Center on the first floor of [facility]. #Nephrologic - CINDA - resolved - BUN/Cr wnl - UA did not show evidence of UTI 02/04 - LR @100mL/hr - quinn in place - I/O #Heme - thrombocytopenia, coagulopathy - platelets improving from 84 to 99 - per Heme, leukopenia likely due to sepsis. Will consider additional testing if the WBC remains low or patient becomes neutropenic. #ID - febrile - given tylenol for overnight fevers - WBC improving from 3.4 to 3.8 - Blood and urine cultures pending - On zosyn/flagyl. Continue doxy until tick serologies are back - ID recommendations (Dr. Lozoya) appreciated #Endo - hx DM - Insulin sliding scale - BGM q4h - On levemir 10u for better BG control per neph #FEN - LR @100mL/hr - hypoK, hypoPhos, hypoMg - repleted - clear diet, advance as tolerated #Prophylaxis - Heparin SQ - protonix Dispo - transferred to [facility] Dr. Duff for further management in setting of uncontrolled AB pain, fevers Visit type - Emergency Visit Emergency Visit: Yes ED Registration Date: 02/01/19 Care time: The patient presented to the Emergency Department on the above date and was hospitalized for further evaluation of their emergent condition. - New Patient This patient is new to me today: No - Critical Care Critical Care patient: Yes Total Critical Care Time (in minutes): 35 Critical Care Statement: The care of this patient involved high complexity decision making to prevent further life threatening deterioration of the patient 's condition and/or to evaluate & treat vital organ system(s) failure or risk of failure. ATTENDING PHYSICIAN STATEMENT I saw and evaluated the patient. I reviewed the resident's note and discussed the case with the resident. I agree with the resident's findings and plan as documented. SUBJECTIVE: OBJECTIVE: ASSESSMENT AND PLAN:
[2019-02-07] MEDS ORDERED: ACETAMINOPHEN 1000 MG/100 ML VIAL (NON FORMULARY) IVPB PRN (08:50)
[2019-02-07] MEDS ORDERED: PT OWN MED DRAWER 7, Y5N ONE ×2 (09:02→10:07)
[2019-02-07] MEDS ORDERED: DOXYCYCLINE HYCLATE 100 MG VIAL ONE (09:04)
[2019-02-07] MEDS ORDERED: DEXTROSE 5%-WATER 100 ML IVPB ONE (09:04)
--- NOTE | 2019-02-07 09:09 | PN ---
Progress Note (short form) - Note Progress Note: s/p lap choly POD #3 he is extubated and alert persistent fevers abdomiinal discomfort persists +ruq drain with bile Vital Signs Period Temp Pulse Resp BP Sys/Busby Pulse Ox Last 24 Hr 97.9 F-103.3 F 88-105 12-28 96-137/55-91 91-98 cor-rrr lungs decreased bs at bases abd soft,RUQ bile drain +quinn ext no edema CBC, BMP 02/07/19 05:20 02/07/19 05:20 Microbiology 02/03/19 14:20 Blood - Peripheral Venous Blood Culture - Preliminary NO GROWTH OBTAINED AFTER 72 HOURS, INCUBATION TO CONTINUE FOR 2 DAYS. 02/03/19 14:35 Blood - Peripheral Venous Blood Culture - Preliminary NO GROWTH OBTAINED AFTER 72 HOURS, INCUBATION TO CONTINUE FOR 2 DAYS. 02/04/19 15:30 Blood - Peripheral Venous Blood Parasites Smear - Final 02/03/19 23:30 Urine - Urine Quinn Urine Culture - Final NO GROWTH OBTAINED Active Medications Acetaminophen (Ofirmev Injection -) 1,000 mg IVPB Q6H PRN PRN Reason: FEVER Buprenorphine/Naloxone (Suboxone 8 Mg/2mg Sl Film -) 1 each SL BID SHRUTHI Last Admin: 02/06/19 21:37 Dose: 1 each Chlorhexidine Gluconate (Hibiclens For Decolonization -) 1 applic TP HS SHRUTHI Last Admin: 02/06/19 21:32 Dose: 1 applic Heparin Sodium (Porcine) (Heparin -) 5,000 unit SQ TID SHRUTHI Last Admin: 02/07/19 05:53 Dose: 5,000 unit Lactated Ringer's (Lactated Ringers Solution) 1,000 ml in 1,000 mls @ 100 mls/ hr IV ASDIR SHRUTHI Last Admin: 02/06/19 10:24 Dose: 100 mls/hr Metronidazole (Flagyl 500mg Premixed Ivpb -) 500 mg in 100 mls @ 100 mls/hr IVPB Q8H-IV SHRUTHI Last Admin: 02/07/19 01:13 Dose: 100 mls/hr Piperacillin Sod/Tazobactam (Sod 4.5 gm/ Sodium Chloride) 100 mls @ 200 mls/hr IVPB Q8H-IV SHRUTHI; Protocol Last Admin: 02/07/19 02:40 Dose: 200 mls/hr Doxycycline Hyclate 100 mg/ (Dextrose) 100 mls @ 50 mls/hr IVPB BID [facility] Last Admin: 02/06/19 21:31 Dose: 50 mls/hr Potassium Phosphate 15 mm/ (Sodium Chloride) 255 mls @ 62.5 mls/hr IVPB ONCE ONE Stop: 02/07/19 11:22 Insulin Aspart (Novolog Vial Sliding Scale -) 1 vial SQ ACHS [facility]; Protocol Last Admin: 02/07/19 06:03 Dose: 3 units Insulin Detemir (Levemir Vial) 10 units SQ DAILY@0700 [facility] Last Admin: 02/07/19 06:04 Dose: 10 units Mupirocin (Bactroban Ointment (For Decolonization) -) 1 applic NS BID [facility] Stop: 02/08/19 21:59 Last Admin: 02/06/19 21:32 Dose: 1 applic Pantoprazole Sodium (Protonix Iv) 40 mg IVPUSH DAILY [facility] Last Admin: 02/06/19 10:24 Dose: 40 mg Potassium Chloride (Potassium Chloride 20 Meq Premix Ivpb -) 20 meq IVPB Q60M [facility] Stop: 02/07/19 09:31 ct scan abd/pelvis noted a/p Biliary sepsis- gangrenous gallbladder- s/p lap choly persistent fevers overnight- ?developing abscess d/w surgery, d/w would suggest transfer to tertiary care center to hepatobiliary service continue zosyn/flagyl negative cultures continue doxycycline until tick serologies are back-had travelled to [place] early January leukopenia and thrombocytopenia slowly recovering-suspect secondary to sepsis, but covering for tick related illness as well hgb a1c- over 11, triglycerides over 1000 as outpt on 01/21/19 -labs reviewed cad- management per cardiology d/w at bedside d/w dr johnson d/w installation and service technician
--- NOTE | 2019-02-07 09:14 | PN ---
Progress Note, Physician Chief Complaint: abdominal pain History of Present Illness: 43 yo male PMH TX s/p stent on DAPT and lumbar disc disease s/p 2 operations, DM , HLD, prior opioid abuse on suboxone who presents to the emergency department with RUQ/flank and abdominal pain since 8:30AM.s/p ERCP with no clear source or ascending cholangitis. He has been stable in ICU since surgery. - Current Medication List Current Medications: Active Medications Acetaminophen (Ofirmev Injection -) 1,000 mg IVPB Q6H PRN PRN Reason: FEVER Buprenorphine/Naloxone (Suboxone 8 Mg/2mg Sl Film -) 1 each SL BID [facility] Last Admin: 02/06/19 21:37 Dose: 1 each Chlorhexidine Gluconate (Hibiclens For Decolonization -) 1 applic TP HS [facility] Last Admin: 02/06/19 21:32 Dose: 1 applic Heparin Sodium (Porcine) (Heparin -) 5,000 unit SQ TID [facility] Last Admin: 02/07/19 05:53 Dose: 5,000 unit Lactated Ringer's (Lactated Ringers Solution) 1,000 ml in 1,000 mls @ 100 mls/ hr IV ASDIR [facility] Last Admin: 02/06/19 10:24 Dose: 100 mls/hr Metronidazole (Flagyl 500mg Premixed Ivpb -) 500 mg in 100 mls @ 100 mls/hr IVPB Q8H-IV [facility] Last Admin: 02/07/19 01:13 Dose: 100 mls/hr Piperacillin Sod/Tazobactam (Sod 4.5 gm/ Sodium Chloride) 100 mls @ 200 mls/hr IVPB Q8H-IV [facility]; Protocol Last Admin: 02/07/19 02:40 Dose: 200 mls/hr Doxycycline Hyclate 100 mg/ (Dextrose) 100 mls @ 50 mls/hr IVPB BID [facility] Last Admin: 02/06/19 21:31 Dose: 50 mls/hr Potassium Phosphate 15 mm/ (Sodium Chloride) 255 mls @ 62.5 mls/hr IVPB ONCE ONE Stop: 02/07/19 11:22 Insulin Aspart (Novolog Vial Sliding Scale -) 1 vial SQ ACHS [facility]; Protocol Last Admin: 02/07/19 06:03 Dose: 3 units Insulin Detemir (Levemir Vial) 10 units SQ DAILY@0700 [facility] Last Admin: 02/07/19 06:04 Dose: 10 units Mupirocin (Bactroban Ointment (For Decolonization) -) 1 applic NS BID [facility] Stop: 02/08/19 21:59 Last Admin: 02/06/19 21:32 Dose: 1 applic Pantoprazole Sodium (Protonix Iv) 40 mg IVPUSH DAILY [facility] Last Admin: 02/06/19 10:24 Dose: 40 mg Potassium Chloride (Potassium Chloride 20 Meq Premix Ivpb -) 20 meq IVPB Q60M [facility] Stop: 02/07/19 09:31 - Objective Vital Signs: Vital Signs Temperature 97.9 F 02/07/19 08:00 Pulse Rate 89 02/07/19 08:00 Respiratory Rate 16 02/07/19 08:00 Blood Pressure 111/70 02/07/19 08:00 O2 Sat by Pulse Oximetry (%) 98 02/07/19 08:18 Constitutional: Yes: Well Nourished, No Distress, Calm Eyes: Yes: Conjunctiva Clear, EOM Intact HENT: Yes: Atraumatic, Normocephalic Neck: Yes: Supple, Trachea Midline Cardiovascular: Yes: Regular Rate and Rhythm, S1, S2 Respiratory: Yes: Regular, CTA Bilaterally Gastrointestinal: Yes: Normal Bowel Sounds, Soft, Tenderness, Other (drain RUQ) Edema: Yes Edema: LUE: 1+, RUE: 1+, LLE: 1+, RLE: 1+ Peripheral Pulses WNL: Yes Wound/Incision: Yes: Clean/Dry, Well Approximated, Open to air, Draining Neurological: Yes: Alert, Oriented Psychiatric: Yes: Alert, Oriented Labs: CBC, BMP 02/07/19 05:20 02/07/19 05:20 INR, PTT INR 1.13 (0.83-1.09) H 02/07/19 05:20 Fibrinogen > 500.0 mg/dL (238-498) H 02/07/19 05:20 Problem List - Problems (1) Acute gallstone pancreatitis Assessment/Plan: 43yo male MMP including obesity and HLD presents with bilary colic and mild gallstone pancreatitis, now ascending cholangitis? ERCP dis not have any clear obstruction, POD#3 s/p Laparoscopic partial necrosectomy for a gangreonous gallbladder. There is a large rement of the gall bladder which was remaining on the followup CT scan. he has been partial debrided and adequatly drained. Discussed with patients family possible completion cholecystectomy. He has a large bile leak but hepatobiliary stent is in place. ICU management Agree with transfer to [facility] Dr. Cartwright Hepatobilliary Advance diet as tolerated adequate analgesia trend labs IV antibiotics per ID restart plavix pain management keep drain to go home Trend labs This patient is critically ill. Time spent reviewing chart, examining patient, talking with providers and/or family and documentation is 45 minutes. Postoperative instructions: You had a laparoscopic ectomy on DATE by Dr. Blake Mckeon of [facility]. Activity: Resume your usual activities gradually, but no heavy exertion or lifting more than 10-15 pounds for 1 month. Remove dressings 48 hours after surgery; sticky tapes underneath will fall off by themselves. You may shower daily starting then, just pat the incision areas dry. No bath or swimming until skin incisions have healed. Eat lightly at first, but advance to your usual diet as tolerated. Pain: For pain, you may use and alternate Tylenol (acetaminophen) 1-2 pills and/ or ibuprofen 200 mg (1-3 pills) every 6 hours each as needed; this means that you can take one OR the other at 3-hour intervals. If you are prescribed a Tylenol/narcotic combination for severe pain, use it instead of plain Tylenol as needed and switch back when your pain starts decreasing. Do not take more than 4000mg of acetaminophen in a day. Take medications as prescribed or indicated on the labeling. Follow-up: Call Dr. Mckeon's office at [phone] to make your postop appointment (Sunday in approximately 2 weeks after surgery). Clinic is held in the Diagnostic Center on the first floor of [facility]. Call the office if you have: * increasing pain not responsive to pain medication * fever of 101F or higher * vomiting * unusual or increasing bleeding or drainage from wounds * increasing redness or swelling at wound sites * inability to urinate Also, see your primary medical doctor within 1-2 weeks. Problems reviewed: Yes Code(s): K85.10 - BILIARY ACUTE PANCREATITIS WITHOUT NECROSIS OR INFECTION (2) Cholelithiasis Problems reviewed: Yes Code(s): K80.20 - CALCULUS OF GALLBLADDER W/O CHOLECYSTITIS W/O OBSTRUCTION Qualifiers: Cholelithiasis location: other site Biliary obstruction: without biliary obstruction Qualified Code(s): K80.80 - Other cholelithiasis without obstruction (3) CAD (coronary artery disease) Code(s): I25.10 - ATHSCL HEART DISEASE OF [place] CORONARY ARTERY W/O ANG PCTRS Qualifiers: Coronary Disease-Associated Artery/Lesion type: [place] artery Associated angina: angina presence unspecified (4) DKA, type 2 Code(s): E13.10 - OTH DIABETES MELLITUS WITH KETOACIDOSIS WITHOUT COMA Qualifiers: Diabetes mellitus complication detail: without coma (5) Hyperlipemia Code(s): E78.5 - HYPERLIPIDEMIA, UNSPECIFIED Qualifiers: Hyperlipidemia type: unspecified Qualified Code(s): E78.5 - Hyperlipidemia , unspecified (6) Hypertension Code(s): I10 - ESSENTIAL (PRIMARY) HYPERTENSION Qualifiers: Hypertension type: essential hypertension Qualified Code(s): I10 - Essential (primary) hypertension (7) Obesity Code(s): E66.9 - OBESITY, UNSPECIFIED
[2019-02-07] MEDS: PANTOPRAZOLE SODIUM 40 MG VIAL IVPUSH SCH (09:16)
[2019-02-07] MEDS: BUPRENORPHINE/NALOXONE 8 MG/2 MG FILM PACKET SL SCH (09:17)
[2019-02-07] MEDS: LACTATED RINGERS SOLUTION 1,000 ML/1,000 ML INFUS.BAG IV SCH (09:37)
[2019-02-07] MEDS: MUPIROCIN 2% TOPICAL OINTMENT FOR DECOLONIZATION NS SCH (10:02)
[2019-02-07] MEDS: DOXYCYCLINE INJECTION 100 MG in DEXTROSE 5%-WATER 100 ML IVPB SCH (10:07)
--- NOTE | 2019-02-07 10:20 | PN ---
Teaching Attending Note Name of Resident: Jhon Armstrong ATTENDING PHYSICIAN STATEMENT I saw and evaluated the patient. I reviewed the resident's note and discussed the case with the resident. I agree with the resident's findings and plan as documented. SUBJECTIVE: Patient seen and examined in the ICU. Remains extubated, off pressors. Awake and alert. Abdominal pain: 6/10. Breathing feels stable. Discussion with ID, surgery, and the patient's . Arrangements have been made for transfer to [facility] to the service of Dr Duff. Intake & Output 02/04/19 02/05/19 02/06/19 02/07/19 23:59 23:59 23:59 23:59 Intake Total 6789 3354 3230 1550 Output Total 4150 1680 3060 1420 Balance 2639 1674 170 130 Weight 281 lb 12.012 oz 283 lb 6.4 oz 281 lb 14.4 oz Last Vital Signs Temp Pulse Resp BP Pulse Ox 97.9 F 89 16 111/70 98 02/07/19 08:00 02/07/19 08:00 02/07/19 08:00 02/07/19 08:00 02/07/19 08:18 Active Medications Acetaminophen (Ofirmev Injection -) 1,000 mg IVPB Q6H PRN PRN Reason: FEVER Buprenorphine/Naloxone (Suboxone 8 Mg/2mg Sl Film -) 1 each SL BID [facility] Last Admin: 02/07/19 09:17 Dose: 1 each Chlorhexidine Gluconate (Hibiclens For Decolonization -) 1 applic TP HS [facility] Last Admin: 02/06/19 21:32 Dose: 1 applic Heparin Sodium (Porcine) (Heparin -) 5,000 unit SQ TID [facility] Last Admin: 02/07/19 05:53 Dose: 5,000 unit Lactated Ringer's (Lactated Ringers Solution) 1,000 ml in 1,000 mls @ 100 mls/ hr IV ASDIR [facility] Last Admin: 02/07/19 09:37 Dose: 100 mls/hr Metronidazole (Flagyl 500mg Premixed Ivpb -) 500 mg in 100 mls @ 100 mls/hr IVPB Q8H-IV [facility] Last Admin: 02/07/19 09:56 Dose: 100 mls/hr Piperacillin Sod/Tazobactam (Sod 4.5 gm/ Sodium Chloride) 100 mls @ 200 mls/hr IVPB Q8H-IV [facility]; Protocol Last Admin: 02/07/19 09:10 Dose: 200 mls/hr Doxycycline Hyclate 100 mg/ (Dextrose) 100 mls @ 50 mls/hr IVPB BID [facility] Last Admin: 02/06/19 21:31 Dose: 50 mls/hr Potassium Phosphate 15 mm/ (Sodium Chloride) 255 mls @ 62.5 mls/hr IVPB ONCE ONE Stop: 02/07/19 11:22 Insulin Aspart (Novolog Vial Sliding Scale -) 1 vial SQ ACHS [facility]; Protocol Last Admin: 02/07/19 06:03 Dose: 3 units Insulin Detemir (Levemir Vial) 10 units SQ DAILY@0700 [facility] Last Admin: 02/07/19 06:04 Dose: 10 units Mupirocin (Bactroban Ointment (For Decolonization) -) 1 applic NS BID [facility] Stop: 02/08/19 21:59 Last Admin: 02/07/19 10:02 Dose: 1 applic Pantoprazole Sodium (Protonix Iv) 40 mg IVPUSH DAILY [facility] Last Admin: 02/07/19 09:16 Dose: 40 mg Gen: Awake and alert, mildly uncomfortable due to pain Heart: RRR Lung: decreased breath sounds at the bases Abd: soft, mild TTP, no rebound, +drain with bilious fluid Ext: trace edema [employer]: Non-focal Laboratory Results - last 24 hr 02/03/19 02/04/19 02/05/19 06:33 15:30 05:30 WBC RBC Hgb Hct MCV MCH MCHC RDW Plt Count MPV Absolute Neuts (auto) Neutrophils % Lymphocytes % Monocytes % Eosinophils % Basophils % Nucleated RBC % PT with INR INR PTT (Actin FS) Fibrinogen Sodium Potassium Chloride Carbon Dioxide Anion Gap BUN Creatinine Est GFR (CKD-EPI)AfAm Est GFR (CKD-EPI)NonAf POC Glucometer Random Glucose Calcium Phosphorus Magnesium Total Bilirubin AST ALT Alkaline Phosphatase Total Protein Albumin ANGELO Screen Negative Lyme Screen IgG & IgM <0.91 Blood Type AB POSITIVE Antibody Screen Negative Crossmatch See Detail 02/06/19 02/06/19 02/06/19 12:26 17:21 19:12 WBC RBC Hgb Hct MCV MCH MCHC RDW Plt Count MPV Absolute Neuts (auto) Neutrophils % Lymphocytes % Monocytes % Eosinophils % Basophils % Nucleated RBC % PT with INR INR PTT (Actin FS) Fibrinogen Sodium Potassium Chloride Carbon Dioxide Anion Gap BUN Creatinine Est GFR (CKD-EPI)AfAm Est GFR (CKD-EPI)NonAf POC Glucometer 189 190 227 Random Glucose Calcium Phosphorus Magnesium Total Bilirubin AST ALT Alkaline Phosphatase Total Protein Albumin ANGELO Screen Lyme Screen IgG & IgM Blood Type Antibody Screen Crossmatch 02/06/19 02/07/19 02/07/19 23:00 05:20 05:20 WBC 3.8 L RBC 3.61 L Hgb 11.3 L Hct 33.1 L MCV 91.8 MCH 31.2 MCHC 34.0 RDW 15.1 Plt Count 99 L MPV 8.9 Absolute Neuts (auto) 2.6 Neutrophils % 68.8 Lymphocytes % 16.0 D Monocytes % 13.4 H D Eosinophils % 1.4 Basophils % 0.4 Nucleated RBC % 0 PT with INR INR PTT (Actin FS) Fibrinogen Sodium 140 Potassium 3.0 L Chloride 101 Carbon Dioxide 33 H Anion Gap 6 L BUN 13.2 Creatinine 0.7 Est GFR (CKD-EPI)AfAm 135.86 Est GFR (CKD-EPI)NonAf 117.22 POC Glucometer 283 Random Glucose 209 H Calcium 7.2 L Phosphorus 2.0 L Magnesium 1.5 L Total Bilirubin 1.8 H AST 66 H ALT 104 H Alkaline Phosphatase 66 Total Protein 4.3 L Albumin 1.6 L ANGELO Screen Lyme Screen IgG & IgM Blood Type Antibody Screen Crossmatch 02/07/19 02/07/19 02/07/19 05:20 05:20 05:45 WBC RBC Hgb Hct MCV MCH MCHC RDW Plt Count MPV Absolute Neuts (auto) Neutrophils % Lymphocytes % Monocytes % Eosinophils % Basophils % Nucleated RBC % PT with INR 13.30 H INR 1.13 H PTT (Actin FS) 30.9 Fibrinogen > 500.0 H Sodium Potassium Chloride Carbon Dioxide Anion Gap BUN Creatinine Est GFR (CKD-EPI)AfAm Est GFR (CKD-EPI)NonAf POC Glucometer 191 Random Glucose Calcium Phosphorus Magnesium Total Bilirubin AST ALT Alkaline Phosphatase Total Protein Albumin ANGELO Screen Lyme Screen IgG & IgM Blood Type Antibody Screen Crossmatch ASSESSMENT AND PLAN: Acute Gangrenous Cholecystitis Choledocholithiasis Severe Sepsis with impending Shock Acute Kidney Injury Lactic Acidosis Coagulopathy/Thrombocytopenia Pancytopenia r/o DIC CAD DM Hyperlipidemia Opiate Dependence Suspect Obstructive Sleep Apnea - continue antibiotics per ID - monitor urine output, creatinine - O2 to keep SpO2 >90% - monitor CBC - pain control - incentive spirometry - DVT/GI prophylaxis - Will be transferred to the ICU at [facility] for possible further surgical management Dr Castro Critical care time spent in reviewing chart, evaluating patient and formulating plan - 36 minutes.
[2019-02-07 11:12] VITALS: BP 138/74; PULSE 96; TEMP 100.8
--- NOTE | 2019-02-07 11:14 | DS ---
Physical Exam: SUBJECTIVE: Patient seen and examined OBJECTIVE: Vital Signs Period Temp Pulse Resp BP Sys/Busby Pulse Ox Last 24 Hr 97.9 F-103.3 F 88-105 12-24 96-138/55-91 91-98 PHYSICAL EXAM GENERAL: The patient is awake, alert, and fully oriented, in no acute distress. HEAD: Normal with no signs of trauma. EYES: PERRL, extraocular movements intact, sclera anicteric, conjunctiva clear. ENT: Ears normal, nares patent, oropharynx clear without exudates, moist mucous membranes. NECK: Trachea midline, full range of motion, supple. LUNGS: Breath sounds equal, clear to auscultation bilaterally, no wheezes, no crackles, no accessory muscle use. HEART: Regular rate and rhythm, S1, S2 without murmur, rub or gallop. ABDOMEN: Soft, nontender, nondistended, normoactive bowel sounds, no guarding, no rebound, no hepatosplenomegaly, no masses. EXTREMITIES: 2+ pulses, warm, well-perfused, no edema. NEUROLOGICAL: Cranial nerves II through XII grossly intact. Normal speech, gait not observed. PSYCH: Normal mood, normal affect. SKIN: Warm, dry, normal turgor, no rashes or lesions noted. LABS Laboratory Results - last 24 hr 02/03/19 02/04/19 02/05/19 06:33 15:30 05:30 WBC RBC Hgb Hct MCV MCH MCHC RDW Plt Count MPV Absolute Neuts (auto) Neutrophils % Lymphocytes % Monocytes % Eosinophils % Basophils % Nucleated RBC % PT with INR INR PTT (Actin FS) Fibrinogen Sodium Potassium Chloride Carbon Dioxide Anion Gap BUN Creatinine Est GFR (CKD-EPI)AfAm Est GFR (CKD-EPI)NonAf POC Glucometer Random Glucose Calcium Phosphorus Magnesium Total Bilirubin AST ALT Alkaline Phosphatase Total Protein Albumin ANGELO Screen Negative Lyme Screen IgG & IgM <0.91 Blood Type AB POSITIVE Antibody Screen Negative Crossmatch See Detail 02/06/19 02/06/19 02/06/19 12:26 17:21 19:12 WBC RBC Hgb Hct MCV MCH MCHC RDW Plt Count MPV Absolute Neuts (auto) Neutrophils % Lymphocytes % Monocytes % Eosinophils % Basophils % Nucleated RBC % PT with INR INR PTT (Actin FS) Fibrinogen Sodium Potassium Chloride Carbon Dioxide Anion Gap BUN Creatinine Est GFR (CKD-EPI)AfAm Est GFR (CKD-EPI)NonAf POC Glucometer 189 190 227 Random Glucose Calcium Phosphorus Magnesium Total Bilirubin AST ALT Alkaline Phosphatase Total Protein Albumin ANGELO Screen Lyme Screen IgG & IgM Blood Type Antibody Screen Crossmatch 02/06/19 02/07/19 02/07/19 23:00 05:20 05:20 WBC 3.8 L RBC 3.61 L Hgb 11.3 L Hct 33.1 L MCV 91.8 MCH 31.2 MCHC 34.0 RDW 15.1 Plt Count 99 L MPV 8.9 Absolute Neuts (auto) 2.6 Neutrophils % 68.8 Lymphocytes % 16.0 D Monocytes % 13.4 H D Eosinophils % 1.4 Basophils % 0.4 Nucleated RBC % 0 PT with INR INR PTT (Actin FS) Fibrinogen Sodium 140 Potassium 3.0 L Chloride 101 Carbon Dioxide 33 H Anion Gap 6 L BUN 13.2 Creatinine 0.7 Est GFR (CKD-EPI)AfAm 135.86 Est GFR (CKD-EPI)NonAf 117.22 POC Glucometer 283 Random Glucose 209 H Calcium 7.2 L Phosphorus 2.0 L Magnesium 1.5 L Total Bilirubin 1.8 H AST 66 H ALT 104 H Alkaline Phosphatase 66 Total Protein 4.3 L Albumin 1.6 L ANGELO Screen Lyme Screen IgG & IgM Blood Type Antibody Screen Crossmatch 02/07/19 02/07/19 02/07/19 05:20 05:20 05:45 WBC RBC Hgb Hct MCV MCH MCHC RDW Plt Count MPV Absolute Neuts (auto) Neutrophils % Lymphocytes % Monocytes % Eosinophils % Basophils % Nucleated RBC % PT with INR 13.30 H INR 1.13 H PTT (Actin FS) 30.9 Fibrinogen > 500.0 H Sodium Potassium Chloride Carbon Dioxide Anion Gap BUN Creatinine Est GFR (CKD-EPI)AfAm Est GFR (CKD-EPI)NonAf POC Glucometer 191 Random Glucose Calcium Phosphorus Magnesium Total Bilirubin AST ALT Alkaline Phosphatase Total Protein Albumin ANGELO Screen Lyme Screen IgG & IgM Blood Type Antibody Screen Crossmatch HOSPITAL COURSE: Date of Admission:02/01/19 Date of Discharge: 02/07/19 Discharge Summary Problems reviewed: Yes Reason For Visit: PANCREATITIS,CHOLELITHIASIS Current Active Problems Cholelithiasis (Acute) Pancreatitis (Acute) Acute gallstone pancreatitis (Acute) Acute calculous cholecystitis (Acute) Acute gangrenous cholecystitis (Acute) Leukopenia (Acute) Elevated LFTs (Acute) Condition: Fair - Instructions Diet, Activity, Other Instructions: Postoperative instructions: You had a laparoscopic Cholecystectomy on [address] Igor Sparks of [facility]. Activity: Resume your usual activities gradually, but no heavy exertion or lifting more than 10-15 pounds for 1 month. Remove dressings 48 hours after surgery; sticky tapes underneath will fall off by themselves. You may shower daily starting then, just pat the incision areas dry. No bath or swimming until skin incisions have healed. Eat lightly at first, but advance to your usual diet as tolerated. Pain: For pain, you may use and alternate Tylenol (acetaminophen) 1-2 pills and/ or ibuprofen 200 mg (1-3 pills) every 6 hours each as needed; this means that you can take one OR the other at 3-hour intervals. If you are prescribed a Tylenol/narcotic combination for severe pain, use it instead of plain Tylenol as needed and switch back when your pain starts decreasing. Do not take more than 4000mg of acetaminophen in a day. Take medications as prescribed or indicated on the labeling. Follow-up: Call Dr. Sparks' office at [phone] to make your postop appointment (Sunday in approximately 2 weeks after surgery). Clinic is held in the Diagnostic Center on the first floor of [facility]. Call the office if you have: * increasing pain not responsive to pain medication * fever of 101F or higher * vomiting * unusual or increasing bleeding or drainage from wounds * increasing redness or swelling at wound sites * inability to urinate Also, see your primary medical doctor within 1-2 weeks. Referrals: Girma Hammond MD [Staff Physician] - Marion Oquendo DPM [Staff Physician] - Disposition: HOME - Home Medications Comprehensive Discharge Medication List: Ambulatory Orders Atorvastatin Ca [Lipitor] 20 mg PO HS 06/10/13 Clopidogrel Bisulfate [Plavix -] 75 mg PO DAILY 06/10/13 Metoprolol Succinate [Toprol XL -] 25 mg PO DAILY 02/10/14 Insulin Sliding Scale [Novolog Vial Sliding Scale -] 1 units SQ ACHS #1 pen 07/23 Buprenorphine HCl/Naloxone HCl [Suboxone 8 mg-2 mg Sl Tablets] 1 each SL TID PRN 09/03/18 Insulin Detemir [Levemir Flextouch] 20 unit SQ DAILY 09/03/18 Bupropion HCl [Wellbutrin Xl] 300 mg PO DAILY 02/01/19 - Discharge Referral Referred to [facility] No ATTENDING PHYSICIAN STATEMENT I saw and evaluated the patient. I reviewed the resident's note and discussed the case with the resident. I agree with the resident's findings and plan as documented. SUBJECTIVE: OBJECTIVE: ASSESSMENT AND PLAN:
== END 2019-02-07 11:33 | disposition short-term general hospital (02) | DRG 417 ==
LOC: JER 11:19 → JERBED 15:10 → J5S 18:17 → JICU 02-03 16:10
PROVIDERS: ADMIT Internal Medicine; ATTEND Internal Medicine
PROC: 0FT44ZZ Resection of Gallbladder, Percutaneous Endoscopic Approach (ICD-10-PCS; 2019-02-03)
PROC: B513ZZA Fluoroscopy of Right Jugular Veins, Guidance (ICD-10-PCS; 2019-02-03)
PROC: 0BH17EZ Insertion of Endotracheal Airway into Trachea, Via Natural or Artificial Opening (ICD-10-PCS; 2019-02-03)
PROC: 5A1945Z Respiratory Ventilation, 24-96 Consecutive Hours (ICD-10-PCS; 2019-02-03)
PROC: 0F798DZ Dilation of Common Bile Duct with Intraluminal Device, Via Natural or Artificial Opening Endoscopic (ICD-10-PCS; 2019-02-03)
PROC: 30233K1 Transfusion of Nonautologous Frozen Plasma into Peripheral Vein, Percutaneous Approach (ICD-10-PCS; 2019-02-03)
PROC: 05HM33Z Insertion of Infusion Device into Right Internal Jugular Vein, Percutaneous Approach (ICD-10-PCS; principal; 2019-02-03 21:42)
DX: K80.00 Calculus of gallbladder with acute cholecystitis without obstruction (principal); E13.10 Other specified diabetes mellitus with ketoacidosis without coma; K85.10 Biliary acute pancreatitis without necrosis or infection; G93.41 Metabolic encephalopathy; J96.01 Acute respiratory failure with hypoxia; A41.89 Other specified sepsis; R65.21 Severe sepsis with septic shock; N17.9 Acute kidney failure, unspecified; F11.20 Opioid dependence, uncomplicated; E87.2 Acidosis; D68.9 Coagulation defect, unspecified; R17 Unspecified jaundice; K83.09 Other cholangitis; E78.5 Hyperlipidemia, unspecified; I25.2 Old myocardial infarction; I25.10 Atherosclerotic heart disease of native coronary artery without angina pectoris; E66.9 Obesity, unspecified; Z68.33 Body mass index [BMI] 33.0-33.9, adult; E11.65 Type 2 diabetes mellitus with hyperglycemia; Z95.5 Presence of coronary angioplasty implant and graft; F17.210 Nicotine dependence, cigarettes, uncomplicated; D69.6 Thrombocytopenia, unspecified; R55 Syncope and collapse; R50.9 Fever, unspecified; I95.9 Hypotension, unspecified; N28.1 Cyst of kidney, acquired; R00.0 Tachycardia, unspecified; G47.33 Obstructive sleep apnea (adult) (pediatric); K82.A1 Gangrene of gallbladder in cholecystitis; R94.5 Abnormal results of liver function studies; D72.819 Decreased white blood cell count, unspecified
CPT/HCPCS: 31500; 36415; 36430; 36511; 36600; 70450-TC; 71045-TC-FY; 74175-TC; 74176-TC; 74181-TC; 76000-TC-FY; 76705-TC; 76775; 80048; 80053; 80061; 81003; 82010; 82140; 82150; 82248; 82550; 82553; 82565; 82803; 82930; 82962; 82977; 83605; 83690; 83721; 83735; 84100; 84300; 84484; 84540; 85025; 85027; 85362; 85379; 85384; 85610; 85651; 85730; 86038; 86140; 86593; 86618; 86704; 86706; 86707; 86708; 86709; 86803; 86850; 86900; 86901; 86922; 87040; 87086; 87207; 87340; 87389; 88304-TC; 93005; 93010; 93306-TC; 94002; 99284-25; G0480; J0131; J1644; J7030; P9017; P9034; P9038; P9058

== ENCOUNTER 2020-02-25 17:03 | Emergency (ER) | payer OTHER ==
[2020-02-25] MEDS ORDERED: KETOROLAC TROMETHAMINE 30 MG/1 ML VIAL IVPUSH ONE ×2 (17:23→21:39)
[2020-02-25 17:41] VITALS: BP 128/89; PULSE 78; TEMP 98.6; BMI 32.0
[2020-02-25] MEDS ORDERED: KETOROLAC TROMETHAMINE 30 MG/1 ML VIAL ONE ×2 (17:46→21:39)
[2020-02-25 18:00] LABS: BASO % 0.8 % (0-2.0); EOS % 0.9 % (0-4.5); HEMATOCRIT 47.3 % (35.4-49); HEMOGLOBIN 15.8 GM/dl (11.7-16.9); LYMPH % 34.3 % (8-40); MCH 32.4 pg (25.7-33.7); MCHC 33.4 g/dl (32.0-35.9); MEAN PLT VOLUME 8.1 fl (7.5-11.1); MONO % 8.2 % (3.8-10.2); NEUT % 55.8 % (42.8-82.8); PLATELET COUNT 130 K/MM3 (134-434); RBC 4.87 M/mm3 (4.00-5.60); RDW 12.9 % (11.9-15.9); WHITE BLOOD COUNT 5.4 K/mm3 (4.0-10.8)
[2020-02-25 18:13] LABS: ALBUMIN 4.2 g/dl (3.4-5.0); BILIRUBIN,TOTAL 0.4 mg/dl (0.2-1); CALCIUM 9.1 mg/dl (8.5-10); POTASSIUM 4.2 mmol/L (3.5-5.1); TOT PROT 6.6 g/dl (6.4-8.2)
== END 2020-02-25 21:49 | disposition home or self-care (01) ==
LOC: FER 17:03
PROC: 3E0333Z Introduction of Anti-inflammatory into Peripheral Vein, Percutaneous Approach (ICD-10-PCS; principal; 2020-02-25)
PROC: 3E0333Z Introduction of Anti-inflammatory into Peripheral Vein, Percutaneous Approach (ICD-10-PCS; 2020-02-25)
DX: R10.9 Unspecified abdominal pain (principal)
CPT/HCPCS: 36415; 74177-TC; 80053; 81003; 83690; 85025; 99285-25; C9803; Q9967; U0003

== ENCOUNTER 2021-01-31 18:25 | Emergency (ER) | payer OTHER, SELFPAY ==
[2021-01-31 18:35] VITALS: BP 122/74; PULSE 60; TEMP 98.6; BMI 32.0
[2021-01-31 20:01] LABS: HEMATOCRIT 42.4 % (35.4-49); HEMOGLOBIN 14.1 GM/dl (11.7-16.9); MCH 32.6 pg (25.7-33.7); MCHC 33.2 g/dl (32.0-35.9); MEAN CELL VOLUME 98.4 fl (80-96); MEAN PLT VOLUME 8.7 fl (7.5-11.1); PLATELET COUNT 155 10^3/uL (134-434); RBC 4.31 M/mm3 (4.00-5.60); RDW 12.5 % (11.9-15.9); WHITE BLOOD COUNT 6.7 K/mm3 (4.0-10.8)
[2021-01-31 20:10] LABS: INR 1.07 (0.82-1.09); PROTHROMBIN TIME (PATIENT) 11.9 SEC (10.2-13.0)
[2021-01-31 20:23] LABS: ALBUMIN 3.7 g/dl (3.4-5.0); ALK PHOS 65 U/L (45-117); ANION GAP 7 MMOL/L (8-16); BILIRUBIN,TOTAL 0.6 mg/dl (0.2-1); CALCIUM 8.9 mg/dl (8.5-10); CHLORIDE 101 mmol/L (98-107); CO2 27 mmol/L (21-32); CREATININE 0.9 mg/dl (0.55-1.3); GLUCOSE,RANDOM 166 mg/dl (74-106); SGOT/AST 29 U/L (15-37); SGPT/ALT 41 U/L (13-61); SODIUM 135 mmol/L (136-145); TOT PROT 6.3 g/dl (6.4-8.2)
[2021-01-31] MEDS ORDERED: ACETAMINOPHEN 1000 MG/100 ML VIAL IVPB ONE (20:25)
[2021-01-31] MEDS ORDERED: ACETAMINOPHEN INJECTION 100 ML IVPB ONE (20:26)
[2021-01-31 20:45] LABS: PLATELET ESTIMATE ADEQUATE
[2021-01-31] MEDS ORDERED: SODIUM CHLORIDE 1,000 ML IV STA (21:41)
[2021-01-31] MEDS ORDERED: AMOX TR/POT CLAV 875MG/125MG TABLETS (FP) PO ONE (23:53)
[2021-01-31] MEDS ORDERED: AMOX TR/POT CLAV 875MG/125MG TABLETS (FP) ONE (23:56)
== END 2021-02-01 00:05 | disposition home or self-care (01) ==
LOC: FER 18:25
PROC: 3E0333Z Introduction of Anti-inflammatory into Peripheral Vein, Percutaneous Approach (ICD-10-PCS; principal; 2021-01-31)
PROC: 3E0337Z Introduction of Electrolytic and Water Balance Substance into Peripheral Vein, Percutaneous Approach (ICD-10-PCS; 2021-01-31)
DX: J20.9 Acute bronchitis, unspecified (principal)
CPT/HCPCS: 36415; 71045-TC-FY; 71260-TC; 80053; 82550; 82553; 84484; 85025; 85379; 85610; 93005; 99285-25; J0131; Q9967

== ENCOUNTER 2021-12-19 17:32 | Emergency (ER) | payer OTHER ==
[2021-12-19 17:50] VITALS: BP 138/84; PULSE 76; RESP 16; TEMP 98; BMI 32.0
== END 2021-12-19 19:12 | disposition home or self-care (01) ==
LOC: FER 17:32
DX: S46.911A Strain of unspecified muscle, fascia and tendon at shoulder and upper arm level, right arm, initial encounter (principal); X50.0XXA Overexertion from strenuous movement or load, initial encounter
CPT/HCPCS: 73030-TC-RT-FY; 93005; 99284-25